=== PATIENT | female | born 1965 | race Caucasian/White ===

== ENCOUNTER → 2023-04-30 | Emergency (ER) | payer BC, OTHER ==
[~2023-04-30] MED LIST: AZITHROMYCIN 250 MG TAB ONE; CEFTRIAXONE 1000 MG/VIAL ONE; WATER FOR INJ,STERILE 10 ML ONE
--- OUTSIDE RECORDS SUMMARY | 2023-04-30 23:26 | XMS REPORT | Continuity of Care Document ---
Author Name Unknown Address [address] [facility] [address] [id number] [facility] Address [address] [id number] [address] [place] [address] Care Team Providers Care Newsroom Intern Name Role Phone SUNI BARTON Attending Clinician Unavailable Encounters Start Date/Time End Date/Time Encounter Type Admission Type Attending Clinicians Care Facility Care Department Encounter ID Source 2023-05-05 11:00:00 2023-05-05 11:00:00 Outpatient SUNI BARTON [id number] [place]
--- NOTE | 2023-05-01 00:56 | EDPHYS ---
Physician Documentation [facility] Name: Allison Raymundo Age: 57 yrs Sex: Female : 1965 Arrival Date: 04/30/2023 Time: 23:21 Bed 12 Private MD: ED Physician John Doshi HPI: 04/30 23:45 This 57 yrs old Female presents to ER via Unassigned with complaints of Sore Throat, kb Cough, Difficulty Swallowing. 23:45 Pt is a 57 year old female who presents for cough and sore throat that started this kb morning. Denies fever, chills, bodyaches. Historical: - Allergies: 23:45 Codeine; cm10 - Home Meds: 23:47 diltiazem HCl 120 mg Oral Tablet, Extended Release 24 hr every morning [Active]; cm10 atorvastatin 40 mg oral tablet every day at bedtime [Active]; montelukast 10 mg oral tablet [Active]; - PMHx: 23:45 Palpitations; Asthma; Hypertensive disorder; Hypercholesterolemia; cm10 - Immunization history:: Adult Immunizations up to date. - Social history:: Smoking status: Patient denies any tobacco usage or history of. ROS: 23:45 Constitutional: Negative for fever, chills, and weight loss, kb 23:45 ENT: Positive for sore throat, 23:45 Respiratory: Positive for cough, 23:45 All other systems are negative, Exam: 23:45 Constitutional: This is a well developed, well nourished patient who is awake, alert, kb and in no acute distress. Head/Face: Normocephalic, atraumatic. ENT: Moist Mucous membranes Cardiovascular: Regular rate Respiratory: Respirations even and unlabored. No increased work of breathing. Talking in full sentences Skin: Warm, dry with normal turgor. Normal color. MS/ Extremity: Pulses equal, no cyanosis. Neurovascular intact. Full, normal range of motion. Neuro: Awake and alert, GCS 15, oriented to person, place, time, and situation. Moves all extremities. Normal gait. 05/01 00:57 Musculoskeletal/extremity: DVT Exam: No signs of deep vein thrombosis. no pain, no taya swelling, no tenderness, negative Homans' sign noted on exam, no appreciated bluish discoloration, no erythema, no increased warmth, Vital Signs: 04/30 23:44 BP 114 / 64; Pulse 85; Resp 16; Temp 97.8(TE); Pulse Ox 94% on R/A; Weight 117.93 kg; cm10 Height 5 ft. 7 in. ; Pain /; 05/01 01:23 BP 123 / 71; Pulse 70; Resp 16; Pulse Ox 95% on R/A; jb4 04/30 23:44 Body Mass Index 40.72 (117.93 kg, 170.18 cm) cm10 04/30 23:44 Pain Scale: Adult cm10 MDM: 04/30 23:35 Patient medically screened. kb 23:46 Differential diagnosis: strep, flu, covid, pharyngitis, laryngitis. Data reviewed: kb vital signs, nurses notes. 05/01 00:55 Transition of care: After a detail discussion of the patient's case, care is kb transferred to John Doshi MD. 04/30 23:45 Order name: Strep; Complete Time: 01:12 kb 05/01 00:11 Order name: COVID-19/FLU A+B; Complete Time: 01:12 EDMS 05/01 00:54 Order name: Throat Culture EDMS Administered Medications: 01:18 Drug: AZITHromycin PO 500 mg PO once Route: PO; jb4 01:18 Drug: Rocephin (cefTRIAXone) IM 1 grams IM once Route: IM; Site: left gluteus; jb4 Disposition: 00:57 Co-signature as Attending Physician, John Doshi MD I agree with the assessment and [facility] plan of care. Disposition Summary: 05/01/23 00:56 Discharge Ordered Notes: Location: Home taya Condition: Stable taya Diagnosis - Acute pharyngitis, unspecified taya Followup: kb - With: Emergency Department - When: As needed - Reason: Worsening of condition Followup: kb - With: Private Physician - When: 2 - 3 days - Reason: Recheck today's complaints, Continuance of care, Re-evaluation by your physician Discharge Instructions: - Discharge Summary Sheet kb - Pharyngitis, [id number] kb - Sore Throat taya Forms: - Medication Reconciliation Form taya - Thank You Letter taya - Antibiotic Education taya - Prescription Opioid Use taya - Patient Portal Instructions taya - Leadership Thank You Letter [facility] Prescriptions: - Tessalon Perles 100 mg Oral capsule - take 2 capsule ORAL route every 8 hours As needed; 30 capsule; Refills: 0, taya Product Selection Permitted - Medrol (Kiet) 4 mg Oral Tablets, Dose Pack - take 1 tablet ORAL route as directed - follow package instructions; 1 packet; [facility] Refills: 0, Product Selection Permitted - Zithromax 500 mg Oral Tablet - take 1 tablet ORAL route once daily for 5 days; 5 tablet; Refills: 0, Product taya Selection Permitted Signatures: Dispatcher [employer] EDMarialuisa Mulligan FNP-C FNP-John Washburn MD MD cha Bryson, James, RN RN jb4 Leila Dash RN RN cm10 Corrections: (The following items were deleted from the chart) 00:04/30 23:46 Influenza Screen (A \T\ B)+BA.LAB.BRZ ordered. EDMS EDMS 05/01 00:11 04/30 23:46 SARS-COV-2 RT PCR+MOL.LAB.BRZ ordered. EDMS EDMS
--- NOTE | 2023-05-01 00:56 | ER ---
Nurse's Notes [facility] Name: Allison Raymundo Age: 57 yrs Sex: Female : 1965 Arrival Date: 04/30/2023 Time: 23:21 Bed 12 Private MD: Diagnosis: Acute pharyngitis, unspecified Presentation: 04/30 23:44 Chief complaint: Patient states: Cough and sore throat onset today. Pt denies any cm10 fevers. Coronavirus screen: Vaccine status: Patient reports receiving the 2nd dose of the covid vaccine. Client denies travel out of the [place] in the last 14 days. Ebola Screen: Patient denies travel to an Ebola-affected area in the 21 days before illness onset. No symptoms or risks identified at this time. Initial Sepsis Screen: Does the patient meet any 2 criteria? No. Patient's initial sepsis screen is negative. Does the patient have a suspected source of infection? No. Patient's initial sepsis screen is negative. Risk Assessment: Do you want to hurt yourself or someone else? Patient reports no desire to harm self or others. Onset of symptoms was April 30, 2023. 23:44 Method Of Arrival: Ambulatory cm10 23:44 Acuity: VIKAS 4 cm10 Triage Assessment: 23:46 General: Appears in no apparent distress. comfortable, Behavior is calm, cooperative. cm10 Pain: Complains of pain in Throat. EENT: Reports pain in Throat. Neuro: No deficits noted. [place] Agitation-Sedation Scale (RASS): 0 - Alert and Calm Level of Consciousness is awake, alert, obeys commands, Oriented to person, place, time, situation. Cardiovascular: No deficits noted. Patient's skin is warm and dry. Respiratory: No deficits noted. Airway is patent Respiratory effort is even, unlabored, Respiratory pattern is regular, symmetrical. GI: No deficits noted. No signs and/or symptoms were reported involving the gastrointestinal system. : No deficits noted. No signs and/or symptoms were reported regarding the genitourinary system. Derm: No deficits noted. No signs and/or symptoms reported regarding the dermatologic system. Skin is intact, Skin is pink, warm \T\ dry. Musculoskeletal: No deficits noted. Range of motion: intact in all extremities. Historical: - Allergies: 23:45 Codeine; cm10 - Home Meds: 23:47 diltiazem HCl 120 mg Oral Tablet, Extended Release 24 hr every morning [Active]; cm10 atorvastatin 40 mg oral tablet every day at bedtime [Active]; montelukast 10 mg oral tablet [Active]; - PMHx: 23:45 Palpitations; Asthma; Hypertensive disorder; Hypercholesterolemia; cm10 - Immunization history:: Adult Immunizations up to date. - Social history:: Smoking status: Patient denies any tobacco usage or history of. Screenin/08 01:34 [facility] ED Fall Risk Assessment (Adult) History of falling in the last 3 months, jb4 including since admission No falls in past 3 months (0 pts) Confusion or Disorientation No (0 pts) Score/Fall Risk Level 0 - 2 = Low Risk Oriented to surroundings, Maintained a safe environment. Abuse screen: Denies threats or abuse. Nutritional screening: No deficits noted. Tuberculosis screening: No symptoms or risk factors identified. Assessment: 01:22 Reassessment: Patient appears in no apparent distress at this time. Patient and/or jb4 family updated on plan of care and expected duration. Pain level reassessed. Patient is alert, oriented x 3, equal unlabored respirations, skin warm/dry/pink. D/c waiting shot time. Vital Signs: 04/30 23:44 BP 114 / 64; Pulse 85; Resp 16; Temp 97.8(TE); Pulse Ox 94% on R/A; Weight 117.93 kg; cm10 Height 5 ft. 7 in. ; Pain /10; 05/01 01:23 BP 123 / 71; Pulse 70; Resp 16; Pulse Ox 95% on R/A; jb4 04/30 23:44 Body Mass Index 40.72 (117.93 kg, 170.18 cm) cm10 04/30 23:44 Pain Scale: Adult cm10 ED Course: 04/30 23:32 Patient arrived in ED. gm2 23:35 Marialuisa Rodriguez FNP-C is PHCP. kb 23:35 John Doshi MD is Attending Physician. kb 23:45 Triage completed. cm10 23:46 Arm band placed on Patient placed in waiting room. cm10 23:52 Strep Sent. cm10 05/01 01:34 Patient has correct armband on for positive identification. Bed in low position. Call jb4 light in reach. Side rails up X 1. 01:34 No provider procedures requiring assistance completed. Patient did not have IV access jb4 during this emergency room visit. Administered Medications: 01:18 Drug: AZITHromycin PO 500 mg PO once Route: PO; jb4 01:18 Drug: Rocephin (cefTRIAXone) IM 1 grams IM once Route: IM; Site: left gluteus; jb4 Outcome: 00:56 Discharge ordered by . taya 01:34 Discharged to home ambulatory, jb4 01:34 Condition: stable 01:34 Discharge instructions given to patient, Instructed on discharge instructions, follow up and referral plans. medication usage, Demonstrated understanding of instructions, follow-up care, medications, Prescriptions given X 3, 01:36 Patient left the ED. jb4 Signatures: Marialuisa Rodriguez, MENSWEAR SALESPERSON-C MENSWEAR SALESPERSON-Ckb John Doshi MD MD cha Bryson, James, RN RN jb4 Leila Dash RN RN cm10 Alexandra Díaz 2 Corrections: (The following items were deleted from the chart) 00:11 04/30 23:52 SARS-COV-2 RT PCR+MOL.LAB.BRZ drawn and sent. cm10 EDMS 05/01 00:11 04/30 23:52 Influenza Screen (A \T\ B)+BA.LAB.BRZ drawn and sent. 10 EDMS
[2023-05-01 01:12] LABS: SARS-COV-2 RT PCR NEGATIVE (NEGATIVE)
[2023-05-01 03:52] VITALS: BP 123/71; TEMP 97.8; O2SAT 95
== END ==
LOC: ER 23:21
DX: J02.9 Acute pharyngitis, unspecified (principal); R05.9 Cough, unspecified; Z11.52 Encounter for screening for COVID-19; I10 Essential (primary) hypertension; Z88.5 Allergy status to narcotic agent
CPT/HCPCS: 87070; 87081; 0240U; 96372; 99284

== ENCOUNTER 2023-05-07 23:59 | Emergency (ER) | payer OTHER ==
--- OUTSIDE RECORDS SUMMARY | 2023-05-08 00:17 | XMS REPORT | Continuity of Care Document ---
Author Name Unknown Address [address] [facility] [address] [place] [address] [facility] thconnect Address [address] [address] [address] [place] [address] Care Team Providers Care Reject Opener And Filler Name Role Phone MEGA FERNANDEZ Primary Care Physician Unavailab LILIANA Delacruz Attending Clinician Unavailable LENI FLORES Attending Clinician Unavailable FEDE LAWS Attending Clinician Unavailable LAB47 Attending Clinician Unavailable SUNI BARTON Attending Clinician Unavailable RADHA JOY Attending Clinician UnavailRADHA Weber Attending Clinician UnavailUmm Mcnulty PTA Attending Clinician Unav Radha Kumar MD Attending Clinician [phone] Fede Laws MD Attending Clinician [phone] Nidia Weathers PT Attending Clinician UnavailMega Mustafa Attending Clinician [phone] Leni Flores MD Attending Clinician [phone] Liliana Morales MD Attending Clinician [phone] CLARISA RIVERO Attending Clinician Unavailable Clarisa Rivero MD Attending Clinician [phone] Doctor Unassigned, [place] Attending Clinician U Evelia Plaza PTA Attending Clinician Unavail able Crissy Nguyen PTA Attending Clinician Unavail able Maylin Navarro PT Attending Clinician Un available Dillon Garza MD Attending Clinician [phone]- [phone] MEGA FERNANDEZ Attending Clinician Unavailable FABIOLA PERKINS Attending Clinician Unavaila FABIOLA Quintanilla Attending Clinician Unavaila ble Lavon Vásquez DO Attending Clinician [phone] LAVON VÁSQUEZ Attending Clinician Unavailable LAVON VÁSQUEZ Attending Clinician Unavailable Orthopedic Surgery, Orthopedic Attending Clinici an Unavailable DENNIS QUINN Attending Clinician Unavailable Dennis Salgado Attending Clinician [phone] Leonard Edmonds MD Attending Clinician + [phone] Lab, Ang - Db Attending Clinician Unavailable LEONARD EDMONDS Attending Clinician Unavaila clarice NurseClifton Attending Clinician Unavailable Only, Adc Test Attending Clinician Unavailable Olaf Tolentino MD Attending Clinician [phone] BELINDA SCOTT Attending Clinician Unavailable ELY KUMAR Attending Clinician Unavail able ELY KUMAR Attending Clinician Unavail able ASIYA SANDOVAL Attending Clinician Unavaila ble ABU-SHARIFEH, TAREQ Attending Clinician Unavaila ble ABU-SHARIFEH, TAREQ Attending Clinician Unavaila ble LILIANA MORALES Admitting Clinician Unavailable DENNIS QUINN Admitting Clinician Unavailable ELIZABETH GOLDBERG Admitting Clinician Unavailable ABU-SHARIFEH, TAREQ Admitting Clinician Unavaila ble Payers Payer Name Policy Type Policy Number Effective Date Expirati on Date Source HIM BCBS BLUE ADVANTAGE O [id number] 2018 00:00:00 [employer] [facility] [employer] 5 O [employer] 94 ON 9 [id number] 2023 00:00:00 Problems Condition Name Condition Details Condition Category Status Onset Date Resolution Date Last Treatment Date Treating Clinician Comments Source Allergic conjunctiv itis of both eyes Allergic conjunctiv itis of both eyes Disease Active 08-08 00:00: 00 [facility] Rotator cuff disorder, left Rotator cuff disorder, left Disease Active 17 00:00: 00 [facility] Acute pain of left shoulder Acute pain of left shoulder Disease Active 2-20 00:00: 00 [facility] Acute pain of left shoulder Acute pain of left shoulder Disease Active 2-20 00:00: 00 [facility] Hospital discharge follow-up Hospital discharge follow-up Disease Active 1-10 00:00: 00 [facility] Mild persistent asthma without complicati on Mild persistent asthma without complicati on Disease Active 1-10 00:00: 00 [facility] Breast cancer screening by mammogram Breast cancer screening by mammogram Disease Active 1-10 00:00: 00 [facility] Post-menop ausal Post-menop ausal Disease Active 6-22 00:00: 00 [facility] Hot flashes Hot flashes Disease Active 6- 00:00: 00 [facility] Vertigo Vertigo Disease Active 2019-04 0-17 00:00: 00 [facility] PAF (paroxysma l atrial fibrillati on) (multi HCC) PAF (paroxysma l atrial fibrillati on) (multi HCC) Disease Active 2019-04 0-17 00:00: 00 Mary Seybold - Externa l Morbid obesity with body mass index of 40.0-49.9 Morbid obesity with body mass index of 40.0-49.9 Disease Active 9-24 00:00: 00 [facility] BERKLEY (obstructi ve sleep apnea) BERKLEY (obstructi ve sleep apnea) Disease Active 3-22 00:00: 00 Mary Seybold - Externa l Syncope Syncope Disease Active 3-14 00:00: 00 [facility] Nonobstruc tive atheroscle rosis of coronary artery Nonobstruc tive atheroscle rosis of coronary artery Disease Active 0 2-26 00:00: 00 [facility] Near syncope Near syncope Disease Active 0 2-13 00:00: 00 [facility] Pain of both shoulder joints Pain of both shoulder joints Disease Active 0 7-24 00:00: 00 [facility] Myofascial pain Myofascial pain Disease Active 7-24 00:00: 00 [facility] Chest pain Chest pain Disease Active 608 00:00: 00 [facility] Elevated troponin Elevated troponin Disease Active 6 00:00: 00 [facility] Elevated troponin Elevated troponin Disease Active 09-28 00:00: 00 [facility] Hypoxia Hypoxia Disease Active 05-03 00:00: 00 [facility] Arthritis, lumbar spine Arthritis, lumbar spine Disease Active 07-17 00:00: 00 [facility] HPFH (hereditar y persistenc e of hemoglobin ) HPFH (hereditar y persistenc e of hemoglobin ) Disease Active 09-09 00:00: 00 [facility] Anemia Anemia Disease Active 08-30 00:00: 00 [facility] Abnormal thyroid function test Abnormal thyroid function test Disease Active 08-30 00:00: 00 [facility] Vitamin D deficiency Vitamin D deficiency Disease Active 08-30 00:00: 00 [facility] Obesity (BMI 30-39.9) Obesity (BMI 30-39.9) Disease Active 07-02 00:00: 00 [facility] Allergic rhinitis, unspecifie d allergic rhinitis trigger, unspecifie d rhinitis seasonalit y Allergic rhinitis, unspecifie d allergic rhinitis trigger, unspecifie d rhinitis seasonalit y Disease Active 05-22 00:00: 00 [facility] Uncomplica kristie asthma, unspecifie d asthma severity Uncomplica kristie asthma, unspecifie d asthma severity Disease Active 05-22 00:00: 00 [facility] Restless legs syndrome (RLS) Restless legs syndrome (RLS) Disease Active 05-22 00:00: 00 [facility] Prediabete s Prediabete s Disease Active 05-22 00:00: 00 [facility] Uncomplica kristie asthma (HHS-HCC) Uncomplica kristie asthma (HHS-HCC) Disease Active 05-22 00:00: 00 [facility] Essential hypertensi on Essential hypertensi on Disease Active 05-19 00:00: 00 [facility] Dyslipidem ia Dyslipidem ia Disease Active 05-19 00:00: 00 [facility] Allergies, Adverse Reactions, Alerts Allergy Name Allergy Type Status Severity Reaction(s) Onset Date Inactive Date Treating Clinician Comments Source Codeine Propensi ty to adverse reaction s Active Hives 10-05 00:00: 00 [facility] CODEINE DRUG INGREDI Active Low Hives 10-05 00:00: 00 [facility] Codeine Propensi ty to adverse reaction s Active Shortness of Breath 10-05 00:00: 00 Mary gan Social History Social Habit Start Date Stop Date Quantity Comments Source Gender identity [facility] Sexual orientation K mike Hampton - External History of Social function 2023-05-05 00:00:00 2023-05-05 00:00:00 Mary Hampton - External Tobacco use and exposure 2023-05-05 00:00:00 2023-05-05 00:00:00 Smokeless tobacco non-user Mary Hampton - External Alcohol intake 2023-05-05 00:00:00 2023-05-05 00:00:00 Lifetime non-drinker (finding) Mary Hampton - External Exposure to SARS-CoV-2 (event) 2022-09-22 00:00:00 2022-10-02 23:25:00 Not sure [facility] Tobacco Comment 2022-01-25 00:00:00 2022-01-25 00:00:00 Approx. 3 pouches/day/ has not smoked in 21 years [facility] History SDOH Financial 2019-07-06 00:00:00 2019-07-06 00:00:00 5 [facility] History of tobacco use 2018-04-16 00:00:00 Chews Tobacco [facility] Sex Assigned At 1965 00:00:00 1965 00:00:00 Mary Dupont External Smoking Status Start Date Stop Date Source Never smoked tobacco Mary Hampton - External Ex-smoker 2022-01-25 00:00:00 2022-01-25 00:00:00 [facility] Medications Ordered Medication Name Filled Medication Name Start Date Stop Date Current Medication? Ordering Clinician Indication Dosage Frequency Signature (SIG) Comments Components Source Levalbutero malik HCl 0.63 MG/3ML inhalation Inhalant Solution 05-05 11:20: 38 05-05 00:00 :00 No .63mg Take 3 mL (0.63 mg total) by nebulizati on once. Mary gan Albuterol Sulfate (VENTOLIN HFA IN) 05-05 11:20: 38 05-05 00:00 :00 No 2{puff} Inhale 2 puffs into the lungs as needed. Mary gan Fluticasone -Salmeterol (Advair Diskus) 500-50 MCG/ACT inhalation AEROSOL POWDER, BREATH ACTIVATED 05-05 11:20: 38 05-05 00:00 :00 No 1{puff} Inhale 1 puff into the lungs 2 times daily. [facility] Atorvastati n Calcium 40 MG oral Tablet 05-05 11:17: 45 Yes [id number] 40mg Take 1 tablet (40 mg total) by mouth at bedtime. [facility] Diltiazem HCl CR 120 MG oral Capsule 24 Hour Sustained Release 05-05 11:17: 45 Yes [id number] 120mg Take 1 capsule (120 mg total) by mouth every morning. [facility] Montelukast (SINGULAIR) 10 MG oral Tablet tablet 05-05 11:17: 45 Yes [id number] 10mg Take 1 tablet (10 mg total) by mouth every evening. [facility] Multiple Vitamin (MULTIVITAM IN ADULT OR) 05-05 10:49: 01 Yes [id number] Take by mouth. [facility] Fluticasone -Salmeterol (Advair Diskus) 500-50 MCG/ACT inhalation AEROSOL POWDER, BREATH ACTIVATED 05-05 00:00: 00 Yes [id number] 1{puff} Inhale 1 puff into the lungs 2 times daily. [facility] Levalbutero malik HCl 0.63 MG/3ML inhalation Inhalant Solution 05-05 00:00: 00 Yes [id number] .63mg Take 3 mL (0.63 mg total) by nebulizati on once for 1 dose. [facility] Albuterol HFA (VENTOLIN HFA) 108 (90 Base) MCG/ACT IN AERS 05-05 00:00: 00 Yes [id number] 1{puff} Q4H Inhale 1-2 puffs into the lungs every 4 hours as needed for wheezing or shortness of breath. [facility] methylPREDN ISolone 4 MG oral Tablet Therapy Pack 05-01 00:00: 00 Yes [id number] 6{tbl} 6 tablets See Admin Instructio ns TAKE 6 TABLETS ON DAY 1 DIRECTED ON PACKAGE AND DECREASE BY 1 TAB EACH DAY FOR A TOTAL OF 6 DAYS. [facility] atorvastati n 40 mg tablet 2022-04 00:00: 00 Yes [id number] 40mg Take 1 tablet by mouth at bedtime. [facility] montelukast 10 mg tablet 2022-04 00:00: 00 Yes [id number] 10mg Take 1 tablet by mouth every evening. [facility] atorvastati n 40 mg tablet 2022-04 00:00: 00 Yes [id number] 40mg Take 1 tablet by mouth at bedtime. [facility] montelukast 10 mg tablet 2022-04 00:00: 00 Yes [id number] 10mg Take 1 tablet by mouth every evening. [facility] diltiazem XR 120 mg 24 hr capsule 2022-04 00:00: 00 Yes [id number] 120mg Take 1 capsule by mouth in the morning. [facility] atorvastati n 40 mg tablet 2022-04 00:00: 00 Yes [id number] 40mg Take 1 tablet by mouth at bedtime. [facility] montelukast 10 mg tablet 2022-04 00:00: 00 Yes [id number] 10mg Take 1 tablet by mouth every evening. [facility] atorvastati n 40 mg tablet 2022-04 00:00: 00 Yes [id number] 40mg Take 1 tablet by mouth at bedtime. [facility] montelukast 10 mg tablet 2022-04 00:00: 00 Yes [id number] 10mg Take 1 tablet by mouth every evening. [facility] atorvastati n 40 mg tablet 2022-04 00:00: 00 Yes [id number] 40mg Take 1 tablet by mouth at bedtime. [facility] montelukast 10 mg tablet 2022-04 00:00: 00 Yes [id number] 10mg Take 1 tablet by mouth every evening. [facility] diltiazem XR 120 mg 24 hr capsule 2022-04 00:00: 00 Yes [id number] 120mg Take 1 capsule by mouth in the morning. [facility] atorvastati n 40 mg tablet 2022-04 00:00: 00 Yes [id number] 40mg Take 1 tablet by mouth at bedtime. [facility] montelukast 10 mg tablet 2022-04 00:00: 00 Yes [id number] 10mg Take 1 tablet by mouth every evening. [facility] diltiazem XR 120 mg 24 hr capsule 2022-04 00:00: 00 Yes [id number] 120mg Take 1 capsule by mouth in the morning. [facility] atorvastati n 40 mg tablet 2022-04 00:00: 00 Yes [id number] 40mg Take 1 tablet by mouth at bedtime. [facility] montelukast 10 mg tablet 2022-04 00:00: 00 Yes [id number] 10mg Take 1 tablet by mouth every evening. [facility] diltiazem XR 120 mg 24 hr capsule 2022-04 00:00: 00 Yes [id number] 120mg Take 1 capsule by mouth in the morning. [facility] atorvastati n 40 mg tablet 2022-04 0 00:00: 00 Yes [id number] 40mg Take 1 tablet by mouth at bedtime. [facility] montelukast 10 mg tablet 2022-04 00:00: 00 Yes [id number] 10mg Take 1 tablet by mouth every evening. [facility] diltiazem XR 120 mg 24 hr capsule 2022-04 00:00: 00 Yes [id number] 120mg Take 1 capsule by mouth in the morning. [facility] atorvastati n 40 mg tablet 2022-04 00:00: 00 Yes [id number] 40mg Take 1 tablet by mouth at bedtime. [facility] montelukast 10 mg tablet 2022-04 00:00: 00 Yes [id number] 10mg Take 1 tablet by mouth every evening. [facility] diltiazem XR 120 mg 24 hr capsule 2022-04 00:00: 00 Yes [id number] 120mg Take 1 capsule by mouth in the morning. [facility] atorvastati n 40 mg tablet 2022-04 00:00: 00 Yes [id number] 40mg Take 1 tablet by mouth at bedtime. [facility] montelukast 10 mg tablet 2022-04 00:00: 00 Yes [id number] 10mg Take 1 tablet by mouth every evening. [facility] diltiazem XR 120 mg 24 hr capsule 2022-04 00:00: 00 Yes [id number] 120mg Take 1 capsule by mouth in the morning. [facility] atorvastati n 40 mg tablet 2022-04 00:00: 00 Yes [id number] 40mg Take 1 tablet by mouth at bedtime. [facility] montelukast 10 mg tablet 2022-04 00:00: 00 Yes [id number] 10mg Take 1 tablet by mouth every evening. [facility] diltiazem XR 120 mg 24 hr capsule 2022-04 00:00: 00 Yes [id number] 120mg Take 1 capsule by mouth in the morning. [facility] atorvastati n 40 mg tablet 2022-04 00:00: 00 Yes [id number] 40mg Take 1 tablet by mouth at bedtime. [facility] montelukast 10 mg tablet 2022-04 00:00: 00 Yes [id number] 10mg Take 1 tablet by mouth every evening. [facility] diltiazem XR 120 mg 24 hr capsule 2022-04 00:00: 00 Yes [id number] 120mg Take 1 capsule by mouth in the morning. [facility] atorvastati n 40 mg tablet 2022-04 00:00: 00 Yes [id number] 40mg Take 1 tablet by mouth at bedtime. [facility] montelukast 10 mg tablet 2022-04 00:00: 00 Yes [id number] 10mg Take 1 tablet by mouth every evening. [facility] diltiazem XR 120 mg 24 hr capsule 2022-04 00:00: 00 Yes [id number] 120mg Take 1 capsule by mouth in the morning. [facility] atorvastati n 40 mg tablet 2022-04 00:00: 00 Yes [id number] 40mg Take 1 tablet by mouth at bedtime. [facility] montelukast 10 mg tablet 2022-04 00:00: 00 Yes [id number] 10mg Take 1 tablet by mouth every evening. [facility] diltiazem XR 120 mg 24 hr capsule 2022-04 00:00: 00 Yes [id number] 120mg Take 1 capsule by mouth in the morning. [facility] atorvastati n 40 mg tablet 2022-04 00:00: 00 Yes [id number] 40mg Take 1 tablet by mouth at bedtime. [facility] montelukast 10 mg tablet 2022-04 00:00: 00 Yes [id number] 10mg Take 1 tablet by mouth every evening. [facility] diltiazem XR 120 mg 24 hr capsule 2022-04 00:00: 00 Yes [id number] 120mg Take 1 capsule by mouth in the morning. [facility] atorvastati n 40 mg tablet 2022-04 00:00: 00 Yes [id number] 40mg Take 1 tablet by mouth at bedtime. [facility] montelukast 10 mg tablet 2022-04 00:00: 00 Yes [id number] 10mg Take 1 tablet by mouth every evening. [facility] metoprolol tartrate 25 mg tablet 2022-04 10:18: 01-27 00:00 :00 No [facility] metoprolol tartrate 25 mg tablet 2022-04 10:18: 35 01-27 00:00 :00 No [facility] ATORVASTATI N 40 mg tablet 01-20 00:00: 00 Yes [id number] 40mg TAKE 1 TABLET BY MOUTH AT BEDTIME [facility] MONTELUKAST 10 mg tablet 01-20 00:00: 00 Yes [id number] 10mg TAKE ONE TABLET BY MOUTH EVERY EVENING [facility] ATORVASTATI N 40 mg tablet 01-20 00:00: 00 Yes [id number] 40mg TAKE 1 TABLET BY MOUTH AT BEDTIME [facility] MONTELUKAST 10 mg tablet 01-20 00:00: 00 Yes [id number] 10mg TAKE ONE TABLET BY MOUTH EVERY EVENING [facility] ATORVASTATI N 40 mg tablet 01-20 00:00: 00 Yes [id number] 40mg TAKE 1 TABLET BY MOUTH AT BEDTIME [facility] MONTELUKAST 10 mg tablet 01-20 00:00: 00 Yes [id number] 10mg TAKE ONE TABLET BY MOUTH EVERY EVENING [facility] ATORVASTATI N 40 mg tablet 01-20 00:00: 00 Yes [id number] 40mg TAKE 1 TABLET BY MOUTH AT BEDTIME [facility] MONTELUKAST 10 mg tablet 01-20 00:00: 00 Yes [id number] 10mg TAKE ONE TABLET BY MOUTH EVERY EVENING [facility] ATORVASTATI N 40 mg tablet 01-20 00:00: 00 02-17 00:00 :00 No [id number] 40mg TAKE 1 TABLET BY MOUTH AT BEDTIME [facility] MONTELUKAST 10 mg tablet 01-20 00:00: 00 02-17 00:00 :00 No [id number] 10mg TAKE ONE TABLET BY MOUTH EVERY EVENING [facility] ATORVASTATI N 40 mg tablet 01-20 00:00: 00 02-17 00:00 :00 No [id number] 40mg TAKE 1 TABLET BY MOUTH AT BEDTIME [facility] MONTELUKAST 10 mg tablet 01-20 00:00: 00 02-17 00:00 :00 No [id number] 10mg TAKE ONE TABLET BY MOUTH EVERY EVENING [facility] ATORVASTATI N 40 mg tablet 01-20 00:00: 00 02-17 00:00 :00 No [id number] 40mg TAKE 1 TABLET BY MOUTH AT BEDTIME [facility] MONTELUKAST 10 mg tablet 01-20 00:00: 00 02-17 00:00 :00 No [id number] 10mg TAKE ONE TABLET BY MOUTH EVERY EVENING [facility] ATORVASTATI N 40 mg tablet 01-20 00:00: 00 02-17 00:00 :00 No [id number] 40mg TAKE 1 TABLET BY MOUTH AT BEDTIME [facility] MONTELUKAST 10 mg tablet 01-20 00:00: 00 02-17 00:00 :00 No [id number] 10mg TAKE ONE TABLET BY MOUTH EVERY EVENING [facility] diclofenac 25 mg EC tablet 11-28 00:00: 00 Yes [id number] 25mg Take 1 tablet by mouth 2 (two) times daily as needed for Pain. TAKE ONE TABLET BY MOUTH TWICE A DAY WITH A MEAL NEEDED FOR PAIN Strength: 25 mg [facility] diclofenac 25 mg EC tablet 11-28 00:00: 00 Yes [id number] 25mg Take 1 tablet by mouth 2 (two) times daily as needed for Pain. TAKE ONE TABLET BY MOUTH TWICE A DAY WITH A MEAL NEEDED FOR PAIN Strength: 25 mg [facility] diclofenac 25 mg EC tablet 11-28 00:00: 00 Yes [id number] 25mg Take 1 tablet by mouth 2 (two) times daily as needed for Pain. TAKE ONE TABLET BY MOUTH TWICE A DAY WITH A MEAL NEEDED FOR PAIN Strength: 25 mg [facility] diclofenac 25 mg EC tablet 11-28 00:00: 00 Yes [id number] 25mg Take 1 tablet by mouth 2 (two) times daily as needed for Pain. TAKE ONE TABLET BY MOUTH TWICE A DAY WITH A MEAL NEEDED FOR PAIN Strength: 25 mg [facility] diclofenac 25 mg EC tablet 11-28 00:00: 00 Yes [id number] 25mg Take 1 tablet by mouth 2 (two) times daily as needed for Pain. TAKE ONE TABLET BY MOUTH TWICE A DAY WITH A MEAL NEEDED FOR PAIN Strength: 25 mg [facility] diclofenac 25 mg EC tablet 11-28 00:00: 00 Yes [id number] 25mg Take 1 tablet by mouth 2 (two) times daily as needed for Pain. TAKE ONE TABLET BY MOUTH TWICE A DAY WITH A MEAL NEEDED FOR PAIN Strength: 25 mg [facility] diclofenac 25 mg EC tablet 11-28 00:00: 00 Yes [id number] 25mg Take 1 tablet by mouth 2 (two) times daily as needed for Pain. TAKE ONE TABLET BY MOUTH TWICE A DAY WITH A MEAL NEEDED FOR PAIN Strength: 25 mg [facility] diclofenac 25 mg EC tablet 11-28 00:00: 00 Yes [id number] 25mg Take 1 tablet by mouth 2 (two) times daily as needed for Pain. TAKE ONE TABLET BY MOUTH TWICE A DAY WITH A MEAL NEEDED FOR PAIN Strength: 25 mg [facility] diclofenac 25 mg EC tablet 11-28 00:00: 00 Yes [id number] 25mg Take 1 tablet by mouth 2 (two) times daily as needed for Pain. TAKE ONE TABLET BY MOUTH TWICE A DAY WITH A MEAL NEEDED FOR PAIN Strength: 25 mg [facility] diclofenac 25 mg EC tablet 11-28 00:00: 00 Yes [id number] 25mg Take 1 tablet by mouth 2 (two) times daily as needed for Pain. TAKE ONE TABLET BY MOUTH TWICE A DAY WITH A MEAL NEEDED FOR PAIN Strength: 25 mg [facility] diclofenac 25 mg EC tablet 11-28 00:00: 00 Yes [id number] 25mg Take 1 tablet by mouth 2 (two) times daily as needed for Pain. TAKE ONE TABLET BY MOUTH TWICE A DAY WITH A MEAL NEEDED FOR PAIN Strength: 25 mg [facility] diclofenac 25 mg EC tablet 11-28 00:00: 00 Yes [id number] 25mg Take 1 tablet by mouth 2 (two) times daily as needed for Pain. TAKE ONE TABLET BY MOUTH TWICE A DAY WITH A MEAL NEEDED FOR PAIN Strength: 25 mg [facility] diclofenac 25 mg EC tablet 11-28 00:00: 00 Yes [id number] 25mg Take 1 tablet by mouth 2 (two) times daily as needed for Pain. TAKE ONE TABLET BY MOUTH TWICE A DAY WITH A MEAL NEEDED FOR PAIN Strength: 25 mg [facility] diclofenac 25 mg EC tablet 11-28 00:00: 00 Yes [id number] 25mg Take 1 tablet by mouth 2 (two) times daily as needed for Pain. TAKE ONE TABLET BY MOUTH TWICE A DAY WITH A MEAL NEEDED FOR PAIN Strength: 25 mg [facility] diclofenac 25 mg EC tablet 11-28 00:00: 00 Yes [id number] 25mg Take 1 tablet by mouth 2 (two) times daily as needed for Pain. TAKE ONE TABLET BY MOUTH TWICE A DAY WITH A MEAL NEEDED FOR PAIN Strength: 25 mg [facility] diclofenac 25 mg EC tablet 11-28 00:00: 00 Yes [id number] 25mg Take 1 tablet by mouth 2 (two) times daily as needed for Pain. TAKE ONE TABLET BY MOUTH TWICE A DAY WITH A MEAL NEEDED FOR PAIN Strength: 25 mg [facility] diclofenac 25 mg EC tablet 11-28 00:00: 00 Yes [id number] 25mg Take 1 tablet by mouth 2 (two) times daily as needed for Pain. TAKE ONE TABLET BY MOUTH TWICE A DAY WITH A MEAL NEEDED FOR PAIN Strength: 25 mg [facility] diclofenac 25 mg EC tablet 11-28 00:00: 00 Yes [id number] 25mg Take 1 tablet by mouth 2 (two) times daily as needed for Pain. TAKE ONE TABLET BY MOUTH TWICE A DAY WITH A MEAL NEEDED FOR PAIN Strength: 25 mg [facility] diclofenac 25 mg EC tablet 11-28 00:00: 00 Yes [id number] 25mg Take 1 tablet by mouth 2 (two) times daily as needed for Pain. TAKE ONE TABLET BY MOUTH TWICE A DAY WITH A MEAL NEEDED FOR PAIN Strength: 25 mg [facility] diclofenac 25 mg EC tablet 11-28 00:00: 00 Yes [id number] 25mg Take 1 tablet by mouth 2 (two) times daily as needed for Pain. TAKE ONE TABLET BY MOUTH TWICE A DAY WITH A MEAL NEEDED FOR PAIN Strength: 25 mg [facility] diclofenac 25 mg EC tablet 11-28 00:00: 00 Yes [id number] 25mg Take 1 tablet by mouth 2 (two) times daily as needed for Pain. TAKE ONE TABLET BY MOUTH TWICE A DAY WITH A MEAL NEEDED FOR PAIN Strength: 25 mg [facility] diclofenac 25 mg EC tablet 11-28 00:00: 00 Yes [id number] 25mg Take 1 tablet by mouth 2 (two) times daily as needed for Pain. TAKE ONE TABLET BY MOUTH TWICE A DAY WITH A MEAL NEEDED FOR PAIN Strength: 25 mg [facility] diclofenac 25 mg EC tablet 11-28 00:00: 00 Yes [id number] 25mg Take 1 tablet by mouth 2 (two) times daily as needed for Pain. TAKE ONE TABLET BY MOUTH TWICE A DAY WITH A MEAL NEEDED FOR PAIN Strength: 25 mg [facility] diclofenac 25 mg EC tablet 11-28 00:00: 00 Yes [id number] 25mg Take 1 tablet by mouth 2 (two) times daily as needed for Pain. TAKE ONE TABLET BY MOUTH TWICE A DAY WITH A MEAL NEEDED FOR PAIN Strength: 25 mg [facility] diclofenac 25 mg EC tablet 11-28 00:00: 00 Yes [id number] 25mg Take 1 tablet by mouth 2 (two) times daily as needed for Pain. TAKE ONE TABLET BY MOUTH TWICE A DAY WITH A MEAL NEEDED FOR PAIN Strength: 25 mg [facility] diclofenac 25 mg EC tablet 11-28 00:00: 00 Yes [id number] 25mg Take 1 tablet by mouth 2 (two) times daily as needed for Pain. TAKE ONE TABLET BY MOUTH TWICE A DAY WITH A MEAL NEEDED FOR PAIN Strength: 25 mg [facility] atorvastati n 40 mg tablet 10-25 00:00: 00 Yes [id number] 40mg Take 1 tablet by mouth at bedtime. [facility] montelukast 10 mg tablet 0 10-25 00:00: 00 Yes [id number] 10mg Take 1 tablet by mouth every evening. [facility] atorvastati n 40 mg tablet 10-25 00:00: 00 Yes [id number] 40mg Take 1 tablet by mouth at bedtime. [facility] montelukast 10 mg tablet 10-25 00:00: 00 Yes [id number] 10mg Take 1 tablet by mouth every evening. [facility] atorvastati n 40 mg tablet 0 10-25 00:00: 00 Yes [id number] 40mg Take 1 tablet by mouth at bedtime. [facility] montelukast 10 mg tablet 0 10-25 00:00: 00 Yes [id number] 10mg Take 1 tablet by mouth every evening. [facility] atorvastati n 40 mg tablet 0 10-25 00:00: 00 Yes [id number] 40mg Take 1 tablet by mouth at bedtime. [facility] montelukast 10 mg tablet 2022-0 10-25 00:00: 00 Yes [id number] 10mg Take 1 tablet by mouth every evening. [facility] atorvastati n 40 mg tablet 2022-0 10-25 00:00: 00 Yes [id number] 40mg Take 1 tablet by mouth at bedtime. [facility] montelukast 10 mg tablet 0 10-25 00:00: 00 Yes [id number] 10mg Take 1 tablet by mouth every evening. [facility] atorvastati n 40 mg tablet 2022-0 10-25 00:00: 00 Yes [id number] 40mg Take 1 tablet by mouth at bedtime. [facility] montelukast 10 mg tablet 2022-0 10-25 00:00: 00 Yes [id number] 10mg Take 1 tablet by mouth every evening. [facility] atorvastati n 40 mg tablet 2022-0 10-25 00:00: 00 Yes [id number] 40mg Take 1 tablet by mouth at bedtime. [facility] montelukast 10 mg tablet 2022-0 10-25 00:00: 00 Yes [id number] 10mg Take 1 tablet by mouth every evening. [facility] atorvastati n 40 mg tablet 0 10-25 00:00: 00 Yes [id number] 40mg Take 1 tablet by mouth at bedtime. [facility] montelukast 10 mg tablet 2022-0 10-25 00:00: 00 Yes [id number] 10mg Take 1 tablet by mouth every evening. [facility] atorvastati n 40 mg tablet 2022-0 10-25 00:00: 00 Yes [id number] 40mg Take 1 tablet by mouth at bedtime. [facility] montelukast 10 mg tablet 2022-0 - 00:00: 00 Yes [id number] 10mg Take 1 tablet by mouth every evening. [facility] atorvastati n 40 mg tablet 0 10-25 00:00: 00 Yes [id number] 40mg Take 1 tablet by mouth at bedtime. [facility] montelukast 10 mg tablet 0 10-25 00:00: 00 Yes [id number] 10mg Take 1 tablet by mouth every evening. [facility] atorvastati n 40 mg tablet 0 10-25 00:00: 00 01-20 00:00 :00 No [id number] 40mg Take 1 tablet by mouth at bedtime. [facility] montelukast 10 mg tablet 10-25 00:00: 00 01-20 00:00 :00 No [id number] 10mg Take 1 tablet by mouth every evening. [facility] atorvastati n 40 mg tablet 10-25 00:00: 00 01-20 00:00 :00 No [id number] 40mg Take 1 tablet by mouth at bedtime. [facility] montelukast 10 mg tablet 10-25 00:00: 00 01-20 00:00 :00 No [id number] 10mg Take 1 tablet by mouth every evening. [facility] atorvastati n 40 mg tablet 10-25 00:00: 00 01-20 00:00 :00 No [id number] 40mg Take 1 tablet by mouth at bedtime. [facility] montelukast 10 mg tablet 10-25 00:00: 00 01-20 00:00 :00 No [id number] 10mg Take 1 tablet by mouth every evening. [facility] methylPREDN ISolone acetate (DEPO-MEDRO L) injection 80 mg 10-03 17:45: 00 10-03 16:52 :00 No [id number] 80mg [facility] methylPREDN ISolone acetate (DEPO-MEDRO L) injection 80 mg 10-03 17:45: 00 10-03 16:52 :00 No [id number] 80mg 80 mg, Intramuscu lar, ONCE, 1 dose, On Mon10/03/22 at 1245, Routine [facility] methylPREDN ISolone acetate (DEPO-MEDRO L) injection 80 mg 10-03 17:45: 00 10-03 16:52 :00 No [id number] 80mg [facility] methylPREDN ISolone acetate (DEPO-MEDRO L) injection 80 mg 10-03 17:45: 00 10-03 16:52 :00 No [id number] 80mg 80 mg, Intramuscu lar, ONCE, 1 dose, On Mon10/03/22 at 1245, Routine [facility] methylPREDN ISolone acetate (DEPO-MEDRO L) injection 80 mg 10-03 17:45: 00 10-03 16:52 :00 No [id number] 80mg [facility] methylPREDN ISolone acetate (DEPO-MEDRO L) injection 80 mg 10-03 17:45: 00 10-03 16:52 :00 No [id number] 80mg 80 mg, Intramuscu lar, ONCE, 1 dose, On Mon10/03/22 at 1245, Routine [facility] methylPREDN ISolone acetate (DEPO-MEDRO L) injection 80 mg 10-03 17:45: 00 10-03 16:52 :00 No [id number] 80mg [facility] methylPREDN ISolone acetate (DEPO-MEDRO L) injection 80 mg 0 10-03 17:45: 00 10-03 16:52 :00 No [id number] 80mg 80 mg, Intramuscu lar, ONCE, 1 dose, On Mon10/03/22 at 1245, Routine [facility] DICLOFENAC 25 mg EC tablet 5-25 00:00: 00 Yes [id number] TAKE ONE TABLET BY MOUTH TWICE A DAY WITH A MEAL NEEDED FOR PAIN [facility] DICLOFENAC 25 mg EC tablet 2023-0 5-25 00:00: 00 Yes [id number] TAKE ONE TABLET BY MOUTH TWICE A DAY WITH A MEAL NEEDED FOR PAIN [facility] DICLOFENAC 25 mg EC tablet 2022-0 5-25 00:00: 00 Yes [id number] TAKE ONE TABLET BY MOUTH TWICE A DAY WITH A MEAL NEEDED FOR PAIN [facility] DICLOFENAC 25 mg EC tablet 3-0 5-25 00:00: 00 Yes [id number] TAKE ONE TABLET BY MOUTH TWICE A DAY WITH A MEAL NEEDED FOR PAIN [facility] DICLOFENAC 25 mg EC tablet 3-0 5-25 00:00: 00 Yes [id number] TAKE ONE TABLET BY MOUTH TWICE A DAY WITH A MEAL NEEDED FOR PAIN [facility] DICLOFENAC 25 mg EC tablet 3-0 5-25 00:00: 00 Yes [id number] TAKE ONE TABLET BY MOUTH TWICE A DAY WITH A MEAL NEEDED FOR PAIN [facility] DICLOFENAC 25 mg EC tablet 2022-0 5-25 00:00: 00 Yes [id number] TAKE ONE TABLET BY MOUTH TWICE A DAY WITH A MEAL NEEDED FOR PAIN [facility] DICLOFENAC 25 mg EC tablet 3-0 5-25 00:00: 00 Yes [id number] TAKE ONE TABLET BY MOUTH TWICE A DAY WITH A MEAL NEEDED FOR PAIN [facility] DICLOFENAC 25 mg EC tablet 3-0 5-25 00:00: 00 Yes [id number] TAKE ONE TABLET BY MOUTH TWICE A DAY WITH A MEAL NEEDED FOR PAIN [facility] DICLOFENAC 25 mg EC tablet 3-0 5-25 00:00: 00 Yes [id number] TAKE ONE TABLET BY MOUTH TWICE A DAY WITH A MEAL NEEDED FOR PAIN [facility] DICLOFENAC 25 mg EC tablet 3-0 5-25 00:00: 00 Yes [id number] TAKE ONE TABLET BY MOUTH TWICE A DAY WITH A MEAL NEEDED FOR PAIN [facility] DICLOFENAC 25 mg EC tablet 3-0 5-25 00:00: 00 Yes [id number] TAKE ONE TABLET BY MOUTH TWICE A DAY WITH A MEAL NEEDED FOR PAIN [facility] DICLOFENAC 25 mg EC tablet 3-0 5-25 00:00: 00 Yes [id number] TAKE ONE TABLET BY MOUTH TWICE A DAY WITH A MEAL NEEDED FOR PAIN [facility] DICLOFENAC 25 mg EC tablet 3-0 5-25 00:00: 00 Yes [id number] TAKE ONE TABLET BY MOUTH TWICE A DAY WITH A MEAL NEEDED FOR PAIN [facility] DICLOFENAC 25 mg EC tablet 3-0 5-25 00:00: 00 Yes [id number] TAKE ONE TABLET BY MOUTH TWICE A DAY WITH A [facility] 3-0 5-25 00:00: 00 Yes [id number] TAKE ONE TABLET BY MOUTH TWICE A DAY WITH A MEAL NEEDED [facility]IN [facility] EC tablet 3-0 5-25 00:00: 00 11-28 00:00 :00 No [id number] TAKE ONE TABLET BY MOUTH TWICE A DAY WITH A MEAL NEEDED FOR [facility]IN [facility] tablet 3-0 21 00:00: 00 Yes [id number] 25mg Take 1 tablet by mouth 2 (two) times daily with meals as needed for Pain. [facility] diclofenac 25 mg EC tablet 3-0 21 00:00: 00 Yes [id number] 25mg Take 1 tablet by mouth 2 (two) times daily with meals as needed [facility]. [facility] tablet 3-0 -21 00:00: 00 Yes [id number] 25mg Take 1 tablet by mouth 2 (two) times daily with meals as needed for Pain. [facility] diclofenac 25 mg EC tablet 3-0 -21 00:00: 00 Yes [id number] 25mg Take 1 tablet by mouth 2 (two) times daily with meals as needed for Pain. [facility] diclofenac 25 mg EC tablet 3-0 4-21 00:00: 00 Yes [id number] 25mg Take 1 tablet by mouth 2 (two) times daily with meals as needed for Pain. [facility] diclofenac 25 mg EC tablet 3-0 4-21 00:00: 00 Yes [id number] 25mg Take 1 tablet by mouth 2 (two) times daily with meals as needed for Pain. [facility] diclofenac 25 mg EC tablet 0 08-12 00:00: 00 Yes [id number] 25mg Take 1 tablet by mouth 2 (two) times daily with meals as needed for Pain. [facility] diclofenac 25 mg EC tablet 0 08-12 00:00: 00 Yes [id number] 25mg Take 1 tablet by mouth 2 (two) times daily with meals as needed for Pain. [facility] diclofenac 25 mg EC tablet 0 08-12 00:00: 00 09-15 00:00 :00 No [id number] 25mg Take 1 tablet by mouth 2 (two) times daily with meals as needed for Pain. [facility] meloxicam 15 mg TbDL 0 17 00:00: 00 Yes [id number] 15mg Take 15 mg by mouth as needed for Pain (scale 4-6) (daily PRN). [facility] Olopatadine 0.2 % ophthalmic drops 0 17 00:00: 00 Yes [id number] [id number] 1[drp] Place 1 Drop in each eye in the morning. [facility] meloxicam 15 mg TbDL 0 17 00:00: 00 Yes [id number] 15mg Take 15 mg by mouth as needed for Pain (scale 4-6) (daily PRN). [facility] Olopatadine 0.2 % ophthalmic drops 0 17 00:00: 00 Yes [id number] 9102 1[drp] Place 1 Drop in each eye in the morning. [facility] meloxicam 15 mg TbDL 2022-0 17 00:00: 00 Yes [id number] 15mg Take 15 mg by mouth as needed for Pain (scale 4-6) (daily PRN). [facility] Olopatadine 0.2 % ophthalmic drops 2022-0 17 00:00: 00 Yes [id number] 9102 1[drp] Place 1 Drop in each eye in the morning. [facility] meloxicam 15 mg TbDL 2022-0 17 00:00: 00 Yes [id number] 15mg Take 15 mg by mouth as needed for Pain (scale 4-6) (daily PRN). [facility] Olopatad[facility] 0.2 % ophthalmic drops 0 17 00:00: 00 Yes [id number] 9102 1[drp] Place 1 Drop in each eye in the morning. [facility] mel[facility] 15 mg TbDL 2022-0 17 00:00: 00 Yes [id number] 15mg Take 15 mg by mouth as needed for Pain (scale 4-6) (daily PRN). [facility] Olopatadine 0.2 % ophthalmic drops 2022-0 17 00:00: 00 Yes [id number] 9102 1[drp] Place 1 Drop in each eye in the morning. [facility] meloxicam 15 mg TbDL 2022-0 17 00:00: 00 Yes [id number] 15mg Take 15 mg by mouth as needed for Pain (scale 4-6) (daily PRN). [facility] Olopatadine 0.2 % ophthalmic drops 0 17 00:00: 00 Yes [id number] 9102 1[drp] Place 1 Drop in each eye in the morning. [facility] meloxicam 15 mg TbDL 2022-0 17 00:00: 00 Yes [id number] 15mg Take 15 mg by mouth as needed for Pain (scale 4-6) (daily PRN). [facility] Olopatad[facility] 0.2 % ophthalmic drops 2022-0 17 00:00: 00 Yes [id number] 9102 1[drp] Place 1 Drop in each eye in the morning. [facility] 15 mg TbDL 2022-0 17 00:00: 00 Yes [id number] 15mg Take 15 mg by mouth as needed for Pain (scale 4-6) (daily PRN). [facility] Olopatadine 0.2 % ophthalmic drops 2022-0 -17 00:00: 00 Yes [id number] 9102 1[drp] Place 1 Drop in each eye in the morning. [facility] mg TbDL 2022-0 17 00:00: 00 Yes [id number] 15mg Take 15 mg by mouth as needed for Pain (scale 4-6) (daily PRN). [facility] Olopatadine 0.2 % ophthalmic drops 0 17 00:00: 00 Yes [id number] 9102 1[drp] Place 1 Drop in each eye in the morning. [facility] mel[facility] 15 mg TbDL 2022-0 17 00:00: 00 Yes [id number] 15mg Take 15 mg by mouth as needed for Pain (scale 4-6) (daily PRN). [facility] Olopatadine 0.2 % ophthalmic drops 0 17 00:00: 00 Yes [id number] 9102 1[drp] Place 1 Drop in each eye in the morning. [facility] meloxicam 15 mg TbDL 2022-0 17 00:00: 00 Yes [id number] 15mg Take 15 mg by mouth as needed for Pain (scale 4-6) (daily PRN). [facility] Olopatadine 0.2 % ophthalmic drops 2022-0 17 00:00: 00 Yes [id number] 9102 1[drp] Place 1 Drop in each eye in the morning. [facility] meloxicam 15 mg TbDL 2022-0 17 00:00: 00 Yes [id number] 15mg Take 15 mg by mouth as needed for Pain (scale 4-6) (daily PRN). [facility] Olopatadine 0.2 % ophthalmic drops 2022-0 17 00:00: 00 Yes [id number] 9102 1[drp] Place 1 Drop in each eye in the morning. [facility] mel[facility] 15 mg TbDL 2022-0 17 00:00: 00 Yes [id number] 15mg Take 15 mg by mouth as needed for Pain (scale 4-6) (daily PRN). [facility] Olopatadine 0.2 % ophthalmic drops 2022-0 417 00:00: 00 Yes [id number] 9102 1[drp] Place 1 Drop in each eye in the morning. [facility] mel[facility] 15 mg TbDL 2022-0 17 00:00: 00 Yes [id number] 15mg Take 15 mg by mouth as needed for Pain (scale 4-6) (daily PRN). [facility] Olopatadine 0.2 % ophthalmic drops 2022-0 17 00:00: 00 Yes [id number] 9102 1[drp] Place 1 Drop in each eye in the morning. [facility] mel[facility] 15 mg TbDL 2022-0 17 00:00: 00 Yes [id number] 15mg Take 15 mg by mouth as needed for Pain (scale 4-6) (daily PRN). [facility] Olopatadine 0.2 % ophthalmic drops 2022-0 17 00:00: 00 Yes [id number] 9102 1[drp] Place 1 Drop in each eye in the morning. [facility] meloxicam 15 mg TbDL 2022-0 17 00:00: 00 Yes [id number] 15mg Take 15 mg by mouth as needed for Pain (scale 4-6) (daily PRN). [facility] Olopatadine 0.2 % ophthalmic drops 2022-0 17 00:00: 00 Yes [id number] 9102 1[drp] Place 1 Drop in each eye in the morning. [facility] mel[facility] 15 mg TbDL 2022-0 17 00:00: 00 Yes [id number] 15mg Take 15 mg by mouth as needed for Pain (scale 4-6) (daily PRN). [facility] Olopatadine 0.2 % ophthalmic drops 2022-0 17 00:00: 00 Yes [id number] 9102 1[drp] Place 1 Drop in each eye in the morning. [facility] 15 mg TbDL 3-0 -17 00:00: 00 Yes [id number] 15mg Take 15 mg by mouth as needed for Pain (scale 4-6) (daily PRN). [facility] Olopatadine 0.2 % ophthalmic drops 2022-0 4-17 00:00: 00 Yes [id number] 9102 1[drp] Place 1 Drop in each eye in the morning. [facility] mel[facility] 15 mg TbDL 2022-0 4-17 00:00: 00 Yes [id number] 15mg Take 15 mg by mouth as needed for Pain (scale 4-6) (daily PRN). [facility] Olopatadine 0.2 % ophthalmic drops 2022-0 4-17 00:00: 00 Yes [id number] 9102 1[drp] Place 1 Drop in each eye in the morning. [facility] 15 mg TbDL 2022-0 17 00:00: 00 Yes [id number] 15mg Take 15 mg by mouth as needed for Pain (scale 4-6) (daily PRN). [facility] Olopatadine 0.2 % ophthalmic drops 2022-0 17 00:00: 00 Yes [id number] 9102 1[drp] Place 1 Drop in each eye in the morning. [facility] meloxicam 15 mg TbDL 2022-0 17 00:00: 00 Yes [id number] 15mg Take 15 mg by mouth as needed for Pain (scale 4-6) (daily PRN). [facility] Olopatadine 0.2 % ophthalmic drops 2022-0 17 00:00: 00 Yes [id number] 9102 1[drp] Place 1 Drop in each eye in the morning. [facility] meloxicam 15 mg TbDL 3-0 4-17 00:00: 00 Yes [id number] 15mg Take 15 mg by mouth as needed for Pain (scale 4-6) (daily PRN). [facility] Olopatadine 0.2 % ophthalmic drops 2022-0 4-17 00:00: 00 Yes [id number] 9102 1[drp] Place 1 Drop in each eye in the morning. [facility] mel[facility]am 15 mg TbDL 3-0 4-17 00:00: 00 Yes [id number] 15mg Take 15 mg by mouth as needed for Pain (scale 4-6) (daily PRN). [facility] Olopatadine 0.2 % ophthalmic drops 2022-0 4-17 00:00: 00 Yes [id number] 9102 1[drp] Place 1 Drop in each eye in the morning. [facility] mel[facility]am 15 mg TbDL 2022-0 -17 00:00: 00 Yes [id number] 15mg Take 15 mg by mouth as needed for Pain (scale 4-6) (daily PRN). [facility] Olopatadine 0.2 % ophthalmic drops 2022-0 -17 00:00: 00 Yes [id number] 9102 1[drp] Place 1 Drop in each eye in the morning. [facility] meloxicam 15 mg TbDL 2022-0 17 00:00: 00 Yes [id number] 15mg Take 15 mg by mouth as needed for Pain (scale 4-6) (daily PRN). [facility] Olopatadine 0.2 % ophthalmic drops 2022-0 17 00:00: 00 Yes [id number] 9102 1[drp] Place 1 Drop in each eye in the morning. [facility] meloxicam 15 mg TbDL 3-0 17 00:00: 00 Yes [id number] 15mg Take 15 mg by mouth as needed for Pain (scale 4-6) (daily PRN). [facility] Olopatadine 0.2 % ophthalmic drops 2022-0 17 00:00: 00 Yes [id number] 9102 1[drp] Place 1 Drop in each eye in the morning. [facility] mel[facility] 15 mg TbDL 3-0 -17 00:00: 00 Yes [id number] 15mg Take 15 mg by mouth as needed for Pain (scale 4-6) (daily PRN). [facility] Olopatadine 0.2 % ophthalmic drops 2022-0 4-17 00:00: 00 Yes [id number] 9102 1[drp] Place 1 Drop in each eye in the morning. [facility] mel[facility]am 15 mg TbDL 3-0 4-17 00:00: 00 Yes [id number] 15mg Take 15 mg by mouth as needed for Pain (scale 4-6) (daily PRN). [facility] Olopatadine 0.2 % ophthalmic drops 2022-0 4-17 00:00: 00 Yes [id number] 9102 1[drp] Place 1 Drop in each eye in the morning. [facility] mel[facility]am 15 mg TbDL 2022-0 417 00:00: 00 Yes [id number] 15mg Take 15 mg by mouth as needed for Pain (scale 4-6) (daily PRN). [facility] Olopatadine 0.2 % ophthalmic drops 2022-0 417 00:00: 00 Yes [id number] 9102 1[drp] Place 1 Drop in each eye in the morning. [facility] meloxicam 15 mg TbDL 2022-0 17 00:00: 00 Yes [id number] 15mg Take 15 mg by mouth as needed for Pain (scale 4-6) (daily PRN). [facility] Olopatadine 0.2 % ophthalmic drops 2022-0 17 00:00: 00 Yes [id number] 9102 1[drp] Place 1 Drop in each eye in the morning. [facility] meloxicam 15 mg TbDL 2022-0 4-17 00:00: 00 Yes [id number] 15mg Take 15 mg by mouth as needed for Pain (scale 4-6) (daily PRN). [facility] Olopatadine 0.2 % ophthalmic drops 2022-0 4-17 00:00: 00 Yes [id number] 9102 1[drp] Place 1 Drop in each eye in the morning. [facility] meloxicam 15 mg TbDL 3-0 4-17 00:00: 00 Yes [id number] 15mg Take 15 mg by mouth as needed for Pain (scale 4-6) (daily PRN). [facility] Olopatadine 0.2 % ophthalmic drops 2022-0 417 00:00: 00 Yes [id number] 9102 1[drp] Place 1 Drop in each eye in the morning. [facility] mel[facility] 15 mg TbDL 2022-0 17 00:00: 00 Yes [id number] 15mg Take 15 mg by mouth as needed for Pain (scale 4-6) (daily PRN). [facility] Olopatadine 0.2 % ophthalmic drops 2022-0 17 00:00: 00 Yes [id number] 9102 1[drp] Place 1 Drop in each eye in the morning. [facility] meloxicam 15 mg TbDL 2022-0 17 00:00: 00 Yes [id number] 15mg Take 15 mg by mouth as needed for Pain (scale 4-6) (daily PRN). [facility] Olopatadine 0.2 % ophthalmic drops 2022-0 17 00:00: 00 Yes [id number] 9102 1[drp] Place 1 Drop in each eye in the morning. [facility] meloxicam 15 mg TbDL 2022-0 17 00:00: 00 Yes [id number] 15mg Take 15 mg by mouth as needed for Pain (scale 4-6) (daily PRN). [facility] Olopatadine 0.2 % ophthalmic drops 2022-0 17 00:00: 00 Yes [id number] 9102 1[drp] Place 1 Drop in each eye in the morning. [facility] meloxicam 15 mg TbDL 2022-0 17 00:00: 00 Yes [id number] 15mg Take 15 mg by mouth as needed for Pain (scale 4-6) (daily PRN). [facility] Olopatadine 0.2 % ophthalmic drops 2022-0 -17 00:00: 00 Yes [id number] 9102 1[drp] Place 1 Drop in each eye in the morning. [facility] Olopatadine 0.2 % ophthalmic drops 2022-0 17 00:00: 00 Yes [id number] 9102 1[drp] Place 1 Drop in each eye in the morning. [facility] Olopatadine 0.2 % ophthalmic drops 3-0 4-17 00:00: 00 Yes [id number] 9102 1[drp] Place 1 Drop in each eye in the morning. [facility] Olopatadine 0.2 % ophthalmic drops 3-0 4-17 00:00: 00 Yes [id number] 9102 1[drp] Place 1 Drop in each eye in the morning. [facility] Olopatadine 0.2 % ophthalmic drops 2022-0 4-17 00:00: 00 Yes [id number] 9102 1[drp] Place 1 Drop in each eye in the morning. [facility] Olopatadine 0.2 % ophthalmic drops 2022-0 4-17 00:00: 00 Yes [id number] 9102 1[drp] Place 1 Drop in each eye in the morning. [facility] Olopatadine 0.2 % ophthalmic drops 2022-0 4-17 00:00: 00 Yes [id number] 9102 1[drp] Place 1 Drop in each eye in the morning. [facility] [facility] Olopatadine 0.2 % ophthalmic drops 2022-0 4-17 00:00: 00 Yes [id number] 9102 1[drp] Place 1 Drop in each eye in the morning. [facility] Olopatadine 0.2 % ophthalmic drops 2022-0 4-17 00:00: 00 Yes [id number] 9102 1[drp] Place 1 Drop in each eye in the morning. [facility] Olopatadine 0.2 % ophthalmic drops 3-0 4-17 00:00: 00 Yes [id number] 9102 1[drp] Place 1 Drop in each eye in the morning. [facility] Olopatadine 0.2 % ophthalmic drops 3-0 4-17 00:00: 00 Yes [id number] 9102 1[drp] Place 1 Drop in each eye in the morning. [facility] Olopatadine 0.2 % ophthalmic drops 0 17 00:00: 00 Yes [id number] 9102 1[drp] Place 1 Drop in each eye in the morning. [facility] Olopatadine 0.2 % ophthalmic drops 0 17 00:00: 00 Yes [id number] 9102 1[drp] Place 1 Drop in each eye in the morning. [facility] Olopatadine 0.2 % ophthalmic drops 0 17 00:00: 00 Yes [id number] 9102 1[drp] Place 1 Drop in each eye in the morning. [facility] Olopatadine 0.2 % ophthalmic drops 17 00:00: 00 Yes [id number] 9102 1[drp] Place 1 Drop in each eye in the morning. [facility] Olopatadine 0.2 % ophthalmic drops 17 00:00: 00 Yes [id number] 9102 1[drp] Place 1 Drop in each eye in the morning. [facility] Olopatadine 0.2 % ophthalmic drops 0 17 00:00: 00 Yes [id number] 9102 1[drp] Place 1 Drop in each eye in the morning. [facility] Olopatadine 0.2 % ophthalmic drops 0 17 00:00: 00 Yes [id number] 9102 1[drp] Place 1 Drop in each eye in the morning. [facility] Olopatadine 0.2 % ophthalmic drops 0 17 00:00: 00 Yes [id number] 9102 1[drp] Place 1 Drop in each eye in the morning. [facility] Olopatadine 0.2 % ophthalmic drops 0 17 00:00: 00 Yes [id number] 9102 1[drp] Place 1 Drop in each eye in the morning. [facility] meloxicam 15 mg TbDL 0 17 00:00: 00 01-27 00:00 :00 No [id number] 15mg Take 15 mg by mouth as needed for Pain (scale 4-6) (daily PRN). [facility] meloxicam 15 mg TbDL 0 4-17 00:00: 00 01-27 00:00 :00 No [id number] 15mg Take 15 mg by mouth as needed for Pain (scale 4-6) (daily PRN). [facility] diltiazem XR 120 mg 24 hr capsule 0 4-07 00:00: 00 Yes [id number] 120mg Take 1 capsule by mouth in the morning. [facility] diltiazem XR 120 mg 24 hr capsule 2022-0 4- 00:00: 00 Yes [id number] 120mg Take 1 capsule by mouth in the morning. [facility] diltiazem XR 120 mg 24 hr capsule 2022-0 4- 00:00: 00 Yes [id number] 120mg Take 1 capsule by mouth in the morning. [facility] diltiazem XR 120 mg 24 hr capsule 2022-0 4- 00:00: 00 Yes [id number] 120mg Take 1 capsule by mouth in the morning. [facility] diltiazem XR 120 mg 24 hr capsule 2022-0 4- 00:00: 00 Yes [id number] 120mg Take 1 capsule by mouth in the morning. [facility] diltiazem XR 120 mg 24 hr capsule 2022-0 4- 00:00: 00 Yes [id number] 120mg Take 1 capsule by mouth in the morning. [facility] diltiazem XR 120 mg 24 hr capsule 3-0 4- 00:00: 00 Yes [id number] 120mg Take 1 capsule by mouth in the morning. [facility] diltiazem XR 120 mg 24 hr capsule 3-0 4- 00:00: 00 Yes [id number] 120mg Take 1 capsule by mouth in the morning. [facility] diltiazem XR 120 mg 24 hr capsule 3-0 4- 00:00: 00 Yes [id number] 120mg Take 1 capsule by mouth in the morning. [facility] diltiazem XR 120 mg 24 hr capsule 3-0 4-07 00:00: 00 Yes [id number] 120mg Take 1 capsule by mouth in the morning. [facility] d[facility] 120 mg 24 hr capsule 3-0 4-07 00:00: 00 Yes [id number] 120mg Take 1 capsule by mouth in the morning. [facility] d[facility]em [facility] 120 mg 24 hr capsule 3-0 4- 00:00: 00 Yes [id number] 120mg Take 1 capsule by mouth in the morning. [facility] diltiazem XR 120 mg 24 hr capsule 3-0 4- 00:00: 00 Yes [id number] 120mg Take 1 capsule by mouth in the morning. [facility] diltiazem XR 120 mg 24 hr capsule 3-0 4- 00:00: 00 Yes [id number] 120mg Take 1 capsule by mouth in the morning. [facility] diltiazem XR 120 mg 24 hr capsule 3-0 4-07 00:00: 00 Yes [id number] 120mg Take 1 capsule by mouth in the morning. [facility] diltiazem XR 120 mg 24 hr capsule 3-0 4- 00:00: 00 Yes [id number] 120mg Take 1 capsule by mouth in the morning. [facility] diltiazem XR 120 mg 24 hr capsule 3-0 4- 00:00: 00 Yes [id number] 120mg Take 1 capsule by mouth in the morning. [facility] diltiazem XR 120 mg 24 hr capsule 3-0 4- 00:00: 00 Yes [id number] 120mg Take 1 capsule by mouth in the morning. [facility] diltiazem XR 120 mg 24 hr capsule 3-0 4- 00:00: 00 Yes [id number] 120mg Take 1 capsule by mouth in the morning. [facility] diltiazem XR 120 mg 24 hr capsule 3-0 4- 00:00: 00 Yes [id number] 120mg Take 1 capsule by mouth in the morning. [facility] diltiazem XR 120 mg 24 hr capsule 3-0 4-07 00:00: 00 Yes [id number] 120mg Take 1 capsule by mouth in the morning. [facility] d[facility] 120 mg 24 hr capsule 3-0 4- 00:00: 00 Yes [id number] 120mg Take 1 capsule by mouth in the morning. [facility] diltiazem XR 120 mg 24 hr capsule 3-0 4- 00:00: 00 Yes [id number] 120mg Take 1 capsule by mouth in the morning. [facility] diltiazem XR 120 mg 24 hr capsule 3-0 4- 00:00: 00 Yes [id number] 120mg Take 1 capsule by mouth in the morning. [facility] diltiazem XR 120 mg 24 hr capsule 3-0 4- 00:00: 00 Yes [id number] 120mg Take 1 capsule by mouth in the morning. [facility] diltiazem XR 120 mg 24 hr capsule 3-0 4- 00:00: 00 Yes [id number] 120mg Take 1 capsule by mouth in the morning. [facility] diltiazem XR 120 mg 24 hr capsule 3-0 4- 00:00: 00 Yes [id number] 120mg Take 1 capsule by mouth in the morning. [facility] diltiazem XR 120 mg 24 hr capsule 3-0 4- 00:00: 00 Yes [id number] 120mg Take 1 capsule by mouth in the morning. [facility] diltiazem XR 120 mg 24 hr capsule 3-0 4- 00:00: 00 Yes [id number] 120mg Take 1 capsule by mouth in the morning. [facility] diltiazem XR 120 mg 24 hr capsule 3-0 4- 00:00: 00 Yes [id number] 120mg Take 1 capsule by mouth in the morning. [facility] diltiazem XR 120 mg 24 hr capsule 3-0 4- 00:00: 00 Yes [id number] 120mg Take 1 capsule by mouth in the morning. [facility] diltiazem XR 120 mg 24 hr capsule 3-0 4- 00:00: 00 Yes [id number] 120mg Take 1 capsule by mouth in the morning. [facility] dilt[facility]em XR 120 mg 24 hr capsule 3-0 4- 00:00: 00 Yes [id number] 120mg Take 1 capsule by mouth in the morning. [facility] diltiazem XR 120 mg 24 hr capsule 2023-0 4- 00:00: 00 Yes [id number] 120mg Take 1 capsule by mouth in the morning. [facility] diltiazem XR 120 mg 24 hr capsule 3-0 4- 00:00: 00 Yes [id number] 120mg Take 1 capsule by mouth in the morning. [facility] diltiazem XR 120 mg 24 hr capsule 3-0 4- 00:00: 00 Yes [id number] 120mg Take 1 capsule by mouth in the morning. [facility] diltiazem XR 120 mg 24 hr capsule 3-0 4- 00:00: 00 Yes [id number] 120mg Take 1 capsule by mouth in the morning. [facility] diltiazem XR 120 mg 24 hr capsule 3-0 4- 00:00: 00 Yes [id number] 120mg Take 1 capsule by mouth in the morning. [facility] diltiazem XR 120 mg 24 hr capsule 3-0 4 00:00: 00 Yes [id number] 120mg Take 1 capsule by mouth in the morning. [facility] diltiazem XR 120 mg 24 hr capsule 3-0 4- 00:00: 00 Yes [id number] 120mg Take 1 capsule by mouth in the morning. [facility] diltiazem XR 120 mg 24 hr capsule 3-0 4- 00:00: 00 Yes [id number] 120mg Take 1 capsule by mouth in the morning. [facility] diltiazem XR 120 mg 24 hr capsule 2023-0 4- 00:00: 00 Yes [id number] 120mg Take 1 capsule by mouth in the morning. [facility] diltiazem XR 120 mg 24 hr capsule 3-0 4-07 00:00: 00 Yes [id number] 120mg Take 1 capsule by mouth in the morning. [facility] diltiazem XR 120 mg 24 hr capsule 3-0 4-07 00:00: 00 Yes [id number] 120mg Take 1 capsule by mouth in the morning. [facility] diltiazem XR 120 mg 24 hr capsule 3-0 4- 00:00: 00 Yes [id number] 120mg Take 1 capsule by mouth in the morning. [facility] diltiazem XR 120 mg 24 hr capsule 2022-0 4- 00:00: 00 Yes [id number] 120mg Take 1 capsule by mouth in the morning. [facility] diltiazem XR 120 mg 24 hr capsule 2022-0 4- 00:00: 00 02-17 00:00 :00 No [id number] 120mg Take 1 capsule by mouth in the morning. [facility] diltiazem XR 120 mg 24 hr capsule 2022-0 4- 00:00: 00 02-17 00:00 :00 No [id number] 120mg Take 1 capsule by mouth in the morning. [facility] diltiazem XR 120 mg 24 hr capsule 2022-0 4 00:00: 00 02-17 00:00 :00 No [id number] 120mg Take 1 capsule by mouth in the morning. [facility] diltiazem XR 120 mg 24 hr capsule 2022-0 4- 00:00: 00 07-29 00:00 :00 No [id number] 120mg Take 1 capsule by mouth in the morning. [facility] diltiazem XR 120 mg 24 hr capsule 3-0 4-06 00:00: 00 07-29 00:00 :00 No [id number] 120mg Take 1 capsule by mouth in the morning. [facility] diltiazem XR 120 mg 24 hr capsule 3-0 4-06 00:00: 00 07-29 00:00 :00 No [id number] 120mg Take 1 capsule by mouth in the morning. [facility] mv-mn/iron/ folic acid/herb 190 (VITAMIN D3 COMPLETE ORAL) 2-20 15:45: 27 06-13 00:00 :00 No Take by mouth. [facility] mv-mn/iron/ folic acid/herb 190 (VITAMIN D3 COMPLETE ORAL) 2-20 15:45: 27 06-13 00:00 :00 No Take by mouth. [facility] mv-mn/iron/ folic acid/herb 190 (VITAMIN D3 COMPLETE ORAL) 220 15:45: 27 06-13 00:00 :00 No Take by mouth. [facility] mv-mn/iron/ folic acid/herb 190 (VITAMIN D3 COMPLETE ORAL) 06-13 15:45: 27 06-13 00:00 :00 No Take by mouth. [facility] cyclobenzap rine 5 mg tablet 06-13 00:00: 00 06-28 05:59 :00 No [id number] 5mg Take 1 tablet by mouth in the morning and 1 tablet at noon and 1 tablet in the evening. Do all this for 14 days. [facility] cyclobenzap rine 5 mg tablet 20 00:00: 00 06-28 05:59 :00 No [id number] 5mg Take 1 tablet by mouth in the morning and 1 tablet at noon and 1 tablet in the evening. Do all this for 14 days. [facility] cyclobenzap rine 5 mg tablet 0 220 00:00: 00 06-28 05:59 :00 No [id number] 5mg Take 1 tablet by mouth in the morning and 1 tablet at noon and 1 tablet in the evening. Do all this for 14 days. [facility] cyclobenzap rine 5 mg tablet 220 00:00: 00 06-28 05:59 :00 No [id number] 5mg Take 1 tablet by mouth in the morning and 1 tablet at noon and 1 tablet in the evening. Do all this for 14 days. [facility] cyclobenzap rine 5 mg tablet 2023-0 2-20 00:00: 00 06-28 05:59 :00 No [id number] 5mg Take 1 tablet by mouth in the morning and 1 tablet at noon and 1 tablet in the evening. Do all this for 14 days. [facility] cyclobenzap rine 5 mg tablet 3-0 2-20 00:00: 00 06-28 05:59 :00 No [id number] 5mg Take 1 tablet by mouth in the morning and 1 tablet at noon and 1 tablet in the evening. Do all this for 14 days. [facility] cyclobenzap rine 5 mg tablet 3-0 2-20 00:00: 00 06-28 05:59 :00 No [id number] 5mg Take 1 tablet by mouth in the morning and 1 tablet at noon and 1 tablet in the evening. Do all this for 14 days. [facility] cyclobenzap rine 5 mg tablet 2022-0 2-20 00:00: 00 06-28 05:59 :00 No [id number] 5mg Take 1 tablet by mouth in the morning and 1 tablet at noon and 1 tablet in the evening. Do all this for 14 days. [facility] cyclobenzap rine 5 mg tablet 3-0 2-20 00:00: 00 06-28 05:59 :00 No [id number] 5mg Take 1 tablet by mouth in the morning and 1 tablet at noon and 1 tablet in the evening. Do all this for 14 days. [facility] cyclobenzap rine 5 mg tablet 3-0 2-20 00:00: 00 06-28 05:59 :00 No [id number] 5mg Take 1 tablet by mouth in the morning and 1 tablet at noon and 1 tablet in the evening. Do all this for 14 days. [facility] cyclobenzap rine 5 mg tablet 3-0 2-20 00:00: 00 06-28 05:59 :00 No [id number] 5mg Take 1 tablet by mouth in the morning and 1 tablet at noon and 1 tablet in the evening. Do all this for 14 days. [facility] methylPREDN ISolone (MEDROL, AMADEO,) 4 mg tablets 2-20 00:00: 00 06-19 05:59 :00 No [id number] Take by mouth SEE-INSTRU CTIONS for 5 days. follow package directions [facility] methylPREDN ISolone (MEDROL, AMADEO,) 4 mg tablets 2-20 00:00: 00 06-19 05:59 :00 No [id number] Take by mouth SEE-INSTRU CTIONS for 5 days. follow package directions [facility] methylPREDN ISolone (MEDROL, AMADEO,) 4 mg tablets 2 00:00: 00 06-19 05:59 :00 No [id number] Take by mouth SEE-INSTRU CTIONS for 5 days. follow package directions [facility] methylPREDN ISolone (MEDROL, AMADEO,) 4 mg tablets 06-13 00:00: 00 06-19 05:59 :00 No [id number] Take by mouth SEE-INSTRU CTIONS for 5 days. follow package directions [facility] methylPREDN ISolone (MEDROL, AMADEO,) 4 mg tablets 2 00:00: 00 06-19 05:59 :00 No [id number] Take by mouth SEE-INSTRU CTIONS for 5 days. follow package directions [facility] methylPREDN ISolone (MEDROL, AMADEO,) 4 mg tablets 2-20 00:00: 00 06-19 05:59 :00 No [id number] Take by mouth SEE-INSTRU CTIONS for 5 days. follow package directions [facility] methylPREDN ISolone (MEDROL, AMADEO,) 4 mg tablets 2-20 00:00: 00 06-19 05:59 :00 No [id number] Take by mouth SEE-INSTRU CTIONS for 5 days. follow package directions [facility] albuterol (VENTOLIN HFA) 90 mcg/actuati on inhaler 1-10 00:00: 00 Yes [id number] 1{puff} Inhale 1 Puff every 4 (four) hours as needed for Wheezing or Shortness of Breath. [facility] levalbutero l 0.63 mg/3 mL nebulizer solution 05-03 00:00: 00 Yes [id number] .63mg Inhale 0.63 mg 3 (three) times daily as needed for Wheezing or Shortness of Breath. [facility] etodolac 200 mg capsule 05-03 00:00: 00 Yes [id number] 200mg Take 1 capsule by mouth in the morning. [facility] albuterol (VENTOLIN HFA) 90 mcg/actuati on inhaler 05-03 00:00: 00 Yes [id number] 1{puff} Inhale 1 Puff every 4 (four) hours as needed for Wheezing or Shortness of Breath. [facility] levalbutero l 0.63 mg/3 mL nebulizer solution 05-03 00:00: 00 Yes [id number] .63mg Inhale 0.63 mg 3 (three) times daily as needed for Wheezing or Shortness of Breath. [facility] etodolac 200 mg capsule 05-03 00:00: 00 Yes [id number] 200mg Take 1 capsule by mouth in the morning. [facility] albuterol (VENTOLIN HFA) 90 mcg/actuati on inhaler 05-03 00:00: 00 Yes [id number] 1{puff} Inhale 1 Puff every 4 (four) hours as needed for Wheezing or Shortness of Breath. [facility] levalbutero l 0.63 mg/3 mL nebulizer solution 05-03 00:00: 00 Yes [id number] .63mg Inhale 0.63 mg 3 (three) times daily as needed for Wheezing or Shortness of Breath. [facility] etodolac 200 mg capsule 05-03 00:00: 00 Yes [id number] 200mg Take 1 capsule by mouth in the morning. [facility] albuterol (VENTOLIN HFA) 90 mcg/actuati on inhaler 05-03 00:00: 00 Yes [id number] 1{puff} Inhale 1 Puff every 4 (four) hours as needed for Wheezing or Shortness of Breath. [facility] levalbutero l 0.63 mg/3 mL nebulizer solution 05-03 00:00: 00 Yes [id number] .63mg Inhale 0.63 mg 3 (three) times daily as needed for Wheezing or Shortness of Breath. [facility] etodolac 200 mg capsule 05-03 00:00: 00 Yes [id number] 200mg Take 1 capsule by mouth in the morning. [facility] albuterol (VENTOLIN HFA) 90 mcg/actuati on inhaler 05-03 00:00: 00 Yes [id number] 1{puff} Inhale 1 Puff every 4 (four) hours as needed for Wheezing or Shortness of Breath. [facility] levalbutero l 0.63 mg/3 mL nebulizer solution 05-03 00:00: 00 Yes [id number] .63mg Inhale 0.63 mg 3 (three) times daily as needed for Wheezing or Shortness of Breath. [facility] etodolac 200 mg capsule 05-03 00:00: 00 Yes [id number] 200mg Take 1 capsule by mouth in the morning. [facility] albuterol (VENTOLIN HFA) 90 mcg/actuati on inhaler 05-03 00:00: 00 Yes [id number] 1{puff} Inhale 1 Puff every 4 (four) hours as needed for Wheezing or Shortness of Breath. [facility] levalbutero l 0.63 mg/3 mL nebulizer solution 05-03 00:00: 00 Yes [id number] .63mg Inhale 0.63 mg 3 (three) times daily as needed for Wheezing or Shortness of Breath. [facility] etodolac 200 mg capsule 05-03 00:00: 00 Yes [id number] 200mg Take 1 capsule by mouth in the morning. [facility] albuterol (VENTOLIN HFA) 90 mcg/actuati on inhaler 05-03 00:00: 00 Yes [id number] 1{puff} Inhale 1 Puff every 4 (four) hours as needed for Wheezing or Shortness of Breath. [facility] levalbutero l 0.63 mg/3 mL nebulizer solution 05-03 00:00: 00 Yes [id number] .63mg Inhale 0.63 mg 3 (three) times daily as needed for Wheezing or Shortness of Breath. [facility] etodolac 200 mg capsule 05-03 00:00: 00 Yes [id number] 200mg Take 1 capsule by mouth in the morning. [facility] albuterol (VENTOLIN HFA) 90 mcg/actuati on inhaler 05-03 00:00: 00 Yes [id number] 1{puff} Inhale 1 Puff every 4 (four) hours as needed for Wheezing or Shortness of Breath. [facility] levalbutero l 0.63 mg/3 mL nebulizer solution 05-03 00:00: 00 Yes [id number] .63mg Inhale 0.63 mg 3 (three) times daily as needed for Wheezing or Shortness of Breath. [facility] etodolac 200 mg capsule 05-03 00:00: 00 Yes [id number] 200mg Take 1 capsule by mouth in the morning. [facility] albuterol (VENTOLIN HFA) 90 mcg/actuati on inhaler 05-03 00:00: 00 Yes [id number] 1{puff} Inhale 1 Puff every 4 (four) hours as needed for Wheezing or Shortness of Breath. [facility] levalbutero l 0.63 mg/3 mL nebulizer solution 05-03 00:00: 00 Yes [id number] .63mg Inhale 0.63 mg 3 (three) times daily as needed for Wheezing or Shortness of Breath. [facility] etodolac 200 mg capsule 05-03 00:00: 00 Yes [id number] 200mg Take 1 capsule by mouth in the morning. [facility] albuterol (VENTOLIN HFA) 90 mcg/actuati on inhaler 05-03 00:00: 00 Yes [id number] 1{puff} Inhale 1 Puff every 4 (four) hours as needed for Wheezing or Shortness of Breath. [facility] levalbutero l 0.63 mg/3 mL nebulizer solution 05-03 00:00: 00 Yes [id number] .63mg Inhale 0.63 mg 3 (three) times daily as needed for Wheezing or Shortness of Breath. [facility] etodolac 200 mg capsule 05-03 00:00: 00 Yes [id number] 200mg Take 1 capsule by mouth in the morning. [facility] albuterol (VENTOLIN HFA) 90 mcg/actuati on inhaler 05-03 00:00: 00 Yes [id number] 1{puff} Inhale 1 Puff every 4 (four) hours as needed for Wheezing or Shortness of Breath. [facility] levalbutero l 0.63 mg/3 mL nebulizer solution 05-03 00:00: 00 Yes [id number] .63mg Inhale 0.63 mg 3 (three) times daily as needed for Wheezing or Shortness of Breath. [facility] etodolac 200 mg capsule 05-03 00:00: 00 Yes [id number] 200mg Take 1 capsule by mouth in the morning. [facility] albuterol (VENTOLIN HFA) 90 mcg/actuati on inhaler 05-03 00:00: 00 Yes [id number] 1{puff} Inhale 1 Puff every 4 (four) hours as needed for Wheezing or Shortness of Breath. [facility] levalbutero l 0.63 mg/3 mL nebulizer solution 05-03 00:00: 00 Yes [id number] .63mg Inhale 0.63 mg 3 (three) times daily as needed for Wheezing or Shortness of Breath. [facility] etodolac 200 mg capsule 05-03 00:00: 00 Yes [id number] 200mg Take 1 capsule by mouth in the morning. [facility] albuterol (VENTOLIN HFA) 90 mcg/actuati on inhaler 05-03 00:00: 00 Yes [id number] 1{puff} Inhale 1 Puff every 4 (four) hours as needed for Wheezing or Shortness of Breath. [facility] levalbutero l 0.63 mg/3 mL nebulizer solution 05-03 00:00: 00 Yes [id number] .63mg Inhale 0.63 mg 3 (three) times daily as needed for Wheezing or Shortness of Breath. [facility] etodolac 200 mg capsule 05-03 00:00: 00 Yes [id number] 200mg Take 1 capsule by mouth in the morning. [facility] albuterol (VENTOLIN HFA) 90 mcg/actuati on inhaler 05-03 00:00: 00 Yes [id number] 1{puff} Inhale 1 Puff every 4 (four) hours as needed for Wheezing or Shortness of Breath. [facility] levalbutero l 0.63 mg/3 mL nebulizer solution 05-03 00:00: 00 Yes [id number] .63mg Inhale 0.63 mg 3 (three) times daily as needed for Wheezing or Shortness of Breath. [facility] etodolac 200 mg capsule 05-03 00:00: 00 Yes [id number] 200mg Take 1 capsule by mouth in the morning. [facility] albuterol (VENTOLIN HFA) 90 mcg/actuati on inhaler 05-03 00:00: 00 Yes [id number] 1{puff} Inhale 1 Puff every 4 (four) hours as needed for Wheezing or Shortness of Breath. [facility] levalbutero l 0.63 mg/3 mL nebulizer solution 05-03 00:00: 00 Yes [id number] .63mg Inhale 0.63 mg 3 (three) times daily as needed for Wheezing or Shortness of Breath. [facility] etodolac 200 mg capsule 05-03 00:00: 00 Yes [id number] 200mg Take 1 capsule by mouth in the morning. [facility] albuterol (VENTOLIN HFA) 90 mcg/actuati on inhaler 05-03 00:00: 00 Yes [id number] 1{puff} Inhale 1 Puff every 4 (four) hours as needed for Wheezing or Shortness of Breath. [facility] levalbutero l 0.63 mg/3 mL nebulizer solution 05-03 00:00: 00 Yes [id number] .63mg Inhale 0.63 mg 3 (three) times daily as needed for Wheezing or Shortness of Breath. [facility] etodolac 200 mg capsule 05-03 00:00: 00 Yes [id number] 200mg Take 1 capsule by mouth in the morning. [facility] albuterol (VENTOLIN HFA) 90 mcg/actuati on inhaler 05-03 00:00: 00 Yes [id number] 1{puff} Inhale 1 Puff every 4 (four) hours as needed for Wheezing or Shortness of Breath. [facility] levalbutero l 0.63 mg/3 mL nebulizer solution 05-03 00:00: 00 Yes [id number] .63mg Inhale 0.63 mg 3 (three) times daily as needed for Wheezing or Shortness of Breath. [facility] etodolac 200 mg capsule 05-03 00:00: 00 Yes [id number] 200mg Take 1 capsule by mouth in the morning. [facility] albuterol (VENTOLIN HFA) 90 mcg/actuati on inhaler 05-03 00:00: 00 Yes [id number] 1{puff} Inhale 1 Puff every 4 (four) hours as needed for Wheezing or Shortness of Breath. [facility] levalbutero l 0.63 mg/3 mL nebulizer solution 05-03 00:00: 00 Yes [id number] .63mg Inhale 0.63 mg 3 (three) times daily as needed for Wheezing or Shortness of Breath. [facility] etodolac 200 mg capsule 05-03 00:00: 00 Yes [id number] 200mg Take 1 capsule by mouth in the morning. [facility] albuterol (VENTOLIN HFA) 90 mcg/actuati on inhaler 05-03 00:00: 00 Yes [id number] 1{puff} Inhale 1 Puff every 4 (four) hours as needed for Wheezing or Shortness of Breath. [facility] levalbutero l 0.63 mg/3 mL nebulizer solution 05-03 00:00: 00 Yes [id number] .63mg Inhale 0.63 mg 3 (three) times daily as needed for Wheezing or Shortness of Breath. [facility] etodolac 200 mg capsule 05-03 00:00: 00 Yes [id number] 200mg Take 1 capsule by mouth in the morning. [facility] albuterol (VENTOLIN HFA) 90 mcg/actuati on inhaler 05-03 00:00: 00 Yes [id number] 1{puff} Inhale 1 Puff every 4 (four) hours as needed for Wheezing or Shortness of Breath. [facility] [facility] le[facility] 0.[facility]/3 mL nebulizer solution 05-03 00:00: 00 Yes [id number] .63mg Inhale 0.63 mg 3 (three) times daily as needed for Wheezing or Shortness of Breath. [facility] albuterol (VENTOLIN HFA) 90 mcg/actuati on inhaler 05-03 00:00: 00 Yes [id number] 1{puff} Inhale 1 Puff every 4 (four) hours as needed for Wheezing or Shortness of Breath. [facility] levalbutero l 0.63 mg/3 mL nebulizer solution 05-03 00:00: 00 Yes [id number] .63mg Inhale 0.63 mg 3 (three) times daily as needed for Wheezing or Shortness of Breath. [facility] albuterol (VENTOLIN HFA) 90 mcg/actuati on inhaler 05-03 00:00: 00 Yes [id number] 1{puff} Inhale 1 Puff every 4 (four) hours as needed for Wheezing or Shortness of Breath. [facility] levalbutero l 0.63 mg/3 mL nebulizer solution 05-03 00:00: 00 Yes [id number] .63mg Inhale 0.63 mg 3 (three) times daily as needed for Wheezing or Shortness of Breath. [facility] albuterol (VENTOLIN HFA) 90 mcg/actuati on inhaler 05-03 00:00: 00 Yes [id number] 1{puff} Inhale 1 Puff every 4 (four) hours as needed for Wheezing or Shortness of Breath. [facility] levalbutero l 0.63 mg/3 mL nebulizer solution 05-03 00:00: 00 Yes [id number] .63mg Inhale 0.63 mg 3 (three) times daily as needed for Wheezing or Shortness of Breath. [facility] albuterol (VENTOLIN HFA) 90 mcg/actuati on inhaler 05-03 00:00: 00 Yes [id number] 1{puff} Inhale 1 Puff every 4 (four) hours as needed for Wheezing or Shortness of Breath. [facility] levalbutero l 0.63 mg/3 mL nebulizer solution 05-03 00:00: 00 Yes [id number] .63mg Inhale 0.63 mg 3 (three) times daily as needed for Wheezing or Shortness of Breath. [facility] albuterol (VENTOLIN HFA) 90 mcg/actuati on inhaler 05-03 00:00: 00 Yes [id number] 1{puff} Inhale 1 Puff every 4 (four) hours as needed for Wheezing or Shortness of Breath. [facility] levalbutero l 0.63 mg/3 mL nebulizer solution 05-03 00:00: 00 Yes [id number] .63mg Inhale 0.63 mg 3 (three) times daily as needed for Wheezing or Shortness of Breath. [facility] albuterol (VENTOLIN HFA) 90 mcg/actuati on inhaler 05-03 00:00: 00 Yes [id number] 1{puff} Inhale 1 Puff every 4 (four) hours as needed for Wheezing or Shortness of Breath. [facility] levalbutero l 0.63 mg/3 mL nebulizer solution 05-03 00:00: 00 Yes [id number] .63mg Inhale 0.63 mg 3 (three) times daily as needed for Wheezing or Shortness of Breath. [facility] albuterol (VENTOLIN HFA) 90 mcg/actuati on inhaler 05-03 00:00: 00 Yes [id number] 1{puff} Inhale 1 Puff every 4 (four) hours as needed for Wheezing or Shortness of Breath. [facility] levalbutero l 0.63 mg/3 mL nebulizer solution 05-03 00:00: 00 Yes [id number] .63mg Inhale 0.63 mg 3 (three) times daily as needed for Wheezing or Shortness of Breath. [facility] albuterol (VENTOLIN HFA) 90 mcg/actuati on inhaler 05-03 00:00: 00 Yes [id number] 1{puff} Inhale 1 Puff every 4 (four) hours as needed for Wheezing or Shortness of Breath. [facility] levalbutero l 0.63 mg/3 mL nebulizer solution 05-03 00:00: 00 Yes [id number] .63mg Inhale 0.63 mg 3 (three) times daily as needed for Wheezing or Shortness of Breath. [facility] albuterol (VENTOLIN HFA) 90 mcg/actuati on inhaler 05-03 00:00: 00 Yes [id number] 1{puff} Inhale 1 Puff every 4 (four) hours as needed for Wheezing or Shortness of Breath. [facility] levalbutero l 0.63 mg/3 mL nebulizer solution 05-03 00:00: 00 Yes [id number] .63mg Inhale 0.63 mg 3 (three) times daily as needed for Wheezing or Shortness of Breath. [facility] albuterol (VENTOLIN HFA) 90 mcg/actuati on inhaler 05-03 00:00: 00 Yes [id number] 1{puff} Inhale 1 Puff every 4 (four) hours as needed for Wheezing or Shortness of Breath. [facility] levalbutero l 0.63 mg/3 mL nebulizer solution 05-03 00:00: 00 Yes [id number] .63mg Inhale 0.63 mg 3 (three) times daily as needed for Wheezing or Shortness of Breath. [facility] albuterol (VENTOLIN HFA) 90 mcg/actuati on inhaler 05-03 00:00: 00 Yes [id number] 1{puff} Inhale 1 Puff every 4 (four) hours as needed for Wheezing or Shortness of Breath. [facility] levalbutero l 0.63 mg/3 mL nebulizer solution 05-03 00:00: 00 Yes [id number] .63mg Inhale 0.63 mg 3 (three) times daily as needed for Wheezing or Shortness of Breath. [facility] albuterol (VENTOLIN HFA) 90 mcg/actuati on inhaler 05-03 00:00: 00 Yes [id number] 1{puff} Inhale 1 Puff every 4 (four) hours as needed for Wheezing or Shortness of Breath. [facility] levalbutero l 0.63 mg/3 mL nebulizer solution 05-03 00:00: 00 Yes [id number] .63mg Inhale 0.63 mg 3 (three) times daily as needed for Wheezing or Shortness of Breath. [facility] albuterol (VENTOLIN HFA) 90 mcg/actuati on inhaler 05-03 00:00: 00 Yes [id number] 1{puff} Inhale 1 Puff every 4 (four) hours as needed for Wheezing or Shortness of Breath. [facility] levalbutero l 0.63 mg/3 mL nebulizer solution 05-03 00:00: 00 Yes [id number] .63mg Inhale 0.63 mg 3 (three) times daily as needed for Wheezing or Shortness of Breath. [facility] albuterol (VENTOLIN HFA) 90 mcg/actuati on inhaler 05-03 00:00: 00 Yes [id number] 1{puff} Inhale 1 Puff every 4 (four) hours as needed for Wheezing or Shortness of Breath. [facility] levalbutero l 0.63 mg/3 mL nebulizer solution 05-03 00:00: 00 Yes [id number] .63mg Inhale 0.63 mg 3 (three) times daily as needed for Wheezing or Shortness of Breath. [facility] albuterol (VENTOLIN HFA) 90 mcg/actuati on inhaler 05-03 00:00: 00 Yes [id number] 1{puff} Inhale 1 Puff every 4 (four) hours as needed for Wheezing or Shortness of Breath. [facility] levalbutero l 0.63 mg/3 mL nebulizer solution 05-03 00:00: 00 Yes [id number] .63mg Inhale 0.63 mg 3 (three) times daily as needed for Wheezing or Shortness of Breath. [facility] albuterol (VENTOLIN HFA) 90 mcg/actuati on inhaler 05-03 00:00: 00 Yes [id number] 1{puff} Inhale 1 Puff every 4 (four) hours as needed for Wheezing or Shortness of Breath. [facility] levalbutero l 0.63 mg/3 mL nebulizer solution 05-03 00:00: 00 Yes [id number] .63mg Inhale 0.63 mg 3 (three) times daily as needed for Wheezing or Shortness of Breath. [facility] albuterol (VENTOLIN HFA) 90 mcg/actuati on inhaler 05-03 00:00: 00 Yes [id number] 1{puff} Inhale 1 Puff every 4 (four) hours as needed for Wheezing or Shortness of Breath. [facility] levalbutero l 0.63 mg/3 mL nebulizer solution 05-03 00:00: 00 Yes [id number] .63mg Inhale 0.63 mg 3 (three) times daily as needed for Wheezing or Shortness of Breath. [facility] albuterol (VENTOLIN HFA) 90 mcg/actuati on inhaler 05-03 00:00: 00 Yes [id number] 1{puff} Inhale 1 Puff every 4 (four) hours as needed for Wheezing or Shortness of Breath. [facility] levalbutero l 0.63 mg/3 mL nebulizer solution 05-03 00:00: 00 Yes [id number] .63mg Inhale 0.63 mg 3 (three) times daily as needed for Wheezing or Shortness of Breath. [facility] albuterol (VENTOLIN HFA) 90 mcg/actuati on inhaler 05-03 00:00: 00 Yes [id number] 1{puff} Inhale 1 Puff every 4 (four) hours as needed for Wheezing or Shortness of Breath. [facility] levalbutero l 0.63 mg/3 mL nebulizer solution 05-03 00:00: 00 Yes [id number] .63mg Inhale 0.63 mg 3 (three) times daily as needed for Wheezing or Shortness of Breath. [facility] albuterol (VENTOLIN HFA) 90 mcg/actuati on inhaler 05-03 00:00: 00 Yes [id number] 1{puff} Inhale 1 Puff every 4 (four) hours as needed for Wheezing or Shortness of Breath. [facility] levalbutero l 0.63 mg/3 mL nebulizer solution 05-03 00:00: 00 Yes [id number] .63mg Inhale 0.63 mg 3 (three) times daily as needed for Wheezing or Shortness of Breath. [facility] albuterol (VENTOLIN HFA) 90 mcg/actuati on inhaler 05-03 00:00: 00 Yes [id number] 1{puff} Inhale 1 Puff every 4 (four) hours as needed for Wheezing or Shortness of Breath. [facility] levalbutero l 0.63 mg/3 mL nebulizer solution 05-03 00:00: 00 Yes [id number] .63mg Inhale 0.63 mg 3 (three) times daily as needed for Wheezing or Shortness of Breath. [facility] albuterol (VENTOLIN HFA) 90 mcg/actuati on inhaler 05-03 00:00: 00 Yes [id number] 1{puff} Inhale 1 Puff every 4 (four) hours as needed for Wheezing or Shortness of Breath. [facility] levalbutero l 0.63 mg/3 mL nebulizer solution 05-03 00:00: 00 Yes [id number] .63mg Inhale 0.63 mg 3 (three) times daily as needed for Wheezing or Shortness of Breath. [facility] albuterol (VENTOLIN HFA) 90 mcg/actuati on inhaler 05-03 00:00: 00 Yes [id number] 1{puff} Inhale 1 Puff every 4 (four) hours as needed for Wheezing or Shortness of Breath. [facility] levalbutero l 0.63 mg/3 mL nebulizer solution 05-03 00:00: 00 Yes [id number] .63mg Inhale 0.63 mg 3 (three) times daily as needed for Wheezing or Shortness of Breath. [facility] albuterol (VENTOLIN HFA) 90 mcg/actuati on inhaler 05-03 00:00: 00 Yes [id number] 1{puff} Inhale 1 Puff every 4 (four) hours as needed for Wheezing or Shortness of Breath. [facility] levalbutero l 0.63 mg/3 mL nebulizer solution 05-03 00:00: 00 Yes [id number] .63mg Inhale 0.63 mg 3 (three) times daily as needed for Wheezing or Shortness of Breath. [facility]er[facility] (VENTOLIN HFA) 90 mcg/actuati on inhaler 05-03 00:00: 00 Yes [id number] 1{puff} Inhale 1 Puff every 4 (four) hours as needed for Wheezing or Shortness of Breath. [facility] levalbutero l 0.63 mg/3 mL nebulizer solution 05-03 00:00: 00 Yes [id number] .63mg Inhale 0.63 mg 3 (three) times daily as needed for Wheezing or Shortness of Breath. [facility] al[facility]erol (VENTOLIN HFA) 90 mcg/actuati on inhaler 05-03 00:00: 00 Yes [id number] 1{puff} Inhale 1 Puff every 4 (four) hours as needed for Wheezing or Shortness of Breath. [facility] levalbutero l 0.63 mg/3 mL nebulizer solution 05-03 00:00: 00 Yes [id number] .63mg Inhale 0.63 mg 3 (three) times daily as needed for Wheezing or Shortness of Breath. [facility] albuterol (VENTOLIN HFA) 90 mcg/actuati on inhaler 05-03 00:00: 00 Yes [id number] 1{puff} Inhale 1 Puff every 4 (four) hours as needed for Wheezing or Shortness of Breath. [facility] levalbutero l 0.63 mg/3 mL nebulizer solution 05-03 00:00: 00 Yes [id number] .63mg Inhale 0.63 mg 3 (three) times daily as needed for Wheezing or Shortness of Breath. [facility] al[facility]erol (VENTOLIN HFA) 90 mcg/actuati on inhaler 05-03 00:00: 00 Yes [id number] 1{puff} Inhale 1 Puff every 4 (four) hours as needed for Wheezing or Shortness of Breath. [facility] leval[facility] l 0.63 mg/3 mL nebulizer solution 05-03 00:00: 00 Yes [id number] .63mg Inhale 0.63 mg 3 (three) times daily as needed for Wheezing or Shortness of Breath. [facility] albuterol (VENTOLIN HFA) 90 mcg/actuati on inhaler 05-03 00:00: 00 Yes [id number] 1{puff} Inhale 1 Puff every 4 (four) hours as needed for Wheezing or Shortness of Breath. [facility] levalbutero l 0.63 mg/3 mL nebulizer solution 05-03 00:00: 00 Yes [id number] .63mg Inhale 0.63 mg 3 (three) times daily as needed for Wheezing or Shortness of Breath. [facility] albuterol (VENTOLIN HFA) 90 mcg/actuati on inhaler 05-03 00:00: 00 Yes [id number] 1{puff} Inhale 1 Puff every 4 (four) hours as needed for Wheezing or Shortness of Breath. [facility] levalbutero l 0.63 mg/3 mL nebulizer solution 05-03 00:00: 00 Yes [id number] .63mg Inhale 0.63 mg 3 (three) times daily as needed for Wheezing or Shortness of Breath. [facility] albuterol (VENTOLIN HFA) 90 mcg/actuati on inhaler 05-03 00:00: 00 Yes [id number] 1{puff} Inhale 1 Puff every 4 (four) hours as needed for Wheezing or Shortness of Breath. [facility] levalbutero l 0.63 mg/3 mL nebulizer solution 05-03 00:00: 00 Yes [id number] .63mg Inhale 0.63 mg 3 (three) times daily as needed for Wheezing or Shortness of Breath. [facility] albuterol (VENTOLIN HFA) 90 mcg/actuati on inhaler 05-03 00:00: 00 Yes [id number] 1{puff} Inhale 1 Puff every 4 (four) hours as needed for Wheezing or Shortness of Breath. [facility] levalbutero l 0.63 mg/3 mL nebulizer solution 05-03 00:00: 00 Yes [id number] .63mg Inhale 0.63 mg 3 (three) times daily as needed for Wheezing or Shortness of Breath. [facility] albuterol (VENTOLIN HFA) 90 mcg/actuati on inhaler 05-03 00:00: 00 Yes [id number] 1{puff} Inhale 1 Puff every 4 (four) hours as needed for Wheezing or Shortness of Breath. [facility] levalbutero l 0.63 mg/3 mL nebulizer solution 05-03 00:00: 00 Yes [id number] .63mg Inhale 0.63 mg 3 (three) times daily as needed for Wheezing or Shortness of Breath. [facility] albuterol (VENTOLIN HFA) 90 mcg/actuati on inhaler 05-03 00:00: 00 Yes [id number] 1{puff} Inhale 1 Puff every 4 (four) hours as needed for Wheezing or Shortness of Breath. [facility] levalbutero l 0.63 mg/3 mL nebulizer solution 05-03 00:00: 00 Yes [id number] .63mg Inhale 0.63 mg 3 (three) times daily as needed for Wheezing or Shortness of Breath. [facility] albuterol (VENTOLIN HFA) 90 mcg/actuati on inhaler 05-03 00:00: 00 Yes [id number] 1{puff} Inhale 1 Puff every 4 (four) hours as needed for Wheezing or Shortness of Breath. [facility] levalbutero l 0.63 mg/3 mL nebulizer solution 05-03 00:00: 00 Yes [id number] .63mg Inhale 0.63 mg 3 (three) times daily as needed for Wheezing or Shortness of Breath. [facility] albuterol (VENTOLIN HFA) 90 mcg/actuati on inhaler 05-03 00:00: 00 Yes [id number] 1{puff} Inhale 1 Puff every 4 (four) hours as needed for Wheezing or Shortness of Breath. [facility] levalbutero l 0.63 mg/3 mL nebulizer solution 05-03 00:00: 00 Yes [id number] .63mg Inhale 0.63 mg 3 (three) times daily as needed for Wheezing or Shortness of Breath. [facility] albuterol (VENTOLIN HFA) 90 mcg/actuati on inhaler 05-03 00:00: 00 Yes [id number] 1{puff} Inhale 1 Puff every 4 (four) hours as needed for Wheezing or Shortness of Breath. [facility] levalbutero l 0.63 mg/3 mL nebulizer solution 05-03 00:00: 00 Yes [id number] .63mg Inhale 0.63 mg 3 (three) times daily as needed for Wheezing or Shortness of Breath. [facility] albuterol (VENTOLIN HFA) 90 mcg/actuati on inhaler 05-03 00:00: 00 Yes [id number] 1{puff} Inhale 1 Puff every 4 (four) hours as needed for Wheezing or Shortness of Breath. [facility] levalbutero l 0.63 mg/3 mL nebulizer solution 05-03 00:00: 00 Yes [id number] .63mg Inhale 0.63 mg 3 (three) times daily as needed for Wheezing or Shortness of Breath. [facility] albuterol (VENTOLIN HFA) 90 mcg/actuati on inhaler 05-03 00:00: 00 Yes [id number] 1{puff} Inhale 1 Puff every 4 (four) hours as needed for Wheezing or Shortness of Breath. [facility] levalbutero l 0.63 mg/3 mL nebulizer solution 05-03 00:00: 00 Yes [id number] .63mg Inhale 0.63 mg 3 (three) times daily as needed for Wheezing or Shortness of Breath. [facility] albuterol (VENTOLIN HFA) 90 mcg/actuati on inhaler 05-03 00:00: 00 Yes [id number] 1{puff} Inhale 1 Puff every 4 (four) hours as needed for Wheezing or Shortness of Breath. [facility] levalbutero l 0.63 mg/3 mL nebulizer solution 05-03 00:00: 00 Yes [id number] .63mg Inhale 0.63 mg 3 (three) times daily as needed for Wheezing or Shortness of Breath. [facility] albuterol (VENTOLIN HFA) 90 mcg/actuati on inhaler 05-03 00:00: 00 Yes [id number] 1{puff} Inhale 1 Puff every 4 (four) hours as needed for Wheezing or Shortness of Breath. [facility] levalbutero l 0.63 mg/3 mL nebulizer solution 05-03 00:00: 00 Yes [id number] .63mg Inhale 0.63 mg 3 (three) times daily as needed for Wheezing or Shortness of Breath. [facility] albuterol (VENTOLIN HFA) 90 mcg/actuati on inhaler 05-03 00:00: 00 Yes [id number] 1{puff} Inhale 1 Puff every 4 (four) hours as needed for Wheezing or Shortness of Breath. [facility] levalbutero l 0.63 mg/3 mL nebulizer solution 05-03 00:00: 00 Yes [id number] .63mg Inhale 0.63 mg 3 (three) times daily as needed for Wheezing or Shortness of Breath. [facility] albuterol (VENTOLIN HFA) 90 mcg/actuati on inhaler 05-03 00:00: 00 Yes [id number] 1{puff} Inhale 1 Puff every 4 (four) hours as needed for Wheezing or Shortness of Breath. [facility] levalbutero l 0.63 mg/3 mL nebulizer solution 05-03 00:00: 00 Yes [id number] .63mg Inhale 0.63 mg 3 (three) times daily as needed for Wheezing or Shortness of Breath. [facility] albuterol (VENTOLIN HFA) 90 mcg/actuati on inhaler 05-03 00:00: 00 Yes [id number] 1{puff} Inhale 1 Puff every 4 (four) hours as needed for Wheezing or Shortness of Breath. [facility] levalbutero l 0.63 mg/3 mL nebulizer solution 05-03 00:00: 00 Yes [id number] .63mg Inhale 0.63 mg 3 (three) times daily as needed for Wheezing or Shortness of Breath. [facility] albuterol (VENTOLIN HFA) 90 mcg/actuati on inhaler 05-03 00:00: 00 Yes [id number] 1{puff} Inhale 1 Puff every 4 (four) hours as needed for Wheezing or Shortness of Breath. [facility] levalbutero l 0.63 mg/3 mL nebulizer solution 05-03 00:00: 00 Yes [id number] .63mg Inhale 0.63 mg 3 (three) times daily as needed for Wheezing or Shortness of Breath. [facility] albuterol (VENTOLIN HFA) 90 mcg/actuati on inhaler 05-03 00:00: 00 Yes [id number] 1{puff} Inhale 1 Puff every 4 (four) hours as needed for Wheezing or Shortness of Breath. [facility] levalbutero l 0.63 mg/3 mL nebulizer solution 05-03 00:00: 00 Yes [id number] .63mg Inhale 0.63 mg 3 (three) times daily as needed for Wheezing or Shortness of Breath. [facility] albuterol (VENTOLIN HFA) 90 mcg/actuati on inhaler 05-03 00:00: 00 Yes [id number] 1{puff} Inhale 1 Puff every 4 (four) hours as needed for Wheezing or Shortness of Breath. [facility] levalbutero l 0.63 mg/3 mL nebulizer solution 05-03 00:00: 00 Yes [id number] .63mg Inhale 0.63 mg 3 (three) times daily as needed for Wheezing or Shortness of Breath. [facility]erol (VENTOLIN HFA) 90 mcg/actuati on inhaler 05-03 00:00: 00 Yes [id number] 1{puff} Inhale 1 Puff every 4 (four) hours as needed for Wheezing or Shortness of Breath. [facility] levalbutero l 0.63 mg/3 mL nebulizer solution 05-03 00:00: 00 Yes [id number] .63mg Inhale 0.63 mg 3 (three) times daily as needed for Wheezing or Shortness of Breath. [facility] albuterol (VENTOLIN HFA) 90 mcg/actuati on inhaler 05-03 00:00: 00 Yes [id number] 1{puff} Inhale 1 Puff every 4 (four) hours as needed for Wheezing or Shortness of Breath. [facility] levalbutero l 0.63 mg/3 mL nebulizer solution 05-03 00:00: 00 Yes [id number] .63mg Inhale 0.63 mg 3 (three) times daily as needed for Wheezing or Shortness of Breath. [facility] albuterol (VENTOLIN HFA) 90 mcg/actuati on inhaler 05-03 00:00: 00 Yes [id number] 1{puff} Inhale 1 Puff every 4 (four) hours as needed for Wheezing or Shortness of Breath. [facility] levalbutero l 0.63 mg/3 mL nebulizer solution 05-03 00:00: 00 Yes [id number] .63mg Inhale 0.63 mg 3 (three) times daily as needed for Wheezing or Shortness of Breath. [facility] albuterol (VENTOLIN HFA) 90 mcg/actuati on inhaler 05-03 00:00: 00 Yes [id number] 1{puff} Inhale 1 Puff every 4 (four) hours as needed for Wheezing or Shortness of Breath. [facility] levalbutero l 0.63 mg/3 mL nebulizer solution 05-03 00:00: 00 Yes [id number] .63mg Inhale 0.63 mg 3 (three) times daily as needed for Wheezing or Shortness of Breath. [facility] albuterol (VENTOLIN HFA) 90 mcg/actuati on inhaler 05-03 00:00: 00 Yes [id number] 1{puff} Inhale 1 Puff every 4 (four) hours as needed for Wheezing or Shortness of Breath. [facility] levalbutero l 0.63 mg/3 mL nebulizer solution 05-03 00:00: 00 Yes [id number] .63mg Inhale 0.63 mg 3 (three) times daily as needed for Wheezing or Shortness of Breath. [facility] albuterol (VENTOLIN HFA) 90 mcg/actuati on inhaler 05-03 00:00: 00 Yes [id number] 1{puff} Inhale 1 Puff every 4 (four) hours as needed for Wheezing or Shortness of Breath. [facility] levalbutero l 0.63 mg/3 mL nebulizer solution 05-03 00:00: 00 Yes [id number] .63mg Inhale 0.63 mg 3 (three) times daily as needed for Wheezing or Shortness of Breath. [facility] albuterol (VENTOLIN HFA) 90 mcg/actuati on inhaler 05-03 00:00: 00 Yes [id number] 1{puff} Inhale 1 Puff every 4 (four) hours as needed for Wheezing or Shortness of Breath. [facility] levalbutero l 0.63 mg/3 mL nebulizer solution 05-03 00:00: 00 Yes [id number] .63mg Inhale 0.63 mg 3 (three) times daily as needed for Wheezing or Shortness of Breath. [facility] albuterol (VENTOLIN HFA) 90 mcg/actuati on inhaler 05-03 00:00: 00 Yes [id number] 1{puff} Inhale 1 Puff every 4 (four) hours as needed for Wheezing or Shortness of Breath. [facility] levalbutero l 0.63 mg/3 mL nebulizer solution 05-03 00:00: 00 Yes [id number] .63mg Inhale 0.63 mg 3 (three) times daily as needed for Wheezing or Shortness of Breath. [facility] albuterol (VENTOLIN HFA) 90 mcg/actuati on inhaler 05-03 00:00: 00 Yes [id number] 1{puff} Inhale 1 Puff every 4 (four) hours as needed for Wheezing or Shortness of Breath. [facility] levalbutero l 0.63 mg/3 mL nebulizer solution 05-03 00:00: 00 Yes [id number] .63mg Inhale 0.63 mg 3 (three) times daily as needed for Wheezing or Shortness of Breath. [facility] fluticasone propion-patrick meteroL (ADVAIR DISKUS) 250-50 mcg/dose inhalation disk 05-03 00:00: 00 Yes [id number] 1{puff} Inhale 1 Puff every 12 (twelve) hours. [facility] albuterol (VENTOLIN HFA) 90 mcg/actuati on inhaler 05-03 00:00: 00 Yes [id number] 1{puff} Inhale 1 Puff every 4 (four) hours as needed for Wheezing or Shortness of Breath. [facility] levalbutero l 0.63 mg/3 mL nebulizer solution 05-03 00:00: 00 Yes [id number] .63mg Inhale 0.63 mg 3 (three) times daily as needed for Wheezing or Shortness of Breath. [facility] etodolac 200 mg capsule 05-03 00:00: 00 Yes [id number] 200mg Take 1 capsule by mouth in the morning. [facility] fluticasone propion-patrick meteroL (ADVAIR DISKUS) 250-50 mcg/dose inhalation disk 05-03 00:00: 00 Yes [id number] 1{puff} Inhale 1 Puff every 12 (twelve) hours. [facility] albuterol (VENTOLIN HFA) 90 mcg/actuati on inhaler 05-03 00:00: 00 Yes [id number] 1{puff} Inhale 1 Puff every 4 (four) hours as needed for Wheezing or Shortness of Breath. [facility] levalbutero l 0.63 mg/3 mL nebulizer solution 05-03 00:00: 00 Yes [id number] .63mg Inhale 0.63 mg 3 (three) times daily as needed for Wheezing or Shortness of Breath. [facility] etodolac 200 mg capsule 05-03 00:00: 00 Yes [id number] 200mg Take 1 capsule by mouth in the morning. [facility] fluticasone propion-patrick meteroL (ADVAIR DISKUS) 250-50 mcg/dose inhalation disk 05-03 00:00: 00 Yes [id number] 1{puff} Inhale 1 Puff every 12 (twelve) hours. [facility] albuterol (VENTOLIN HFA) 90 mcg/actuati on inhaler 05-03 00:00: 00 Yes [id number] 1{puff} Inhale 1 Puff every 4 (four) hours as needed for Wheezing or Shortness of Breath. [facility] levalbutero l 0.63 mg/3 mL nebulizer solution 05-03 00:00: 00 Yes [id number] .63mg Inhale 0.63 mg 3 (three) times daily as needed for Wheezing or Shortness of Breath. [facility] etodolac 200 mg capsule 05-03 00:00: 00 Yes [id number] 200mg Take 1 capsule by mouth in the morning. [facility] fluticasone propion-patrick meteroL (ADVAIR DISKUS) 250-50 mcg/dose inhalation disk 05-03 00:00: 00 Yes [id number] 1{puff} Inhale 1 Puff every 12 (twelve) hours. [facility] albuterol (VENTOLIN HFA) 90 mcg/actuati on inhaler 05-03 00:00: 00 Yes [id number] 1{puff} Inhale 1 Puff every 4 (four) hours as needed for Wheezing or Shortness of Breath. [facility] levalbutero l 0.63 mg/3 mL nebulizer solution 05-03 00:00: 00 Yes [id number] .63mg Inhale 0.63 mg 3 (three) times daily as needed for Wheezing or Shortness of Breath. [facility] etodolac 200 mg capsule 05-03 00:00: 00 Yes [id number] 200mg Take 1 capsule by mouth in the morning. [facility] etodolac 200 mg capsule 05-03 00:00: 00 08-08 00:00 :00 No [id number] 200mg Take 1 capsule by mouth in the morning. [facility] etodolac 200 mg capsule 05-03 00:00: 00 08-08 00:00 :00 No [id number] 200mg Take 1 capsule by mouth in the morning. [facility] etodolac 200 mg capsule 05-03 00:00: 00 08-08 00:00 :00 No [id number] 200mg Take 1 capsule by mouth in the morning. [facility] fluticasone propion-patrick meteroL (ADVAIR DISKUS) 250-50 mcg/dose inhalation disk 05-03 00:00: 00 06-13 00:00 :00 No [id number] 1{puff} Inhale 1 Puff every 12 (twelve) hours. [facility] fluticasone propion-patrick meteroL (ADVAIR DISKUS) 250-50 mcg/dose inhalation disk 05-03 00:00: 00 06-13 00:00 :00 No [id number] 1{puff} Inhale 1 Puff every 12 (twelve) hours. [facility] fluticasone propion-patrick meteroL (ADVAIR DISKUS) 250-50 mcg/dose inhalation disk 2023-0 1-10 00:00: 00 06-13 00:00 :00 No [id number] 1{puff} Inhale 1 Puff every 12 (twelve) hours. [facility] fluticasone propion-patrick meteroL (ADVAIR DISKUS) 250-50 mcg/dose inhalation disk 1-10 00:00: 00 06-13 00:00 :00 No [id number] 1{puff} Inhale 1 Puff every 12 (twelve) hours. [facility] ipratropium -albuteroL (DUONEB) 0.5 mg-3 mg(2.5 mg base)/3 mL nebulizer solution 3 mL 04-24 00:00: 00 04-23 22:53 :00 No 3mL 3 mL, Inhalation , ONCE, 1 dose, On 04/23/22 at 1800, Routine [facility] predniSONE (DELTASONE) tablet 40 mg 04-24 00:00: 00 04-23 23:05 :00 No 40mg 40 mg, Oral, ONCE, 1 dose, On 04/23/22 at 1800, AMY [facility] ipratropium -albuteroL (DUONEB) 0.5 mg-3 mg(2.5 mg base)/3 mL nebulizer solution 3 mL 2021-04 23:30: 00 04-23 22:43 :00 No 3mL 3 mL, Inhalation , ONCE, 1 dose, On 04/23/22 at 1730, Routine [facility] predniSONE 20 mg tablet 2021-04 00:00: 00 04-28 05:59 :00 No [id number] 40mg Take 2 tablets by mouth every morning for 4 days. [facility] mv-mn/iron/ folic acid/herb 190 (VITAMIN D3 COMPLETE ORAL) 2021-04 0- 13:43: 48 Yes Take by mouth. [facility] mv-mn/iron/ folic acid/herb 190 (VITAMIN D3 COMPLETE ORAL) 2021-04 0- 13:43: 48 Yes Take by mouth. [facility] mv-mn/iron/ folic acid/herb 190 (VITAMIN D3 COMPLETE ORAL) 2021-04 0-04 13:43: 48 Yes Take by mouth. [facility] mv-mn/iron/ folic acid/herb 190 (VITAMIN D3 COMPLETE ORAL) 2021-04 0-04 13:43: 48 Yes Take by mouth. [facility] mv-mn/iron/ folic acid/herb 190 (VITAMIN D3 COMPLETE ORAL) 2021-04 0- 13:43: 48 Yes Take by mouth. [facility] mv-mn/iron/ folic acid/herb 190 (VITAMIN D3 COMPLETE ORAL) 2021-04 0- 13:43: 48 Yes Take by mouth. [facility] mv-mn/iron/ folic acid/herb 190 (VITAMIN D3 COMPLETE ORAL) 2021-04 0- 13:43: 48 Yes Take by mouth. [facility] diltiazem XR 120 mg 24 hr capsule 20210 12-24 00:00: 00 Yes [id number] 120mg Take 1 capsule by mouth in the morning. [facility] diltiazem XR 120 mg 24 hr capsule 2021-0 12-24 00:00: 00 Yes [id number] 120mg Take 1 capsule by mouth in the morning. [facility] diltiazem XR 120 mg 24 hr capsule 20210 12-24 00:00: 00 Yes [id number] 120mg Take 1 capsule by mouth in the morning. [facility] diltiazem XR 120 mg 24 hr capsule 20210 12-24 00:00: 00 Yes [id number] 120mg Take 1 capsule by mouth in the morning. [facility] diltiazem XR 120 mg 24 hr capsule 2021-0 12-24 00:00: 00 Yes [id number] 120mg Take 1 capsule by mouth in the morning. [facility] diltiazem XR 120 mg 24 hr capsule 2021-0 12-24 00:00: 00 Yes [id number] 120mg Take 1 capsule by mouth in the morning. [facility] diltiazem XR 120 mg 24 hr capsule 2021-0 12-24 00:00: 00 Yes [id number] 120mg Take 1 capsule by mouth in the morning. [facility] diltiazem XR 120 mg 24 hr capsule 2-0 - 00:00: 00 Yes [id number] 120mg Take 1 capsule by mouth in the morning. [facility] diltiazem XR 120 mg 24 hr capsule 2-0 - 00:00: 00 Yes [id number] 120mg Take 1 capsule by mouth in the morning. [facility] diltiazem XR 120 mg 24 hr capsule 2-0 - 00:00: 00 Yes [id number] 120mg Take 1 capsule by mouth in the morning. [facility] diltiazem XR 120 mg 24 hr capsule 2-0 12-24 00:00: 00 Yes [id number] 120mg Take 1 capsule by mouth in the morning. [facility] diltiazem XR 120 mg 24 hr capsule 2-0 - 00:00: 00 Yes [id number] 120mg Take 1 capsule by mouth in the morning. [facility] diltiazem XR 120 mg 24 hr capsule 2-0 - 00:00: 00 Yes [id number] 120mg Take 1 capsule by mouth in the morning. [facility] diltiazem XR 120 mg 24 hr capsule 2-0 - 00:00: 00 Yes [id number] 120mg Take 1 capsule by mouth in the morning. [facility] diltiazem XR 120 mg 24 hr capsule 2-0 - 00:00: 00 Yes [id number] 120mg Take 1 capsule by mouth in the morning. [facility] diltiazem XR 120 mg 24 hr capsule 2-0 - 00:00: 00 Yes [id number] 120mg Take 1 capsule by mouth in the morning. [facility] diltiazem XR 120 mg 24 hr capsule 2-0 - 00:00: 00 Yes [id number] 120mg Take 1 capsule by mouth in the morning. [facility] diltiazem XR 120 mg 24 hr capsule 2-0 - 00:00: 00 Yes [id number] 120mg Take 1 capsule by mouth in the morning. [facility] diltiazem XR 120 mg 24 hr capsule 2-0 9- 00:00: 00 Yes [id number] 120mg Take 1 capsule by mouth in the morning. [facility] diltiazem XR 120 mg 24 hr capsule 2-0 - 00:00: 00 Yes [id number] 120mg Take 1 capsule by mouth in the morning. [facility] diltiazem XR 120 mg 24 hr capsule 2-0 - 00:00: 00 Yes [id number] 120mg Take 1 capsule by mouth in the morning. [facility] diltiazem XR 120 mg 24 hr capsule 2-0 - 00:00: 00 Yes [id number] 120mg Take 1 capsule by mouth in the morning. [facility] diltiazem XR 120 mg 24 hr capsule 2-0 - 00:00: 00 Yes [id number] 120mg Take 1 capsule by mouth in the morning. [facility] diltiazem XR 120 mg 24 hr capsule 2-0 - 00:00: 00 20207-28 00:00 :00 No [id number] 120mg Take 1 capsule by mouth in the morning. [facility] etodolac 500 mg tablet 2021-0 10-26 00:00: 00 Yes [id number] TAKE ONE TABLET BY MOUTH EVERY 12 HOURS WITH MEALS NEEDED FOR PAIN OR INFLAMMATI ON [facility] etodolac 500 mg tablet 2021-0 10-26 00:00: 00 Yes [id number] 105 TAKE ONE TABLET BY MOUTH EVERY 12 HOURS WITH MEALS NEEDED FOR PAIN OR INFLAMMATI ON [facility] etodolac 500 mg tablet 2-0 -05 00:00: 00 Yes [id number] 105 TAKE ONE TABLET BY MOUTH EVERY 12 HOURS WITH MEALS NEEDED FOR PAIN OR INFLAMMATI ON [facility] etodolac 500 mg tablet 2-0 - 00:00: 00 Yes [id number] 105 TAKE ONE TABLET BY MOUTH EVERY 12 HOURS WITH MEALS NEEDED FOR PAIN OR INFLAMMATI ON [facility] etodolac 500 mg tablet 10-26 00:00: 00 Yes [id number] 105 TAKE ONE TABLET BY MOUTH EVERY 12 HOURS WITH MEALS NEEDED FOR PAIN OR INFLAMMATI ON [facility] etodolac 500 mg tablet 10-26 00:00: 00 05-03 00:00 :00 No [id number] 105 TAKE ONE TABLET BY MOUTH EVERY 12 HOURS WITH MEALS NEEDED FOR PAIN OR INFLAMMATI ON [facility] etodolac 500 mg tablet 10-26 00:00: 00 05-03 00:00 :00 No [id number] 105 TAKE ONE TABLET BY MOUTH EVERY 12 HOURS WITH MEALS NEEDED FOR PAIN OR INFLAMMATI ON [facility] aspirin 81 mg chewable tablet 10-13 12:16: 10-13 00:00 :00 No 81mg Take 81 mg by mouth daily. [facility] aspirin 81 mg chewable tablet 10-13 12:16: 10-13 00:00 :00 No 81mg Take 81 mg by mouth daily. [facility] aspirin 81 mg chewable tablet 10-13 12:16: 10-13 00:00 :00 No 81mg Take 81 mg by mouth daily. [facility] aspirin 81 mg chewable tablet 10-13 12:16: 10-13 00:00 :00 No 81mg Take 81 mg by mouth daily. [facility] aspirin 81 mg chewable tablet 10-13 12:16: 10-13 00:00 :00 No 81mg Take 81 mg by mouth daily. [facility] aspirin 81 mg chewable tablet 10-13 12:16: 10-13 00:00 :00 No 81mg Take 81 mg by mouth daily. [facility] fluticasone propion-patrick meteroL (ADVAIR DISKUS) 250-50 mcg/dose inhalation disk 10-13 12:16: 10-13 00:00 :00 No 1{puff} Inhale 1 Puff every 12 (twelve) hours. [facility] atorvastati n 40 mg tablet 0 10-13 00:00: 00 Yes [id number] 40mg Take 1 tablet by mouth at bedtime. [facility] montelukast 10 mg tablet 0 10-13 00:00: 00 Yes [id number] 10mg Take 1 tablet by mouth every evening. [facility] atorvastati n 40 mg tablet 0 10-13 00:00: 00 Yes [id number] 40mg Take 1 tablet by mouth at bedtime. [facility] montelukast 10 mg tablet 0 10-13 00:00: 00 Yes [id number] 10mg Take 1 tablet by mouth every evening. [facility] atorvastati n 40 mg tablet 0 10-13 00:00: 00 Yes [id number] 40mg Take 1 tablet by mouth at bedtime. [facility] montelukast 10 mg tablet 0 10-13 00:00: 00 Yes [id number] 10mg Take 1 tablet by mouth every evening. [facility] atorvastati n 40 mg tablet 10-13 00:00: 00 Yes [id number] 40mg Take 1 tablet by mouth at bedtime. [facility] montelukast 10 mg tablet 10-13 00:00: 00 Yes [id number] 10mg Take 1 tablet by mouth every evening. [facility] atorvastati n 40 mg tablet 0 10-13 00:00: 00 Yes [id number] 40mg Take 1 tablet by mouth at bedtime. [facility] montelukast 10 mg tablet 0 10-13 00:00: 00 Yes [id number] 10mg Take 1 tablet by mouth every evening. [facility] atorvastati n 40 mg tablet 0 10-13 00:00: 00 Yes [id number] 40mg Take 1 tablet by mouth at bedtime. [facility] montelukast 10 mg tablet 10-13 00:00: 00 Yes [id number] 10mg Take 1 tablet by mouth every evening. [facility] atorvastati n 40 mg tablet 0 10-13 00:00: 00 Yes [id number] 40mg Take 1 tablet by mouth at bedtime. [facility] montelukast 10 mg tablet 0 10-13 00:00: 00 Yes [id number] 10mg Take 1 tablet by mouth every evening. [facility] atorvastati n 40 mg tablet 0 10-13 00:00: 00 Yes [id number] 40mg Take 1 tablet by mouth at bedtime. [facility] montelukast 10 mg tablet 10-13 00:00: 00 Yes [id number] 10mg Take 1 tablet by mouth every evening. [facility] atorvastati n 40 mg tablet 10-13 00:00: 00 Yes [id number] 40mg Take 1 tablet by mouth at bedtime. [facility] montelukast 10 mg tablet 10-13 00:00: 00 Yes [id number] 10mg Take 1 tablet by mouth every evening. [facility] atorvastati n 40 mg tablet 10-13 00:00: 00 Yes [id number] 40mg Take 1 tablet by mouth at bedtime. [facility] montelukast 10 mg tablet 0 10-13 00:00: 00 Yes [id number] 10mg Take 1 tablet by mouth every evening. [facility] atorvastati n 40 mg tablet 0 10-13 00:00: 00 Yes [id number] 40mg Take 1 tablet by mouth at bedtime. [facility] montelukast 10 mg tablet 0 10-13 00:00: 00 Yes [id number] 10mg Take 1 tablet by mouth every evening. [facility] atorvastati n 40 mg tablet 0 10-13 00:00: 00 Yes [id number] 40mg Take 1 tablet by mouth at bedtime. [facility] montelukast 10 mg tablet 0 10-13 00:00: 00 Yes [id number] 10mg Take 1 tablet by mouth every evening. [facility] atorvastati n 40 mg tablet 0 10-13 00:00: 00 Yes [id number] 40mg Take 1 tablet by mouth at bedtime. [facility] montelukast 10 mg tablet 0 10-13 00:00: 00 Yes [id number] 10mg Take 1 tablet by mouth every evening. [facility] atorvastati n 40 mg tablet 0 10-13 00:00: 00 Yes [id number] 40mg Take 1 tablet by mouth at bedtime. [facility] montelukast 10 mg tablet 0 10-13 00:00: 00 Yes [id number] 10mg Take 1 tablet by mouth every evening. [facility] atorvastati n 40 mg tablet 0 10-13 00:00: 00 Yes [id number] 40mg Take 1 tablet by mouth at bedtime. [facility] montelukast 10 mg tablet 0 10-13 00:00: 00 Yes [id number] 10mg Take 1 tablet by mouth every evening. [facility] atorvastati n 40 mg tablet 0 10-13 00:00: 00 Yes [id number] 40mg Take 1 tablet by mouth at bedtime. [facility] montelukast 10 mg tablet 0 10-13 00:00: 00 Yes [id number] 10mg Take 1 tablet by mouth every evening. [facility] atorvastati n 40 mg tablet 0 10-13 00:00: 00 Yes [id number] 40mg Take 1 tablet by mouth at bedtime. [facility] montelukast 10 mg tablet 0 10-13 00:00: 00 Yes [id number] 10mg Take 1 tablet by mouth every evening. [facility] atorvastati n 40 mg tablet 0 10-13 00:00: 00 Yes [id number] 40mg Take 1 tablet by mouth at bedtime. [facility] montelukast 10 mg tablet 0 10-13 00:00: 00 Yes [id number] 10mg Take 1 tablet by mouth every evening. [facility] atorvastati n 40 mg tablet 0 10-13 00:00: 00 Yes [id number] 40mg Take 1 tablet by mouth at bedtime. [facility] montelukast 10 mg tablet 0 10-13 00:00: 00 Yes [id number] 10mg Take 1 tablet by mouth every evening. [facility] atorvastati n 40 mg tablet 0 10-13 00:00: 00 Yes [id number] 40mg Take 1 tablet by mouth at bedtime. [facility] montelukast 10 mg tablet 0 10-13 00:00: 00 Yes [id number] 10mg Take 1 tablet by mouth every evening. [facility] atorvastati n 40 mg tablet 0 10-13 00:00: 00 Yes [id number] 40mg Take 1 tablet by mouth at bedtime. [facility] montelukast 10 mg tablet 0 10-13 00:00: 00 Yes [id number] 10mg Take 1 tablet by mouth every evening. [facility] atorvastati n 40 mg tablet 0 10-13 00:00: 00 Yes [id number] 40mg Take 1 tablet by mouth at bedtime. [facility] montelukast 10 mg tablet 0 10-13 00:00: 00 Yes [id number] 10mg Take 1 tablet by mouth every evening. [facility] atorvastati n 40 mg tablet 0 10-13 00:00: 00 Yes [id number] 40mg Take 1 tablet by mouth at bedtime. [facility] montelukast 10 mg tablet 2021-0 10-13 00:00: 00 Yes [id number] 10mg Take 1 tablet by mouth every evening. [facility] atorvastati n 40 mg tablet 10-13 00:00: 00 Yes [id number] 40mg Take 1 tablet by mouth at bedtime. [facility] montelukast 10 mg tablet 10-13 00:00: 00 Yes [id number] 10mg Take 1 tablet by mouth every evening. [facility] atorvastati n 40 mg tablet 10-13 00:00: 00 Yes [id number] 40mg Take 1 tablet by mouth at bedtime. [facility] montelukast 10 mg tablet 10-13 00:00: 00 Yes [id number] 10mg Take 1 tablet by mouth every evening. [facility] atorvastati n 40 mg tablet 10-13 00:00: 00 Yes [id number] 40mg Take 1 tablet by mouth at bedtime. [facility] montelukast 10 mg tablet 10-13 00:00: 00 Yes [id number] 10mg Take 1 tablet by mouth every evening. [facility] atorvastati n 40 mg tablet 10-13 00:00: 00 Yes [id number] 40mg Take 1 tablet by mouth at bedtime. [facility] montelukast 10 mg tablet 10-13 00:00: 00 Yes [id number] 10mg Take 1 tablet by mouth every evening. [facility] atorvastati n 40 mg tablet 10-13 00:00: 00 Yes [id number] 40mg Take 1 tablet by mouth at bedtime. [facility] montelukast 10 mg tablet 10-13 00:00: 00 Yes [id number] 10mg Take 1 tablet by mouth every evening. [facility] atorvastati n 40 mg tablet 10-13 00:00: 00 Yes [id number] 40mg Take 1 tablet by mouth at bedtime. [facility] montelukast 10 mg tablet 0 10-13 00:00: 00 Yes [id number] 10mg Take 1 tablet by mouth every evening. [facility] atorvastati n 40 mg tablet 0 10-13 00:00: 00 Yes [id number] 40mg Take 1 tablet by mouth at bedtime. [facility] montelukast 10 mg tablet 0 10-13 00:00: 00 Yes [id number] 10mg Take 1 tablet by mouth every evening. [facility] atorvastati n 40 mg tablet 0 10-13 00:00: 00 Yes [id number] 40mg Take 1 tablet by mouth at bedtime. [facility] montelukast 10 mg tablet 0 10-13 00:00: 00 Yes [id number] 10mg Take 1 tablet by mouth every evening. [facility] atorvastati n 40 mg tablet 10-13 00:00: 00 Yes [id number] 40mg Take 1 tablet by mouth at bedtime. [facility] montelukast 10 mg tablet 0 10-13 00:00: 00 Yes [id number] 10mg Take 1 tablet by mouth every evening. [facility] atorvastati n 40 mg tablet 0 10-13 00:00: 00 Yes [id number] 40mg Take 1 tablet by mouth at bedtime. [facility] montelukast 10 mg tablet 0 10-13 00:00: 00 Yes [id number] 10mg Take 1 tablet by mouth every evening. [facility] atorvastati n 40 mg tablet 0 10-13 00:00: 00 Yes [id number] 40mg Take 1 tablet by mouth at bedtime. [facility] montelukast 10 mg tablet 0 10-13 00:00: 00 Yes [id number] 10mg Take 1 tablet by mouth every evening. [facility] atorvastati n 40 mg tablet 0 10-13 00:00: 00 Yes [id number] 40mg Take 1 tablet by mouth at bedtime. [facility] montelukast 10 mg tablet 0 10-13 00:00: 00 Yes [id number] 10mg Take 1 tablet by mouth every evening. [facility] atorvastati n 40 mg tablet 2021-0 10-13 00:00: 00 Yes [id number] 40mg Take 1 tablet by mouth at bedtime. [facility] montelukast 10 mg tablet 2021-0 10-13 00:00: 00 Yes [id number] 10mg Take 1 tablet by mouth every evening. [facility] atorvastati n 40 mg tablet 0 10-13 00:00: 00 Yes [id number] 40mg Take 1 tablet by mouth at bedtime. [facility] montelukast 10 mg tablet 2021-0 10-13 00:00: 00 Yes [id number] 10mg Take 1 tablet by mouth every evening. [facility] atorvastati n 40 mg tablet 2021-0 10-13 00:00: 00 Yes [id number] 40mg Take 1 tablet by mouth at bedtime. [facility] montelukast 10 mg tablet 2021-0 10-13 00:00: 00 Yes [id number] 10mg Take 1 tablet by mouth every evening. [facility] atorvastati n 40 mg tablet 2021-0 10-13 00:00: 00 Yes [id number] 40mg Take 1 tablet by mouth at bedtime. [facility] montelukast 10 mg tablet 2021-0 10-13 00:00: 00 Yes [id number] 10mg Take 1 tablet by mouth every evening. [facility] atorvastati n 40 mg tablet 2021-0 10-13 00:00: 00 Yes [id number] 40mg Take 1 tablet by mouth at bedtime. [facility] montelukast 10 mg tablet 2021-0 10-13 00:00: 00 Yes [id number] 10mg Take 1 tablet by mouth every evening. [facility] atorvastati n 40 mg tablet 2021-0 10-13 00:00: 00 Yes [id number] 40mg Take 1 tablet by mouth at bedtime. [facility] montelukast 10 mg tablet 10-13 00:00: 00 Yes [id number] 10mg Take 1 tablet by mouth every evening. [facility] atorvastati n 40 mg tablet 10-13 00:00: 00 Yes [id number] 40mg Take 1 tablet by mouth at bedtime. [facility] montelukast 10 mg tablet 10-13 00:00: 00 Yes [id number] 10mg Take 1 tablet by mouth every evening. [facility] atorvastati n 40 mg tablet 10-13 00:00: 00 Yes [id number] 40mg Take 1 tablet by mouth at bedtime. [facility] montelukast 10 mg tablet 10-13 00:00: 00 Yes [id number] 10mg Take 1 tablet by mouth every evening. [facility] atorvastati n 40 mg tablet 10-13 00:00: 00 Yes [id number] 40mg Take 1 tablet by mouth at bedtime. [facility] montelukast 10 mg tablet 10-13 00:00: 00 Yes [id number] 10mg Take 1 tablet by mouth every evening. [facility] atorvastati n 40 mg tablet 10-13 00:00: 00 Yes [id number] 40mg Take 1 tablet by mouth at bedtime. [facility] diltiazem XR 120 mg 24 hr capsule 10-13 00:00: 00 Yes [id number] 120mg Take 1 capsule by mouth daily. [facility] montelukast 10 mg tablet 10-13 00:00: 00 Yes [id number] 10mg Take 1 tablet by mouth every evening. [facility] atorvastati n 40 mg tablet 10-13 00:00: 00 Yes [id number] 40mg Take 1 tablet by mouth at bedtime. [facility] diltiazem XR 120 mg 24 hr capsule 10-13 00:00: 00 Yes [id number] 120mg Take 1 capsule by mouth daily. [facility] montelukast 10 mg tablet 10-13 00:00: 00 Yes [id number] 10mg Take 1 tablet by mouth every evening. [facility] atorvastati n 40 mg tablet 10-13 00:00: 00 Yes [id number] 40mg Take 1 tablet by mouth at bedtime. [facility] montelukast 10 mg tablet 10-13 00:00: 00 Yes [id number] 10mg Take 1 tablet by mouth every evening. [facility] atorvastati n 40 mg tablet 10-13 00:00: 00 Yes [id number] 40mg Take 1 tablet by mouth at bedtime. [facility] montelukast 10 mg tablet 10-13 00:00: 00 Yes [id number] 10mg Take 1 tablet by mouth every evening. [facility] atorvastati n 40 mg tablet 10-13 00:00: 00 Yes [id number] 40mg Take 1 tablet by mouth at bedtime. [facility] montelukast 10 mg tablet 10-13 00:00: 00 Yes [id number] 10mg Take 1 tablet by mouth every evening. [facility] atorvastati n 40 mg tablet 10-13 00:00: 00 Yes [id number] 40mg Take 1 tablet by mouth at bedtime. [facility] montelukast 10 mg tablet 10-13 00:00: 00 Yes [id number] 10mg Take 1 tablet by mouth every evening. [facility] atorvastati n 40 mg tablet 0 10-13 00:00: 00 Yes [id number] 40mg Take 1 tablet by mouth at bedtime. [facility] montelukast 10 mg tablet 10-13 00:00: 00 Yes [id number] 10mg Take 1 tablet by mouth every evening. [facility] atorvastati n 40 mg tablet 10-13 00:00: 00 Yes [id number] 40mg Take 1 tablet by mouth at bedtime. [facility] montelukast 10 mg tablet 10-13 00:00: 00 Yes [id number] 10mg Take 1 tablet by mouth every evening. [facility] atorvastati n 40 mg tablet 10-13 00:00: 00 Yes [id number] 40mg Take 1 tablet by mouth at bedtime. [facility] montelukast 10 mg tablet 10-13 00:00: 00 Yes [id number] 10mg Take 1 tablet by mouth every evening. [facility] atorvastati n 40 mg tablet 10-13 00:00: 00 Yes [id number] 40mg Take 1 tablet by mouth at bedtime. [facility] montelukast 10 mg tablet 10-13 00:00: 00 Yes [id number] 10mg Take 1 tablet by mouth every evening. [facility] atorvastati n 40 mg tablet 10-13 00:00: 00 10-25 00:00 :00 No [id number] 40mg Take 1 tablet by mouth at bedtime. [facility] montelukast 10 mg tablet 10-13 00:00: 00 10-25 00:00 :00 No [id number] 10mg Take 1 tablet by mouth every evening. [facility] aspirin 81 mg chewable tablet 10-13 00:00: 00 01-12 04:59 :00 No [id number] 81mg Take 1 tablet by mouth daily for 90 days. [facility] [facility] fluticasone propion-patrick meteroL (ADVAIR DISKUS) 250-50 mcg/dose inhalation disk 10-13 00:00: 00 01-12 04:59 :00 No [id number] 1{puff} Inhale 1 Puff every 12 (twelve) hours for 90 days. [facility] aspirin 81 mg chewable tablet 10-13 00:00: 00 01-12 04:59 :00 No [id number] 81mg Take 1 tablet by mouth daily for 90 days. [facility] fluticasone propion-patrick meteroL (ADVAIR DISKUS) 250-50 mcg/dose inhalation disk 10-13 00:00: 00 01-12 04:59 :00 No [id number] 1{puff} Inhale 1 Puff every 12 (twelve) hours for 90 days. [facility] aspirin 81 mg chewable tablet 10-13 00:00: 00 01-12 04:59 :00 No [id number] 81mg Take 1 tablet by mouth daily for 90 days. [facility] fluticasone propion-patrick meteroL (ADVAIR DISKUS) 250-50 mcg/dose inhalation disk 10-13 00:00: 00 01-12 04:59 :00 No [id number] 1{puff} Inhale 1 Puff every 12 (twelve) hours for 90 days. [facility] diltiazem XR 120 mg 24 hr capsule 10-13 00:00: 00 12-24 00:00 :00 No [id number] 120mg Take 1 capsule by mouth daily. [facility] montelukast 10 mg tablet 06-30 00:00: 00 10-13 00:00 :00 No [id number] 10mg Take 1 tablet by mouth every evening. [facility] atorvastati n 40 mg tablet 06-30 00:00: 00 10-13 00:00 :00 No [id number] 40mg Take 1 tablet by mouth at bedtime. [facility] diltiazem XR 120 mg 24 hr capsule 2020-04- 00:00: 00 10-13 00:00 :00 No [id number] 120mg Take 1 capsule by mouth daily. [facility] MULTIVITAMI N ORAL 9-24 16:08: 24 Yes Take by mouth. [facility] POTASSIUM-9 9 ORAL 2021-0 9-24 16:08: 24 Yes Take by mouth. [facility] MULTIVITAMI N ORAL 2021-0 9-24 16:08: 24 Yes Take by mouth. [facility] POTASSIUM-9 9 ORAL 2021-0 9-24 16:08: 24 Yes Take by mouth. [facility] MULTIVITAMI N ORAL 2021-0 9-24 16:08: 24 Yes Take by mouth. [facility] POTASSIUM-9 9 ORAL 2021-0 9-24 16:08: 24 Yes Take by mouth. [facility] MULTIVITAMI N ORAL 2021-0 924 16:08: 24 Yes Take by mouth. [facility] POTASSIUM-9 9 ORAL 2021-0 9-24 16:08: 24 Yes Take by mouth. [facility] MULTIVITAMI N ORAL 2021-0 924 16:08: 24 Yes Take by mouth. [facility] POTASSIUM-9 9 ORAL 2021-0 924 16:08: 24 Yes Take by mouth. [facility] MULTIVITAMI N ORAL 2021-0 924 16:08: 24 Yes Take by mouth. [facility] POTASSIUM-9 9 ORAL 1-0 924 16:08: 24 Yes Take by mouth. [facility] MULTIVITAMI N ORAL 2021-0 924 16:08: 24 Yes Take by mouth. [facility] POTASSIUM-9 9 ORAL 2021-0 9-24 16:08: 24 Yes Take by mouth. [facility] MULTIVITAMI N ORAL 2021-0 9-24 16:08: 24 Yes Take by mouth. [facility] POTASSIUM-9 9 ORAL 2021-0 9-24 16:08: 24 Yes Take by mouth. [facility] MULTIVITAMI N ORAL 2021-0 9-24 16:08: 24 Yes Take by mouth. [facility] POTASSIUM-9 9 ORAL 2021-0 9-24 16:08: 24 Yes Take by mouth. [facility] MULTIVITAMI N ORAL 2021-0 9-24 16:08: 24 Yes Take by mouth. [facility] POTASSIUM-9 9 ORAL 2021-0 9-24 16:08: 24 Yes Take by mouth. [facility] MULTIVITAMI N ORAL 2021-0 9-24 16:08: 24 Yes Take by mouth. [facility] POTASSIUM-9 9 ORAL 2021-0 9-24 16:08: 24 Yes Take by mouth. [facility] MULTIVITAMI N ORAL 2021-0 9-24 16:08: 24 Yes Take by mouth. [facility] POTASSIUM-9 9 ORAL 2021-0 9-24 16:08: 24 Yes Take by mouth. [facility] MULTIVITAMI N ORAL 2021-0 9-24 16:08: 24 Yes Take by mouth. [facility] POTASSIUM-9 9 ORAL 2021-0 9-24 16:08: 24 Yes Take by mouth. [facility] MULTIVITAMI N ORAL 2021-0 9-24 16:08: 24 Yes Take by mouth. [facility] POTASSIUM-9 9 ORAL 2021-0 9-24 16:08: 24 Yes Take by mouth. [facility] MULTIVITAMI N ORAL 2021-0 9-24 16:08: 24 Yes Take by mouth. [facility] POTASSIUM-9 9 ORAL 2021-0 9-24 16:08: 24 Yes Take by mouth. [facility] MULTIVITAMI N ORAL 2021-0 9-24 16:08: 24 Yes Take by mouth. [facility] POTASSIUM-9 9 ORAL 2021-0 9-24 16:08: 24 Yes Take by mouth. [facility] MULTIVITAMI N ORAL 2021-0 9-24 16:08: 24 Yes Take by mouth. [facility] POTASSIUM-9 9 ORAL 2021-0 9-24 16:08: 24 Yes Take by mouth. [facility] MULTIVITAMI N ORAL 2021-0 9-24 16:08: 24 Yes Take by mouth. [facility] POTASSIUM-9 9 ORAL 2021-0 9-24 16:08: 24 Yes Take by mouth. [facility] MULTIVITAMI N ORAL 2021-0 9-24 16:08: 24 Yes Take by mouth. [facility] POTASSIUM-9 9 ORAL 2021-0 9-24 16:08: 24 Yes Take by mouth. [facility] MULTIVITAMI N ORAL 2021-0 9-24 16:08: 24 Yes Take by mouth. [facility] POTASSIUM-9 9 ORAL 2021-0 9-24 16:08: 24 Yes Take by mouth. [facility] MULTIVITAMI N ORAL 2021-0 9-24 16:08: 24 Yes Take by mouth. [facility] POTASSIUM-9 9 ORAL 2021-0 9-24 16:08: 24 Yes Take by mouth. [facility] MULTIVITAMI N ORAL 2021-0 9-24 16:08: 24 Yes Take by mouth. [facility] POTASSIUM-9 9 ORAL 2021-0 9-24 16:08: 24 Yes Take by mouth. [facility] MULTIVITAMI N ORAL 2021-0 9-24 16:08: 24 Yes Take by mouth. [facility] POTASSIUM-9 9 ORAL 2021-0 9-24 16:08: 24 Yes Take by mouth. [facility] MULTIVITAMI N ORAL 2021-0 9-24 16:08: 24 Yes Take by mouth. [facility] POTASSIUM-9 9 ORAL 2021-0 9-24 16:08: 24 Yes Take by mouth. [facility] MULTIVITAMI N ORAL 2021-0 9-24 16:08: 24 Yes Take by mouth. [facility] POTASSIUM-9 9 ORAL 2021-0 9-24 16:08: 24 Yes Take by mouth. [facility] MULTIVITAMI N ORAL 2021-0 9-24 16:08: 24 Yes Take by mouth. [facility] POTASSIUM-9 9 ORAL 2021-0 9-24 16:08: 24 Yes Take by mouth. [facility] MULTIVITAMI N ORAL 2021-0 9-24 16:08: 24 Yes Take by mouth. [facility] POTASSIUM-9 9 ORAL 2021-0 9-24 16:08: 24 Yes Take by mouth. [facility] MULTIVITAMI N ORAL 2021-0 9-24 16:08: 24 Yes Take by mouth. [facility] POTASSIUM-9 9 ORAL 2021-0 9-24 16:08: 24 Yes Take by mouth. [facility] MULTIVITAMI N ORAL 2021-0 9-24 16:08: 24 Yes Take by mouth. [facility] POTASSIUM-9 9 ORAL 2021-0 9-24 16:08: 24 Yes Take by mouth. [facility] MULTIVITAMI N ORAL 2021-0 9-24 16:08: 24 Yes Take by mouth. [facility] POTASSIUM-9 9 ORAL 2021-0 9-24 16:08: 24 Yes Take by mouth. [facility] MULTIVITAMI N ORAL 2021-0 9-24 16:08: 24 Yes Take by mouth. [facility] POTASSIUM-9 9 ORAL 2021-0 9-24 16:08: 24 Yes Take by mouth. [facility] MULTIVITAMI N ORAL 2021-0 9-24 16:08: 24 Yes Take by mouth. [facility] POTASSIUM-9 9 ORAL 2021-0 9-24 16:08: 24 Yes Take by mouth. [facility] MULTIVITAMI N ORAL 2021-0 9-24 16:08: 24 Yes Take by mouth. [facility] POTASSIUM-9 9 ORAL 2021-0 9-24 16:08: 24 Yes Take by mouth. [facility] MULTIVITAMI N ORAL 2021-0 9-24 16:08: 24 Yes Take by mouth. [facility] POTASSIUM-9 9 ORAL 2021-0 9-24 16:08: 24 Yes Take by mouth. [facility] MULTIVITAMI N ORAL 2021-0 9-24 16:08: 24 Yes Take by mouth. [facility] POTASSIUM-9 9 ORAL 2021-0 9-24 16:08: 24 Yes Take by mouth. [facility] MULTIVITAMI N ORAL 2021-0 9-24 16:08: 24 Yes Take by mouth. [facility] POTASSIUM-9 9 ORAL 2021-0 9-24 16:08: 24 Yes Take by mouth. [facility] MULTIVITAMI N ORAL 2021-0 9-24 16:08: 24 Yes Take by mouth. [facility] POTASSIUM-9 9 ORAL 2021-0 9-24 16:08: 24 Yes Take by mouth. [facility] MULTIVITAMI N ORAL 2021-0 9-24 16:08: 24 Yes Take by mouth. [facility] POTASSIUM-9 9 ORAL 2021-0 9-24 16:08: 24 Yes Take by mouth. [facility] MULTIVITAMI N ORAL 2021-0 9-24 16:08: 24 Yes Take by mouth. [facility] POTASSIUM-9 9 ORAL 2021-0 9-24 16:08: 24 Yes Take by mouth. [facility] MULTIVITAMI N ORAL 2021-0 9-24 16:08: 24 Yes Take by mouth. [facility] POTASSIUM-9 9 ORAL 2021-0 9-24 16:08: 24 Yes Take by mouth. [facility] MULTIVITAMI N ORAL 2021-0 9-24 16:08: 24 Yes Take by mouth. [facility] POTASSIUM-9 9 ORAL 2021-0 9-24 16:08: 24 Yes Take by mouth. [facility] MULTIVITAMI N ORAL 2021-0 9-24 16:08: 24 Yes Take by mouth. [facility] POTASSIUM-9 9 ORAL 2021-0 9-24 16:08: 24 Yes Take by mouth. [facility] MULTIVITAMI N ORAL 2021-0 9-24 16:08: 24 Yes Take by mouth. [facility] POTASSIUM-9 9 ORAL 2021-0 9-24 16:08: 24 Yes Take by mouth. [facility] MULTIVITAMI N ORAL 2021-0 9-24 16:08: 24 Yes Take by mouth. [facility] POTASSIUM-9 9 ORAL 2021-0 9-24 16:08: 24 Yes Take by mouth. [facility] MULTIVITAMI N ORAL 2021-0 9-24 16:08: 24 Yes Take by mouth. [facility] POTASSIUM-9 9 ORAL 2021-0 9-24 16:08: 24 Yes Take by mouth. [facility] MULTIVITAMI N ORAL 2021-0 9-24 16:08: 24 Yes Take by mouth. [facility] POTASSIUM-9 9 ORAL 2021-0 9-24 16:08: 24 Yes Take by mouth. [facility] MULTIVITAMI N ORAL 2021-0 9-24 16:08: 24 Yes Take by mouth. [facility] POTASSIUM-9 9 ORAL 2021-0 9-24 16:08: 24 Yes Take by mouth. [facility] MULTIVITAMI N ORAL 2021-0 9-24 16:08: 24 Yes Take by mouth. [facility] POTASSIUM-9 9 ORAL 2021-0 9-24 16:08: 24 Yes Take by mouth. [facility] MULTIVITAMI N ORAL 2021-0 9-24 16:08: 24 Yes Take by mouth. [facility] POTASSIUM-9 9 ORAL 2021-0 9-24 16:08: 24 Yes Take by mouth. [facility] MULTIVITAMI N ORAL 2021-0 9-24 16:08: 24 Yes Take by mouth. [facility] POTASSIUM-9 9 ORAL 2021-0 9-24 16:08: 24 Yes Take by mouth. [facility] MULTIVITAMI N ORAL 2021-0 9-24 16:08: 24 Yes Take by mouth. [facility] POTASSIUM-9 9 ORAL 2021-0 9-24 16:08: 24 Yes Take by mouth. [facility] MULTIVITAMI N ORAL 2021-0 9-24 16:08: 24 Yes Take by mouth. [facility] POTASSIUM-9 9 ORAL 2021-0 9-24 16:08: 24 Yes Take by mouth. [facility] MULTIVITAMI N ORAL 2021-0 9-24 16:08: 24 Yes Take by mouth. [facility] POTASSIUM-9 9 ORAL 2021-0 9-24 16:08: 24 Yes Take by mouth. [facility] MULTIVITAMI N ORAL 2021-0 9-24 16:08: 24 Yes Take by mouth. [facility] POTASSIUM-9 9 ORAL 2021-0 9-24 16:08: 24 Yes Take by mouth. [facility] MULTIVITAMI N ORAL 2021-0 9-24 16:08: 24 Yes Take by mouth. [facility] POTASSIUM-9 9 ORAL 2021-0 9-24 16:08: 24 Yes Take by mouth. [facility] MULTIVITAMI N ORAL 2021-0 9-24 16:08: 24 Yes Take by mouth. [facility] POTASSIUM-9 9 ORAL 2021-0 9-24 16:08: 24 Yes Take by mouth. [facility] MULTIVITAMI N ORAL 2021-0 9-24 16:08: 24 Yes Take by mouth. [facility] POTASSIUM-9 9 ORAL 2021-0 9-24 16:08: 24 Yes Take by mouth. [facility] MULTIVITAMI N ORAL 2021-0 9-24 16:08: 24 Yes Take by mouth. [facility] POTASSIUM-9 9 ORAL 2021-0 9-24 16:08: 24 Yes Take by mouth. [facility] MULTIVITAMI N ORAL 2021-0 9-24 16:08: 24 Yes Take by mouth. [facility] POTASSIUM-9 9 ORAL 2021-0 9-24 16:08: 24 Yes Take by mouth. [facility] MULTIVITAMI N ORAL 2021-0 9-24 16:08: 24 Yes Take by mouth. [facility] POTASSIUM-9 9 ORAL 2021-0 9-24 16:08: 24 Yes Take by mouth. [facility] MULTIVITAMI N ORAL 2021-0 9-24 16:08: 24 Yes Take by mouth. [facility] POTASSIUM-9 9 ORAL 2021-0 9-24 16:08: 24 Yes Take by mouth. [facility] MULTIVITAMI N ORAL 2021-0 9-24 16:08: 24 Yes Take by mouth. [facility] POTASSIUM-9 9 ORAL 2021-0 9-24 16:08: 24 Yes Take by mouth. [facility] MULTIVITAMI N ORAL 2021-0 9-24 16:08: 24 Yes Take by mouth. [facility] POTASSIUM-9 9 ORAL 2021-0 9-24 16:08: 24 Yes Take by mouth. [facility] MULTIVITAMI N ORAL 2021-0 9-24 16:08: 24 Yes Take by mouth. [facility] 2021-0 9-24 16:08: 24 Yes Take by mouth. [facility] MULTIVITAMI N ORAL 2021-0 9-24 16:08: 24 Yes Take by mouth. [facility] POTASSIUM-9 9 ORAL 2021-0 9-24 16:08: 24 Yes Take by mouth. [facility] MULTIVITAMI N ORAL 2021-0 9-24 16:08: 24 Yes Take by mouth. [facility] POTASSIUM-9 9 ORAL 2021-0 9-24 16:08: 24 Yes Take by mouth. [facility] MULTIVITAMI N ORAL 2021-0 9-24 16:08: 24 Yes Take by mouth. [facility] POTASSIUM-9 9 ORAL 2021-0 9-24 16:08: 24 Yes Take by mouth. [facility] MULTIVITAMI N ORAL 2021-0 9-24 16:08: 24 Yes Take by mouth. [facility] POTASSIUM-9 9 ORAL 2021-0 9-24 16:08: 24 Yes Take by mouth. [facility] MULTIVITAMI N ORAL 2021-0 9-24 16:08: 24 Yes Take by mouth. [facility] POTASSIUM-9 9 ORAL 2021-0 9-24 16:08: 24 Yes Take by mouth. [facility] MULTIVITAMI N ORAL 2021-0 9-24 16:08: 24 Yes Take by mouth. [facility] POTASSIUM-9 9 ORAL 2021-0 9-24 16:08: 24 Yes Take by mouth. [facility] MULTIVITAMI N ORAL 2021-0 -24 16:08: 24 Yes Take by mouth. [facility] POTASSIUM-9 9 ORAL 2021-0 9-24 16:08: 24 Yes Take by mouth. [facility] MULTIVITAMI N ORAL 2020-0 24 16:08: 24 Yes Take by mouth. [facility] POTASSIUM-9 9 ORAL 2021-0 9-24 16:08: 24 Yes Take by mouth. [facility] MULTIVITAMI N ORAL 1-0 24 16:08: 24 Yes Take by mouth. [facility] POTASSIUM-9 9 ORAL 2020-0 24 16:08: 24 Yes Take by mouth. [facility]-0 24 16:08: 24 Yes Take by mouth. [facility] POTASSIUM-9 9 ORAL 2020-0 24 16:08: 24 Yes Take by mouth. [facility] MULTIVITAMI N ORAL 2020-0 24 16:08: 24 Yes Take by mouth. [facility] POTASSIUM-9 9 ORAL 2020-0 24 16:08: 24 Yes Take by mouth. [facility] MULTIVITAMI N ORAL 2020-0 24 16:08: 24 Yes Take by mouth. [facility] POTASSIUM-9 9 ORAL 2020-0 924 16:08: 24 Yes Take by mouth. [facility] MULTIVITAMI N ORAL 2021-0 9-24 16:08: 24 Yes Take by mouth. [facility] mv-mn/iron/ folic acid/herb 190 (VITAMIN D3 COMPLETE ORAL) 2020-0 9-24 16:08: 24 Yes Take by mouth. [facility] POTASSIUM-9 9 ORAL 2021-0 9-24 16:08: 24 Yes Take by mouth. [facility] MULTIVITAMI N ORAL 2021-0 9-24 16:08: 24 Yes Take by mouth. [facility] mv-mn/iron/ folic acid/herb 190 (VITAMIN D3 COMPLETE ORAL) 0 9-24 16:08: 24 Yes Take by mouth. [facility] POTASSIUM-9 9 ORAL 202-0 9-24 16:08: 24 Yes Take by mouth. [facility] MULTIVITAMI N ORAL 2020-0 9-24 16:08: 24 Yes Take by mouth. [facility] mv-mn/iron/ folic acid/herb 190 (VITAMIN D3 COMPLETE ORAL) 2020-0 9-24 16:08: 24 Yes Take by mouth. [facility] POTASSIUM-9 9 ORAL 2020-0 9-24 16:08: 24 Yes Take by mouth. [facility] MULTIVITAMI N ORAL 2020-0 -24 16:08: 24 Yes Take by mouth. [facility] POTASSIUM-9 9 ORAL 2020-0 24 16:08: 24 Yes Take by mouth. [facility] [facility] MULTIVITAMI N ORAL 2020-0 -24 16:08: 24 Yes Take by mouth. [facility] POTASSIUM-9 9 ORAL 2020-0 924 16:08: 24 Yes Take by mouth. [facility] MULTIVITAMI N ORAL 2020-0 24 16:08: 24 Yes Take by mouth. [facility] POTASSIUM-9 9 ORAL 2020-0 924 16:08: 24 Yes Take by mouth. [facility] MULTIVITAMI N ORAL 2020-0 -24 16:08: 24 Yes Take by mouth. [facility] POTASSIUM-9 9 ORAL 2021-0 9-24 16:08: 24 Yes Take by mouth. [facility] MULTIVITAMI N ORAL 2020-0 9-24 16:08: 24 Yes Take by mouth. [facility] POTASSIUM-9 9 ORAL 2021-0 9-24 16:08: 24 Yes Take by mouth. [facility] MULTIVITAMI N ORAL 2020-0 9-24 16:08: 24 Yes Take by mouth. [facility] POTASSIUM-9 9 ORAL 01-15 16:08: 24 Yes Take by mouth. [facility] MULTIVITAMI N ORAL 01-15 16:08: 24 Yes Take by mouth. [facility] POTASSIUM-9 9 ORAL 0 01-15 16:08: 24 Yes Take by mouth. [facility] etodolac 500 mg tablet 11-16 00:00: 00 Yes [id number] TAKE 1 TABLET BY MOUTH EVERY 12 HOURS WITH MEALS NEEDED FOR PAIN OR INFLAMMATI ON [facility] rOPINIRole 1 mg tablet 0 11-16 00:00: 00 Yes [id number] 1mg Take 1 tablet by mouth at bedtime. [facility] rOPINIRole 1 mg tablet 2020-0 11-16 00:00: 00 Yes [id number] 1mg Take 1 tablet by mouth at bedtime. [facility] rOPINIRole 1 mg tablet 0 11-16 00:00: 00 Yes [id number] 1mg Take 1 tablet by mouth at bedtime. [facility] rOPINIRole 1 mg tablet 0 11-16 00:00: 00 Yes [id number] 1mg Take 1 tablet by mouth at bedtime. [facility] rOPINIRole 1 mg tablet 0 11-16 00:00: 00 Yes [id number] 1mg Take 1 tablet by mouth at bedtime. [facility] rOPINIRole 1 mg tablet 2020-0 11-16 00:00: 00 Yes [id number] 1mg Take 1 tablet by mouth at bedtime. [facility] rOPINIRole 1 mg tablet 2020-0 11-16 00:00: 00 Yes [id number] 1mg Take 1 tablet by mouth at bedtime. [facility] rOPINIRole 1 mg tablet 2020-0 11-16 00:00: 00 Yes [id number] 1mg Take 1 tablet by mouth at bedtime. [facility] rOPINIRole 1 mg tablet 2020-0 11-16 00:00: 00 Yes [id number] 1mg Take 1 tablet by mouth at bedtime. [facility] rOPINIRole 1 mg tablet 11-16 00:00: 00 Yes [id number] 1mg Take 1 tablet by mouth at bedtime. [facility] rOPINIRole 1 mg tablet 11-16 00:00: 00 06-13 00:00 :00 No [id number] 1mg Take 1 tablet by mouth at bedtime. [facility] rOPINIRole 1 mg tablet 11-16 00:00: 00 06-13 00:00 :00 No [id number] 1mg Take 1 tablet by mouth at bedtime. [facility] rOPINIRole 1 mg tablet 11-16 00:00: 00 06-13 00:00 :00 No [id number] 1mg Take 1 tablet by mouth at bedtime. [facility] rOPINIRole 1 mg tablet 11-16 00:00: 00 06-13 00:00 :00 No [id number] 1mg Take 1 tablet by mouth at bedtime. [facility] rOPINIRole 1 mg tablet 11-16 00:00: 00 06-13 00:00 :00 No [id number] 1mg Take 1 tablet by mouth at bedtime. [facility] rOPINIRole 1 mg tablet 11-16 00:00: 00 06-13 00:00 :00 No [id number] 1mg Take 1 tablet by mouth at bedtime. [facility] etodolac 500 mg tablet 11-16 00:00: 00 10-26 00:00 :00 No [id number] 105 TAKE 1 TABLET BY MOUTH EVERY 12 HOURS WITH MEALS NEEDED FOR PAIN OR INFLAMMATI ON [facility] etodolac 500 mg tablet 11-16 00:00: 00 10-26 00:00 :00 No [id number] 105 TAKE 1 TABLET BY MOUTH EVERY 12 HOURS WITH MEALS NEEDED FOR PAIN OR INFLAMMATI ON [facility] etodolac 500 mg tablet 11-16 00:00: 00 10-26 00:00 :00 No [id number] 105 TAKE 1 TABLET BY MOUTH EVERY 12 HOURS WITH MEALS NEEDED FOR PAIN OR INFLAMMATI ON [facility] montelukast 10 mg tablet - 00:00: 00 05-25 00:00 :00 No [id number] TAKE 1 TABLET BY MOUTH ONCE DAILY IN THE EVENING [facility] montelukast 10 mg tablet - 00:00: 00 05-25 00:00 :00 No [id number] TAKE 1 TABLET BY MOUTH ONCE DAILY IN THE EVENING [facility] diltiazem XR 120 mg 24 hr capsule 2019-04 00:00: 00 12-02 00:00 :00 No 120mg Take 1 capsule by mouth daily. [facility] diltiazem XR 120 mg 24 hr capsule 2019-04 00:00: 00 12-02 00:00 :00 No 120mg Take 1 capsule by mouth daily. [facility] diltiazem XR 120 mg 24 hr capsule 2019-04 00:00: 00 12-02 00:00 :00 No 120mg Take 1 capsule by mouth daily. [facility] diltiazem XR 120 mg 24 hr capsule 2019-04 00:00: 00 12-02 00:00 :00 No 120mg Take 1 capsule by mouth daily. [facility] atorvastati n 40 mg tablet 2019-04 00:00: 03-23 00:00 :00 No [id number] 40mg Take 1 tablet by mouth at bedtime. [facility] atorvastati n 40 mg tablet 2019-04 00:00: 00 03-23 00:00 :00 No [id number] 40mg Take 1 tablet by mouth at bedtime. [facility] atorvastati n 40 mg tablet 2019-04 00:00: 00 03-23 00:00 :00 No [id number] 40mg Take 1 tablet by mouth at bedtime. [facility] atorvastati n 40 mg tablet 2019-04 00:00: 00 03-23 00:00 :00 No [id number] 40mg Take 1 tablet by mouth at bedtime. [facility] etodolac 500 mg tablet 2019-1 0-20 00:00: 00 11-16 00:00 :00 No TAKE 1 TABLET BY MOUTH EVERY 12 HOURS WITH MEALS [facility] etodolac 500 mg tablet 2019-1 0-20 00:00: 11-16 00:00 :00 No TAKE 1 TABLET BY MOUTH EVERY 12 HOURS WITH MEALS [facility] levocetiriz ine 5 mg tablet 2019-0 7-16 00:00: 00 01-15 00:00 :00 No [id number] 5mg Take 1 tablet by mouth every evening. [facility] levocetiriz ine 5 mg tablet 2019-0 7-16 00:00: 00 01-15 00:00 :00 No [id number] 5mg Take 1 tablet by mouth every evening. [facility] levocetiriz ine 5 mg tablet 2019-0 7-16 00:00: 00 01-15 00:00 :00 No [id number] 5mg Take 1 tablet by mouth every evening. [facility] levocetiriz ine 5 mg tablet 2019-0 7-16 00:00: 00 01-15 00:00 :00 No [id number] 5mg Take 1 tablet by mouth every evening. [facility] levocetiriz ine 5 mg tablet 2019-0 7-16 00:00: 00 01-15 00:00 :00 No [id number] 5mg Take 1 tablet by mouth every evening. [facility] amLODIPine 5 mg tablet 2019-0 4-10 00:00: 00 02-02 00:00 :00 No [id number] 5mg Take 1 tablet by mouth daily. [facility] montelukast 10 mg tablet 2019-0 1-16 00:00: 00 05-20 00:00 :00 No [id number] TAKE ONE TABLET BY MOUTH IN THE EVENING [facility] montelukast 10 mg tablet 2019-0 1-16 00:00: 00 05-20 00:00 :00 No [id number] TAKE ONE TABLET BY MOUTH IN THE EVENING [facility] montelukast 10 mg tablet 05-09 00:00: 00 05-20 00:00 :00 No [id number] TAKE ONE TABLET BY MOUTH IN THE EVENING [facility] cyclobenzap rine 10 mg tablet 10-22 00:00: 00 02-24 00:00 :00 No [id number] 10mg Take 1 tablet by mouth 3 (three) times daily as needed for Muscle Spasms. DON'T TAKE WITH TRAMADOL. [facility] albuterol (VENTOLIN HFA) 90 mcg/actuati on inhaler 05-04 00:00: 00 Yes [id number] 1{puff} Inhale 1 Puff every 4 (four) hours as needed for Wheezing or Shortness of Breath. [facility] albuterol (VENTOLIN HFA) 90 mcg/actuati on inhaler 05-04 00:00: 00 Yes [id number] 1{puff} Inhale 1 Puff every 4 (four) hours as needed for Wheezing or Shortness of Breath. [facility] albuterol (VENTOLIN HFA) 90 mcg/actuati on inhaler 05-04 00:00: 00 Yes [id number] 1{puff} Inhale 1 Puff every 4 (four) hours as needed for Wheezing or Shortness of Breath. [facility] albuterol (VENTOLIN HFA) 90 mcg/actuati on inhaler 05-04 00:00: 00 Yes [id number] 1{puff} Inhale 1 Puff every 4 (four) hours as needed for Wheezing or Shortness of Breath. [facility] albuterol (VENTOLIN HFA) 90 mcg/actuati on inhaler 05-04 00:00: 00 Yes [id number] 1{puff} Inhale 1 Puff every 4 (four) hours as needed for Wheezing or Shortness of Breath. [facility] albuterol (VENTOLIN HFA) 90 mcg/actuati on inhaler 05-04 00:00: 00 Yes [id number] 1{puff} Inhale 1 Puff every 4 (four) hours as needed for Wheezing or Shortness of Breath. [facility] albuterol (VENTOLIN HFA) 90 mcg/actuati on inhaler 05-04 00:00: 00 05-03 00:00 :00 No [id number] 1{puff} Inhale 1 Puff every 4 (four) hours as needed for Wheezing or Shortness of Breath. [facility] albuterol (VENTOLIN HFA) 90 mcg/actuati on inhaler 05-04 00:00: 00 05-03 00:00 :00 No [id number] 1{puff} Inhale 1 Puff every 4 (four) hours as needed for Wheezing or Shortness of Breath. [facility] albuterol (VENTOLIN HFA) 90 mcg/actuati on inhaler 05-04 00:00: 00 05-03 00:00 :00 No [id number] 1{puff} Inhale 1 Puff every 4 (four) hours as needed for Wheezing or Shortness of Breath. [facility] albuterol (VENTOLIN HFA) 90 mcg/actuati on inhaler 05-04 00:00: 00 05-03 00:00 :00 No [id number] 1{puff} Inhale 1 Puff every 4 (four) hours as needed for Wheezing or Shortness of Breath. [facility] albuterol (VENTOLIN HFA) 90 mcg/actuati on inhaler 05-04 00:00: 00 05-03 00:00 :00 No [id number] 1{puff} Inhale 1 Puff every 4 (four) hours as needed for Wheezing or Shortness of Breath. [facility] albuterol (VENTOLIN HFA) 90 mcg/actuati on inhaler 05-04 00:00: 00 05-03 00:00 :00 No [id number] 1{puff} Inhale 1 Puff every 4 (four) hours as needed for Wheezing or Shortness of Breath. [facility] albuterol (VENTOLIN HFA) 90 mcg/actuati on inhaler 05-04 00:00: 00 05-03 00:00 :00 No [id number] 1{puff} Inhale 1 Puff every 4 (four) hours as needed for Wheezing or Shortness of Breath. [facility] fluticasone -salmeterol (ADVAIR DISKUS) 250-50 mcg/dose inhalation disk 05-04 00:00: 00 02-24 00:00 :00 No [id number] 1{puff} Inhale 1 Puff daily. [facility] Immunizations Ordered Immunization Name Filled Immunization Name Date Status Comments Source Influenza Virus Vaccine Quad IM, Preserv and ABX Free 6 MO-64 YRS 2022-01-25 00:00:00 Completed [facility] Influenza Virus Vaccine Quad IM, Preserv and ABX Free 6 MO-64 YRS 2022-01-25 00:00:00 Completed [facility] Influenza Virus Vaccine Quad IM, Preserv and ABX Free 6 MO-64 YRS 2022-01-25 00:00:00 Completed [facility] Influenza Virus Vaccine Quad IM, Preserv and ABX Free 6 MO-64 YRS 2022-01-25 00:00:00 Completed [facility] Influenza Virus Vaccine Quad IM, Preserv and ABX Free 6 MO-64 YRS 2022-01-25 00:00:00 Completed [facility] Influenza Virus Vaccine Quad IM, Preserv and ABX Free 6 MO-64 YRS 2022-01-25 00:00:00 Completed [facility] Influenza Virus Vaccine Quad IM, Preserv and ABX Free 6 MO-64 YRS 2022-01-25 00:00:00 Completed [facility] Influenza Virus Vaccine Quad IM, Preserv and ABX Free 6 MO-64 YRS 2022-01-25 00:00:00 Completed [facility] Influenza Virus Vaccine Quad IM, Preserv and ABX Free 6 MO-64 YRS 2022-01-25 00:00:00 Completed [facility] Influenza Virus Vaccine Quad IM, Preserv and ABX Free 6 MO-64 2022-01-25 00:00:00 Completed [facility] Influenza Virus Vaccine Quad IM, Preserv and ABX Free 6 MO-64 YRS 2022-01-25 00:00:00 Completed [facility] Influenza Virus Vaccine Quad IM, Preserv and ABX Free 6 MO-64 YRS 2022-01-25 00:00:00 Completed [facility] Influenza Virus Vaccine Quad IM, Preserv and ABX Free 6 MO-64 YRS 2022-01-25 00:00:00 Completed [facility] Influenza Virus Vaccine Quad IM, Preserv and ABX Free 6 MO-64 YRS 2022-01-25 00:00:00 Completed [facility] Influenza Virus Vaccine Quad IM, Preserv and ABX Free 6 MO-64 YRS 2022-01-25 00:00:00 Completed [facility] Influenza Virus Vaccine Quad IM, Preserv and ABX Free 6 MO-64 YRS 2022-01-25 00:00:00 Completed [facility] Influenza Virus Vaccine Quad IM, Preserv and ABX Free 6 MO-64 YRS 2022-01-25 00:00:00 Completed [facility] Influenza Virus Vaccine Quad IM, Preserv and ABX Free 6 MO-64 YRS 2022-01-25 00:00:00 Completed [facility] Influenza Virus Vaccine Quad IM, Preserv and ABX Free 6 MO-64 YRS 2022-01-25 00:00:00 Completed [facility] Influenza Virus Vaccine Quad IM, Preserv and ABX Free 6 MO-64 YRS 2022-01-25 00:00:00 Completed [facility] Influenza Virus Vaccine Quad IM, Preserv and ABX Free 6 MO-64 YRS 2022-01-25 00:00:00 Completed [facility] Influenza Virus Vaccine Quad IM, Preserv and ABX Free 6 MO-64 YRS 2022-01-25 00:00:00 Completed [facility] Influenza Virus Vaccine Quad IM, Preserv and ABX Free 6 MO-64 2022-01-25 00:00:00 Completed [facility] Influenza Virus Vaccine Quad IM, Preserv and ABX Free 6 MO-64 YRS 2022-01-25 00:00:00 Completed [facility] Influenza Virus Vaccine Quad IM, Preserv and ABX Free 6 MO-64 2022-01-25 00:00:00 Completed [facility] Influenza Virus Vaccine Quad IM, Preserv and ABX Free 6 MO-64 YRS 2022-01-25 00:00:00 Completed [facility] Influenza Virus Vaccine Quad IM, Preserv and ABX Free 6 MO-64 YRS 2022-01-25 00:00:00 Completed [facility] Influenza Virus Vaccine Quad IM, Preserv and ABX Free 6 MO-64 YRS 2022-01-25 00:00:00 Completed [facility] Influenza Virus Vaccine Quad IM, Preserv and ABX Free 6 MO-64 YRS 2022-01-25 00:00:00 Completed [facility] Influenza Virus Vaccine Quad IM, Preserv and ABX Free 6 MO-64 YRS 2022-01-25 00:00:00 Completed [facility] Influenza Virus Vaccine Quad IM, Preserv and ABX Free 6 MO-64 YRS 2022-01-25 00:00:00 Completed [facility] Influenza Virus Vaccine Quad IM, Preserv and ABX Free 6 MO-64 YRS 2022-01-25 00:00:00 Completed [facility] Influenza Virus Vaccine Quad IM, Preserv and ABX Free 6 MO-64 YRS 2022-01-25 00:00:00 Completed [facility] Influenza Virus Vaccine Quad IM, Preserv and ABX Free 6 MO-64 YRS 2022-01-25 00:00:00 Completed [facility] Influenza Virus Vaccine Quad IM, Preserv and ABX Free 6 MO-64 YRS 2022-01-25 00:00:00 Completed [facility] Influenza Virus Vaccine Quad IM, Preserv and ABX Free 6 MO-64 YRS 2022-01-25 00:00:00 Completed [facility] Influenza Virus Vaccine Quad IM, Preserv and ABX Free 6 MO-64 YRS 2022-01-25 00:00:00 Completed [facility] Influenza Virus Vaccine Quad IM, Preserv and ABX Free 6 MO-64 YRS 2022-01-25 00:00:00 Completed [facility] Influenza Virus Vaccine Quad IM, Preserv and ABX Free 6 MO-64 YRS 2022-01-25 00:00:00 Completed [facility] Influenza Virus Vaccine Quad IM, Preserv and ABX Free 6 MO-64 YRS 2022-01-25 00:00:00 Completed [facility] Influenza Virus Vaccine Quad IM, Preserv and ABX Free 6 MO-64 YRS 2022-01-25 00:00:00 Completed [facility] Influenza Virus Vaccine Quad IM, Preserv and ABX Free 6 MO-64 YRS 2022-01-25 00:00:00 Completed [facility] Influenza Virus Vaccine Quad IM, Preserv and ABX Free 6 MO-64 YRS 2022-01-25 00:00:00 Completed [facility] Influenza Virus Vaccine Quad IM, Preserv and ABX Free 6 MO-64 YRS 2022-01-25 00:00:00 Completed [facility] Influenza Virus Vaccine Quad IM, Preserv and ABX Free 6 MO-64 YRS 2022-01-25 00:00:00 Completed [facility] Influenza Virus Vaccine Quad IM, Preserv and ABX Free 6 MO-64 YRS 2022-01-25 00:00:00 Completed [facility] Influenza Virus Vaccine Quad IM, Preserv and ABX Free 6 MO-64 YRS 2022-01-25 00:00:00 Completed [facility] Influenza Virus Vaccine Quad IM, Preserv and ABX Free 6 MO-64 YRS 2022-01-25 00:00:00 Completed [facility] Influenza Virus Vaccine Quad IM, Preserv and ABX Free 6 MO-64 YRS 2022-01-25 00:00:00 Completed [facility] Influenza Virus Vaccine Quad IM, Preserv and ABX Free 6 MO-64 YRS (FLUCELVAX) 2022-01-25 00:00:00 Completed [facility] Influenza Virus Vaccine Quad IM, Preserv and ABX Free 6 MO-64 YRS (FLUCELVAX) 2022-01-25 00:00:00 Completed [facility] Influenza Virus Vaccine Quad IM, Preserv and ABX Free 6 MO-64 YRS (FLUCELVAX) 2022-01-25 00:00:00 Completed [facility] Influenza Virus Vaccine Quad IM, Preserv and ABX Free 6 MO-64 YRS (FLUCELVAX) 2022-01-25 00:00:00 Completed [facility] Influenza Virus Vaccine Quad IM, Preserv and ABX Free 6 MO-64 YRS (FLUCELVAX) 2022-01-25 00:00:00 Completed [facility] Influenza Virus Vaccine Quad IM, Preserv and ABX Free 6 MO-64 YRS 2022-01-25 00:00:00 Completed [facility] Influenza Virus Vaccine Quad IM, Preserv and ABX Free 6 MO-64 YRS 2022-01-25 00:00:00 Completed [facility] Influenza Virus Vaccine Quad IM, Preserv and ABX Free 6 MO-64 YRS 2022-01-25 00:00:00 Completed [facility] Influenza Virus Vaccine Quad IM, Preserv and ABX Free 6 MO-64 YRS 2022-01-25 00:00:00 Completed [facility] Influenza Virus Vaccine Quad IM, Preserv and ABX Free 6 MO-64 YRS 2022-01-25 00:00:00 Completed [facility] Influenza Virus Vaccine Quad IM, Preserv and ABX Free 6 MO-64 YRS 2022-01-25 00:00:00 Completed [facility] Influenza Virus Vaccine Quad IM, Preserv and ABX Free 6 MO-64 YRS 2022-01-25 00:00:00 Completed [facility] SARS-COV-2 COVID-19 PFIZER VACCINE 2021-04-27 00:00:00 Completed [facility] SARS-COV-2 COVID-19 PFIZER VACCINE 2021-04-27 00:00:00 Completed [facility] SARS-COV-2 COVID-19 PFIZER VACCINE 2021-04-27 00:00:00 Completed [facility] SARS-COV-2 COVID-19 PFIZER VACCINE 2021-04-27 00:00:00 Completed [facility] SARS-COV-2 COVID-19 PFIZER VACCINE 2021-04-27 00:00:00 Completed [facility] SARS-COV-2 COVID-19 PFIZER VACCINE 2021-04-27 00:00:00 Completed [facility] SARS-COV-2 COVID-19 PFIZER VACCINE 2021-04-27 00:00:00 Completed [facility] SARS-COV-2 COVID-19 PFIZER VACCINE 2021-04-27 00:00:00 Completed [facility] SARS-COV-2 COVID-19 PFIZER VACCINE 2021-04-27 00:00:00 Completed [facility] SARS-COV-2 COVID-19 PFIZER VACCINE 2021-04-27 00:00:00 Completed [facility] SARS-COV-2 COVID-19 PFIZER VACCINE 2021-04-27 00:00:00 Completed [facility] SARS-COV-2 COVID-19 PFIZER VACCINE 2021-04-27 00:00:00 Completed [facility] SARS-COV-2 COVID-19 PFIZER VACCINE 2021-04-27 00:00:00 Completed [facility] SARS-COV-2 COVID-19 PFIZER VACCINE 2021-04-27 00:00:00 Completed [facility] SARS-COV-2 COVID-19 PFIZER VACCINE 2021-04-27 00:00:00 Completed [facility] SARS-COV-2 COVID-19 PFIZER VACCINE 2021-04-27 00:00:00 Completed [facility] SARS-COV-2 COVID-19 PFIZER VACCINE 2021-04-27 00:00:00 Completed [facility] SARS-COV-2 COVID-19 PFIZER VACCINE 2021-04-27 00:00:00 Completed [facility] SARS-COV-2 COVID-19 PFIZER VACCINE 2021-04-27 00:00:00 Completed [facility] SARS-COV-2 COVID-19 PFIZER VACCINE 2021-04-27 00:00:00 Completed [facility] SARS-COV-2 COVID-19 PFIZER VACCINE 2021-04-27 00:00:00 Completed [facility] SARS-COV-2 COVID-19 PFIZER VACCINE 2021-04-27 00:00:00 Completed [facility] SARS-COV-2 COVID-19 PFIZER VACCINE 2021-04-27 00:00:00 Completed [facility] SARS-COV-2 COVID-19 PFIZER VACCINE 2021-04-27 00:00:00 Completed [facility] SARS-COV-2 COVID-19 PFIZER VACCINE 2021-04-27 00:00:00 Completed [facility] SARS-COV-2 COVID-19 PFIZER VACCINE 2021-04-27 00:00:00 Completed [facility] SARS-COV-2 COVID-19 PFIZER VACCINE 2021-04-27 00:00:00 Completed [facility] SARS-COV-2 COVID-19 PFIZER VACCINE 2021-04-27 00:00:00 Completed [facility] SARS-COV-2 COVID-19 PFIZER VACCINE 2021-04-27 00:00:00 Completed [facility] SARS-COV-2 COVID-19 PFIZER VACCINE 2021-04-27 00:00:00 Completed [facility] SARS-COV-2 COVID-19 PFIZER VACCINE 2021-04-27 00:00:00 Completed [facility] SARS-COV-2 COVID-19 PFIZER VACCINE 2021-04-27 00:00:00 Completed [facility] SARS-COV-2 COVID-19 PFIZER VACCINE 2021-04-27 00:00:00 Completed [facility] SARS-COV-2 COVID-19 PFIZER VACCINE 2021-04-27 00:00:00 Completed [facility] SARS-COV-2 COVID-19 PFIZER VACCINE 2021-04-27 00:00:00 Completed [facility] SARS-COV-2 COVID-19 PFIZER VACCINE 2021-04-27 00:00:00 Completed [facility] SARS-COV-2 COVID-19 PFIZER VACCINE 2021-04-27 00:00:00 Completed [facility] SARS-COV-2 COVID-19 PFIZER VACCINE 2021-04-27 00:00:00 Completed [facility] SARS-COV-2 COVID-19 PFIZER VACCINE 2021-04-27 00:00:00 Completed [facility] SARS-COV-2 COVID-19 PFIZER VACCINE 2021-04-27 00:00:00 Completed [facility] SARS-COV-2 COVID-19 PFIZER VACCINE 2021-04-27 00:00:00 Completed [facility] SARS-COV-2 COVID-19 PFIZER VACCINE 2021-04-27 00:00:00 Completed [facility] SARS-COV-2 COVID-19 PFIZER VACCINE 2021-04-27 00:00:00 Completed [facility] SARS-COV-2 COVID-19 PFIZER VACCINE 2021-04-27 00:00:00 Completed [facility] SARS-COV-2 COVID-19 PFIZER VACCINE 2021-04-27 00:00:00 Completed [facility] SARS-COV-2 COVID-19 PFIZER VACCINE 2021-04-27 00:00:00 Completed [facility] SARS-COV-2 COVID-19 PFIZER VACCINE 2021-04-27 00:00:00 Completed [facility] SARS-COV-2 COVID-19 PFIZER VACCINE 2021-04-27 00:00:00 Completed [facility] SARS-COV-2 COVID-19 PFIZER VACCINE 2021-04-27 00:00:00 Completed [facility] SARS-COV-2 COVID-19 PFIZER VACCINE 2021-04-27 00:00:00 Completed [facility] SARS-COV-2 COVID-19 PFIZER VACCINE 2021-04-27 00:00:00 Completed [facility] SARS-COV-2 COVID-19 PFIZER VACCINE 2021-04-27 00:00:00 Completed [facility] SARS-COV-2 COVID-19 PFIZER VACCINE 2021-04-27 00:00:00 Completed [facility] SARS-COV-2 COVID-19 PFIZER VACCINE 2021-04-27 00:00:00 Completed [facility] SARS-COV-2 COVID-19 PFIZER VACCINE 2021-04-27 00:00:00 Completed [facility] SARS-COV-2 COVID-19 PFIZER VACCINE 2021-04-27 00:00:00 Completed [facility] SARS-COV-2 COVID-19 PFIZER VACCINE 2021-04-27 00:00:00 Completed [facility] SARS-COV-2 COVID-19 PFIZER VACCINE 2021-04-27 00:00:00 Completed [facility] SARS-COV-2 COVID-19 PFIZER VACCINE 2021-04-27 00:00:00 Completed [facility] SARS-COV-2 COVID-19 PFIZER VACCINE 2021-04-27 00:00:00 Completed [facility] SARS-COV-2 COVID-19 PFIZER VACCINE 2021-04-27 00:00:00 Completed [facility] SARS-COV-2 COVID-19 PFIZER VACCINE 2021-04-27 00:00:00 Completed [facility] SARS-COV-2 COVID-19 PFIZER VACCINE 2021-04-27 00:00:00 Completed [facility] SARS-COV-2 COVID-19 PFIZER VACCINE 2021-04-27 00:00:00 Completed [facility] Influenza Virus Vaccine Quad IM, Preserv and ABX Free 6 MO-64 YRS 2021-02-17 00:00:00 Completed [facility] Influenza Virus Vaccine Quad IM, Preserv and ABX Free 6 MO-64 YRS 2021-02-17 00:00:00 Completed [facility] Influenza Virus Vaccine Quad IM, Preserv and ABX Free 6 MO-64 YRS 2021-02-17 00:00:00 Completed [facility] Influenza Virus Vaccine Quad IM, Preserv and ABX Free 6 MO-64 YRS 2021-02-17 00:00:00 Completed [facility] Influenza Virus Vaccine Quad IM, Preserv and ABX Free 6 MO-64 YRS 2021-02-17 00:00:00 Completed [facility] Influenza Virus Vaccine Quad IM, Preserv and ABX Free 6 MO-64 YRS 2021-02-17 00:00:00 Completed [facility] Influenza Virus Vaccine Quad IM, Preserv and ABX Free 6 MO-64 YRS 2021-02-17 00:00:00 Completed [facility] Influenza Virus Vaccine Quad IM, Preserv and ABX Free 6 MO-64 YRS 2021-02-17 00:00:00 Completed [facility] Influenza Virus Vaccine Quad IM, Preserv and ABX Free 6 MO-64 YRS 2021-02-17 00:00:00 Completed [facility] Influenza Virus Vaccine Quad IM, Preserv and ABX Free 6 MO-64 YRS 2021-02-17 00:00:00 Completed [facility] Influenza Virus Vaccine Quad IM, Preserv and ABX Free 6 MO-64 YRS 2021-02-17 00:00:00 Completed [facility] Influenza Virus Vaccine Quad IM, Preserv and ABX Free 6 MO-64 YRS 2021-02-17 00:00:00 Completed [facility] Influenza Virus Vaccine Quad IM, Preserv and ABX Free 6 MO-64 YRS 2021-02-17 00:00:00 Completed [facility] Influenza Virus Vaccine Quad IM, Preserv and ABX Free 6 MO-64 YRS 2021-02-17 00:00:00 Completed [facility] Influenza Virus Vaccine Quad IM, Preserv and ABX Free 6 MO-64 YRS 2021-02-17 00:00:00 Completed [facility] Influenza Virus Vaccine Quad IM, Preserv and ABX Free 6 MO-64 YRS 2021-02-17 00:00:00 Completed [facility] Influenza Virus Vaccine Quad IM, Preserv and ABX Free 6 MO-64 YRS 2021-02-17 00:00:00 Completed [facility] Influenza Virus Vaccine Quad IM, Preserv and ABX Free 6 MO-64 YRS 2021-02-17 00:00:00 Completed [facility] Influenza Virus Vaccine Quad IM, Preserv and ABX Free 6 MO-64 YRS 2021-02-17 00:00:00 Completed [facility] Influenza Virus Vaccine Quad IM, Preserv and ABX Free 6 MO-64 YRS 2021-02-17 00:00:00 Completed [facility] Influenza Virus Vaccine Quad IM, Preserv and ABX Free 6 MO-64 YRS 2021-02-17 00:00:00 Completed [facility] Influenza Virus Vaccine Quad IM, Preserv and ABX Free 6 MO-64 YRS 2021-02-17 00:00:00 Completed [facility] Influenza Virus Vaccine Quad IM, Preserv and ABX Free 6 MO-64 YRS 2021-02-17 00:00:00 Completed [facility] Influenza Virus Vaccine Quad IM, Preserv and ABX Free 6 MO-64 YRS 2021-02-17 00:00:00 Completed [facility] Influenza Virus Vaccine Quad IM, Preserv and ABX Free 6 MO-64 YRS 2021-02-17 00:00:00 Completed [facility] Influenza Virus Vaccine Quad IM, Preserv and ABX Free 6 MO-64 YRS 2021-02-17 00:00:00 Completed [facility] Influenza Virus Vaccine Quad IM, Preserv and ABX Free 6 MO-64 YRS 2021-02-17 00:00:00 Completed [facility] Influenza Virus Vaccine Quad IM, Preserv and ABX Free 6 MO-64 YRS 2021-02-17 00:00:00 Completed [facility] Influenza Virus Vaccine Quad IM, Preserv and ABX Free 6 MO-64 YRS 2021-02-17 00:00:00 Completed [facility] Influenza Virus Vaccine Quad IM, Preserv and ABX Free 6 MO-64 YRS 2021-02-17 00:00:00 Completed [facility] Influenza Virus Vaccine Quad IM, Preserv and ABX Free 6 MO-64 YRS 2021-02-17 00:00:00 Completed [facility] Influenza Virus Vaccine Quad IM, Preserv and ABX Free 6 MO-64 YRS 2021-02-17 00:00:00 Completed [facility] Influenza Virus Vaccine Quad IM, Preserv and ABX Free 6 MO-64 YRS 2021-02-17 00:00:00 Completed [facility] Influenza Virus Vaccine Quad IM, Preserv and ABX Free 6 MO-64 YRS 2021-02-17 00:00:00 Completed [facility] Influenza Virus Vaccine Quad IM, Preserv and ABX Free 6 MO-64 YRS 2021-02-17 00:00:00 Completed [facility] Influenza Virus Vaccine Quad IM, Preserv and ABX Free 6 MO-64 YRS 2021-02-17 00:00:00 Completed [facility] Influenza Virus Vaccine Quad IM, Preserv and ABX Free 6 MO-64 YRS 2021-02-17 00:00:00 Completed [facility] Influenza Virus Vaccine Quad IM, Preserv and ABX Free 6 MO-64 YRS 2021-02-17 00:00:00 Completed [facility] Influenza Virus Vaccine Quad IM, Preserv and ABX Free 6 MO-64 YRS 2021-02-17 00:00:00 Completed [facility] Influenza Virus Vaccine Quad IM, Preserv and ABX Free 6 MO-64 YRS 2021-02-17 00:00:00 Completed [facility] Influenza Virus Vaccine Quad IM, Preserv and ABX Free 6 MO-64 YRS 2021-02-17 00:00:00 Completed [facility] Influenza Virus Vaccine Quad IM, Preserv and ABX Free 6 MO-64 YRS 2021-02-17 00:00:00 Completed [facility] Influenza Virus Vaccine Quad IM, Preserv and ABX Free 6 MO-64 YRS 2021-02-17 00:00:00 Completed [facility] Influenza Virus Vaccine Quad IM, Preserv and ABX Free 6 MO-64 YRS 2021-02-17 00:00:00 Completed [facility] Influenza Virus Vaccine Quad IM, Preserv and ABX Free 6 MO-64 YRS 2021-02-17 00:00:00 Completed [facility] Influenza Virus Vaccine Quad IM, Preserv and ABX Free 6 MO-64 YRS 2021-02-17 00:00:00 Completed [facility] Influenza Virus Vaccine Quad IM, Preserv and ABX Free 6 MO-64 YRS 2021-02-17 00:00:00 Completed [facility] Influenza Virus Vaccine Quad IM, Preserv and ABX Free 6 MO-64 YRS 2021-02-17 00:00:00 Completed [facility] Influenza Virus Vaccine Quad IM, Preserv and ABX Free 6 MO-64 YRS 2021-02-17 00:00:00 Completed [facility] Influenza Virus Vaccine Quad IM, Preserv and ABX Free 6 MO-64 YRS (FLUCELVAX) 2021-02-17 00:00:00 Completed [facility] Influenza Virus Vaccine Quad IM, Preserv and ABX Free 6 MO-64 YRS (FLUCELVAX) 2021-02-17 00:00:00 Completed [facility] Influenza Virus Vaccine Quad IM, Preserv and ABX Free 6 MO-64 YRS (FLUCELVAX) 2021-02-17 00:00:00 Completed [facility] Influenza Virus Vaccine Quad IM, Preserv and ABX Free 6 MO-64 YRS (FLUCELVAX) 2021-02-17 00:00:00 Completed [facility] Influenza Virus Vaccine Quad IM, Preserv and ABX Free 6 MO-64 YRS (FLUCELVAX) 2021-02-17 00:00:00 Completed [facility] Influenza Virus Vaccine Quad IM, Preserv and ABX Free 6 MO-64 YRS 2021-02-17 00:00:00 Completed [facility] Influenza Virus Vaccine Quad IM, Preserv and ABX Free 6 MO-64 YRS 2021-02-17 00:00:00 Completed [facility] Influenza Virus Vaccine Quad IM, Preserv and ABX Free 6 MO-64 YRS 2021-02-17 00:00:00 Completed [facility] Influenza Virus Vaccine Quad IM, Preserv and ABX Free 6 MO-64 YRS 2021-02-17 00:00:00 Completed [facility] Influenza Virus Vaccine Quad IM, Preserv and ABX Free 6 MO-64 YRS 2021-02-17 00:00:00 Completed [facility] Influenza Virus Vaccine Quad IM, Preserv and ABX Free 6 MO-64 YRS 2021-02-17 00:00:00 Completed [facility] Influenza Virus Vaccine Quad IM, Preserv and ABX Free 6 MO-64 YRS 2021-02-17 00:00:00 Completed [facility] Influenza Virus Vaccine Quad IM, Preserv and ABX Free 6 MO-64 YRS 2021-02-17 00:00:00 Completed [facility] Influenza Virus Vaccine Quad IM, Preserv and ABX Free 6 MO-64 YRS 2021-02-17 00:00:00 Completed [facility] Influenza Virus Vaccine Quad IM, Preserv and ABX Free 6 MO-64 YRS 2021-02-17 00:00:00 Completed [facility] TDAP 2020-11-16 00:00:00 Completed [facility] TDAP 2020-11-16 00:00:00 Completed [facility] TDAP 2020-11-16 00:00:00 Completed [facility] TDAP 2020-11-16 00:00:00 Completed [facility] TDAP 2020-11-16 00:00:00 Completed [facility] TDAP 2020-11-16 00:00:00 Completed [facility] TDAP 2020-11-16 00:00:00 Completed [facility] TDAP 2020-11-16 00:00:00 Completed [facility] TDAP 2020-11-16 00:00:00 Completed [facility] TDAP 2020-11-16 00:00:00 Completed [facility] TDAP 2020-11-16 00:00:00 Completed [facility] TDAP 2020-11-16 00:00:00 Completed [facility] TDAP 2020-11-16 00:00:00 Completed [facility] TDAP 2020-11-16 00:00:00 Completed [facility] TDAP 2020-11-16 00:00:00 Completed [facility] TDAP 2020-11-16 00:00:00 Completed [facility] TDAP 2020-11-16 00:00:00 Completed [facility] TDAP 2020-11-16 00:00:00 Completed [facility] TDAP 2020-11-16 00:00:00 Completed [facility] TDAP 2020-11-16 00:00:00 Completed [facility] TDAP 2020-11-16 00:00:00 Completed [facility] TDAP 2020-11-16 00:00:00 Completed [facility] TDAP 2020-11-16 00:00:00 Completed [facility] TDAP 2020-11-16 00:00:00 Completed [facility] TDAP 2020-11-16 00:00:00 Completed [facility] TDAP 2020-11-16 00:00:00 Completed [facility] TDAP 2020-11-16 00:00:00 Completed [facility] TDAP 2020-11-16 00:00:00 Completed [facility] TDAP 2020-11-16 00:00:00 Completed [facility] TDAP 2020-11-16 00:00:00 Completed [facility] TDAP 2020-11-16 00:00:00 Completed [facility] TDAP 2020-11-16 00:00:00 Completed [facility] TDAP 2020-11-16 00:00:00 Completed [facility] TDAP 2020-11-16 00:00:00 Completed [facility] TDAP 2020-11-16 00:00:00 Completed [facility] TDAP 2020-11-16 00:00:00 Completed [facility] TDAP 2020-11-16 00:00:00 Completed [facility] TDAP 2020-11-16 00:00:00 Completed [facility] TDAP 2020-11-16 00:00:00 Completed [facility] TDAP 2020-11-16 00:00:00 Completed [facility] TDAP 2020-11-16 00:00:00 Completed [facility] TDAP 2020-11-16 00:00:00 Completed [facility] TDAP 2020-11-16 00:00:00 Completed [facility] TDAP 2020-11-16 00:00:00 Completed [facility] TDAP 2020-11-16 00:00:00 Completed [facility] TDAP 2020-11-16 00:00:00 Completed [facility] TDAP 2020-11-16 00:00:00 Completed [facility] TDAP 2020-11-16 00:00:00 Completed [facility] TDAP 2020-11-16 00:00:00 Completed [facility] TDAP 2020-11-16 00:00:00 Completed [facility] TDAP 2020-11-16 00:00:00 Completed [facility] TDAP 2020-11-16 00:00:00 Completed [facility] TDAP 2020-11-16 00:00:00 Completed [facility] TDAP 2020-11-16 00:00:00 Completed [facility] TDAP 2020-11-16 00:00:00 Completed [facility] TDAP 2020-11-16 00:00:00 Completed [facility] TDAP 2020-11-16 00:00:00 Completed [facility] TDAP 2020-11-16 00:00:00 Completed [facility] TDAP 2020-11-16 00:00:00 Completed [facility] TDAP 2020-11-16 00:00:00 Completed [facility] TDAP 2020-11-16 00:00:00 Completed [facility] TDAP 2020-11-16 00:00:00 Completed [facility] TDAP 2020-11-16 00:00:00 Completed [facility] TDAP 2020-11-16 00:00:00 Completed [facility] SARS-COV-2 COVID-19 PFIZER VACCINE 2020-07-15 00:00:00 Completed [facility] SARS-COV-2 COVID-19 PFIZER VACCINE 2020-07-15 00:00:00 Completed [facility] SARS-COV-2 COVID-19 PFIZER VACCINE 2020-07-15 00:00:00 Completed [facility] SARS-COV-2 COVID-19 PFIZER VACCINE 2020-07-15 00:00:00 Completed [facility] SARS-COV-2 COVID-19 PFIZER VACCINE 2020-07-15 00:00:00 Completed [facility] SARS-COV-2 COVID-19 PFIZER VACCINE 2020-07-15 00:00:00 Completed [facility] SARS-COV-2 COVID-19 PFIZER VACCINE 2020-07-15 00:00:00 Completed [facility] SARS-COV-2 COVID-19 PFIZER VACCINE 2020-07-15 00:00:00 Completed [facility] SARS-COV-2 COVID-19 PFIZER VACCINE 2020-07-15 00:00:00 Completed [facility] SARS-COV-2 COVID-19 PFIZER VACCINE 2020-07-15 00:00:00 Completed [facility] SARS-COV-2 COVID-19 PFIZER VACCINE 2020-07-15 00:00:00 Completed [facility] SARS-COV-2 COVID-19 PFIZER VACCINE 2020-07-15 00:00:00 Completed [facility] SARS-COV-2 COVID-19 PFIZER VACCINE 2020-07-15 00:00:00 Completed [facility] SARS-COV-2 COVID-19 PFIZER VACCINE 2020-07-15 00:00:00 Completed [facility] SARS-COV-2 COVID-19 PFIZER VACCINE 2020-07-15 00:00:00 Completed [facility] SARS-COV-2 COVID-19 PFIZER VACCINE 2020-07-15 00:00:00 Completed [facility] SARS-COV-2 COVID-19 PFIZER VACCINE 2020-07-15 00:00:00 Completed [facility] SARS-COV-2 COVID-19 PFIZER VACCINE 2020-07-15 00:00:00 Completed [facility] SARS-COV-2 COVID-19 PFIZER VACCINE 2020-07-15 00:00:00 Completed [facility] SARS-COV-2 COVID-19 PFIZER VACCINE 2020-07-15 00:00:00 Completed [facility] SARS-COV-2 COVID-19 PFIZER VACCINE 2020-07-15 00:00:00 Completed [facility] SARS-COV-2 COVID-19 PFIZER VACCINE 2020-07-15 00:00:00 Completed [facility] SARS-COV-2 COVID-19 PFIZER VACCINE 2020-07-15 00:00:00 Completed [facility] SARS-COV-2 COVID-19 PFIZER VACCINE 2020-07-15 00:00:00 Completed [facility] SARS-COV-2 COVID-19 PFIZER VACCINE 2020-07-15 00:00:00 Completed [facility] SARS-COV-2 COVID-19 PFIZER VACCINE 2020-07-15 00:00:00 Completed [facility] SARS-COV-2 COVID-19 PFIZER VACCINE 2020-07-15 00:00:00 Completed [facility] SARS-COV-2 COVID-19 PFIZER VACCINE 2020-07-15 00:00:00 Completed [facility] SARS-COV-2 COVID-19 PFIZER VACCINE 2020-07-15 00:00:00 Completed [facility] SARS-COV-2 COVID-19 PFIZER VACCINE 2020-07-15 00:00:00 Completed [facility] SARS-COV-2 COVID-19 PFIZER VACCINE 2020-07-15 00:00:00 Completed [facility] SARS-COV-2 COVID-19 PFIZER VACCINE 2020-07-15 00:00:00 Completed [facility] SARS-COV-2 COVID-19 PFIZER VACCINE 2020-07-15 00:00:00 Completed [facility] SARS-COV-2 COVID-19 PFIZER VACCINE 2020-07-15 00:00:00 Completed [facility] SARS-COV-2 COVID-19 PFIZER VACCINE 2020-07-15 00:00:00 Completed [facility] SARS-COV-2 COVID-19 PFIZER VACCINE 2020-07-15 00:00:00 Completed [facility] SARS-COV-2 COVID-19 PFIZER VACCINE 2020-07-15 00:00:00 Completed [facility] SARS-COV-2 COVID-19 PFIZER VACCINE 2020-07-15 00:00:00 Completed [facility] SARS-COV-2 COVID-19 PFIZER VACCINE 2020-07-15 00:00:00 Completed [facility] SARS-COV-2 COVID-19 PFIZER VACCINE 2020-07-15 00:00:00 Completed [facility] SARS-COV-2 COVID-19 PFIZER VACCINE 2020-07-15 00:00:00 Completed [facility] SARS-COV-2 COVID-19 PFIZER VACCINE 2020-07-15 00:00:00 Completed [facility] SARS-COV-2 COVID-19 PFIZER VACCINE 2020-07-15 00:00:00 Completed [facility] SARS-COV-2 COVID-19 PFIZER VACCINE 2020-07-15 00:00:00 Completed [facility] SARS-COV-2 COVID-19 PFIZER VACCINE 2020-07-15 00:00:00 Completed [facility] SARS-COV-2 COVID-19 PFIZER VACCINE 2020-07-15 00:00:00 Completed [facility] SARS-COV-2 COVID-19 PFIZER VACCINE 2020-07-15 00:00:00 Completed [facility] SARS-COV-2 COVID-19 PFIZER VACCINE 2020-07-15 00:00:00 Completed [facility] SARS-COV-2 COVID-19 PFIZER VACCINE 2020-07-15 00:00:00 Completed [facility] SARS-COV-2 COVID-19 PFIZER VACCINE 2020-07-15 00:00:00 Completed [facility] SARS-COV-2 COVID-19 PFIZER VACCINE 2020-07-15 00:00:00 Completed [facility] SARS-COV-2 COVID-19 PFIZER VACCINE 2020-07-15 00:00:00 Completed [facility] SARS-COV-2 COVID-19 PFIZER VACCINE 2020-07-15 00:00:00 Completed [facility] SARS-COV-2 COVID-19 PFIZER VACCINE 2020-07-15 00:00:00 Completed [facility] SARS-COV-2 COVID-19 PFIZER VACCINE 2020-07-15 00:00:00 Completed [facility] SARS-COV-2 COVID-19 PFIZER VACCINE 2020-07-15 00:00:00 Completed [facility] SARS-COV-2 COVID-19 PFIZER VACCINE 2020-07-15 00:00:00 Completed [facility] SARS-COV-2 COVID-19 PFIZER VACCINE 2020-07-15 00:00:00 Completed [facility] SARS-COV-2 COVID-19 PFIZER VACCINE 2020-07-15 00:00:00 Completed [facility] SARS-COV-2 COVID-19 PFIZER VACCINE 2020-07-15 00:00:00 Completed [facility] SARS-COV-2 COVID-19 PFIZER VACCINE 2020-07-15 00:00:00 Completed [facility] SARS-COV-2 COVID-19 PFIZER VACCINE 2020-07-15 00:00:00 Completed [facility] SARS-COV-2 COVID-19 PFIZER VACCINE 2020-07-15 00:00:00 Completed [facility] SARS-COV-2 COVID-19 PFIZER VACCINE 2020-07-15 00:00:00 Completed [facility] SARS-COV-2 COVID-19 PFIZER VACCINE 2020-06-24 00:00:00 Completed [facility] SARS-COV-2 COVID-19 PFIZER VACCINE 2020-06-24 00:00:00 Completed [facility] SARS-COV-2 COVID-19 PFIZER VACCINE 2020-06-24 00:00:00 Completed [facility] SARS-COV-2 COVID-19 PFIZER VACCINE 2020-06-24 00:00:00 Completed [facility] SARS-COV-2 COVID-19 PFIZER VACCINE 2020-06-24 00:00:00 Completed [facility] SARS-COV-2 COVID-19 PFIZER VACCINE 2020-06-24 00:00:00 Completed [facility] SARS-COV-2 COVID-19 PFIZER VACCINE 2020-06-24 00:00:00 Completed [facility] SARS-COV-2 COVID-19 PFIZER VACCINE 2020-06-24 00:00:00 Completed [facility] SARS-COV-2 COVID-19 PFIZER VACCINE 2020-06-24 00:00:00 Completed [facility] SARS-COV-2 COVID-19 PFIZER VACCINE 2020-06-24 00:00:00 Completed [facility] SARS-COV-2 COVID-19 PFIZER VACCINE 2020-06-24 00:00:00 Completed [facility] SARS-COV-2 COVID-19 PFIZER VACCINE 2020-06-24 00:00:00 Completed [facility] SARS-COV-2 COVID-19 PFIZER VACCINE 2020-06-24 00:00:00 Completed [facility] SARS-COV-2 COVID-19 PFIZER VACCINE 2020-06-24 00:00:00 Completed [facility] SARS-COV-2 COVID-19 PFIZER VACCINE 2020-06-24 00:00:00 Completed [facility] SARS-COV-2 COVID-19 PFIZER VACCINE 2020-06-24 00:00:00 Completed [facility] SARS-COV-2 COVID-19 PFIZER VACCINE 2020-06-24 00:00:00 Completed [facility] SARS-COV-2 COVID-19 PFIZER VACCINE 2020-06-24 00:00:00 Completed [facility] SARS-COV-2 COVID-19 PFIZER VACCINE 2020-06-24 00:00:00 Completed [facility] SARS-COV-2 COVID-19 PFIZER VACCINE 2020-06-24 00:00:00 Completed [facility] SARS-COV-2 COVID-19 PFIZER VACCINE 2020-06-24 00:00:00 Completed [facility] SARS-COV-2 COVID-19 PFIZER VACCINE 2020-06-24 00:00:00 Completed [facility] SARS-COV-2 COVID-19 PFIZER VACCINE 2020-06-24 00:00:00 Completed [facility] SARS-COV-2 COVID-19 PFIZER VACCINE 2020-06-24 00:00:00 Completed [facility] SARS-COV-2 COVID-19 PFIZER VACCINE 2020-06-24 00:00:00 Completed [facility] SARS-COV-2 COVID-19 PFIZER VACCINE 2020-06-24 00:00:00 Completed [facility] SARS-COV-2 COVID-19 PFIZER VACCINE 2020-06-24 00:00:00 Completed [facility] SARS-COV-2 COVID-19 PFIZER VACCINE 2020-06-24 00:00:00 Completed [facility] SARS-COV-2 COVID-19 PFIZER VACCINE 2020-06-24 00:00:00 Completed [facility] SARS-COV-2 COVID-19 PFIZER VACCINE 2020-06-24 00:00:00 Completed [facility] SARS-COV-2 COVID-19 PFIZER VACCINE 2020-06-24 00:00:00 Completed [facility] SARS-COV-2 COVID-19 PFIZER VACCINE 2020-06-24 00:00:00 Completed [facility] SARS-COV-2 COVID-19 PFIZER VACCINE 2020-06-24 00:00:00 Completed [facility] SARS-COV-2 COVID-19 PFIZER VACCINE 2020-06-24 00:00:00 Completed [facility] SARS-COV-2 COVID-19 PFIZER VACCINE 2020-06-24 00:00:00 Completed [facility] SARS-COV-2 COVID-19 PFIZER VACCINE 2020-06-24 00:00:00 Completed [facility] SARS-COV-2 COVID-19 PFIZER VACCINE 2020-06-24 00:00:00 Completed [facility] SARS-COV-2 COVID-19 PFIZER VACCINE 2020-06-24 00:00:00 Completed [facility] SARS-COV-2 COVID-19 PFIZER VACCINE 2020-06-24 00:00:00 Completed [facility] SARS-COV-2 COVID-19 PFIZER VACCINE 2020-06-24 00:00:00 Completed [facility] SARS-COV-2 COVID-19 PFIZER VACCINE 2020-06-24 00:00:00 Completed [facility] SARS-COV-2 COVID-19 PFIZER VACCINE 2020-06-24 00:00:00 Completed [facility] SARS-COV-2 COVID-19 PFIZER VACCINE 2020-06-24 00:00:00 Completed [facility] SARS-COV-2 COVID-19 PFIZER VACCINE 2020-06-24 00:00:00 Completed [facility] SARS-COV-2 COVID-19 PFIZER VACCINE 2020-06-24 00:00:00 Completed [facility] SARS-COV-2 COVID-19 PFIZER VACCINE 2020-06-24 00:00:00 Completed [facility] SARS-COV-2 COVID-19 PFIZER VACCINE 2020-06-24 00:00:00 Completed [facility] SARS-COV-2 COVID-19 PFIZER VACCINE 2020-06-24 00:00:00 Completed [facility] SARS-COV-2 COVID-19 PFIZER VACCINE 2020-06-24 00:00:00 Completed [facility] SARS-COV-2 COVID-19 PFIZER VACCINE 2020-06-24 00:00:00 Completed [facility] SARS-COV-2 COVID-19 PFIZER VACCINE 2020-06-24 00:00:00 Completed [facility] SARS-COV-2 COVID-19 PFIZER VACCINE 2020-06-24 00:00:00 Completed [facility] SARS-COV-2 COVID-19 PFIZER VACCINE 2020-06-24 00:00:00 Completed [facility] SARS-COV-2 COVID-19 PFIZER VACCINE 2020-06-24 00:00:00 Completed [facility] SARS-COV-2 COVID-19 PFIZER VACCINE 2020-06-24 00:00:00 Completed [facility] SARS-COV-2 COVID-19 PFIZER VACCINE 2020-06-24 00:00:00 Completed [facility] SARS-COV-2 COVID-19 PFIZER VACCINE 2020-06-24 00:00:00 Completed [facility] SARS-COV-2 COVID-19 PFIZER VACCINE 2020-06-24 00:00:00 Completed [facility] SARS-COV-2 COVID-19 PFIZER VACCINE 2020-06-24 00:00:00 Completed [facility] SARS-COV-2 COVID-19 PFIZER VACCINE 2020-06-24 00:00:00 Completed [facility] SARS-COV-2 COVID-19 PFIZER VACCINE 2020-06-24 00:00:00 Completed [facility] SARS-COV-2 COVID-19 PFIZER VACCINE 2020-06-24 00:00:00 Completed [facility] SARS-COV-2 COVID-19 PFIZER VACCINE 2020-06-24 00:00:00 Completed [facility] SARS-COV-2 COVID-19 PFIZER VACCINE 2020-06-24 00:00:00 Completed [facility] Influenza Virus Vaccine Quad .5 mL IM 6+ MO 2020-01-16 00:00:00 Completed [facility] Influenza Virus Vaccine Quad .5 mL IM 6+ MO 2020-01-16 00:00:00 Completed [facility] Influenza Virus Vaccine Quad .5 mL IM 6+ MO 2020-01-16 00:00:00 Completed [facility] Influenza Virus Vaccine Quad .5 mL IM 6+ MO 2020-01-16 00:00:00 Completed [facility] Influenza Virus Vaccine Quad .5 mL IM 6+ MO 2020-01-16 00:00:00 Completed [facility] Influenza Virus Vaccine Quad .5 mL IM 6+ MO 2020-01-16 00:00:00 Completed [facility] Influenza Virus Vaccine Quad .5 mL IM 6+ MO 2020-01-16 00:00:00 [facility] [facility] Vaccine Quad .5 mL IM 6+ MO 2020-01-16 00:00:00 Completed [facility] Influenza Virus Vaccine Quad .5 mL IM 6+ MO 2020-01-16 00:00:00 Completed [facility] Influenza Virus Vaccine Quad .5 mL IM 6+ MO 2020-01-16 00:00:00 Completed [facility] Influenza Virus Vaccine Quad .5 mL IM 6+ MO 2020-01-16 00:00:00 Completed [facility] Influenza Virus Vaccine Quad .5 mL IM 6+ MO 2020-01-16 00:00:00 Completed [facility] Influenza Virus Vaccine Quad .5 mL IM 6+ MO 2020-01-16 00:00:00 Completed [facility] Influenza Virus Vaccine Quad .5 mL IM 6+ MO 2020-01-16 00:00:00 Completed [facility] Influenza Virus Vaccine Quad .5 mL IM 6+ MO 2020-01-16 00:00:00 Completed [facility] Influenza Virus Vaccine Quad .5 mL IM 6+ MO 2020-01-16 00:00:00 Completed [facility] Influenza Virus Vaccine Quad .5 mL IM 6+ MO 2020-01-16 00:00:00 Completed [facility] Influenza Virus Vaccine Quad .5 mL IM 6+ MO 2020-01-16 00:00:00 Completed [facility] Influenza Virus Vaccine Quad .5 mL IM 6+ MO 2020-01-16 00:00:00 Completed [facility] Influenza Virus Vaccine Quad .5 mL IM 6+ MO 2020-01-16 00:00:00 Completed [facility] Influenza Virus Vaccine Quad .5 mL IM 6+ MO 2020-01-16 00:00:00 Completed [facility] Influenza Virus Vaccine Quad .5 mL IM 6+ MO 2020-01-16 00:00:00 Completed [facility] Influenza Virus Vaccine Quad .5 mL IM 6+ MO 2020-01-16 00:00:00 Completed [facility] Influenza Virus Vaccine Quad .5 mL IM 6+ MO 2020-01-16 00:00:00 Completed [facility] Influenza Virus Vaccine Quad .5 mL IM 6+ MO 2020-01-16 00:00:00 Completed [facility] Influenza Virus Vaccine Quad .5 mL IM 6+ MO 2020-01-16 00:00:00 Completed [facility] Influenza Virus Vaccine Quad .5 mL IM 6+ MO 2020-01-16 00:00:00 Completed [facility] Influenza Virus Vaccine Quad .5 mL IM 6+ MO 2020-01-16 00:00:00 Completed [facility] Influenza Virus Vaccine Quad .5 mL IM 6+ MO 2020-01-16 00:00:00 Completed [facility] Influenza Virus Vaccine Quad .5 mL IM 6+ MO 2020-01-16 00:00:00 Completed [facility] Influenza Virus Vaccine Quad .5 mL IM 6+ MO 2020-01-16 00:00:00 Completed [facility] Influenza Virus Vaccine Quad .5 mL IM 6+ MO 2020-01-16 00:00:00 Completed [facility] Influenza Virus Vaccine Quad .5 mL IM 6+ MO 2020-01-16 00:00:00 Completed [facility] Influenza Virus Vaccine Quad .5 mL IM 6+ MO 2020-01-16 00:00:00 Completed [facility] Influenza Virus Vaccine Quad .5 mL IM 6+ MO 2020-01-16 00:00:00 Completed [facility] Influenza Virus Vaccine Quad .5 mL IM 6+ MO 2020-01-16 00:00:00 Completed [facility] Influenza Virus Vaccine Quad .5 mL IM 6+ MO 2020-01-16 00:00:00 Completed [facility] Influenza Virus Vaccine Quad .5 mL IM 6+ MO 2020-01-16 00:00:00 Completed [facility] Influenza Virus Vaccine Quad .5 mL IM 6+ MO 2020-01-16 00:00:00 Completed [facility] Influenza Virus Vaccine Quad .5 mL IM 6+ MO 2020-01-16 00:00:00 Completed [facility] Influenza Virus Vaccine Quad .5 mL IM 6+ MO 2020-01-16 00:00:00 Completed [facility] Influenza Virus Vaccine Quad .5 mL IM 6+ MO 2020-01-16 00:00:00 Completed [facility] Influenza Virus Vaccine Quad .5 mL IM 6+ MO 2020-01-16 00:00:00 Completed [facility] Influenza Virus Vaccine Quad .5 mL IM 6+ MO 2020-01-16 00:00:00 Completed [facility] Influenza Virus Vaccine Quad .5 mL IM 6+ MO 2020-01-16 00:00:00 Completed [facility] Influenza Virus Vaccine Quad .5 mL IM 6+ MO 2020-01-16 00:00:00 Completed [facility] Influenza Virus Vaccine Quad .5 mL IM 6+ MO 2020-01-16 00:00:00 Completed [facility] Influenza Virus Vaccine Quad .5 mL IM 6+ MO 2020-01-16 00:00:00 Completed [facility] Influenza Virus Vaccine Quad .5 mL IM 6+ MO 2020-01-16 00:00:00 Completed [facility] Influenza Virus Vaccine Quad .5 mL IM 6+ MO (FLUZONE/FLULAVAL/F LUARIX) 2020-01-16 00:00:00 Completed [facility] Influenza Virus Vaccine Quad .5 mL IM 6+ MO (FLUZONE/FLULAVAL/F LUARIX) 2020-01-16 00:00:00 Completed [facility] Influenza Virus Vaccine Quad .5 mL IM 6+ MO (FLUZONE/FLULAVAL/F LUARIX) 2020-01-16 00:00:00 Completed [facility] Influenza Virus Vaccine Quad .5 mL IM 6+ MO (FLUZONE/FLULAVAL/F LUARIX) 2020-01-16 00:00:00 Completed [facility] Influenza Virus Vaccine Quad .5 mL IM 6+ MO (FLUZONE/FLULAVAL/F LUARIX) 2020-01-16 00:00:00 Completed [facility] Influenza Virus Vaccine Quad .5 mL IM 6+ MO 2020-01-16 00:00:00 Completed [facility] Influenza Virus Vaccine Quad .5 mL IM 6+ MO 2020-01-16 00:00:00 Completed [facility] Influenza Virus Vaccine Quad .5 mL IM 6+ MO 2020-01-16 00:00:00 Completed [facility] Influenza Virus Vaccine Quad .5 mL IM 6+ MO 2020-01-16 00:00:00 Completed [facility] Influenza Virus Vaccine Quad .5 mL IM 6+ MO 2020-01-16 00:00:00 Completed [facility] Influenza Virus Vaccine Quad .5 mL IM 6+ MO 2020-01-16 00:00:00 Completed [facility] Influenza Virus Vaccine Quad .5 mL IM 6+ MO 2020-01-16 00:00:00 Completed [facility] Influenza Virus Vaccine Quad .5 mL IM 6+ MO 2020-01-16 00:00:00 Completed [facility] Influenza Virus Vaccine Quad .5 mL IM 6+ MO 2020-01-16 00:00:00 Completed [facility] Influenza Virus Vaccine Quad .5 mL IM 6+ MO 2020-01-16 00:00:00 Completed [facility] Pneumococcal Polysaccharide, PPSV23 (PNEUMOVAX) 2013-04-24 00:00:00 Completed [facility] Pneumococcal Polysaccharide, PPSV23 (PNEUMOVAX) 2013-04-24 00:00:00 Completed [facility] Pneumococcal Polysaccharide, PPSV23 (PNEUMOVAX) 2013-04-24 00:00:00 Completed [facility] Pneumococcal Polysaccharide, PPSV23 (PNEUMOVAX) 2013-04-24 00:00:00 Completed [facility] Pneumococcal Polysaccharide, PPSV23 (PNEUMOVAX) 2013-04-24 00:00:00 Completed [facility] Pneumococcal Polysaccharide, PPSV23 (PNEUMOVAX) 2013-04-24 00:00:00 Completed [facility] Pneumococcal Polysaccharide, PPSV23 (PNEUMOVAX) 2013-04-24 00:00:00 Completed [facility] Pneumococcal Polysaccharide, PPSV23 (PNEUMOVAX) 2013-04-24 00:00:00 Completed [facility] Pneumococcal Polysaccharide, PPSV23 (PNEUMOVAX) 2013-04-24 00:00:00 Completed [facility] Pneumococcal Polysaccharide, PPSV23 (PNEUMOVAX) 2013-04-24 00:00:00 Completed [facility] Pneumococcal Polysaccharide, PPSV23 (PNEUMOVAX) 2013-04-24 00:00:00 Completed [facility] Pneumococcal Polysaccharide, PPSV23 (PNEUMOVAX) 2013-04-24 00:00:00 Completed [facility] Pneumococcal Polysaccharide, PPSV23 (PNEUMOVAX) 2013-04-24 00:00:00 Completed [facility] Pneumococcal Polysaccharide, PPSV23 (PNEUMOVAX) 2013-04-24 00:00:00 Completed [facility] Pneumococcal Polysaccharide, PPSV23 (PNEUMOVAX) 2013-04-24 00:00:00 Completed [facility] Pneumococcal Polysaccharide, PPSV23 (PNEUMOVAX) 2013-04-24 00:00:00 Completed [facility] Pneumococcal Polysaccharide, PPSV23 (PNEUMOVAX) 2013-04-24 00:00:00 Completed [facility] Pneumococcal Polysaccharide, PPSV23 (PNEUMOVAX) 2013-04-24 00:00:00 Completed [facility] Pneumococcal Polysaccharide, PPSV23 (PNEUMOVAX) 2013-04-24 00:00:00 Completed [facility] Pneumococcal Polysaccharide, PPSV23 (PNEUMOVAX) 2013-04-24 00:00:00 Completed [facility] Pneumococcal Polysaccharide, PPSV23 (PNEUMOVAX) 2013-04-24 00:00:00 Completed [facility] Pneumococcal Polysaccharide, PPSV23 (PNEUMOVAX) 2013-04-24 00:00:00 Completed [facility] Pneumococcal Polysaccharide, PPSV23 (PNEUMOVAX) 2013-04-24 00:00:00 Completed [facility] Pneumococcal Polysaccharide, PPSV23 (PNEUMOVAX) 2013-04-24 00:00:00 Completed [facility] Pneumococcal Polysaccharide, PPSV23 (PNEUMOVAX) 2013-04-24 00:00:00 Completed [facility] Pneumococcal Polysaccharide, PPSV23 (PNEUMOVAX) 2013-04-24 00:00:00 Completed [facility] Pneumococcal Polysaccharide, PPSV23 (PNEUMOVAX) 2013-04-24 00:00:00 Completed [facility] Pneumococcal Polysaccharide, PPSV23 (PNEUMOVAX) 2013-04-24 00:00:00 Completed [facility] Pneumococcal Polysaccharide, PPSV23 (PNEUMOVAX) 2013-04-24 00:00:00 Completed [facility] Pneumococcal Polysaccharide, PPSV23 (PNEUMOVAX) 2013-04-24 00:00:00 Completed [facility] Pneumococcal Polysaccharide, PPSV23 (PNEUMOVAX) 2013-04-24 00:00:00 Completed [facility] Pneumococcal Polysaccharide, PPSV23 (PNEUMOVAX) 2013-04-24 00:00:00 Completed [facility] Pneumococcal Polysaccharide, PPSV23 (PNEUMOVAX) 2013-04-24 00:00:00 Completed [facility] Pneumococcal Polysaccharide, PPSV23 (PNEUMOVAX) 2013-04-24 00:00:00 Completed [facility] Pneumococcal Polysaccharide, PPSV23 (PNEUMOVAX) 2013-04-24 00:00:00 Completed [facility] Pneumococcal Polysaccharide, PPSV23 (PNEUMOVAX) 2013-04-24 00:00:00 Completed [facility] Pneumococcal Polysaccharide, PPSV23 (PNEUMOVAX) 2013-04-24 00:00:00 Completed [facility] Pneumococcal Polysaccharide, PPSV23 (PNEUMOVAX) 2013-04-24 00:00:00 Completed [facility] Pneumococcal Polysaccharide, PPSV23 (PNEUMOVAX) 2013-04-24 00:00:00 Completed [facility] Pneumococcal Polysaccharide, PPSV23 (PNEUMOVAX) 2013-04-24 00:00:00 Completed [facility] Pneumococcal Polysaccharide, PPSV23 (PNEUMOVAX) 2013-04-24 00:00:00 Completed [facility] Pneumococcal Polysaccharide, PPSV23 (PNEUMOVAX) 2013-04-24 00:00:00 Completed [facility] Pneumococcal Polysaccharide, PPSV23 (PNEUMOVAX) 2013-04-24 00:00:00 Completed [facility] Pneumococcal Polysaccharide, PPSV23 (PNEUMOVAX) 2013-04-24 00:00:00 Completed [facility] Pneumococcal Polysaccharide, PPSV23 (PNEUMOVAX) 2013-04-24 00:00:00 Completed [facility] Pneumococcal Polysaccharide, PPSV23 (PNEUMOVAX) 2013-04-24 00:00:00 Completed [facility] Pneumococcal Polysaccharide, PPSV23 (PNEUMOVAX) 2013-04-24 00:00:00 Completed [facility] Pneumococcal Polysaccharide, PPSV23 (PNEUMOVAX) 2013-04-24 00:00:00 Completed [facility] Pneumococcal Polysaccharide, PPSV23 (PNEUMOVAX) 2013-04-24 00:00:00 Completed [facility] Pneumococcal Polysaccharide, PPSV23 (PNEUMOVAX) 2013-04-24 00:00:00 Completed [facility] Pneumococcal Polysaccharide, PPSV23 (PNEUMOVAX) 2013-04-24 00:00:00 Completed [facility] Pneumococcal Polysaccharide, PPSV23 (PNEUMOVAX) 2013-04-24 00:00:00 Completed [facility] Pneumococcal Polysaccharide, PPSV23 (PNEUMOVAX) 2013-04-24 00:00:00 Completed [facility] Pneumococcal Polysaccharide, PPSV23 (PNEUMOVAX) 2013-04-24 00:00:00 Completed [facility] Pneumococcal Polysaccharide, PPSV23 (PNEUMOVAX) 2013-04-24 00:00:00 Completed [facility] Pneumococcal Polysaccharide, PPSV23 (PNEUMOVAX) 2013-04-24 00:00:00 Completed [facility] Pneumococcal Polysaccharide, PPSV23 (PNEUMOVAX) 2013-04-24 00:00:00 Completed [facility] Pneumococcal Polysaccharide, PPSV23 (PNEUMOVAX) 2013-04-24 00:00:00 Completed [facility] Pneumococcal Polysaccharide, PPSV23 (PNEUMOVAX) 2013-04-24 00:00:00 Completed [facility] Pneumococcal Polysaccharide, PPSV23 (PNEUMOVAX) 2013-04-24 00:00:00 Completed [facility] Pneumococcal Polysaccharide, PPSV23 (PNEUMOVAX) 2013-04-24 00:00:00 Completed [facility] Pneumococcal Polysaccharide, PPSV23 (PNEUMOVAX) 2013-04-24 00:00:00 Completed [facility] Pneumococcal Polysaccharide, PPSV23 (PNEUMOVAX) 2013-04-24 00:00:00 Completed [facility] Pneumococcal Polysaccharide, PPSV23 (PNEUMOVAX) 2013-04-24 00:00:00 Completed [facility] Pneumococcal Polysaccharide, PPSV23 (PNEUMOVAX) Unknown Completed [facility] Influenza Virus Vaccine Quad .5 mL IM 6+ MO (FLUZONE/FLULAVAL/F LUARIX) Unknown Completed [facility] TDAP Unknown Completed [facility] SARS-COV-2 COVID-19 PFIZER VACCINE Unknown Completed [facility] SARS-COV-2 COVID-19 PFIZER VACCINE Unknown Completed [facility] Influenza Virus Vaccine Quad IM, Preserv and ABX Free 6 MO-64 YRS (FLUCELVAX) Unknown Completed [facility] SARS-COV-2 COVID-19 PFIZER VACCINE Unknown Completed [facility] Influenza Virus Vaccine Quad IM, Preserv and ABX Free 6 MO-64 YRS (FLUCELVAX) Unknown Completed [facility] Pneumococcal Polysaccharide, PPSV23 (PNEUMOVAX) Unknown Completed [facility] Influenza Virus Vaccine Quad .5 mL IM 6+ MO (FLUZONE/FLULAVAL/F LUARIX) Unknown Completed [facility] TDAP Unknown Completed [facility] SARS-COV-2 COVID-19 PFIZER VACCINE Unknown Completed [facility] SARS-COV-2 COVID-19 PFIZER VACCINE Unknown Completed [facility] Influenza Virus Vaccine Quad IM, Preserv and ABX Free 6 MO-64 YRS (FLUCELVAX) Unknown Completed [facility] SARS-COV-2 COVID-19 PFIZER VACCINE Unknown Completed [facility] Influenza Virus Vaccine Quad IM, Preserv and ABX Free 6 MO-64 YRS (FLUCELVAX) Unknown Completed [facility] Pneumococcal Polysaccharide, PPSV23 (PNEUMOVAX) Unknown Completed [facility] Influenza Virus Vaccine Quad .5 mL IM 6+ MO (FLUZONE/FLULAVAL/F LUARIX) Unknown Completed [facility] TDAP Unknown Completed [facility] SARS-COV-2 COVID-19 PFIZER VACCINE Unknown Completed [facility] SARS-COV-2 COVID-19 PFIZER VACCINE Unknown Completed [facility] Influenza Virus Vaccine Quad IM, Preserv and ABX Free 6 MO-64 YRS (FLUCELVAX) Unknown Completed [facility] SARS-COV-2 COVID-19 PFIZER VACCINE Unknown Completed [facility] Influenza Virus Vaccine Quad IM, Preserv and ABX Free 6 MO-64 YRS (FLUCELVAX) Unknown Completed [facility] Pneumococcal Polysaccharide, PPSV23 (PNEUMOVAX) Unknown Completed [facility] Influenza Virus Vaccine Quad .5 mL IM 6+ MO (FLUZONE/FLULAVAL/F LUARIX) Unknown Completed [facility] TDAP Unknown Completed [facility] SARS-COV-2 COVID-19 PFIZER VACCINE Unknown Completed [facility] SARS-COV-2 COVID-19 PFIZER VACCINE Unknown Completed [facility] Pneumococcal Polysaccharide, PPSV23 (PNEUMOVAX) Unknown Completed [facility] Influenza Virus Vaccine Quad .5 mL IM 6+ MO (FLUZONE/FLULAVAL/F LUARIX) Unknown Completed [facility] TDAP Unknown Completed [facility] SARS-COV-2 COVID-19 PFIZER VACCINE Unknown Completed [facility] SARS-COV-2 COVID-19 PFIZER VACCINE Unknown Completed [facility] Pneumococcal Polysaccharide, PPSV23 (PNEUMOVAX) Unknown Completed [facility] Influenza Virus Vaccine Quad .5 mL IM 6+ MO (FLUZONE/FLULAVAL/F LUARIX) Unknown Completed [facility] Pneumococcal Polysaccharide, PPSV23 (PNEUMOVAX) Unknown Completed [facility] Influenza Virus Vaccine Quad .5 mL IM 6+ MO (FLUZONE/FLULAVAL/F LUARIX) Unknown Completed [facility] Pneumococcal Polysaccharide, PPSV23 (PNEUMOVAX) Unknown Completed [facility] Pneumococcal Polysaccharide, PPSV23 (PNEUMOVAX) Unknown Completed [facility] Influenza Virus Vaccine Quad .5 mL IM 6+ MO (FLUZONE/FLULAVAL/F LUARIX) Unknown Completed [facility] TDAP Unknown Completed [facility] SARS-COV-2 COVID-19 PFIZER VACCINE Unknown Completed [facility] SARS-COV-2 COVID-19 PFIZER VACCINE Unknown Completed [facility] Influenza Virus Vaccine Quad IM, Preserv and ABX Free 6 MO-64 YRS (FLUCELVAX) Unknown Completed [facility] SARS-COV-2 COVID-19 PFIZER VACCINE Unknown Completed [facility] Influenza Virus Vaccine Quad IM, Preserv and ABX Free 6 MO-64 YRS (FLUCELVAX) Unknown Completed [facility] Influenza Virus Vaccine Quad IM, Preserv and ABX Free 6 MO-64 YRS (FLUCELVAX) Unknown Completed [facility] Pneumococcal Polysaccharide, PPSV23 (PNEUMOVAX) Unknown Completed [facility] Influenza Virus Vaccine Quad .5 mL IM 6+ MO (FLUZONE/FLULAVAL/F LUARIX) Unknown Completed [facility] TDAP Unknown Completed [facility] SARS-COV-2 COVID-19 PFIZER VACCINE Unknown Completed [facility] SARS-COV-2 COVID-19 PFIZER VACCINE Unknown Completed [facility] Influenza Virus Vaccine Quad IM, Preserv and ABX Free 6 MO-64 YRS (FLUCELVAX) Unknown Completed [facility] SARS-COV-2 COVID-19 PFIZER VACCINE Unknown Completed [facility] Influenza Virus Vaccine Quad IM, Preserv and ABX Free 6 MO-64 YRS (FLUCELVAX) Unknown Completed [facility] Influenza Virus Vaccine Quad IM, Preserv and ABX Free 6 MO-64 YRS (FLUCELVAX) Unknown Completed [facility] Pneumococcal Polysaccharide, PPSV23 (PNEUMOVAX) Unknown Completed [facility] Influenza Virus Vaccine Quad .5 mL IM 6+ MO (FLUZONE/FLULAVAL/F LUARIX) Unknown Completed [facility] TDAP Unknown Completed [facility] SARS-COV-2 COVID-19 PFIZER VACCINE Unknown Completed [facility] SARS-COV-2 COVID-19 PFIZER VACCINE Unknown Completed [facility] Influenza Virus Vaccine Quad IM, Preserv and ABX Free 6 MO-64 YRS (FLUCELVAX) Unknown Completed [facility] SARS-COV-2 COVID-19 PFIZER VACCINE Unknown Completed [facility] Influenza Virus Vaccine Quad IM, Preserv and ABX Free 6 MO-64 YRS (FLUCELVAX) Unknown Completed [facility] Influenza Virus Vaccine Quad IM, Preserv and ABX Free 6 MO-64 YRS (FLUCELVAX) Unknown Completed [facility] Pneumococcal Polysaccharide, PPSV23 (PNEUMOVAX) Unknown Completed [facility] Influenza Virus Vaccine Quad .5 mL IM 6+ MO (FLUZONE/FLULAVAL/F LUARIX) Unknown Completed [facility] TDAP Unknown Completed [facility] SARS-COV-2 COVID-19 PFIZER VACCINE Unknown Completed [facility] SARS-COV-2 COVID-19 PFIZER VACCINE Unknown Completed [facility] Influenza Virus Vaccine Quad IM, Preserv and ABX Free 6 MO-64 YRS (FLUCELVAX) Unknown Completed [facility] SARS-COV-2 COVID-19 PFIZER VACCINE Unknown Completed [facility] Influenza Virus Vaccine Quad IM, Preserv and ABX Free 6 MO-64 YRS (FLUCELVAX) Unknown Completed [facility] Influenza Virus Vaccine Quad IM, Preserv and ABX Free 6 MO-64 YRS (FLUCELVAX) Unknown Completed [facility] Pneumococcal Polysaccharide, PPSV23 (PNEUMOVAX) Unknown Completed [facility] Influenza Virus Vaccine Quad .5 mL IM 6+ MO (FLUZONE/FLULAVAL/F LUARIX) Unknown Completed [facility] TDAP Unknown Completed [facility] SARS-COV-2 COVID-19 PFIZER VACCINE Unknown Completed [facility] SARS-COV-2 COVID-19 PFIZER VACCINE Unknown Completed [facility] Influenza Virus Vaccine Quad IM, Preserv and ABX Free 6 MO-64 YRS (FLUCELVAX) Unknown Completed [facility] SARS-COV-2 COVID-19 PFIZER VACCINE Unknown Completed [facility] Influenza Virus Vaccine Quad IM, Preserv and ABX Free 6 MO-64 YRS (FLUCELVAX) Unknown Completed [facility] Influenza Virus Vaccine Quad IM, Preserv and ABX Free 6 MO-64 YRS (FLUCELVAX) Unknown Completed [facility] Pneumococcal Polysaccharide, PPSV23 (PNEUMOVAX) Unknown Completed [facility] Influenza Virus Vaccine Quad .5 mL IM 6+ MO (FLUZONE/FLULAVAL/F LUARIX) Unknown Completed [facility] TDAP Unknown Completed [facility] SARS-COV-2 COVID-19 PFIZER VACCINE Unknown Completed [facility] SARS-COV-2 COVID-19 PFIZER VACCINE Unknown Completed [facility] Influenza Virus Vaccine Quad IM, Preserv and ABX Free 6 MO-64 YRS (FLUCELVAX) Unknown Completed [facility] SARS-COV-2 COVID-19 PFIZER VACCINE Unknown Completed [facility] Influenza Virus Vaccine Quad IM, Preserv and ABX Free 6 MO-64 YRS (FLUCELVAX) Unknown Completed [facility] Influenza Virus Vaccine Quad IM, Preserv and ABX Free 6 MO-64 YRS (FLUCELVAX) Unknown Completed [facility] Pneumococcal Polysaccharide, PPSV23 (PNEUMOVAX) Unknown Completed [facility] Influenza Virus Vaccine Quad .5 mL IM 6+ MO (FLUZONE/FLULAVAL/F LUARIX) Unknown Completed [facility] TDAP Unknown Completed [facility] SARS-COV-2 COVID-19 PFIZER VACCINE Unknown Completed [facility] SARS-COV-2 COVID-19 PFIZER VACCINE Unknown Completed [facility] Influenza Virus Vaccine Quad IM, Preserv and ABX Free 6 MO-64 YRS (FLUCELVAX) Unknown Completed [facility] SARS-COV-2 COVID-19 PFIZER VACCINE Unknown Completed [facility] Influenza Virus Vaccine Quad IM, Preserv and ABX Free 6 MO-64 YRS (FLUCELVAX) Unknown Completed [facility] Influenza Virus Vaccine Quad IM, Preserv and ABX Free 6 MO-64 YRS (FLUCELVAX) Unknown Completed [facility] Pneumococcal Polysaccharide, PPSV23 (PNEUMOVAX) Unknown Completed [facility] Influenza Virus Vaccine Quad .5 mL IM 6+ MO (FLUZONE/FLULAVAL/F LUARIX) Unknown Completed [facility] TDAP Unknown Completed [facility] SARS-COV-2 COVID-19 PFIZER VACCINE Unknown Completed [facility] SARS-COV-2 COVID-19 PFIZER VACCINE Unknown Completed [facility] Influenza Virus Vaccine Quad IM, Preserv and ABX Free 6 MO-64 YRS (FLUCELVAX) Unknown Completed [facility] SARS-COV-2 COVID-19 PFIZER VACCINE Unknown Completed [facility] Influenza Virus Vaccine Quad IM, Preserv and ABX Free 6 MO-64 YRS (FLUCELVAX) Unknown Completed [facility] Influenza Virus Vaccine Quad IM, Preserv and ABX Free 6 MO-64 YRS (FLUCELVAX) Unknown Completed [facility] Pneumococcal Polysaccharide, PPSV23 (PNEUMOVAX) Unknown Completed [facility] Influenza Virus Vaccine Quad .5 mL IM 6+ MO (FLUZONE/FLULAVAL/F LUARIX) Unknown Completed [facility] TDAP Unknown Completed [facility] SARS-COV-2 COVID-19 PFIZER VACCINE Unknown Completed [facility] SARS-COV-2 COVID-19 PFIZER VACCINE Unknown Completed [facility] Influenza Virus Vaccine Quad IM, Preserv and ABX Free 6 MO-64 YRS (FLUCELVAX) Unknown Completed [facility] SARS-COV-2 COVID-19 PFIZER VACCINE Unknown Completed [facility] Influenza Virus Vaccine Quad IM, Preserv and ABX Free 6 MO-64 YRS (FLUCELVAX) Unknown Completed [facility] Influenza Virus Vaccine Quad IM, Preserv and ABX Free 6 MO-64 YRS (FLUCELVAX) Unknown Completed [facility] Pneumococcal Polysaccharide, PPSV23 (PNEUMOVAX) Unknown Completed [facility] Influenza Virus Vaccine Quad .5 mL IM 6+ MO (FLUZONE/FLULAVAL/F LUARIX) Unknown Completed [facility] TDAP Unknown Completed [facility] SARS-COV-2 COVID-19 PFIZER VACCINE Unknown Completed [facility] SARS-COV-2 COVID-19 PFIZER VACCINE Unknown Completed [facility] Influenza Virus Vaccine Quad IM, Preserv and ABX Free 6 MO-64 YRS (FLUCELVAX) Unknown Completed [facility] SARS-COV-2 COVID-19 PFIZER VACCINE Unknown Completed [facility] Influenza Virus Vaccine Quad IM, Preserv and ABX Free 6 MO-64 YRS (FLUCELVAX) Unknown Completed [facility] Influenza Virus Vaccine Quad IM, Preserv and ABX Free 6 MO-64 YRS (FLUCELVAX) Unknown Completed [facility] Pneumococcal Polysaccharide, PPSV23 (PNEUMOVAX) Unknown Completed [facility] Influenza Virus Vaccine Quad .5 mL IM 6+ MO (FLUZONE/FLULAVAL/F LUARIX) Unknown Completed [facility] TDAP Unknown Completed [facility] SARS-COV-2 COVID-19 PFIZER VACCINE Unknown Completed [facility] SARS-COV-2 COVID-19 PFIZER VACCINE Unknown Completed [facility] Influenza Virus Vaccine Quad IM, Preserv and ABX Free 6 MO-64 YRS (FLUCELVAX) Unknown Completed [facility] SARS-COV-2 COVID-19 PFIZER VACCINE Unknown Completed [facility] Influenza Virus Vaccine Quad IM, Preserv and ABX Free 6 MO-64 YRS (FLUCELVAX) Unknown Completed [facility] Influenza Virus Vaccine Quad IM, Preserv and ABX Free 6 MO-64 YRS (FLUCELVAX) Unknown Completed [facility] Pneumococcal Polysaccharide, PPSV23 (PNEUMOVAX) Unknown Completed [facility] Influenza Virus Vaccine Quad .5 mL IM 6+ MO (FLUZONE/FLULAVAL/F LUARIX) Unknown Completed [facility] TDAP Unknown Completed [facility] SARS-COV-2 COVID-19 PFIZER VACCINE Unknown Completed [facility] SARS-COV-2 COVID-19 PFIZER VACCINE Unknown Completed [facility] Influenza Virus Vaccine Quad IM, Preserv and ABX Free 6 MO-64 YRS (FLUCELVAX) Unknown Completed [facility] SARS-COV-2 COVID-19 PFIZER VACCINE Unknown Completed [facility] Influenza Virus Vaccine Quad IM, Preserv and ABX Free 6 MO-64 YRS (FLUCELVAX) Unknown Completed [facility] Influenza Virus Vaccine Quad IM, Preserv and ABX Free 6 MO-64 YRS (FLUCELVAX) Unknown Completed [facility] Pneumococcal Polysaccharide, PPSV23 (PNEUMOVAX) Unknown Completed [facility] Influenza Virus Vaccine Quad .5 mL IM 6+ MO (FLUZONE/FLULAVAL/F LUARIX) Unknown Completed [facility] TDAP Unknown Completed [facility] SARS-COV-2 COVID-19 PFIZER VACCINE Unknown Completed [facility] SARS-COV-2 COVID-19 PFIZER VACCINE Unknown Completed [facility] Influenza Virus Vaccine Quad IM, Preserv and ABX Free 6 MO-64 YRS (FLUCELVAX) Unknown Completed [facility] SARS-COV-2 COVID-19 PFIZER VACCINE Unknown Completed [facility] Influenza Virus Vaccine Quad IM, Preserv and ABX Free 6 MO-64 YRS (FLUCELVAX) Unknown Completed [facility] Influenza Virus Vaccine Quad IM, Preserv and ABX Free 6 MO-64 YRS (FLUCELVAX) Unknown Completed [facility] Pneumococcal Polysaccharide, PPSV23 (PNEUMOVAX) Unknown Completed [facility] Influenza Virus Vaccine Quad .5 mL IM 6+ MO (FLUZONE/FLULAVAL/F LUARIX) Unknown Completed [facility] TDAP Unknown Completed [facility] SARS-COV-2 COVID-19 PFIZER VACCINE Unknown Completed [facility] SARS-COV-2 COVID-19 PFIZER VACCINE Unknown Completed [facility] Influenza Virus Vaccine Quad IM, Preserv and ABX Free 6 MO-64 YRS (FLUCELVAX) Unknown Completed [facility] SARS-COV-2 COVID-19 PFIZER VACCINE Unknown Completed [facility] Influenza Virus Vaccine Quad IM, Preserv and ABX Free 6 MO-64 YRS (FLUCELVAX) Unknown Completed [facility] Influenza Virus Vaccine Quad IM, Preserv and ABX Free 6 MO-64 YRS (FLUCELVAX) Unknown Completed [facility] Pneumococcal Polysaccharide, PPSV23 (PNEUMOVAX) Unknown Completed [facility] Influenza Virus Vaccine Quad .5 mL IM 6+ MO (FLUZONE/FLULAVAL/F LUARIX) Unknown Completed [facility] TDAP Unknown Completed [facility] SARS-COV-2 COVID-19 PFIZER VACCINE Unknown Completed [facility] SARS-COV-2 COVID-19 PFIZER VACCINE Unknown Completed [facility] Influenza Virus Vaccine Quad IM, Preserv and ABX Free 6 MO-64 YRS (FLUCELVAX) Unknown Completed [facility] SARS-COV-2 COVID-19 PFIZER VACCINE Unknown Completed [facility] Influenza Virus Vaccine Quad IM, Preserv and ABX Free 6 MO-64 YRS (FLUCELVAX) Unknown Completed [facility] Influenza Virus Vaccine Quad IM, Preserv and ABX Free 6 MO-64 YRS (FLUCELVAX) Unknown Completed [facility] Pneumococcal Polysaccharide, PPSV23 (PNEUMOVAX) Unknown Completed [facility] Influenza Virus Vaccine Quad .5 mL IM 6+ MO (FLUZONE/FLULAVAL/F LUARIX) Unknown Completed [facility] TDAP Unknown Completed [facility] SARS-COV-2 COVID-19 PFIZER VACCINE Unknown Completed [facility] SARS-COV-2 COVID-19 PFIZER VACCINE Unknown Completed [facility] Influenza Virus Vaccine Quad IM, Preserv and ABX Free 6 MO-64 YRS (FLUCELVAX) Unknown Completed [facility] SARS-COV-2 COVID-19 PFIZER VACCINE Unknown Completed [facility] Influenza Virus Vaccine Quad IM, Preserv and ABX Free 6 MO-64 YRS (FLUCELVAX) Unknown Completed [facility] Influenza Virus Vaccine Quad IM, Preserv and ABX Free 6 MO-64 YRS (FLUCELVAX) Unknown Completed [facility] Pneumococcal Polysaccharide, PPSV23 (PNEUMOVAX) Unknown Completed [facility] Influenza Virus Vaccine Quad .5 mL IM 6+ MO (FLUZONE/FLULAVAL/F LUARIX) Unknown Completed [facility] TDAP Unknown Completed [facility] SARS-COV-2 COVID-19 PFIZER VACCINE Unknown Completed [facility] SARS-COV-2 COVID-19 PFIZER VACCINE Unknown Completed [facility] Influenza Virus Vaccine Quad IM, Preserv and ABX Free 6 MO-64 YRS (FLUCELVAX) Unknown Completed [facility] SARS-COV-2 COVID-19 PFIZER VACCINE Unknown Completed [facility] Influenza Virus Vaccine Quad IM, Preserv and ABX Free 6 MO-64 YRS (FLUCELVAX) Unknown Completed [facility] Influenza Virus Vaccine Quad IM, Preserv and ABX Free 6 MO-64 YRS (FLUCELVAX) Unknown Completed [facility] Pneumococcal Polysaccharide, PPSV23 (PNEUMOVAX) Unknown Completed [facility] Influenza Virus Vaccine Quad .5 mL IM 6+ MO (FLUZONE/FLULAVAL/F LUARIX) Unknown Completed [facility] TDAP Unknown Completed [facility] SARS-COV-2 COVID-19 PFIZER VACCINE Unknown Completed [facility] SARS-COV-2 COVID-19 PFIZER VACCINE Unknown Completed [facility] Influenza Virus Vaccine Quad IM, Preserv and ABX Free 6 MO-64 YRS (FLUCELVAX) Unknown Completed [facility] SARS-COV-2 COVID-19 PFIZER VACCINE Unknown Completed [facility] Influenza Virus Vaccine Quad IM, Preserv and ABX Free 6 MO-64 YRS (FLUCELVAX) Unknown Completed [facility] Influenza Virus Vaccine Quad IM, Preserv and ABX Free 6 MO-64 YRS (FLUCELVAX) Unknown Completed [facility] Pneumococcal Polysaccharide, PPSV23 (PNEUMOVAX) Unknown Completed [facility] Influenza Virus Vaccine Quad .5 mL IM 6+ MO (FLUZONE/FLULAVAL/F LUARIX) Unknown Completed [facility] TDAP Unknown Completed [facility] SARS-COV-2 COVID-19 PFIZER VACCINE Unknown Completed [facility] SARS-COV-2 COVID-19 PFIZER VACCINE Unknown Completed [facility] Influenza Virus Vaccine Quad IM, Preserv and ABX Free 6 MO-64 YRS (FLUCELVAX) Unknown Completed [facility] SARS-COV-2 COVID-19 PFIZER VACCINE Unknown Completed [facility] Influenza Virus Vaccine Quad IM, Preserv and ABX Free 6 MO-64 YRS (FLUCELVAX) Unknown Completed [facility] Influenza Virus Vaccine Quad IM, Preserv and ABX Free 6 MO-64 YRS (FLUCELVAX) Unknown Completed [facility] Vital Signs Vital Name Observation Time Observation Value Comments S ource Systolic blood pressure 2023-05-05 16:57:00 133 mm[Hg] [facility] - External Diastolic blood pressure 2023-05-05 16:57:00 69 mm[Hg] [facility] - External Heart rate 2023-05-05 16:51:00 86 /min [facility] - External Body temperature 2023-05-05 16:51:00 36.56 Willa [facility] - External Respiratory rate 2023-05-05 16:51:00 16 /min Mary [facility]otn - External Body height 2023-05-05 16:51:00 170.2 cm [facility] - External Body weight 2023-05-05 16:51:00 114.76 kg [facility] - External BMI 2023-05-05 16:51:00 39.63 kg/m2 [facility] - External Systolic blood pressure 2023-01-27 14:45:00 129 mm[Hg] [facility] Diastolic blood pressure 2023-01-27 14:45:00 67 mm[Hg] [facility] Heart rate 2023-01-27 14:45:00 68 /min [facility] Body temperature 2023-01-27 14:45:00 36.33 Willa [facility] Respiratory rate 2023-01-27 14:45:00 20 /min [facility] Body height 2023-01-27 14:45:00 170.2 cm [facility] Body weight 2023-01-27 14:45:00 117.119 kg [facility] BMI 2023-01-27 14:45:00 40.44 kg/m2 [facility] Oxygen saturation in Arterial blood by Pulse oximetry 2023-01-27 14:45:00 95 /min [facility] Systolic blood pressure 2023-01-01 05:05:00 135 mm[Hg] [facility] Diastolic blood pressure 2023-01-01 05:05:00 65 mm[Hg] [facility] Heart rate 2023-01-01 05:05:00 72 /min [facility] Body temperature 2023-01-01 05:05:00 37.06 Willa [facility] Respiratory rate 2023-01-01 05:05:00 16 /min [facility] Oxygen saturation in Arterial blood by Pulse oximetry 2023-01-01 05:05:00 97 /min [facility] Body height 2023-01-01 03:33:00 170.2 cm [facility] Body weight 2023-01-01 03:33:00 73.619 kg [facility] BMI 2023-01-01 03:33:00 25.42 kg/m2 [facility] Body height 2022-12-30 21:57:00 167.6 cm [facility] Body weight 2022-12-30 21:57:00 120.203 kg [facility] BMI 2022-12-30 21:57:00 42.77 kg/m2 [facility] Systolic blood pressure 2022-10-03 16:12:00 107 mm[Hg] [facility] Diastolic blood pressure 2022-10-03 16:12:00 68 mm[Hg] [facility] Heart rate 2022-10-03 16:12:00 66 /min [facility] Body temperature 2022-10-03 16:12:00 35.89 Willa [facility] Body height 2022-10-03 16:12:00 167.6 cm [facility] Body weight 2022-10-03 16:12:00 120.611 kg [facility] BMI 2022-10-03 16:12:00 42.92 kg/m2 [facility] Systolic blood pressure 2022-08-08 15:44:00 116 mm[Hg] [facility] Diastolic blood pressure 2022-08-08 15:44:00 75 mm[Hg] [facility] Heart rate 2022-08-08 15:44:00 71 /min [facility] Body temperature 2022-08-08 15:44:00 36.61 Willa [facility] Body height 2022-08-08 15:44:00 170.2 cm [facility] Body weight 2022-08-08 15:44:00 120.203 kg [facility] BMI 2022-08-08 15:44:00 41.50 kg/m2 [facility] Oxygen saturation in Arterial blood by Pulse oximetry 2022-08-08 15:44:00 96 /min [facility] Systolic blood pressure 2022-07-29 16:23:00 132 mm[Hg] [facility] Diastolic blood pressure 2022-07-29 16:23:00 82 mm[Hg] [facility] Heart rate 2022-07-29 16:23:00 78 /min [facility] Respiratory rate 2022-07-29 16:23:00 19 /min [facility] Body height 2022-07-29 16:23:00 170.2 cm [facility] Body weight 2022-07-29 16:23:00 118.706 kg [facility] BMI 2022-07-29 16:23:00 40.99 kg/m2 [facility] Oxygen saturation in Arterial blood by Pulse oximetry 2022-07-29 16:23:00 94 /min [facility] Systolic blood pressure 2022-07-04 15:55:00 107 mm[Hg] [facility] Diastolic blood pressure 2022-07-04 15:55:00 74 mm[Hg] [facility] Heart rate 2022-07-04 15:55:00 78 /min [facility] Respiratory rate 2022-07-04 15:55:00 18 /min [facility] Body height 2022-07-04 15:55:00 170.2 cm [facility] Body weight 2022-07-04 15:55:00 120.566 kg [facility] BMI 2022-07-04 15:55:00 41.63 kg/m2 [facility] Oxygen saturation in Arterial blood by Pulse oximetry 2022-07-04 15:55:00 95 /min [facility] Systolic blood pressure 2022-06-20 20:14:00 110 mm[Hg] [facility] Diastolic blood pressure 2022-06-20 20:14:00 68 mm[Hg] [facility] Heart rate 2022-06-20 20:14:00 80 /min [facility] Body temperature 2022-06-20 20:14:00 35.61 Willa [facility] Body height 2022-06-20 20:14:00 170.2 cm [facility] Body weight 2022-06-20 20:14:00 120.611 kg [facility] BMI 2022-06-20 20:14:00 41.65 kg/m2 [facility] Systolic blood pressure 2022-06-13 21:17:00 125 mm[Hg] [facility] Diastolic blood pressure 2022-06-13 21:17:00 78 mm[Hg] [facility] Heart rate 2022-06-13 21:17:00 72 /min [facility] Body temperature 2022-06-13 21:17:00 36.78 Willa [facility] Body height 2022-06-13 21:17:00 170.2 cm [facility] Body weight 2022-06-13 21:17:00 120.203 kg [facility] BMI 2022-06-13 21:17:00 41.50 kg/m2 [facility] Oxygen saturation in Arterial blood by Pulse oximetry 2022-06-13 21:17:00 96 /min [facility] Systolic blood pressure 2022-05-15 01:30:00 127 mm[Hg] [facility] Diastolic blood pressure 2022-05-15 01:30:00 72 mm[Hg] [facility] Heart rate 2022-05-15 01:26:00 79 /min [facility] Body temperature 2022-05-15 01:26:00 36.89 Willa [facility] Respiratory rate 2022-05-15 01:26:00 16 /min [facility] Body height 2022-05-15 01:26:00 170.2 cm [facility] Body weight 2022-05-15 01:26:00 113.399 kg [facility] BMI 2022-05-15 01:26:00 39.16 kg/m2 [facility] Oxygen saturation in Arterial blood by Pulse oximetry 2022-05-15 01:26:00 98 /min [facility] Systolic blood pressure 2022-05-03 16:32:00 107 mm[Hg] [facility] Diastolic blood pressure 2022-05-03 16:32:00 67 mm[Hg] [facility] Heart rate 2022-05-03 16:32:00 82 /min [facility] Body temperature 2022-05-03 16:32:00 37 Willa [facility] Body height 2022-05-03 16:32:00 170.2 cm [facility] Body weight 2022-05-03 16:32:00 121.11 kg [facility] BMI 2022-05-03 16:32:00 41.82 kg/m2 [facility] Oxygen saturation in Arterial blood by Pulse oximetry 2022-05-03 16:32:00 96 /min [facility] Systolic blood pressure 2022-04-24 00:57:00 149 mm[Hg] [facility] Diastolic blood pressure 2022-04-24 00:57:00 71 mm[Hg] [facility] Heart rate 2022-04-24 00:57:00 87 /min [facility] Respiratory rate 2022-04-24 00:57:00 23 /min [facility] Oxygen saturation in Arterial blood by Pulse oximetry 2022-04-24 00:57:00 89 /min pt states this is baseline, erp aware, 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 [facility] Body temperature 2022-04-23 22:30:42 37.89 Willa [facility] Body weight 2022-04-23 22:30:42 113.399 kg [facility] BMI 2022-04-23 22:30:42 39.16 kg/m2 [facility] Body height 2022-04-23 22:25:00 170.2 cm [facility] Systolic blood pressure 2022-01-25 18:40:00 120 mm[Hg] [facility] Diastolic blood pressure 2022-01-25 18:40:00 71 mm[Hg] [facility] Heart rate 2022-01-25 18:40:00 71 /min [facility] Body temperature 2022-01-25 18:40:00 36.83 Willa [facility] Respiratory rate 2022-01-25 18:40:00 18 /min [facility] Body height 2022-01-25 18:40:00 170.2 cm [facility] Body weight 2022-01-25 18:40:00 126.281 kg [facility] BMI 2022-01-25 18:40:00 43.60 kg/m2 [facility] Systolic blood pressure 2021-10-13 16:24:00 116 mm[Hg] [facility] Diastolic blood pressure 2021-10-13 16:24:00 73 mm[Hg] [facility] Heart rate 2021-10-13 16:14:00 79 /min [facility] Body height 2021-10-13 16:14:00 170.2 cm [facility] Body weight 2021-10-13 16:14:00 124.739 kg [facility] BMI 2021-10-13 16:14:00 43.07 kg/m2 [facility] Oxygen saturation in Arterial blood by Pulse oximetry 2021-10-13 16:14:00 96 /min [facility] Procedures Procedure Date / Time Performed Performing Clinicia n Source FLU VACC ([id number]), 6 MO-64 YRS, .5ML, IM, QUAD (FLUCELVAX) 2023-01-27 15:16:32 AdLiliana hemphill [facility] LIPASE 2023-01-01 04:21:00 Clarisa Rivero [facility] TROPONIN I 2023-01-01 04:21:00 Clarisa Rivero [facility] COMP. METABOLIC PANEL ([id number]) 2023-01-01 04:21:00 Clarisa Rivero [facility] CBC WITH DIFF 2023-01-01 04:21:00 Clarisa Rivero [facility] URINALYSIS 2023-01-01 04:21:00 Clarisa Rivero [facility] NOTICE OF PRIVACY PRACTICES 2023-01-01 03:26:59 Doctor Unassigned, [place] [facility] CONSENT/REFUSAL FOR DIAGNOSIS AND TREATMENT 2023-01-01 03:26:32 Doctor Unassigned, [place] [facility] ASSIGNMENT OF BENEFITS 2022-08-11 07:07:11 Docto r Unassigned, [place] [facility] CONSENT/REFUSAL FOR DIAGNOSIS AND TREATMENT 2022-08-11 06:58:13 Doctor Unassigned, [place] [facility] EXTERNAL PROVIDER RECORDS 2022-07-07 05:01:00 Doctor Unassigned, [place] [facility] PATIENT FINANCIAL POLICY 2022-06-20 19:59:35 Doctor Unassigned, [place] [facility] EXTERNAL FIT DNA 2022-06-01 05:28:00 Doctor Unas signed, [place] [facility] XR HUMERUS 2 VW LEFT 2022-05-15 02:29:00 Dennis Quinn [facility] CONSENT/REFUSAL FOR DIAGNOSIS AND TREATMENT 2022-05-15 01:23:43 Doctor Unassigned, [place] [facility] RAPID INFLUENZA A/B 2022-04-23 23:05:00 Imer Gooden [facility] COVID-19 (ID NOW RAPID TESTING) 2022-04-23 23:05:00 Imer Gooden [facility] CONSENT/REFUSAL FOR DIAGNOSIS AND TREATMENT 2022-04-23 22:22:50 Doctor Unassigned, [place] [facility] FLU VACC (), 6 MO-64 YRS, .5ML, IM, QUAD (FLUCELVAX) 2022-01-25 18:47:14 Liliana Morales [facility] Encounters Start Date/Time End Date/Time Encounter Type Admission Type Attending Clinicians Care Facility Care Department Encounter ID Source 2021-02-19 23:31:25 Emergency [facility] [id number] [facility] 2023-07-31 11:00:00 2023-07-31 11:00:00 Outpatient LENI ASENCIO [facility] [id number] [facility] 2023-05-05 11:45:00 2023-05-05 11:45:00 Outpatient LAB47 MARY NIELSON [id number] [facility] 2023-05-05 11:00:00 2023-05-05 11:00:00 Outpatient SUNI BARTON [id number] [facility] 2023-04-13 14:30:00 2023-04-13 15:10:50 Outpatient R RADHA JOY CRAIG [facility] [id number] [facility] 2023-04-13 14:30:00 2023-04-13 15:10:50 Ancillary Visit Umm [place] Craig L [facility] [id number] 350.1.13.10 4.2.7.2.686 [id number] [facility] 2023-04-11 14:30:00 2023-04-11 15:15:00 Ancillary Visit Umm [place] Craig L [facility] [id number] 350.1.13.10 4.2.7.2.686 [id number] [facility] 2023-04-06 10:15:00 2023-04-06 11:00:00 Ancillary Visit Umm [place] Craig L [facility] [id number] 350.1.13.10 4.2.7.2.686 [id number] [facility] 2023-04-04 15:15:00 2023-04-04 16:00:00 Ancillary Visit Umm [place] Radha Gan [facility] [id number] 350.1.13.10 4.2.7.2.686 [id number] [facility] 2023-03-30 11:00:00 2023-03-30 11:45:00 Ancillary Visit Umm [place] William M [facility] 1.2.840.114 350.1.13.10 4.2.7.2.686 [id number] [facility] 2023-03-28 11:00:00 2023-03-28 11:45:00 Ancillary Visit Umm [place] William M [facility] 1.2.840.114 350.1.13.10 4.2.7.2.686 [id number] [facility] 2023-03-21 10:15:00 2023-03-21 11:19:09 Ancillary Visit Nidia Weathers William M [facility] 1.2.840.114 350.1.13.10 4.2.7.2.686 [id number] [facility] 2023-03-09 11:00:00 2023-03-09 11:37:39 Ancillary Visit Umm [place] Craig L [facility] 1.2.840.114 350.1.13.10 4.2.7.2.686 [id number] [facility] 2023-03-07 15:15:00 2023-03-07 16:03:27 Ancillary Visit Nidia Weathers Craig L [facility] 1.2.840.114 350.1.13.10 4.2.7.2.686 [id number] [facility] 2023-03-02 09:30:00 2023-03-02 10:18:06 Ancillary Visit Nidia Weathers William M [facility] 1.2.840.114 350.1.13.10 4.2.7.2.686 [id number] [facility] 2023-02-17 00:00:00 2023-02-17 00:00:00 [facility] 1.2.840.114 350.1.13.10 4.2.7.2.686 [id number] [facility] 2023-02-17 00:00:00 2023-02-17 00:00:00 Refill Leni Flores [facility] 1.2.840.114 350.1.13.10 4.2.7.2.686 [id number] [facility] 2023-02-09 09:02:07 2023-02-09 23:59:00 Outpatient R LILIANA MORALES [facility] [id number] [facility] 2023-02-09 09:02:07 2023-02-09 23:59:00 Hospital Encounter Liliana Morales [facility] 1.2.840.114 350.1.13.10 4.2.7.2.686 [id number] [facility] 2023-01-31 10:15:00 2023-01-31 10:15:00 Outpatient R VETOFEDE [facility] [id number] [facility] 2023-01-27 09:30:00 2023-01-27 10:19:33 Outpatient R SHRUTHILILIANA HEMPHILL [facility] [id number] [facility] 2023-01-27 09:30:00 2023-01-27 10:19:33 Office Visit Liliana Morales [facility] 1.2840.114 350.1.13.10 4.2.7.2.686 [id number] [facility] 2023-01-20 00:00:00 2023-01-20 00:00:00 Mega Shaw [facility] 1.2840.114 350.1.13.10 4.2.7.2.686 [id number] [facility] 2022-12-31 22:33:00 2023-01-01 00:34:00 Emergency X TERRY MARSHAMES[facility] E[facility] [id number] [facility] 2022-12-31 22:33:00 2023-01-01 00:34:00 Emergency Clarisa Rivero Aguilar [facility] [id number] 350.1.13.10 4.2.7.2.686 [id number] 084 [id number] [facility] 2022-12-31 00:00:00 2022-12-31 00:00:00 Orders Only Doctor Unassigned, [place] [facility] 1.2.840.114 350.1.13.10 4.2.7.2.686 [id number] [facility] 2022-12-30 16:10:00 2022-12-30 17:18:37 Outpatient R FEDE LAWS [facility] [id number] [facility] 2022-12-30 16:10:00 2022-12-30 17:18:37 Office Visit Fede Laws [facility] MED[facility] OFFICE BUILDING 1.2.840.114 350.1.13.10 4.2.7.2.686 [id number] [facility] 2022-11-28 00:00:00 2022-11-28 00:00:00 Refill Jim [facility] MED[facility] OFF[facility] BUILD[facility] 1.284.114 350.1.13.10 4.2.7.2.686 [id number] [id number] [facility] 2022-11-14 00:00:00 2022-11-14 00:00:00 Telephone BusterMega em [facility] 1.2.840.114 350.1.13.10 4.2.7.2.686 [id number] 044 [id number] [facility] 2022-11-03 13:00:00 2022-11-03 13:45:00 Ancillary Visit Umm [place] William M [facility] BUILDING 1.2.840.114 350.1.13.10 4.2.7.2.686 [id number] [facility] 2022-11-03 13:00:00 2022-11-03 13:00:00 Outpatient R FEDE LAWS [facility] [id number] [facility] 2022-10-27 14:30:00 2022-10-27 15:15:00 Ancillary Visit Umm [place] William [facility] BUILDING 1.2.840.114 350.1.13.10 4.2.7.2.686 [id number] [facility] 2022-10-24 00:00:00 2022-10-24 00:00:00 Telephone Jim Mega [facility] MED[facility] OFF[facility] BUILDING 1.2.840.114 350.1.13.10 4.2.7.2.686 [id number] 044 [id number] [facility] 2022-10-18 11:00:00 2022-10-18 11:45:00 Ancillary Visit Umm [place] William M [facility] BUILDING 1.2.840.114 350.1.13.10 4.2.7.2.686 [id number] [facility] 2022-10-11 10:15:00 2022-10-11 11:00:00 Ancillary Visit Evelia Desai William M [facility] BUILDING 1.2.840.114 350.1.13.10 4.2.7.2.686 [id number] 179 [id number] [facility] 2022-10-07 09:30:00 2022-10-07 10:15:00 Ancillary Visit Crissy Nguyen William M [facility] BUILDING 1.2.840.114 350.1.13.10 4.2.7.2.686 [id number] [facility] 2022-10-03 11:30:00 2022-10-03 11:53:34 Outpatient R FEDE LAWS [facility] [id number] [facility] 2022-10-03 11:30:00 2022-10-03 11:53:34 Office Visit Fede Laws [facility] 1.2.840.114 350.1.13.10 4.2.7.2.686 [id number] [facility] 2022-09-30 09:30:00 2022-09-30 10:15:00 Ancillary Visit Crissy Nguyen William M [facility] BUILD[facility] 1.2.840.114 350.1.13.10 4.2.7.2.686 [id number] [facility] 2022-09-26 15:15:00 2022-09-26 16:12:47 Outpatient R FEDE ALWS [facility] [id number] [facility] 2022-09-26 15:15:00 2022-09-26 16:00:00 Ancillary Visit Crissy Nguyen William Gene [facility] BUILDING 1.2.840.114 350.1.13.10 4.2.7.2.686 [id number] [facility] 2022-09-16 10:15:00 2022-09-16 10:47:47 Ancillary Visit Crissy Nguyen Craig L [facility] BUILDING 1.2.840.114 350.1.13.10 4.2.7.2.686 [id number] [facility] 2022-09-15 00:00:00 2022-09-15 00:00:00 Mega Shaw [facility] MEDICAL OFF[facility] BUILDING 1.2.840.114 350.1.13.10 4.2.7.2.686 [id number] [id number] [facility] 2022-09-12 10:15:00 2022-09-12 11:00:00 Ancillary Visit Crissy Nguyen Craig L [facility] BUILDING 1.2.840.114 350.1.13.10 4.2.7.2.686 [id number] [facility] 2022-09-09 10:15:00 2022-09-09 11:00:00 Ancillary Visit Crissy Nguyen Craig L [facility] NAL BUILDING 1.2840.114 350.1.13.10 4.2.7.2.686 [id number] [facility] 2022-09-05 10:15:00 2022-09-05 11:00:00 Ancillary Visit Crissy Nguyen Craig L [facility] NAL BUILD[facility] 1.20.114 350.1.13.10 4.2.7.2.686 [id number] [facility] 2022-09-05 00:00:00 2022-09-05 00:00:00 Telephone Mega Fernandez [facility] BUILDING 1.2.114 350.1.13.10 4.2.7.2.686 [id number] 044 [id number] [facility] 2022-09-01 09:30:00 2022-09-01 11:30:31 Outpatient R RADHA JOY [facility] [id number] [facility] 2022-09-01 09:30:00 2022-09-01 11:30:31 Ancillary Visit Maylin Navarro Craig L [facility] BUILDING 1.2.114 350.1.13.10 4.2.7.2.686 [id number] [facility] 2022-08-31 00:00:00 2022-08-31 00:00:00 Patient Secure Msg Doctor Unassigned, [place] [facility] 1.2.114 350.1.13.10 4.2.7.2.686 [id number] [id number] [facility] 2022-08-24 00:00:00 2022-08-24 00:00:00 Dillon Narvaez [facility] BUILDING 1.20.114 350.1.13.10 4.2.7.2.686 [id number] [facility] 2022-08-11 02:10:00 2022-08-11 02:11:00 Emergency X [facility] ERT [id number] [facility] 2022-08-11 02:10:00 2022-08-11 02:11:[address] [facility] 1.840.114 350.1.13.10 4.2.7.2.686 [id number] [facility] 2022-08-11 00:00:00 2022-08-11 00:00:00 Telephone Jim [facility] RENA?[facility] MEDICAL OFF[facility] BUILDING 1..114 350.1.13.10 4.2.7.2.686 [id number] [id number] [facility] 2022-08-08 11:00:00 2022-08-08 11:05:19 Outpatient R MEGA FERNANDEZ [facility] [id number] [facility] 2022-08-08 11:00:00 2022-08-08 11:05:19 [facility] BUILD[facility] 1..114 350.1.13.10 4.2.7.2.686 [id number] 044 [id number] [facility] 2022-08-08 00:00:00 2022-08-08 00:00:00 Telephone Jim Mega [facility] 1..114 350.1.13.10 4.2.7.2.686 [id number] [facility] 2022-08-04 00:00:00 2022-08-04 00:00:00 Patient Secure Msg Doctor Unassigned, [place] [facility] 1..114 350.1.13.10 4.2.7.2.686 [id number] [facility] 2022-08-01 14:00:00 2022-08-01 14:00:00 Outpatient R MEGA FERNANDEZ [facility] [id number] [facility] 2022-08-01 12:00:00 2022-08-01 12:00:00 Outpatient R MADDIEFABIOLA FABIOLA PERKINS [facility] [id number] [facility] 2022-07-29 11:20:00 2022-07-29 11:40:13 Outpatient R JOSELUDMILAFORMERLY [facility] [id number] [facility] 2022-07-29 11:20:00 2022-07-29 11:40:13 Office Visit Jose [facility] BUILDING 1..840.114 350.1.13.10 4.2.7.2.686 [id number] 059 [id number] [facility] 2022-07-29 00:00:00 2022-07-29 00:00:00 Telephone Mega Fernandez [facility] MED[facility] BUILDING 1.2.840.114 350.1.13.10 4.2.7.2.686 [id number] [id number] [facility] 2022-07-29 00:00:00 2022-07-29 00:00:00 Telephone Mega Fernandez [facility] RENA?[facility] MED[facility] OFF[facility] BUILDING 1.2.840.114 350.1.13.10 4.2.7.2.686 [id number] 044 [id number] [facility] 2022-07-22 00:00:00 2022-07-22 00:00:00 [facility] 1..840.114 350.1.13.10 4.2.7.2.686 [id number] 059 [id number] [facility] 2022-07-14 13:00:00 2022-07-14 13:00:00 Outpatient R RUFINO RADHA [facility] [id number] [facility] 2022-07-07 00:00:00 2022-07-07 00:00:00 Orders Only Doctor Unassigned, [place] [facility] 1.2.114 350.1.13.10 4.2.7.2.686 [id number] [facility] 2022-07-04 11:00:00 2022-07-04 11:24:49 Office [facility] 1.84.114 350.1.13.10 4.2.7.2.686 [id number] [facility] 2022-07-04 11:00:00 2022-07-04 11:24:49 Outpatient R [facility] [id number] [facility] 2022-07-01 00:00:00 2022-07-01 00:00:00 Abstract Kaylen Fernandezie [facility] 1.84.114 350.1.13.10 4.2.7.2.686 [id number] [id number] [facility] 2022-06-20 14:40:00 2022-06-20 14:40:00 Office Visit Fede Laws [facility] 1.84.114 350.1.13.10 4.2.7.2.686 [id number] [facility] 2022-06-20 14:40:00 2022-06-20 14:36:37 Outpatient R FEDE LAWS [facility] [id number] [facility] 2022-06-20 00:00:00 2022-06-20 00:00:00 Orders Only Doctor Unassigned, [place] [facility] 1.2114 350.1.13.10 4.2.7.2.686 [id number] [facility] 2022-06-15 00:00:00 2022-06-15 00:00:00 Letter (Out) Orthopedic Surgery [facility] 1..114 350.1.13.10 4.2.7.2.686 [id number] [facility] 2022-06-14 00:00:00 2022-06-14 00:00:00 Telephone Jim Mega [facility] 1..114 350.1.13.10 4.2.7.2.686 [id number] 044 [id number] [facility] 2022-06-13 15:30:00 2022-06-13 15:41:46 [facility] BUILD[facility] 1..114 350.1.13.10 4.2.7.2.686 [id number] [id number] [facility] 2022-06-13 10:20:00 2022-06-13 10:20:00 Outpatient R MEGA FERNANDEZ [facility] RAD [id number] [facility] 2022-05-16 00:00:00 2022-05-16 00:00:00 Telephone Jim [facility] MEDICAL OFF[facility] BUILDING 1..114 350.1.13.10 4.2.7.2.686 [id number] 044 [id number] [facility] 2022-05-14 19:32:00 2022-05-14 22:01:00 Emergency X DENNIS QUINN [facility] ERT [id number] [facility] 2022-05-14 19:32:00 2022-05-14 22:01:00 Emergency Dennis Quinn [facility] 1..114 350.1.13.10 4.2.7.2.686 [id number] [id number] [facility] 2022-05-03 10:30:00 2022-05-03 11:07:29 Outpatient Michael BUSTERMEGA Em [facility] [id number] [facility] 2022-05-03 10:30:00 2022-05-03 11:07:29 Office Visit Mega Fernandez [facility] 1.2.840.114 350.1.13.10 4.2.7.2.686 [id number] [facility] 2022-04-23 16:27:00 2022-04-23 19:19:00 Emergency X DENNIS QUINN [facility] ERT [id number] [facility] 2022-04-23 16:27:00 2022-04-23 19:19:00 Emergency Dennis Quinn [facility] 1.2.840.114 350.1.13.10 4.2.7.2.686 [id number] [facility] 2022-03-25 00:00:00 2022-03-25 00:00:00 Outpatient R LILIANA MORALES [facility] [id number] [facility] 2022-02-28 16:30:00 2022-02-28 16:30:00 Outpatient MEGA BELLE [facility] [id number] [facility] 2022-01-25 13:30:00 2022-01-25 14:18:50 Office Visit Liliana Morales [facility]ESS[facility] NAL BUILDING 1.2.840.114 350.1.13.10 4.2.7.2.686 [id number] [facility] 2022-01-25 13:30:00 2022-01-25 13:30:00 Outpatient R LILIANA MORALES [facility] [id number] [facility] 2021-12-24 00:00:00 2021-12-24 00:00:00 Refill [facility] 1..840.114 350.1.13.10 4.2.7.2.686 [id number] [facility] 2021-10-23 00:00:00 2021-10-23 00:00:00 Refill Leonard Edmonds [facility] MEDICAL OFFICE BUILDING 1..840.114 350.1.13.10 4.2.7.2.686 [id number] [id number] [facility] 2021-10-13 12:00:00 2021-10-13 12:02:26 [place] Mica Visit Lab, [place]if[place] Fernandez Mega [facility] MEDICAL OFF[facility] BUILDING 1..840.114 350.1.13.10 4.2.7.2.686 [id number] [facility] 2021-10-13 11:30:00 2021-10-13 12:00:44 Outpatient R MEGA FERNANDEZ [facility] [id number] [facility] 2021-10-13 11:30:00 2021-10-13 12:00:44 Office Visit Jim Mega [facility] RENA?MADI [facility] OFFICE BUILDING 1..840.114 350.1.13.10 4.2.7.2.686 [id number] 044 [id number] [facility] 2021-10-13 11:30:00 2021-10-13 12:00:44 Outpatient R MEGA FERNANDEZ [facility] [id number] [facility] 2021-08-31 10:30:00 2021-08-31 10:30:00 Outpatient R MEGA FERNANDEZ [facility] [id number] [facility] 2021-06-30 10:30:00 2021-06-30 11:01:46 Outpatient R LEONARD EDMONDS [facility] [id number] [facility] 2021-06-23 15:00:00 2021-06-23 15:00:00 Outpatient R RADHA JOY [facility] [id number] [facility] 2021-06-23 15:00:00 2021-06-23 15:00:00 Office Visit Radha Joy Malik [facility] RENA?[facility] 1..840.114 350.1.13.10 4.2.7.2.686 [id number] [facility] 2021-06-23 15:00:00 2021-06-23 14:58:53 Outpatient R RADHA JOY [facility] [id number] [facility] 2021-06-18 00:00:00 2021-06-18 00:00:00 Leonard Monge [facility] OFFICE BUILDING ONE 1.840.114 350.1.13.10 4.2.7.2.686 [id number] [facility] 2021-05-24 00:00:00 2021-05-24 00:00:00 Leonard Monge [facility] OFFICE BUILDING ONE 1..840.114 350.1.13.10 4.2.7.2.686 [id number] [facility] 2021-05-20 13:00:00 2021-05-20 13:00:00 Outpatient R LEONARD EDMONDS [facility] [id number] [facility] 2021-03-20 00:00:00 2021-03-20 00:00:00 Leonard Monge [facility] OFFICE BUILDING ONE 1..840.114 350.1.13.10 4.2.7.2.686 [id number] [facility] 2021-03-12 09:00:00 2021-03-12 09:00:00 Outpatient R RADHA JOY [facility] [id number] [facility] 2021-02-23 10:45:00 2021-02-23 10:45:00 Outpatient LEONARD GEE [facility] [id number] [facility] 2021-02-23 00:00:00 2021-02-23 00:00:00 Refill Leni Flores [facility] PROFESSIO NAL BUILDING 1.2.840.114 350.1.13.10 4.2.7.2.686 [id number] [facility] 2021-02-17 10:00:00 2021-02-17 10:00:00 Outpatient R [facility] [id number] [facility] 2021-02-17 09:34:47 2021-02-17 09:59:24 Imm/Inj Visit Nurse, Leonard Knox [facility] Building 1.2.840.114 350.1.13.10 4.2.7.2.686 [id number] [facility] 2021-01-19 09:00:00 2021-01-19 09:00:00 Outpatient FABIOLA GONZALEZ STRAHIL [facility] [id number] [facility] 2021-01-15 10:40:00 2021-01-15 23:59:00 Hospital Encounter Liliana Morales [facility] 1.2.840.114 350.1.13.10 4.2.7.2.686 [id number] [facility] 2021-01-15 16:30:00 2021-01-15 16:30:00 Outpatient R LILIANA MORALES [facility] [id number] [facility] 2021-01-15 15:16:05 2021-01-15 16:27:59 Office Visit Liliana Morales [facility] 1.840.114 350.1.13.10 4.2.7.2.686 [id number] [facility] 2021-01-15 15:30:00 2021-01-15 15:30:00 Outpatient R SHRUTHILILIANA HEMPHILL [facility] [id number] [facility] 2020-12-17 10:00:00 2020-12-17 10:00:00 Outpatient R FABIOLA PERKINS STRATNMalik [facility] [id number] [facility] 2020-12-15 09:22:09 2020-12-15 09:37:09 Laboratory Only Only, Adc Olaf Bishop [facility] 1.840.114 350.1.13.10 4.2.7.2.686 [id number] [facility] 2020-12-15 09:00:00 2020-12-15 09:00:00 Outpatient R [facility] [id number] [facility] 2020-12-15 00:00:00 2020-12-15 00:00:00 Orders Only Doctor Unassigned, [place] [facility] 1.840.114 350.1.13.10 4.2.7.2.686 [id number] [facility] 2020-12-03 10:00:00 2020-12-03 10:00:00 Outpatient R FABIOLA PERKINS STRATNMalik [facility] [id number] [facility] 2020-12-02 14:00:00 2020-12-02 14:00:00 Outpatient R LENI FLORES [facility] [id number] [facility] 2020-11-30 00:00:00 2020-11-30 00:00:00 Orders Only Doctor Unassigned, [place] [facility] 1..114 350.1.13.10 4.2.7.2.686 [id number] [facility] 2020-11-19 00:00:00 2020-11-19 00:00:00 Patient Secure Msg Doctor Unassigned, [place] [facility] 1.284.114 350.1.13.10 4.2.7.2.686 [id number] [facility] 2020-11-18 00:00:00 2020-11-18 00:00:00 Patient Secure Msg Doctor Unassigned, [place] [facility] 1.284.114 350.1.13.10 4.2.7.2.686 [id number] [facility] 2020-11-17 09:00:00 2020-11-17 09:00:00 [facility] [id number] [facility] 2020-11-16 15:15:00 2020-11-16 15:15:00 [facility] [id number] [facility] 2020-10-14 15:20:00 2020-10-14 15:20:00 Outpatient R LUDMILA FLORESFORMERLY [facility] [id number] [facility] 2020-09-14 11:20:00 2020-09-14 11:20:00 Outpatient R LUDMILA FLORESFORMERLY [facility] [id number] [facility] 2020-04-26 00:00:00 2020-04-26 00:00:00 Patient Secure Msg Jose, [facility] BUILDING 1..840.114 350.1.13.10 4.2.7.2.686 [id number] [facility] 2020-03-27 00:00:00 2020-03-27 00:00:00 Patient Secure Msg Jose, [facility] BUILDING 1.840.114 350.1.13.10 4.2.7.2.686 [id number] [facility] 2020-03-26 14:00:00 2020-03-26 14:00:00 Outpatient R [facility] [id number] [facility] 2020-03-17 15:40:00 2020-03-17 15:40:00 Outpatient R LENI FLORES [facility] [id number] [facility] 2020-02-25 14:00:00 2020-02-25 14:00:00 Outpatient R LEONARD EDMONDS [facility] [id number] [facility] 2020-01-16 13:00:00 2020-01-16 13:00:00 Outpatient R LILIANA MORALES [facility] [id number] [facility] 2019-12-26 14:45:00 2019-12-26 14:45:00 Outpatient R BELINDA SCOTT [facility] [id number] [facility] 2019-12-12 08:15:00 2019-12-12 08:15:00 Outpatient R [facility] [id number] [facility] 2019-12-06 00:00:00 2019-12-06 00:00:00 Patient Secure Msg Doctor Unassigned, [place] [facility] 1.2.840.114 350.1.13.10 4.2.7.2.686 [id number] [facility] 2019-11-12 09:00:00 2019-11-12 09:00:00 Outpatient R [facility] [id number] [facility] 2019-11-08 09:30:00 2019-11-08 09:30:00 Outpatient R LEONARD EDMONDS [facility] [id number] [facility] 2019-11-07 11:15:00 2019-11-07 11:15:00 Outpatient R LEONARD EDMONDS [facility] [id number] [facility] 2019-09-11 11:00:00 2019-09-11 11:00:00 Outpatient R FABIOLA PERKINS STRAHIL [facility] [id number] [facility] 2019-08-27 14:30:00 2019-08-27 14:30:00 Outpatient R LEONARD EDMONDS [facility] [id number] [facility] 2019-07-19 13:40:00 2019-07-19 13:40:00 Outpatient R JOSÉ ELY ELY KUMAR [facility] [id number] [facility] 2019-07-12 14:00:00 2019-07-12 14:00:00 Outpatient R LEONARD EDMONDS [facility] [id number] [facility] 2019-07-06 09:30:24 2019-07-07 17:30:00 Outpatient X ASIYA SANDOVAL [facility] [id number] [facility] 2019-06-13 11:30:00 2019-06-13 11:47:28 [facility] [id number] [facility] 2019-06-06 01:58:01 2019-06-07 18:25:00 Outpatient X ABU-SHARIFE H, TAREQ ABU-SHARIFE H, TAREQ [facility] [id number] [facility] 2018-11-14 00:00:00 2018-11-14 00:00:00 Orders Only Doctor Unassigned, [place] [facility] [id number] [facility] Results Test Description Test Time Test Comments Results Result [facility] ([id number][facility]2023-[facility]-01 04:49:36* Test Item Value Reference Range Interpretation Comme nts NA (test code = 1744416931) 140 mmol/L 135-145 K (test code = 3234531989) 3.5 mmol/L 3.5-5.0 CL (test code = 5943582463) 104 mmol/L 98-108 CO2 TOTAL (test code = 9659546548) 29 mmol/L 23-31 AGAP (test code = 8331983055) 7 2-16 BUN (test code = 1682857532) 18 mg/dL 7-23 GLUCOSE (test code = 3217602943) 104 mg/dL 70-110 CREATININE (test code = 1689861787) 0.86 mg/dL 0.50-1.04 TOTAL BILI (test code = 0441214083) 0.5 mg/dL 0.1-1.1 CALCIUM (test code = 1514765234) 9.3 mg/dL 8.6-10.6 T PROTEIN (test code = 1664219305) 8.0 g/dL 6.3-8.2 ALBUMIN (test code = 6770598892) 4.3 g/dL 3.5-5.0 ALK PHOS (test code = 0710216041) 105 U/L 34-122 ALTv (test code = 1742-6) 20 U/L 5-35 AST(SGOT) (test code = 3053455324) 21 U/L 13-40 eGFR (test code = 7349649624) 68.5 mL/min/1.73m2 DAVIDA (test code = DAVIDA) Association of Glomerular Filtration Rate (GFR) and Staging of Kidney Disease* + + +- +| GFR (mL/min/1.73 m2) ?| With Kidney Damage ?| ?Without Kidney Damage+ ------+ ----+ ------+| ?>90 ?| ?Stage one ?| ? Normal ?+ -+ + -+| ?60-89 ?| ?Stage two ?| ? Decreased GFR ? + + +- +| ?30-59 ?| ?Stage three ?| ? Stage three ? + + +- +| ?15-29 ?| ?Stage four ? | ? Stage four ?+ -+ + -+| ?<15 (or dialysis) ? ?| ?Stage five ? | ? Stage five ?+ -+ + -+ *Each stage assumes the associated GFR level has been in effect for at least three months. ?Stages 1 to 5, with or without kidney disease, indicate chronic kidney disease. Notes: Determination of stages one and two (with eGFR >59mL/min/1.73 m2) requires estimation of kidney damage for at least three months as defined by structural or functional abnormalities of the kidney, manifested by either:Pathological abnormalities or Markers of kidney damage (including abnormalities in the composition of the blood or urine or abnormalities in imaging tests). [facility], [id number] 04:48:56* Test Item Value Reference Range Interpretation Comme nts LIPASE (test code = 0644238681) 183 U/L 0-220 Lab Interpretation (test cod e = 99536-8) Normal [facility] [id number] 04:39:15* Test Item Value Reference Range Interpretation Comme nts WBC (test code = 6690-2) 7.91 See_Comment [Automated messa ge] The system which generated this result transmitted reference range: 4.30 - 11.10 10*3/?L. The reference range was not used to interpret this result as normal/abnormal. RBC (test code = 789-8) 3.91 See_Comment L [Automated messa ge] The system which generated this result transmitted reference range: 3.93 - 5.25 10*6/?L. The reference range was not used to interpret this result as normal/abnormal. HGB (test code = 718-7) 12.2 g/dL 11.6-15.0 HCT (test code = 4544-3) 36.6 % 35.7-45.2 MCV (test code = 787-2) 93.6 fL 80.6-95.5 MCH (test code = 785-6) 31.2 pg 25.9-32.8 MCHC (test code = 786-4) 33.3 g/dL 31.6-35.1 RDW-SD (test code = 72880-0) 48.2 fL 39.0-49.9 RDW-CV (test code = 788-0) 14.0 % 12.0-15.5 PLT (test code = 777-3) 291 See_Comment [Automated messa ge] The system which generated this result transmitted reference range: 166 - 358 10*3/?L. The reference range was not used to interpret this result as normal/abnormal. MPV (test code = 68120-6) 10.1 fL 9.5-12.9 NRBC/100 WBC (test code = 3959678249) 0.0 See_Comment [Automated me ssage] The system which generated this result transmitted reference range: 0.0 - 10.0 /100 WBCs. The reference range was not used to interpret this result as normal/abnormal. NRBC x10^3 (test code = 3290513824) See_Comment [Automated messa ge] The system which generated this result transmitted reference range: 10*3/?L. The reference range was not used to interpret this result as normal/abnormal. GRAN MAT (NEUT) % (test code = 770-8) 48.4 % IMM GRAN % (test code = 2820837132) 0.30 % LYMPH % (test code = 736-9) 36.7 % MONO % (test code = 5905-5) 8.1 % EOS % (test code = 713-8) 5.9 % BASO % (test code = 706-2) 0.6 % GRAN MAT x10^3(ANC) (test code = 7646534046) 3.83 10*3/uL 1.88-7.09 IMM GRAN x10^3 (test code = 2597718860) 0.00-0.06 LYMPH x10^3 (test code = 731-0) 2.90 10*3/uL 1.32-3.29 MONO x10^3 (test code = 742-7) 0.64 10*3/uL 0.33-0.92 EOS x10^3 (test code = 711-2) 0.47 10*3/uL 0.03-0.39 H BASO x10^3 (test code = 704-7) 0.05 10*3/uL 0.01-0.07 Lab Interpretation (test code = 66365-4) [facility]:57:00* Test Item Value Reference Range Interpretation Comme nts DAVIDA (test code = DAVIDA) [facility] LaboratoriesOutside Information?CologuardSpec imen: ?Stool - Rectum structure (body structure)Component Ref Range & Units 1 mo ago CommentsTest Result Negative Negative NEGATIVE TEST RESULT. A negative Cologuard result indicates a low likelihood that a colorectal cancer (CRC) or advanced adenoma (adenomatous polyps with more advanced pre-malignant features) ?is present. The chance that a person with a negative Cologuard test has a colorectal cancer is less than 1 in 1500 (negative predictive value >99.9%) or has an ?advanced adenoma is less than ?5.3% (negative predictive value 94.7%). These data are based on a prospective cross-sectional study of 10,000 individuals at average risk for colorectal cancer who were screened with both Cologuard and colonoscopy. (Rodney Alvarez al, N Engl J Med 2014;370(14):4760-6271) The normal value (reference range) for this assay is negative. COLOGUARD RE-SCREENING RECOMMENDATION: Periodic colorectal cancer screening is an important part of preventive healthcare for asymptomatic individuals at average risk for colorectal cancer. ?Following a negative Cologuard result, the [place] [employer] and U.S. Multi-Society Task Force?screening guidelines recommend a Cologuard re-screening interval of 3 years. References: [place] [employer] Guideline for Colorectal Cancer Screening: https://www.cancer.org/ca ncer/ngftv-plbngr-zmspoh/ taxclcbqs-hqlwkltkg-ycuab ng/acs-recommendations.ht ml.; Nelson DK, Nadya CR, Ankur ZhaoK, Colorectal Cancer Screening: Recommendations for Physicians and Patients from the U.S. Multi-Society Task Force on Colorectal Cancer Screening , Am J Gastroenterology 2017; 112:5206-4968. TEST DESCRIPTION: Composite algorithmic analysis of stool DNA-biomarkers with hemoglobin immunoassay. ? Quantitative values of individual biomarkers are not reportable and are not associated with individual biomarker result reference ranges. Cologuard is intended for colorectal cancer screening of adults of either sex, 45 years or older, who are at average-risk for colorectal cancer (CRC). Cologuard has been approved for use by the U.S. FDA. The performance of Cologuard was established in a cross sectional study of average-risk adults aged 50-84. Cologuard performance in patients ages 45 to 49 years was estimated by sub-group analysis of near-age groups. Colonoscopies performed for a positive result may find as the most clinically significant lesion: colorectal cancer [4.0%], advanced adenoma (including sessile serrated polyps greater than or equal to 1cm diameter) [20%] or non- advanced adenoma [31%]; or no colorectal neoplasia [45%]. These estimates are derived from a prospective cross-sectional screening study of 10,000 individuals at average risk for colorectal cancer who were screened with both Cologuard and colonoscopy. (Rodney Alvarez al, N Engl J Med 2014;370(14):5873-2223.) Cologuard may produce a false negative or false positive result (no colorectal cancer or?precancerous polyp present at colonoscopy follow up). A negative Cologuard test result does not guarantee the absence of CRC or advanced adenoma (pre-cancer). The current Cologuard screening interval is every 3 years. ([place] [employer] and U.S. Multi-Society Task Force). Cologuard performance data in a 10,000 patient pivotal study using colonoscopy as the reference method can be accessed at the following location: www.[employer]/results . Additional description of the Cologuard test process, warnings and precautions can be found at www.[employer].com.Resulti ng Agency [place] (CLIA #:[id number]) Specimen Collected: 05/31/22 23:28 Last Resulted: 06/08/22 12:57Received From: [employer] Result Received: 06/13/22 15:07 Lab Interpretation (test code = 97020-3) Normal [facility] Notes Date/Time Note Provider Source 2023-05-05 10:51:15 vdr32yqGrTt3/1CItHfFUaJNjDeEd+qlKDs /DZNtsSkERZ+iVD4VmIAnbvzM9IRe2866-9 05-05T10:51:15 Chief ComplaintPatient presents withPhysicalFastingNo other voiced concerns 24404-2Gwxay GassDX1990-91-06L40:59:24Nurse NoteTXT1.2.840.661007.1.13.131.2.7. 2.110189|[id number] for patient zydi87548-4Tgxtu NoteLNNARRATIVEFormatted C-CDA narrative textLEEParkview Health[facility].PZSPAUGILVQPKXGOIY1729749461JC LS8805-55-17O23:59:241.2.840.010991 .1.72.3.15|1.2.840.720929.1.13.131. 2.7.2.727879_[id number] [facility] 2023-01-01 00:34:09 7O98YyucunZYkvCe+F0sx9DCccY8AK44+M3 eQtARzxaVEvg95/jN8uBYdwFlLzt+10T00:34:09 Patient discharged home with written and verbal instructions. Patient was educated on follow up appointment. Patient verbalized understanding. Patient is alert and oriented to name, time, place, and situation. GCS 15. Respiratory rate even and unlabored, skin warm and dry. Vital sings rechecked and documented. Patient denies pain at the moment. Questions about discharge instructions encouraged. Patient has a steady gait out of the ER.[place] [address]-2Nfnhkwlck department FnjtLP9061-88-89O71:34:19[facility] department NoteTXT1.2.840.225884.1.13.104.2.7. 2.334693|[id number] for patient keqc57226-6CvcbGHHECJIBSB[address] Stre[id number] 2ROSCBKGESZUBDNKJCSBUZQ6754-89-53S7 0:34:191.2.840.680361.1.72.3.15|1.2 .840.151109.1.13.104.2.7.2.727879_1 [id number] [facility] 2022-12-31 22:31:33 VJzq3YkGXVA76KtC5g1hLXpbtt94VFKA1cD yqLTP5oVTXQRVh7UCjjiCLRkVJ/aD0546-6 2:31:33 Palpitations "for a while" but worsened today. +Dizziness. Reports she was taking deep breaths and it improved her symptoms but they "keep coming back". Denies chest pain, shortness of breath, fever, chills, nausea, vomiting, diarrhea. [facility] -Has not had cycle since 2001Hx - HTN 81971-9Iflgkowcw department Triage cartXQ5584-26-86X00:32:59[facility] Triage noteTXT1.2.840.572404.1.13.104.2.7. 2.617387|[id number] for patient oenw49354-6Xxaaiyrjl department [id number] [place] RNUT[address] Tq[id number] 0ELXRRZYQZMPGAJNFFHRXKW1078-29-38N9 2:32:591.2.840.036202.1.72.3.15|1.2 .840.142963.1.13.104.2.7.2.727879_1 [id number] Melony Clark RN [facility] 2022-11-28 09:37:33 kRDavid/IfmCw3YoB7Nvt8AhSu+OwGDqV9VByj 9AlgwULlNNYMKTGNUIYKMm5LwTb0l2094-9 09:37:33 Images from the original note were not included.Requested Renewals diclofenac 25 mg EC tablet Sig: N/A Disp: 60 tablet Refills: 0 Start: 11/28/2022 Class: eRX Non-formulary For: Rotator cuff disorder, left Last ordered: 2 months ago (09/15/2022) by Dillon Garza MD Patient comment: Still having pain in my arm Analgesics: NSAIDS Failed 11/28/2022 09:17 AM Protocol Details Cr in normal range and within 360 days Valid encounter within last 12 months To be filled at: [facility] [id number] - [place], [place] - [address] [facility] [address] Recent VisitsDate Type Provider Dept 08/08/22 Office Visit Mega Fernandez, LEAD MECHANIC [facility] 06/13/22 Office Visit Mega Fernandez LEAD MECHANIC [facility] 05/03/22 Office Visit Mega Fernandez LEAD MECHANIC [facility] 10/13/21 Office Visit Mega Fernandez LEAD MECHANIC [facility] Showing recent visits within past 540 days with a meds authorizing provider and meeting all other requirementsFuture AppointmentsNo visits were found meeting these conditions.Showing future appointments within next 150 days with a meds authorizing provider and meeting all other requirements 59614-8Modobzhcd encounter KjwtYG8699-78-16A83:37:42Telephone encounter NoteTXT1.2.840.720182.1.13.104.2.7. 2.622706|[id number] for patient [id number] M Fisher [address] Aw[id number] 9YPXFVZJGFFPKUCWRJXKILR8113-01-19X2 9:37:421.2.840.016070.1.72.3.15|1.2 .840.883053.1.13.104.2.7.2.727879_1 [id number] Deanne Winters LVN [facility] 2022-11-14 15:58:09 RG7vfnn/AvmnbBmy0ByiRnMZ/y1gkoZeS+r w3Uq57BVm/R238Afew0GgDS0D/htX0739-4 5:58:09 Patient requesting refill on etodolac 500 mg take 1 tablet by mouth every 12 hrs with a meal for pain as needed for pain. Danuta Echeverria review and sign if appropriate. Last Refilled: 05/03/22Recent VisitsDate Type Provider Dept 08/08/22 Office Visit Mega Fernandez FNP [facility] 06/13/22 Office Visit Mega Fernandez LEAD MECHANIC [facility] 05/03/22 Office Visit Mega Fernandez FNP [facility] 10/13/21 Office Visit Mega Fernandez LEAD MECHANIC [facility] Showing recent visits within past 540 days with a meds authorizing provider and meeting all other requirementsFuture AppointmentsNo visits were found meeting these conditions.Showing future appointments within next 150 days with a meds authorizing provider and meeting all other requirements 12857-5Pumsyeugf encounter NhecIS9074-84-05A72:02:43Telephone encounter NoteTXT1.2.840.194660.1.13.104.2.7. 2.044133|[id number] for patient care[address] Jc[id number] 3VFDUCDBVXWDLEYTVZHQMST0531-63-66Y6 6:02:431.2.840.918283.1.72.3.15|1.2 .840.168148.1.13.104.2.7.2.727879_1 [id number] [facility]
[2023-05-08] MEDS ORDERED: PROMETHAZINE 25 MG TABLET ONE (00:23)
[2023-05-08] MEDS ORDERED: ALBUTEROL 2.5 MG/3 ML NEB SOL ONE ×2 (00:23→02:10)
[2023-05-08] MEDS ORDERED: NA CHLORIDE 0.9% 500 ML ONE (00:24)
[2023-05-08] MEDS ORDERED: GUAIFENESIN/DM 5 ML UCUP ONE (00:24)
[2023-05-08] MEDS ORDERED: KETOROLAC 30 MG/ML INJ ONE (00:24)
[2023-05-08 01:01] LABS: Hematocrit 34.2 % (36.0-45.0); MCV 90.3 fL (80-100); MPV 8.4 fL (7.6-11.3); Platelets 289 thou/uL (152-406); RBC Red Blood Cell Count 3.79 M/uL (3.86-4.86)
[2023-05-08 01:07] LABS: Protime INR 1.11
[2023-05-08 01:21] LABS: Albumin 2.8 g/dL (3.4-5.0); Bilirubin Direct 0.2 mg/dL (0-0.2); Bilirubin Indirect, Calculated 0.3 mg/dL (0.2-0.8); Bilirubin Total 0.5 mg/dL (0.2-1.0); Magnesium 2.1 mg/dL (1.6-2.4); Potassium 3.5 mEq/L (3.5-5.1); Protein, Total 7.9 g/dL (6.4-8.2)
[2023-05-08 01:40] LABS: SARS-CoV-2 Antigen Rapid Res Positive (Negative)
--- NOTE | 2023-05-08 02:01 | ER ---
Nurse's Notes [facility] Name: Allison Raymundo Age: 57 yrs Sex: Female : 1965 Arrival Date: 05/07/2023 Time: 23:59 Bed 18 Private MD: Diagnosis: Other specified viral diseases;Acute COVID-19, systemic viral illness Presentation: 05/08 00:16 Chief complaint: Patient states: cough, congestion, shortness of breath, chills that as6 started Monday. Coronavirus screen: At this time, the client does not indicate any symptoms associated with coronavirus-19. Ebola Screen: No symptoms or risks identified at this time. Initial Sepsis Screen: Does the patient meet any 2 criteria? No. Patient's initial sepsis screen is negative. Does the patient have a suspected source of infection? No. Patient's initial sepsis screen is negative. Risk Assessment: Do you want to hurt yourself or someone else? Patient reports no desire to harm self or others. Onset of symptoms was May 06, 2023. 00:16 Method Of Arrival: Ambulatory as6 00:16 Acuity: VIKAS 3 as6 Historical: - Allergies: 00:18 Codeine; as6 - PMHx: 00:18 Asthma; Hypercholesterolemia; Hypertensive disorder; palpitations; as6 - PSHx: 00:18 section; Cholecystectomy; Ligation of fallopian tube; knee; foot; as6 - Immunization history:: Adult Immunizations up to date. - Social history:: Smoking status: Patient denies any tobacco usage or history of. - Family history:: not pertinent. Screenin:30 [facility] ED Fall Risk Assessment (Adult) History of falling in the last 3 months, jw7 including since admission No falls in past 3 months (0 pts) Score/Fall Risk Level 0 - 2 = Low Risk Oriented to surroundings, Maintained a safe environment, Educated pt \T\ family on fall prevention, incl call for assistance when getting out of bed. Abuse screen: Denies threats or abuse. Denies injuries from another. Nutritional screening: No deficits noted. Tuberculosis screening: No symptoms or risk factors identified. Assessment: 00:30 General: Appears in no apparent distress. uncomfortable, Behavior is calm, cooperative. jw7 Pain: Complains of pain in chest Pain does not radiate. Pain currently is 6 out of 10 on a pain scale. Quality of pain is described as pressure, Pain began suddenly, Is continuous. Neuro: Level of Consciousness is awake, alert, obeys commands, Oriented to person, place, time, situation. Cardiovascular: Heart tones S1 S2 present Capillary refill < 3 seconds Clubbing of nail beds is absent JVD is absent Patient's skin is warm and dry. Respiratory: Airway is patent Trachea midline Respiratory effort is even, unlabored, Respiratory pattern is regular, symmetrical, Breath sounds with wheezes bilaterally. GI: No deficits noted. No signs and/or symptoms were reported involving the gastrointestinal system. : No deficits noted. No signs and/or symptoms were reported regarding the genitourinary system. EENT: No deficits noted. No signs and/or symptoms were reported regarding the EENT system. Derm: Skin is intact, is healthy with good turgor, Skin is dry, Skin is normal, Skin temperature is hot. Musculoskeletal: Circulation, motion, and sensation intact. Range of motion: intact in all extremities. 01:30 Reassessment: Patient appears in no apparent distress at this time. No changes from jw7 previously documented assessment. Patient and/or family updated on plan of care and expected duration. Pain level reassessed. Patient is alert, oriented x 3, equal unlabored respirations, skin warm/dry/pink. 02:16 Reassessment: Patient appears in no apparent distress at this time. Patient and/or jw7 family updated on plan of care and expected duration. Pain level reassessed. Patient is alert, oriented x 3, equal unlabored respirations, skin warm/dry/pink. Patient states feeling better. Patient states symptoms have improved. 02:18 General: Discharge pending completion of Albuterol, Nebulizer Treatment. jw7 Vital Signs: 00:16 BP 114 / 60; Pulse 106; Resp 20 S; Temp 100.2(O); Pulse Ox 92% on R/A; Weight 114.31 kg as6 (R); Height 5 ft. 7 in. (R); Pain 9/10; 01:15 BP 102 / 58; Pulse 86; Resp 22 S; Pulse Ox 94% on 7 lpm Nebulizer Mask; jw7 02:18 BP 98 / 75; Pulse 90; Resp 20 S; Pulse Ox 96% on 6 lpm Nebulizer Mask; jw7 00:16 Body Mass Index 39.47 (114.31 kg, 170.18 cm) as6 00:16 Pain Scale: Adult as6 ED Course: 00:03 Patient arrived in ED. jj6 00:09 Dwight Quan MD is Attending Physician. sp4 00:18 Triage completed. as6 00:19 Sophy Lugo RN is Primary Nurse. jw7 00:19 Arm band placed on. as6 00:30 Patient has correct armband on for positive identification. Bed in low position. Call jw7 light in reach. Side rails up X 1. 00:36 Inserted saline lock: 20 gauge in left antecubital area, using aseptic technique. Blood rv1 collected. 00:37 CRP Sent. rv1 00:37 [place] Screen Profile Sent. rv1 00:37 BMP Sent. rv1 00:37 CBC with Diff Sent. rv1 00:37 CPK Sent. rv1 00:37 Hepatic Function Sent. rv1 00:37 Magnesium Sent. rv1 00:37 NT PRO-BNP Sent. rv1 00:37 PT-INR Sent. rv1 00:37 Influenza Screen (a \T\ B) Sent. rv1 00:37 SARS RAPID Sent. rv1 00:47 Chest Pa And Lat (2 Views) XRAY In Process Unspecified. EDMS 01:00 No provider procedures requiring assistance completed. jw7 02:18 Provided Education on: discharge instructions and medication usage. jw7 02:28 IV discontinued, intact, bleeding controlled, No redness/swelling at site. Pressure jw7 dressing applied. Administered Medications: 00:40 Drug: Dextromethorphan-Guaifenesin PO Liquid 10 mg-100 mg/5 mL 10 ml PO once Route: PO; jw7 02:15 Follow up: Response: No adverse reaction; Marked relief of symptoms jw7 00:40 Drug: Ketorolac IVP 30 mg IVP once Route: IVP; Site: left antecubital; jw7 02:15 Follow up: Response: No adverse reaction; Marked relief of symptoms jw7 00:40 Drug: Promethazine PO 25 mg PO once Route: PO; jw7 02:15 Follow up: Response: No adverse reaction jw7 00:57 Drug: Albuterol Inhalation 2.5 mg Inhalation every 20 minutes x3 Route: Inhalation; jw7 00:57 Drug: NS 0.9% IV 500 ml IV at bolus once Route: IV; Rate: bolus; Site: left antecubital;jw7 02:15 Follow up: Response: No adverse reaction; IV Status: Completed infusion; IV Intake: jw7 500ml 01:33 Drug: Albuterol Inhalation 2.5 mg Inhalation every 20 minutes x3 Route: Inhalation; jw7 02:15 Drug: Albuterol Inhalation 2.5 mg Inhalation every 20 minutes x3 Route: Inhalation; jw7 02:15 Follow up: Response: No adverse reaction; Marked relief of symptoms jw7 Medication: 01:00 VIS not applicable for this client. jw7 Intake: 02:15 IV: 500ml; Total: 500ml. jw7 Outcome: 02:00 Discharge ordered by . spKatherine 02:28 Discharged to home ambulatory, jw7 02:28 Condition: stable 02:28 Discharge instructions given to patient, Instructed on discharge instructions, follow up and referral plans. medication usage, Demonstrated understanding of instructions, follow-up care, medications, Prescriptions given X 5 02:29 Patient left the ED. jw7 Signatures: Dispatcher [employer] EDMS Nikia LowejAbhay Rolle, RN RN as6 Sophy Lugo RN RN jw7 Kiara Garland rv1 Dwight Quan MD MD sp4
--- NOTE | 2023-05-08 02:01 | EDPHYS ---
Physician Documentation [facility] Name: Allison Raymundo Age: 57 yrs Sex: Female : 1965 Arrival Date: 05/07/2023 Time: 23:59 Bed 18 Private MD: ED Physician Dwight Quan HPI: 05/08 00:09 This 57 yrs old Female presents to ER via Unassigned with complaints of sp4 Cough, Congestion, Shortness Of Breath. 00:16 57-year-old female presents with worsening fever, cough, congestion, generalized sp4 weakness, wheezing, and some headaches starting 1 week ago on 05/01/2023. Patient was here Monday and tested negative for influenza and COVID. 00:17 Patient states she is allergic to codeine. Patient has completed 6 days of p.o. sp4 prednisone and a Z-Kiet since the onset of symptoms without significant improvement. She reports her cough is worsening . Historical: - Allergies: 00:18 Codeine; as6 - PMHx: 00:18 Asthma; Hypercholesterolemia; Hypertensive disorder; palpitations; as6 - PSHx: 00:18 section; Cholecystectomy; Ligation of fallopian tube; knee; foot; as6 - Immunization history:: Adult Immunizations up to date. - Social history:: Smoking status: Patient denies any tobacco usage or history of. - Family history:: not pertinent. ROS: 00:17 Constitutional: Positive fever, positive fatigue, positive congestion, positive sp4 dyspnea, positive cough, positive headache. Positive wheezing 00:17 All other systems are negative, Exam: 00:17 Constitutional: This is a well developed, well nourished patient who is awake, alert, sp4 and in no acute distress. Positive persistent cough and nasal congestion Head/Face: Normocephalic, atraumatic. Eyes: Pupils equal round and reactive to light, extra-ocular motions intact. Lids and lashes normal. Conjunctiva and sclera are not injected. Cornea within normal limits. Periorbital areas with no swelling, redness, or edema. ENT: Positive nasal congestion and nasal mucosal swelling. Tympanic membranes are normal and external auditory canals are clear. Oropharynx with no redness, swelling, or masses, exudates, or evidence of obstruction, uvula midline. Mucous membranes moist. Neck: Trachea midline, no thyromegaly or masses palpated, and no cervical lymphadenopathy. Supple, full range of motion without nuchal rigidity, or vertebral point tenderness. Chest/axilla: Normal chest wall appearance and motion. Nontender with no deformity. No lesions are appreciated. Cardiovascular: Regular rate and rhythm with a normal S1 and S2. No gallops, murmurs, or rubs. Normal PMI, no JVD. No pulse deficits. Respiratory: Lungs have equal breath sounds bilaterally, clear to auscultation and percussion. No rales, rhonchi or wheezes noted. No increased work of breathing, no retractions or nasal flaring. Abdomen/GI: Soft, non-tender, with normal bowel sounds. No distension or tympany. No guarding or rebound. No evidence of tenderness throughout. Back: No spinal tenderness. No costovertebral tenderness. There is sacral decubitus ulcer that is covered by the wound VAC. Skin: Warm, dry with normal turgor. Normal color with no rashes, no lesions, and no evidence of cellulitis. MS/ Extremity: Pulses equal, no cyanosis. Neurovascular intact. Full, normal range of motion. Neuro: Awake and alert, GCS 15, oriented to person, place, time, and situation. Cranial nerves II-XII grossly intact. Motor strength 5/5 in all extremities. Sensory grossly intact. Psych: Awake, alert, with orientation to person, place and time. Behavior, mood, and affect are within normal limits Vital Signs: 00:16 BP 114 / 60; Pulse 106; Resp 20 S; Temp 100.2(O); Pulse Ox 92% on R/A; Weight 114.31 kg as6 (R); Height 5 ft. 7 in. (R); Pain 9/10; 01:15 BP 102 / 58; Pulse 86; Resp 22 S; Pulse Ox 94% on 7 lpm Nebulizer Mask; jw7 02:18 BP 98 / 75; Pulse 90; Resp 20 S; Pulse Ox 96% on 6 lpm Nebulizer Mask; jw7 00:16 Body Mass Index 39.47 (114.31 kg, 170.18 cm) as6 00:16 Pain Scale: Adult as6 MDM: 00:09 Patient medically screened. sp4 01:59 Differential Diagnosis: Bronchitis Influenza Upper Respiratory Infection Sinusitis sp4 Pharyngitis Allergic Rhinitis Asthma Exacerbation. Data reviewed: vital signs, nurses notes, lab test result(s), radiologic studies, plain films. Consideration of Admission/Observation Escalation of care including admission/observation considered. ED course: Patient is positive for coronavirus, negative for influenza. . 05/08 00:14 Order name: SARS RAPID; Complete Time: :4 05/08 00:14 Order name: Influenza Screen (a \T\ B); Complete Time: 05/08 00:15 Order name: BMP; Complete Time: 05/08 00:15 Order name: Blood Culture Adult (2) 05/08 00:15 Order name: CBC with Diff; Complete Time: 05/08 00:15 Order name: CPK; Complete Time: 05/08 00:15 Order name: Hepatic Function; Complete Time: 05/08 00:15 Order name: Magnesium; Complete Time: 05/08 00:15 Order name: NT PRO-BNP; Complete Time: 05/08 00:15 Order name: PT-INR; Complete Time: 05/08 00:15 Order name: Placer Screen Profile; Complete Time: 05/08 00:15 Order name: CRP; Complete Time: 05/08 00:19 Order name: Chest Pa And Lat (2 Views) XRAY 05/08 00:15 Order name: IV Saline Lock; Complete Time: 00:05/08 00:15 Order name: Labs collected and sent; Complete Time: 00:05/08 00:15 Order name: O2 Per Protocol; Complete Time: 00:40 05/08 00:15 Order name: O2 Sat Monitoring; Complete Time: 00:40 4 Administered Medications: 00:40 Drug: Dextromethorphan-Guaifenesin PO Liquid 10 mg-100 mg/5 mL 10 ml PO once Route: PO; jw7 02:15 Follow up: Response: No adverse reaction; Marked relief of symptoms jw7 00:40 Drug: Ketorolac IVP 30 mg IVP once Route: IVP; Site: left antecubital; jw7 02:15 Follow up: Response: No adverse reaction; Marked relief of symptoms jw7 00:40 Drug: Promethazine PO 25 mg PO once Route: PO; jw7 02:15 Follow up: Response: No adverse reaction jw7 00:57 Drug: Albuterol Inhalation 2.5 mg Inhalation every 20 minutes x3 Route: Inhalation; jw7 00:57 Drug: NS 0.9% IV 500 ml IV at bolus once Route: IV; Rate: bolus; Site: left antecubital;jw7 02:15 Follow up: Response: No adverse reaction; IV Status: Completed infusion; IV Intake: jw7 500ml 01:33 Drug: Albuterol Inhalation 2.5 mg Inhalation every 20 minutes x3 Route: Inhalation; jw7 02:15 Drug: Albuterol Inhalation 2.5 mg Inhalation every 20 minutes x3 Route: Inhalation; jw7 02:15 Follow up: Response: No adverse reaction; Marked relief of symptoms jw7 Disposition Summary: 05/08/23 02:00 Discharge Ordered Problem: new sp4 Symptoms: have improved sp4 Condition: Stable sp4 Diagnosis - Other specified viral diseases sp4 - Acute COVID-19, systemic viral illness sp4 Followup: sp4 - With: Private Physician - When: 7 - 10 days - Reason: Recheck today's complaints Discharge Instructions: - Discharge Summary Sheet sp4 - COVID-19 sp4 Forms: - Work release form as6 Prescriptions: - Paxlovid 300 mg (150 mg x 2)-100 mg Oral Tablet, Dose Pack - take 1 dose pack ORAL route as directed on dose pack take TWO 150 mg tablets of sp4 nirmatrelvir with ONE 100 mg tablet of ritonavir twice daily for 5 days; 1 packet; Refills: 0, Product Selection Permitted - dextromethorphan-guaifenesin 20-400 mg Oral tablet - take 1 tablet ORAL route every 4 hours as needed for cough; 60 tablet; Refills: sp4 0, Product Selection Permitted - Ibuprofen 600 mg Oral Tablet - take 1 tablet ORAL route every 6 hours As needed take with food; 30 tablet; sp4 Refills: 0, Product Selection Permitted - Albuterol Sulfate 2.5 mg /3 mL (0.083 %) Inhalation Solution for Nebulization - inhale 1 unit NEBULIZATION route every 4 hours As needed Dispense with sp4 Nebulizer and Adult Mask, Dispense 50 vials or Two boxes, Use every 4 hours PRN wheezing; 50 unit; Refills: 0, Product Selection Permitted - promethazine 25 mg Oral tablet - take 1 tablet ORAL route every 6 hours As needed; 30 tablet; Refills: 0, sp4 Product Selection Permitted Signatures: Dispatcher [employer] Abhay Alexander RN RN as6 Sophy Lugo RN RN jw7 Dwight Quan MD MD sp4
[2023-05-08 06:03] VITALS: BP 98/75; TEMP 100.2; O2SAT 96
--- NOTE | 2023-05-10 10:28 | RAD REPORT ---
EXAM DESCRIPTION: RAD - Chest Pa And Lat (2 Views) - 05/08/2023 12:45 am CLINICAL HISTORY: The patient is 57 years old and is Female; CHEST PAIN TECHNIQUE: Frontal and lateral views of the chest. COMPARISON: No relevant prior studies available. FINDINGS: LUNGS: Unremarkable. No consolidation. PLEURAL SPACE: Unremarkable. No pneumothorax. HEART: Unremarkable. No cardiomegaly. MEDIASTINUM: Unremarkable. Normal mediastinal contour. BONES/JOINTS: Unremarkable. No acute fracture. UPPER ABDOMEN: Unremarkable as visualized. IMPRESSION: No acute cardiopulmonary process. Electronically signed by: Kirsten Max MD 05/08/2023 12:55 AM COMPOSITE MECHANIC Due to temporary technical issues with the PACS/Fluency reporting system, reports are being signed by the in house radiologists without review as a courtesy to insure prompt reporting. The interpreting radiologist is fully responsible for the content of the report.
== END 2023-05-08 02:29 | disposition home or self-care (01) ==
LOC: ER 23:59
DX: U07.1 COVID-19 (principal); B33.8 Other specified viral diseases; I10 Essential (primary) hypertension; J45.909 Unspecified asthma, uncomplicated; E78.00 Pure hypercholesterolemia, unspecified; Z88.5 Allergy status to narcotic agent
CPT/HCPCS: 71046; 96361; 96374; 99285

== ENCOUNTER 2024-09-14 09:15 | Emergency (ER) | payer OTHER ==
--- OUTSIDE RECORDS SUMMARY | 2024-09-14 09:25 | XMS REPORT | Continuity of Care Document ---
Author Name Unknown Address [address] [facility] [address] [place] [address] [facility] [place] Address [address] [facility] [address] [place] [address] Care Team Providers Care Law Instructor Name Role Phone MEGA FERNANDEZ Primary Care Physician Unavailab JEFFREY Bates Attending Clinician Unavailable JEFFREY CROFT Attending Clinician Unavailable MICHAEL PARKER Attending Clinician Unav NEL Anderson Attending Clinician Unavailable LIOR LOVE Attending Clinician Unavailable RUBY GALARZA Attending Clinician UnavailADELAIDE Pickens Attending Clinician Unavailable MD VELVET Attending Clinician Unavailab SUNI Ruffin Attending Clinician Unavailable LAB47 Attending Clinician Unavailable TRED47 Attending Clinician Unavailable PL, TECH 1 Attending Clinician Unavailable JUAN JOSE GARCIA Attending Clinician Unavailable LILIANA MORALES Attending Clinician Unavailable LILIANA MORALES Attending Clinician Unavailable MARIO VERDUGO Attending Clinician UnaMega Gonzalez Attending Clinician [phone] TRED76 Attending Clinician Unavailable NATHANIEL CAPUTO Attending Clinician Unavailab LENI Juárez Attending Clinician Unavailable CARTER GAYTAN Attending Clinician UnavailLeni Ga MD Attending Clinician FEDE LAWS Attending Clinician Unavailable RADHA JOY Attending Clinician UnavailRADHA Weber Attending Clinician UnavailUmm Mcnulty PTA Attending Clinician Unav Sylvia Kumar MDig L Attending Clinician [phone] Fede Laws MD Attending Clinician [phone] Jasiel HENRY, Nidia Attending Clinician Unavailabl CLARISA Verdugo Attending Clinician Unavailable Clarisa Rivero MD Attending Clinician [phone] Doctor Unassigned, Hugo Attending Clinician U Evelia Plaza PTA Attending Clinician Unavail able Crissy Nguyen PTA Attending Clinician Unavail able Landen Saucedo PT, Maylin Attending Clinician Un available Dillon Garza MD Attending Clinician + [phone] MEGA FERNANDEZ Attending Clinician Unavailable FABIOLA PERKINS Attending Clinician Unavaila FABIOLA Quintanilla Attending Clinician Unavaila Lavon Gagnon DO Attending Clinician [phone] LAVON VÁSQUEZ Attending Clinician Unavailable LAVON VÁSQUEZ Attending Clinician Unavailable Orthopedic Surgery, Orthopedic Attending Clinici an Unavailable DENNIS GREY Attending Clinician Unavailable Grey PACDennis S Attending Clinician [phone] Leonard Edmonds MD Attending Clinician [phone] Lab, Ang - Agustin Attending Clinician Unavailable LEONARD EDMONDS Attending Clinician Unavaila juanis NurseClifton Attending Clinician Unavailable Only, Adc Test Attending Clinician Unavailable Olaf Tolentino MD Attending Clinician [phone] BELINDA SCOTT Attending Clinician Unavailable ELY KUMAR Attending Clinician Unavail able ELY KUMAR Attending Clinician Unavail able ASIYA SANDOVAL Attending Clinician Unavaila ble ABU-SHARIFEH, TAREQ Attending Clinician Unavaila ble ABU-SHARIFEH, TAREQ Attending Clinician Unavaila ble LILIANA MORALES Admitting Clinician Unavailable GREY, DENNIS S Admitting Clinician Unavailable ELIZABETH GOLDBERG Admitting Clinician Unavailable ABU-SHARIFEH, TAREQ Admitting Clinician Unavaila ble Payers Payer Name Policy Type Policy Number Effective Date Expirati on Date Source HIM [facility] [id number] 2018 00:00:00 SILVER 5 [facility] NURSE 94 9 [id number] 2024 00:00:00 Problems Condition Name Condition Details Condition Category Status Onset Date Resolution Date Last Treatment Date Treating Clinician Comments Source Bilateral carotid artery disease Bilateral carotid artery disease Disease Active 08-21 00:00: 00 [facility] - Externa malik Hypertensi on Hypertensi on Disease Active 08-21 00:00: 00 [facility] - Externa malik Allergic conjunctiv itis of both eyes Allergic conjunctiv itis of both eyes Disease Active 08-08 00:00: [address] [facility] Rotator cuff disorder, left Rotator cuff disorder, left Disease Active 17 00:00: 00 [facility] Acute pain of left shoulder Acute pain of left shoulder Disease Active 2-20 00:00: 00 [facility] Acute pain of left shoulder Acute pain of left shoulder Disease Active 2-20 00:00: 00 [facility] Hospital discharge follow-up Hospital discharge follow-up Disease Active 1- 00:00: 00 [facility] Mild persistent asthma without complicati on Mild persistent asthma without complicati on Disease Active 1-10 00:00: 00 [facility] Breast cancer screening by mammogram Breast cancer screening by mammogram Disease Active 1-10 00:00: 00 [facility] Post-menop ausal Post-menop ausal Disease Active 10-13 00:00: 00 [facility] Hot flashes Hot flashes Disease Active 10-13 00:00: 00 [facility] Vertigo Vertigo Disease Active 2019-0417 00:00: 00 [facility] PAF (paroxysma l atrial fibrillati on) (multi HCC) PAF (paroxysma l atrial fibrillati on) (multi HCC) Disease Active 2019-04 017 00:00: 00 [facility] - Externa malik Morbid obesity with body mass index of 40.0-49.9 Morbid obesity with body mass index of 40.0-49.9 Disease Active 9-24 00:00: 00 [facility] BERKLEY (obstructi ve sleep apnea) BERKLEY (obstructi ve sleep apnea) Disease Active 0 3-22 00:00: 00 [facility] Syncope Syncope Disease Active 0 3-14 00:00: 00 [facility] Nonobstruc tive atheroscle rosis of coronary artery Nonobstruc tive atheroscle rosis of coronary artery Disease Active 0 2-26 00:00: 00 [facility] Near syncope Near syncope Disease Active 2-13 00:00: 00 [facility] Pain of both shoulder joints Pain of both shoulder joints Disease Active 0 7-24 00:00: 00 [facility] Myofascial pain Myofascial pain Disease Active 0 24 00:00: 00 [facility] Chest pain Chest pain Disease Active 0 608 00:00: 00 [facility] Elevated troponin Elevated troponin Disease Active 0 6 00:00: 00 [facility] Elevated troponin Elevated troponin Disease Active 607 00:00: 00 [facility] Hypoxia Hypoxia Disease Active 0 1-10 00:00: 00 [facility] Arthritis, lumbar spine Arthritis, lumbar spine Disease Active 07-17 00:00: 00 [facility] HPFH (hereditar y persistenc e of hemoglobin ) HPFH (hereditar y persistenc e of hemoglobin ) Disease Active 09-09 00:00: 00 [facility] Anemia Anemia Disease Active 08-30 00:00: 00 [facility] Abnormal thyroid function test Abnormal thyroid function test Disease Active - 00:00: 00 [facility] Vitamin D deficiency Vitamin D deficiency Disease Active 08-30 00:00: 00 [facility] Obesity (BMI 30-39.9) Obesity (BMI 30-39.9) Disease Active 3-11 00:00: 00 [facility] Allergic rhinitis, unspecifie d allergic rhinitis trigger, unspecifie d rhinitis seasonalit y Allergic rhinitis, unspecifie d allergic rhinitis trigger, unspecifie d rhinitis seasonalit y Disease Active 05-22 00:00: 00 [facility] Uncomplica kristie asthma, unspecifie d asthma severity Uncomplica kristie asthma, unspecifie d asthma severity Disease Active 05-22 00:00: 00 [facility] Restless legs syndrome (RLS) Restless legs syndrome (RLS) Disease Active 05-22 00:00: 00 [facility] Prediabete s Prediabete s Disease Active 05-22 00:00: 00 [facility] Uncomplica kristie asthma (HHS-HCC) Uncomplica kristie asthma (HHS-HCC) Disease Active 05-22 00:00: 00 [facility] Essential hypertensi on Essential hypertensi on Disease Active 05-19 00:00: 00 [facility] Dyslipidem ia Dyslipidem ia Disease Active 05-19 00:00: 00 [facility] Chronic right shoulder pain Chronic right shoulder pain Disease Resolve d 05-22 00:00: 00 2019-06-13 00:00:00 2019-06-13 11:33:50 [facility] Acute bronchitis Acute bronchitis Disease Resolve d 05-03 00:00: 00 2018-05-23 00:00:00 2018-05-23 14:24:59 [facility] Allergies, Adverse Reactions, Alerts Allergy Name Allergy Type Status Severity Reaction(s) Onset Date Inactive Date Treating Clinician Comments Source Codeine Propensi ty to adverse reaction s Active 07-26 00:00: 00 Other Reaction( s): Not available [facility] Codeine Propensi ty to adverse reaction s Active Shortness of Breath 10-05 00:00: 00 [facility] Codeine Propensi ty to adverse reaction s Active Hives 10-05 00:00: 00 [facility] CODEINE DRUG INGREDI Active Low Hives 10-05 00:00: 00 [facility] Social History Social Habit Start Date Stop Date Quantity Comments Source Gender identity [facility] Sexual orientation Chirag mckeon Memo - External ASSERTION Not [facility] - External Alcoholic beverage intake 2024-09-03 00:00:00 2024-09-03 00:00:00 Lifetime non-drinker (finding) [facility] - External Alcohol intake 2023-07-27 00:00:00 2023-07-27 00:00:00 Lifetime non-drinker (finding) [facility] - External Tobacco use and exposure 2023-05-05 00:00:00 2023-05-05 00:00:00 Smokeless tobacco non-user [facility] - External History of Social function 2023-05-05 00:00:00 2023-05-05 00:00:00 [facility] - External Sex 2023-04-26 15:10:08 2023-04-26 15:10:08 Female (finding) [facility] - External Exposure to SARS-CoV-2 (event) 2022-09-22 00:00:00 2022-10-02 23:25:00 Not sure [facility] Tobacco Comment 2022-01-25 00:00:00 2022-01-25 00:00:00 Approx. 3 pouches/day/ has not smoked in 21 years [facility] History SDOH Financial 2019-07-06 00:00:00 2019-07-06 00:00:00 5 [facility] History of tobacco use 2018-04-16 00:00:00 Chews Tobacco [facility] Sex assigned at 1965 00:00:00 1965 00:00:00 F [facility] - External Smoking Status Start Date Stop Date Source Never smoked tobacco [facility] - External Ex-smoker 2022-01-25 00:00:00 2022-01-25 00:00:00 [facility] Medications Ordered Medication Name Filled Medication Name Start Date Stop Date Current Medication? Ordering Clinician Indication Dosage Frequency Signature (SIG) Comments Components Source Meloxicam 15 MG oral Tablet 09-03 14:08: 22 Yes 15mg QD Take 1 tablet (15 mg total) by mouth daily. [facility] Ipratropium (ATROVENT) 0.02 % inhalation Solution 09-03 14:07: 33 Yes [facility] Multiple Vitamin (MULTIVITAM IN ADULT OR) 09-03 14:07: 18 09-03 00:00 :00 No [id number] Take by mouth. [facility] Levalbutero l HCl 0.63 MG/3ML inhalation Inhalant Solution 09-03 14:06: 59 No [id number] .63mg Take 3 mL (0.63 mg total) by nebulizati on once for 1 dose. [facility] Diltiazem HCl CR 120 MG oral Capsule 24 Hour Sustained Release 09-03 00:00: 00 Yes [id number] 120mg TAKE 1 CAPSULE (120 MG TOTAL) BY MOUTH EVERY MORNING [facility] Tramadol HCl (ULTRAM) 50 MG oral Tablet 09-03 00:00: 00 Yes [id number] 50mg Q.25D Take 1 tablet (50 mg total) by mouth every 6 hours as needed for pain. [facility] Cyclobenzap rine HCl 5 MG oral Tablet 09-03 00:00: 00 Yes [id number] 5mg Q.03001207 [id number] 3D Take 1 tablet (5 mg total) by mouth 3 times daily as needed for muscle spasms. [facility] Celecoxib 200 MG oral Capsule 08-12 00:00: 00 09-03 00:00 :00 No [id number] 200mg Q.5D TAKE 1 CAPSULE (200 MG TOTAL) BY MOUTH 2 TIMES DAILY TAKE WITH MEALS, STOP IF UPSET STOMACH. [facility] Atorvastati n Calcium 40 MG oral Tablet 08-01 00:00: 00 Yes [id number] 40mg TAKE 1 TABLET BY MOUTH EVERYDAY AT BEDTIME [facility] Montelukast (SINGULAIR) 10 MG oral Tablet tablet 08-01 00:00: 00 Yes [id number] 10mg TAKE 1 TABLET BY MOUTH EVERY DAY IN THE EVENING [facility] Methylpredn isolone Acetate (Depo-Medro l) 40 mg/ml - Physician Administere d (J1030) 07-16 11:35: 28 No [id number] 40mg 40 mg, Physician Administer ed, ONCE, 1 dose, On Mon07/16/24 at 1045 [facility] Methylpredn isolone Acetate (Depo-Medro l) 40 mg/ml - Physician Administere d ([id number]) 07-16 11:34: 27 No [id number] 40mg 40 mg, Physician Administer ed, ONCE, 1 dose, On Mon07/16/24 at 1045 [facility] Multiple Vitamin (MULTIVITAM IN ADULT OR) 07-16 10:01: 52 Yes [id number] Take by mouth. [facility] Ipratropium (ATROVENT) 0.02 % inhalation Solution 07-16 10:01: 52 Yes [facility] Celecoxib (CeleBREX) 200 MG oral Capsule 07-16 00:00: 00 Yes [id number] 200mg Q.5D Take 1 capsule (200 mg total) by mouth 2 times daily Take with Meals, STOP IF UPSET STOMACH. [facility] Multiple Vitamin (MULTIVITAM IN ADULT OR) 07-09 10:22: 21 Yes [id number] Take by mouth. [facility] Ipratropium (ATROVENT) 0.02 % inhalation Solution 07-09 10:22: 21 Yes [facility] Cyclobenzap rine HCl 5 MG oral Tablet 07-09 00:00: 00 09-03 00:00 :00 No [id number] 5mg Q.[id number] 3D Take 1 tablet (5 mg total) by mouth 3 times daily as needed for muscle spasms. [facility] Meloxicam 15 MG oral Tablet 07-09 00:00: 00 07-16 00:00 :00 No [id number] 15mg QD Take 1 tablet (15 mg total) by mouth daily. [facility] Ibuprofen (MOTRIN) 600 MG oral Tablet 2-13 00:00: 00 Yes [id number] 600mg Q.33018313 [id number] 3D TAKE 1 TABLET BY MOUTH EVERY 8 HOURS NEEDED FOR PAIN [facility] ALBUTEROL HFA 108 (90 Base) MCG/ACT IN AERS 2-11 00:00: 00 Yes [id number] 1{puff} Q4H INHALE 1-2 PUFFS INTO THE LUNGS EVERY 4 HOURS NEEDED FOR WHEEZING OR SHORTNESS OF BREATH. [facility] Atorvastati n Calcium 40 MG oral Tablet - 00:00: 00 Yes [id number] 40mg TAKE 1 TABLET BY MOUTH EVERYDAY AT BEDTIME [facility] Montelukast (SINGULAIR) 10 MG oral Tablet tablet 05-03 00:00: 00 Yes [id number] 10mg TAKE 1 TABLET BY MOUTH EVERY DAY IN THE EVENING [facility] Multiple Vitamin (MULTIVITAM IN ADULT OR) 01-18 11:38: 22 Yes [id number] Take by mouth. [facility] Ipratropium (ATROVENT) 0.02 % inhalation Solution 01-18 11:38: 22 Yes [facility] Ibuprofen (MOTRIN) 600 MG oral Tablet 8-14 00:00: 00 Yes [id number] 600mg Q.[id number] 3D TAKE 1 TABLET BY MOUTH EVERY 8 HOURS NEEDED FOR PAIN. [facility] Multiple Vitamin (MULTIVITAM IN ADULT OR) 11-13 10:34: 48 Yes [id number] Take by mouth. Mary Dupont Externlilian gan Ipratropium (ATROVENT) 0.02 % inhalation Solution 11-13 10:34: 48 Yes [facility] Atorvastati n Calcium 40 MG oral Tablet 2024-0 7-18 10:47: 32 11-08 00:00 :00 No [id number] 40mg Take 1 tablet (40 mg total) by mouth at bedtime. [facility] Montelukast (SINGULAIR) 10 MG oral Tablet tablet 11-08 10:47: 32 11-08 00:00 :00 No [id number] 10mg Take 1 tablet (10 mg total) by mouth every evening. [facility] Multiple Vitamin (MULTIVITAM IN ADULT OR) 11-08 10:34: 57 Yes [id number] Take by mouth. [facility] Ipratropium (ATROVENT) 0.02 % inhalation Solution 11-08 10:34: 57 Yes [facility] Ibuprofen (MOTRIN) 600 MG oral Tablet 11-08 00:00: 00 Yes [id number] 600mg Q.10095881 [id number] 3D Take 1 tablet (600 mg total) by mouth every 8 hours as needed for pain. [facility] Montelukast (SINGULAIR) 10 MG oral Tablet tablet 11-08 00:00: 00 Yes [id number] 10mg Take 1 tablet (10 mg total) by mouth every evening. [facility] Atorvastati n Calcium 40 MG oral Tablet 11-08 00:00: 00 Yes [id number] 40mg Take 1 tablet (40 mg total) by mouth at bedtime. [facility] ATORVASTATI N 40 mg tablet 09-20 00:00: 00 Yes [id number] 40mg TAKE 1 TABLET BY MOUTH EVERYDAY AT BEDTIME [facility] MONTELUKAST 10 mg tablet 09-20 00:00: 00 Yes [id number] 10mg TAKE 1 TABLET BY MOUTH EVERY DAY IN THE EVENING [facility] Diltiazem HCl CR 120 MG oral Capsule 24 Hour Sustained Release 08-21 00:00: 00 Yes 120mg Take 1 capsule (120 mg total) by mouth every morning. [facility] ATORVASTATI N 40 mg tablet 08-20 00:00: 00 09-20 00:00 :00 No [id number] 40mg TAKE 1 TABLET BY MOUTH EVERYDAY AT BEDTIME [facility] MONTELUKAST 10 mg tablet 08-20 00:00: 00 09-20 00:00 :00 No [id number] 10mg TAKE 1 TABLET BY MOUTH EVERY DAY IN THE EVENING [facility] Atorvastati n Calcium 40 MG oral Tablet 07-26 14:53: 32 Yes [id number] 40mg Take 1 tablet (40 mg total) by mouth at bedtime. [facility] Diltiazem HCl CR 120 MG oral Capsule 24 Hour Sustained Release 07-26 14:53: 32 Yes [id number] 120mg Take 1 capsule (120 mg total) by mouth every morning. [facility] Montelukast (SINGULAIR) 10 MG oral Tablet tablet 07-26 14:53: 32 Yes [id number] 10mg Take 1 tablet (10 mg total) by mouth every evening. [facility] Multiple Vitamin (MULTIVITAM IN ADULT OR) 07-26 14:53: 32 Yes [id number] Take by mouth. [facility] Ipratropium (ATROVENT) 0.02 % inhalation Solution 07-26 14:53: 32 Yes [facility] diltiazem XR 120 mg 24 hr capsule 07-23 00:00: 00 Yes [id number] 120mg Take 1 capsule by mouth in the morning. Please schedule an appointmen t for refills. [facility] Albuterol HFA 108 (90 Base) MCG/ACT IN AERS 07-20 00:00: 00 Yes [id number] 1{puff} Q4H Inhale 1-2 puffs into the lungs every 4 hours as needed for wheezing or shortness of breath. [facility] montelukast 10 mg tablet 07-20 00:00: 00 08-20 00:00 :00 No [id number] 10mg TAKE 1 TABLET BY MOUTH EVERY DAY IN THE EVENING [facility] atorvastati n 40 mg tablet 07-20 00:00: 00 08-20 00:00 :00 No [id number] 40mg TAKE 1 TABLET BY MOUTH EVERYDAY AT BEDTIME [facility] Albuterol (PROVENTIL) (2.5 MG/3ML) 0.083% inhalation Inhalant Solution 05-08 00:00: 00 Yes [facility] Ibuprofen (MOTRIN) 600 MG oral Tablet 05-08 00:00: 00 Yes TAKE 1 TABLET BY MOUTH EVERY 6 HOURS NEEDED FOR PAIN WITH FOOD [facility] Levalbutero l HCl 0.63 MG/3ML inhalation Inhalant Solution 05-05 11:20: 45 Yes [id number] .63mg Take 3 mL (0.63 mg total) by nebulizati on once for 1 dose. [facility] Levalbutero l HCl 0.63 MG/3ML inhalation Inhalant Solution 05-05 [...] MG oral Tablet 05-05 11:17: 45 Yes [id number] 40mg Take 1 tablet (40 mg total) by mouth at bedtime. [facility] Diltiazem HCl CR 120 MG oral Capsule 24 Hour Sustained Release 05-05 11:17: 45 Yes [id number] 120mg Take 1 capsule (120 mg total) by mouth every morning. [facility] Montelukast (SINGULAIR) 10 MG oral Tablet tablet 05-05 11:17: 45 Yes [id number] 10mg Take 1 tablet (10 mg total) by mouth every evening. [facility] Multiple Vitamin (MULTIVITAM IN ADULT OR) 05-05 10:49: 01 Yes [id number] Take by mouth. [facility] Fluticasone -Salmeterol (Advair Diskus) 500-50 MCG/ACT inhalation AEROSOL POWDER, BREATH ACTIVATED 05-05 00:00: 00 Yes [id number] 1{puff} Q.5D Inhale 1 puff into the lungs 2 times daily. [facility] Levalbutero malik HCl 0.63 MG/3ML inhalation Inhalant Solution 05-05 00:00: 00 Yes [id number] .63mg Take 3 mL (0.63 mg total) by nebulizati on once for 1 dose. [facility] Albuterol HFA (VENTOLIN HFA) 108 (90 Base) MCG/ACT IN AERS 05-05 00:00: 00 Yes [id number] 1{puff} Q4H Inhale 1-2 puffs into the lungs every 4 hours as needed for wheezing or shortness of breath. [facility] methylPREDN ISolone 4 MG oral Tablet Therapy Pack 05-01 00:00: 00 Yes [id number] 6{tbl} 6 tablets See Admin Instructio ns TAKE 6 TABLETS ON DAY 1 DIRECTED ON PACKAGE AND DECREASE BY 1 TAB EACH DAY FOR A TOTAL OF 6 DAYS. [facility] diltiazem XR 120 mg 24 hr capsule 2022-04 0 00:00: 00 07-23 00:00 :00 No [id number] 120mg Take 1 capsule by mouth in the morning. [facility] atorvastati n 40 mg tablet 2022-04 0 00:00: 00 07-20 00:00 :00 No [id number] 40mg Take 1 tablet by mouth at bedtime. [facility] montelukast 10 mg tablet 2022-04 0 00:00: 00 07-20 00:00 :00 No [id number] 10mg Take 1 tablet by mouth every evening. [facility] metoprolol tartrate 25 mg tablet 2022-04 0 10:18: 35 01-27 00:00 :00 No [facility] ATORVASTATI N 40 mg tablet 01-20 00:00: 00 02-17 00:00 :00 No [id number] 40mg TAKE 1 TABLET BY MOUTH AT BEDTIME [facility] MONTELUKAST 10 mg tablet 01-20 00:00: 00 02-17 00:00 :00 No [id number] 10mg TAKE ONE TABLET BY MOUTH EVERY EVENING [facility] diclofenac 25 mg EC tablet 807 00:00: 00 Yes [id number] 25mg Take 1 tablet by mouth 2 (two) times daily as needed for Pain. TAKE ONE TABLET BY MOUTH TWICE A DAY WITH A MEAL NEEDED FOR PAIN Strength: 25 mg [facility] montelukast 10 mg tablet 7 00:00: 00 01-20 00:00 :00 No [id number] 10mg Take 1 tablet by mouth every evening. [facility] atorvastati n 40 mg tablet 7 00:00: 00 01-20 00:00 :00 No [id number] 40mg Take 1 tablet by mouth at bedtime. [facility] methylPREDN ISolone acetate (DEPO-MEDRO L) injection 80 mg 6-12 17:45: 00 10-03 16:52 :00 No [id number] 80mg [facility] DICLOFENAC 25 mg EC tablet 5-25 00:00: 11-28 00:00 :00 No [id number] TAKE ONE TABLET BY MOUTH TWICE A DAY WITH A MEAL NEEDED FOR PAIN [facility] diclofenac 25 mg EC tablet 08-12 00:00: 00 09-15 00:00 :00 No [id number] 25mg Take 1 tablet by mouth 2 (two) times daily with meals as needed for Pain. [facility] Olopatadine 0.2 % ophthalmic drops 08-08 00:00: 00 Yes [id number] 1[drp] Place 1 Drop in each eye in the morning. [facility] meloxicam 15 mg TbDL 08-08 00:00: 00 01-27 00:00 :00 No [id number] 15mg Take 15 mg by mouth as needed for Pain (scale 4-6) (daily PRN). [facility] diltiazem XR 120 mg 24 hr capsule 07-29 00:00: 00 02-17 00:00 :00 No [id number] 120mg Take 1 capsule by mouth in the morning. [facility] diltiazem XR 120 mg 24 hr capsule 07-28 00:00: 00 07-29 00:00 :00 No [id number] 120mg Take 1 capsule by mouth in the morning. [facility] mv-mn/iron/ folic acid/herb 190 (VITAMIN D3 COMPLETE ORAL) 06-13 15:45: 27 06-13 00:00 :00 No Take by mouth. [facility] cyclobenzap rine 5 mg tablet 2-20 00:00: 00 06-28 05:59 :00 No [id number] 5mg Take 1 tablet by mouth in the morning and 1 tablet at noon and 1 tablet in the evening. Do all this for 14 days. [facility] methylPREDN ISolone (MEDROL, AMADEO,) 4 mg tablets 2-20 00:00: 00 06-19 05:59 :00 No [id number] Take by mouth SEE-INSTRU CTIONS for 5 days. follow package directions [facility] albuterol (VENTOLIN HFA) 90 mcg/actuati on inhaler 05-03 00:00: 00 Yes [id number] 1{puff} Inhale 1 Puff every 4 (four) hours as needed for Wheezing or Shortness of Breath. [facility] levalbutero l 0.63 mg/3 mL nebulizer solution 05-03 00:00: 00 Yes [id number] .63mg Inhale 0.63 mg 3 (three) times daily as needed for Wheezing or Shortness of Breath. [facility] etodolac 200 mg capsule 05-03 00:00: 00 08-08 00:00 :00 No [id number] 200mg Take 1 capsule by mouth in the morning. [facility] fluticasone propion-patrick meteroL (ADVAIR DISKUS) 250-50 mcg/dose inhalation disk 05-03 00:00: 00 06-13 00:00 :00 No [id number] 1{puff} Inhale 1 Puff every 12 (twelve) hours. [facility] ipratropium -albuteroL (DUONEB) 0.5 mg-3 mg(2.5 mg base)/3 mL nebulizer solution 3 mL 04-24 00:00: 00 04-23 22:53 :00 No 3mL 3 mL, Inhalation , ONCE, 1 dose, On 04/23/22 at 1800, Routine [facility] predniSONE (DELTASONE) tablet 40 mg 04-24 00:00: 00 04-23 23:05 :00 No 40mg 40 mg, Oral, ONCE, 1 dose, On 04/23/22 at 1800, AMY [facility] ipratropium -albuteroL (DUONEB) 0.5 mg-3 mg(2.5 mg base)/3 mL nebulizer solution 3 mL 2021-04- 23:30: 00 04-23 22:43 :00 No 3mL 3 mL, Inhalation , ONCE, 1 dose, On 04/23/22 at 1730, Routine [facility] predniSONE 20 mg tablet 2021-04 2- 00:00: 00 04-28 05:59 :00 No [id number] 40mg Take 2 tablets by mouth every morning for 4 days. [facility] mv-mn/iron/ folic acid/herb 190 (VITAMIN D3 COMPLETE ORAL) 2021-04 0 13:43: 48 Yes Take by mouth. [facility] diltiazem XR 120 mg 24 hr capsule 12-24 00:00: 00 07-28 00:00 :00 No [id number] 120mg Take 1 capsule by mouth in the morning. [facility] etodolac 500 mg tablet 10-26 00:00: 00 05-03 00:00 :00 No [id number] 105 TAKE ONE TABLET BY MOUTH EVERY 12 HOURS WITH MEALS NEEDED FOR PAIN OR INFLAMMATI ON [facility] aspirin 81 mg chewable tablet 10-13 12:16: 11 10-13 00:00 :00 No 81mg Take 81 mg by mouth daily. [facility] fluticasone propion-patrick meteroL (ADVAIR DISKUS) 250-50 mcg/dose inhalation disk 10-13 12:16: 11 10-13 00:00 :00 No 1{puff} Inhale 1 Puff every 12 (twelve) hours. [facility] atorvastati n 40 mg tablet 10-13 00:00: 00 10-25 00:00 :00 No [id number] 40mg Take 1 tablet by mouth at bedtime. [facility] montelukast 10 mg tablet 10-13 00:00: 00 10-25 00:00 :00 No [id number] 10mg Take 1 tablet by mouth every evening. [facility] aspirin 81 mg chewable tablet 10-13 00:00: 00 01-12 04:59 :00 No [id number] 81mg Take 1 tablet by mouth daily for 90 days. [facility] fluticasone propion-patrick meteroL (ADVAIR DISKUS) 250-50 mcg/dose inhalation disk 10-13 00:00: 00 01-12 04:59 :00 No [id number] 1{puff} Inhale 1 Puff every 12 (twelve) hours for 90 days. [facility] fluticasone propion-patrick meteroL (ADVAIR DISKUS) 250-50 mcg/dose inhalation disk 10-13 00:00: 00 01-12 04:59 :00 No [id number] 1{puff} Inhale 1 Puff every 12 (twelve) hours for 90 days. [facility] diltiazem XR 120 mg 24 hr capsule 10-13 00:00: 00 12-24 00:00 :00 No [id number] 120mg Take 1 capsule by mouth daily. [facility] montelukast 10 mg tablet 06-30 00:00: 00 10-13 00:00 :00 No [id number] 10mg Take 1 tablet by mouth every evening. [facility] atorvastati n 40 mg tablet 06-30 00:00: 00 10-13 00:00 :00 No [id number] 40mg Take 1 tablet by mouth at bedtime. [facility] diltiazem XR 120 mg 24 hr capsule 2020-04 00:00: 00 10-13 00:00 :00 No [id number] 120mg Take 1 capsule by mouth daily. [facility] POTASSIUM-9 9 ORAL 9-24 16:08: 24 Yes Take by mouth. [facility] rOPINIRole 1 mg tablet 11-16 00:00: 00 06-13 00:00 :00 No [id number] 1mg Take 1 tablet by mouth at bedtime. [facility] etodolac 500 mg tablet 11-16 00:00: 00 10-26 00:00 :00 No [id number] 105 TAKE 1 TABLET BY MOUTH EVERY 12 HOURS WITH MEALS NEEDED FOR PAIN OR INFLAMMATI ON [facility] montelukast 10 mg tablet 05-20 00:00: 05-25 00:00 :00 No [id number] TAKE 1 TABLET BY MOUTH ONCE DAILY IN THE EVENING [facility] diltiazem XR 120 mg 24 hr capsule 2019-04 00:00: 12-02 00:00 :00 No 120mg Take 1 capsule by mouth daily. [facility] atorvastati n 40 mg tablet 2019-04 00:00: 03-23 00:00 :00 No [id number] 40mg Take 1 tablet by mouth at bedtime. [facility] etodolac 500 mg tablet 2019-04 00:00: 00 11-16 00:00 :00 No TAKE 1 TABLET BY MOUTH EVERY 12 HOURS WITH MEALS [facility] levocetiriz ine 5 mg tablet 11-06 00:00: 01-15 00:00 :00 No [id number] 5mg Take 1 tablet by mouth every evening. [facility] amLODIPine 5 mg tablet 08-01 00:00: 00 02-02 00:00 :00 No [id number] 5mg Take 1 tablet by mouth daily. [facility] montelukast 10 mg tablet 05-09 00:00: 05-20 00:00 :00 No [id number] TAKE ONE TABLET BY MOUTH IN THE EVENING [facility] cyclobenzap rine 10 mg tablet 10-22 00:00: 00 02-24 00:00 :00 No [id number] 10mg Take 1 tablet by mouth 3 (three) times daily as needed for Muscle Spasms. DON'T TAKE WITH TRAMADOL. [facility] albuterol (VENTOLIN HFA) 90 mcg/actuati on inhaler 05-04 00:00: 00 05-03 00:00 :00 No [id number] 1{puff} Inhale 1 Puff every 4 (four) hours as needed for Wheezing or Shortness of Breath. [facility] fluticasone -salmeterol (ADVAIR DISKUS) 250-50 mcg/dose inhalation disk 2018-05-04 00:00: 00 02-24 00:00 :00 No [id number] 1{puff} Inhale 1 Puff daily. [facility] Immunizations Ordered Immunization Name Filled Immunization Name Date Status Comments Source Pneumococcal Polysaccharide, PPSV23 (PNEUMOVAX) 2023-10-20 00:00:00 Completed [facility] Influenza Virus Vaccine Quad .5 mL IM 6+ MO (FLUZONE/FLULAVAL/F LUARIX) 2023-10-20 00:00:00 Completed [facility] TDAP 2023-10-20 00:00:00 Completed [facility] SARS-COV-2 COVID-19 PFIZER VACCINE 2023-10-20 00:00:00 Completed [facility] Influenza Virus Vaccine Quad IM, Preserv and ABX Free 6 MO-64 YRS (FLUCELVAX) 2023-10-20 00:00:00 Completed [facility] Pneumococcal Polysaccharide, PPSV23 (PNEUMOVAX) 2023-09-21 00:00:00 Completed [facility] Influenza Virus Vaccine Quad .5 mL IM 6+ MO (FLUZONE/FLULAVAL/F LUARIX) 2023-09-21 00:00:00 Completed [facility] TDAP 2023-09-21 00:00:00 Completed [facility] SARS-COV-2 COVID-19 PFIZER VACCINE 2023-09-21 00:00:00 Completed [facility] Influenza Virus Vaccine Quad IM, Preserv and ABX Free 6 MO-64 YRS (FLUCELVAX) 2023-09-21 00:00:00 Completed [facility] Pneumococcal Polysaccharide, PPSV23 (PNEUMOVAX) 2023-08-19 00:00:00 Completed [facility] Influenza Virus Vaccine Quad .5 mL IM 6+ MO (FLUZONE/FLULAVAL/F LUARIX) 2023-08-19 00:00:00 Completed [facility] TDAP 2023-08-19 00:00:00 Completed [facility] SARS-COV-2 COVID-19 PFIZER VACCINE 2023-08-19 00:00:00 Completed [facility] Influenza Virus Vaccine Quad IM, Preserv and ABX Free 6 MO-64 YRS (FLUCELVAX) 2023-08-19 00:00:00 Completed [facility] Pneumococcal Polysaccharide, PPSV23 (PNEUMOVAX) 2023-07-25 00:00:00 Completed [facility] Influenza Virus Vaccine Quad .5 mL IM 6+ MO (FLUZONE/FLULAVAL/F LUARIX) 2023-07-25 00:00:00 Completed [facility] TDAP 2023-07-25 00:00:00 Completed [facility] SARS-COV-2 COVID-19 PFIZER VACCINE 2023-07-25 00:00:00 Completed [facility] Influenza Virus Vaccine Quad IM, Preserv and ABX Free 6 MO-64 YRS (FLUCELVAX) 2023-07-25 00:00:00 Completed [facility] Pneumococcal Polysaccharide, PPSV23 (PNEUMOVAX) 2023-07-24 00:00:00 Completed [facility] Influenza Virus Vaccine Quad .5 mL IM 6+ MO (FLUZONE/FLULAVAL/F LUARIX) 2023-07-24 00:00:00 Completed [facility] TDAP 2023-07-24 00:00:00 Completed [facility] SARS-COV-2 COVID-19 PFIZER VACCINE 2023-07-24 00:00:00 Completed [facility] Influenza Virus Vaccine Quad IM, Preserv and ABX Free 6 MO-64 YRS (FLUCELVAX) 2023-07-24 00:00:00 Completed [facility] Pneumococcal Polysaccharide, PPSV23 (PNEUMOVAX) 2023-07-21 00:00:00 Completed [facility] Influenza Virus Vaccine Quad .5 mL IM 6+ MO (FLUZONE/FLULAVAL/F LUARIX) 2023-07-21 00:00:00 Completed [facility] TDAP 2023-07-21 00:00:00 Completed [facility] SARS-COV-2 COVID-19 PFIZER VACCINE 2023-07-21 00:00:00 Completed [facility] Influenza Virus Vaccine Quad IM, Preserv and ABX Free 6 MO-64 YRS (FLUCELVAX) 2023-07-21 00:00:00 Completed [facility] Pneumococcal Polysaccharide, PPSV23 (PNEUMOVAX) 2023-04-13 14:30:00 Completed [facility] Influenza Virus Vaccine Quad .5 mL IM 6+ MO (FLUZONE/FLULAVAL/F LUARIX) 2023-04-13 14:30:00 Completed [facility] TDAP 2023-04-13 14:30:00 Completed [facility] SARS-COV-2 COVID-19 PFIZER VACCINE 2023-04-13 14:30:00 Completed [facility] Influenza Virus Vaccine Quad IM, Preserv and ABX Free 6 MO-64 YRS (FLUCELVAX) 2023-04-13 14:30:00 Completed [facility] Pneumococcal Polysaccharide, PPSV23 (PNEUMOVAX) 2023-04-11 14:30:00 Completed [facility] Influenza Virus Vaccine Quad .5 mL IM 6+ MO (FLUZONE/FLULAVAL/F LUARIX) 2023-04-11 14:30:00 Completed [facility] TDAP 2023-04-11 14:30:00 Completed [facility] SARS-COV-2 COVID-19 PFIZER VACCINE 2023-04-11 14:30:00 Completed [facility] Influenza Virus Vaccine Quad IM, Preserv and ABX Free 6 MO-64 YRS (FLUCELVAX) 2023-04-11 14:30:00 Completed [facility] Pneumococcal Polysaccharide, PPSV23 (PNEUMOVAX) 2023-04-06 10:15:00 Completed [facility] Influenza Virus Vaccine Quad .5 mL IM 6+ MO (FLUZONE/FLULAVAL/F LUARIX) 2023-04-06 10:15:00 Completed [facility] TDAP 2023-04-06 10:15:00 Completed [facility] SARS-COV-2 COVID-19 PFIZER VACCINE 2023-04-06 10:15:00 Completed [facility] Influenza Virus Vaccine Quad IM, Preserv and ABX Free 6 MO-64 YRS (FLUCELVAX) 2023-04-06 10:15:00 Completed [facility] Pneumococcal Polysaccharide, PPSV23 (PNEUMOVAX) 2023-04-04 15:15:00 Completed [facility] Influenza Virus Vaccine Quad .5 mL IM 6+ MO (FLUZONE/FLULAVAL/F LUARIX) 2023-04-04 15:15:00 Completed [facility] TDAP 2023-04-04 15:15:00 Completed [facility] SARS-COV-2 COVID-19 PFIZER VACCINE 2023-04-04 15:15:00 Completed [facility] Influenza Virus Vaccine Quad IM, Preserv and ABX Free 6 MO-64 YRS (FLUCELVAX) 2023-04-04 15:15:00 Completed [facility] Pneumococcal Polysaccharide, PPSV23 (PNEUMOVAX) 2023-03-30 11:00:00 Completed [facility] Influenza Virus Vaccine Quad .5 mL IM 6+ MO (FLUZONE/FLULAVAL/F LUARIX) 2023-03-30 11:00:00 Completed [facility] TDAP 2023-03-30 11:00:00 Completed [facility] SARS-COV-2 COVID-19 PFIZER VACCINE 2023-03-30 11:00:00 Completed [facility] Influenza Virus Vaccine Quad IM, Preserv and ABX Free 6 MO-64 YRS (FLUCELVAX) 2023-03-30 11:00:00 Completed [facility] Pneumococcal Polysaccharide, PPSV23 (PNEUMOVAX) 2023-03-28 11:00:00 Completed [facility] Influenza Virus Vaccine Quad .5 mL IM 6+ MO (FLUZONE/FLULAVAL/F LUARIX) 2023-03-28 11:00:00 Completed [facility] TDAP 2023-03-28 11:00:00 Completed [facility] SARS-COV-2 COVID-19 PFIZER VACCINE 2023-03-28 11:00:00 Completed [facility] Influenza Virus Vaccine Quad IM, Preserv and ABX Free 6 MO-64 YRS (FLUCELVAX) 2023-03-28 11:00:00 Completed [facility] Pneumococcal Polysaccharide, PPSV23 (PNEUMOVAX) 2023-03-21 10:15:00 Completed [facility] Influenza Virus Vaccine Quad .5 mL IM 6+ MO (FLUZONE/FLULAVAL/F LUARIX) 2023-03-21 10:15:00 Completed [facility] TDAP 2023-03-21 10:15:00 Completed [facility] SARS-COV-2 COVID-19 PFIZER VACCINE 2023-03-21 10:15:00 Completed [facility] Influenza Virus Vaccine Quad IM, Preserv and ABX Free 6 MO-64 YRS (FLUCELVAX) 2023-03-21 10:15:00 Completed [facility] Pneumococcal Polysaccharide, PPSV23 (PNEUMOVAX) 2023-03-09 11:00:00 Completed [facility] Influenza Virus Vaccine Quad .5 mL IM 6+ MO (FLUZONE/FLULAVAL/F LUARIX) 2023-03-09 11:00:00 Completed [facility] TDAP 2023-03-09 11:00:00 Completed [facility] SARS-COV-2 COVID-19 PFIZER VACCINE 2023-03-09 11:00:00 Completed [facility] Influenza Virus Vaccine Quad IM, Preserv and ABX Free 6 MO-64 YRS (FLUCELVAX) 2023-03-09 11:00:00 Completed [facility] Pneumococcal Polysaccharide, PPSV23 (PNEUMOVAX) 2023-03-07 15:15:00 Completed [facility] Influenza Virus Vaccine Quad .5 mL IM 6+ MO (FLUZONE/FLULAVAL/F LUARIX) 2023-03-07 15:15:00 Completed [facility] TDAP 2023-03-07 15:15:00 Completed [facility] SARS-COV-2 COVID-19 PFIZER VACCINE 2023-03-07 15:15:00 Completed [facility] Influenza Virus Vaccine Quad IM, Preserv and ABX Free 6 MO-64 YRS (FLUCELVAX) 2023-03-07 15:15:00 Completed [facility] Pneumococcal Polysaccharide, PPSV23 (PNEUMOVAX) 2023-03-02 09:30:00 Completed [facility] Influenza Virus Vaccine Quad .5 mL IM 6+ MO (FLUZONE/FLULAVAL/F LUARIX) 2023-03-02 09:30:00 Completed [facility] TDAP 2023-03-02 09:30:00 Completed [facility] SARS-COV-2 COVID-19 PFIZER VACCINE 2023-03-02 09:30:00 Completed [facility] Influenza Virus Vaccine Quad IM, Preserv and ABX Free 6 MO-64 YRS (FLUCELVAX) 2023-03-02 09:30:00 Completed [facility] Pneumococcal Polysaccharide, PPSV23 (PNEUMOVAX) 2023-02-17 00:00:00 Completed [facility] Influenza Virus Vaccine Quad .5 mL IM 6+ MO (FLUZONE/FLULAVAL/F LUARIX) 2023-02-17 00:00:00 Completed [facility] TDAP 2023-02-17 00:00:00 Completed [facility] SARS-COV-2 COVID-19 PFIZER VACCINE 2023-02-17 00:00:00 Completed [facility] Influenza Virus Vaccine Quad IM, Preserv and ABX Free 6 MO-64 YRS (FLUCELVAX) 2023-02-17 00:00:00 Completed [facility] Pneumococcal Polysaccharide, PPSV23 (PNEUMOVAX) 2023-02-17 00:00:00 Completed [facility] Influenza Virus Vaccine Quad .5 mL IM 6+ MO (FLUZONE/FLULAVAL/F LUARIX) 2023-02-17 00:00:00 Completed [facility] TDAP 2023-02-17 00:00:00 Completed [facility] SARS-COV-2 COVID-19 PFIZER VACCINE 2023-02-17 00:00:00 Completed [facility] Influenza Virus Vaccine Quad IM, Preserv and ABX Free 6 MO-64 YRS (FLUCELVAX) 2023-02-17 00:00:00 Completed [facility] Pneumococcal Polysaccharide, PPSV23 (PNEUMOVAX) 2023-02-09 09:02:07 Completed [facility] Influenza Virus Vaccine Quad .5 mL IM 6+ MO (FLUZONE/FLULAVAL/F LUARIX) 2023-02-09 09:02:07 Completed [facility] TDAP 2023-02-09 09:02:07 Completed [facility] SARS-COV-2 COVID-19 PFIZER VACCINE 2023-02-09 09:02:07 Completed [facility] Influenza Virus Vaccine Quad IM, Preserv and ABX Free 6 MO-64 YRS (FLUCELVAX) 2023-02-09 09:02:07 Completed [facility] Pneumococcal Polysaccharide, PPSV23 (PNEUMOVAX) 2023-01-27 09:30:00 Completed [facility] Influenza Virus Vaccine Quad .5 mL IM 6+ MO (FLUZONE/FLULAVAL/F LUARIX) 2023-01-27 09:30:00 Completed [facility] TDAP 2023-01-27 09:30:00 Completed [facility] SARS-COV-2 COVID-19 PFIZER VACCINE 2023-01-27 09:30:00 Completed [facility] Influenza Virus Vaccine Quad IM, Preserv and ABX Free 6 MO-64 YRS (FLUCELVAX) 2023-01-27 09:30:00 Completed [facility] Pneumococcal Polysaccharide, PPSV23 (PNEUMOVAX) 2023-01-20 00:00:00 Completed [facility] Influenza Virus Vaccine Quad .5 mL IM 6+ MO (FLUZONE/FLULAVAL/F LUARIX) 2023-01-20 00:00:00 Completed [facility] TDAP 2023-01-20 00:00:00 Completed [facility] SARS-COV-2 COVID-19 PFIZER VACCINE 2023-01-20 00:00:00 Completed [facility] Influenza Virus Vaccine Quad IM, Preserv and ABX Free 6 MO-64 YRS (FLUCELVAX) 2023-01-20 00:00:00 Completed [facility] Pneumococcal Polysaccharide, PPSV23 (PNEUMOVAX) 2022-08-31 00:00:00 Completed [facility] Influenza Virus Vaccine Quad .5 mL IM 6+ MO (FLUZONE/FLULAVAL/F LUARIX) 2022-08-31 00:00:00 Completed [facility] TDAP 2022-08-31 00:00:00 Completed [facility] SARS-COV-2 COVID-19 PFIZER VACCINE 2022-08-31 00:00:00 Completed [facility] Influenza Virus Vaccine Quad IM, Preserv and ABX Free 6 MO-64 YRS (FLUCELVAX) 2022-08-31 00:00:00 Completed [facility] Pneumococcal Polysaccharide, PPSV23 (PNEUMOVAX) 2022-08-04 00:00:00 Completed [facility] Influenza Virus Vaccine Quad .5 mL IM 6+ MO (FLUZONE/FLULAVAL/F LUARIX) 2022-08-04 00:00:00 Completed [facility] TDAP 2022-08-04 00:00:00 Completed [facility] SARS-COV-2 COVID-19 PFIZER VACCINE 2022-08-04 00:00:00 Completed [facility] Influenza Virus Vaccine Quad IM, Preserv and ABX Free 6 MO-64 YRS (FLUCELVAX) 2022-08-04 00:00:00 Completed [facility] Influenza Virus Vaccine Quad IM, Preserv and ABX Free 6 MO-64 YRS 2022-01-25 00:00:00 Completed [facility] Influenza Virus Vaccine Quad IM, Preserv and ABX Free 6 MO-64 YRS 2022-01-25 00:00:00 Completed [facility] Influenza Virus Vaccine Quad IM, Preserv and ABX Free 6 MO-64 YRS 2022-01-25 00:00:00 Completed [facility] Influenza Virus Vaccine Quad IM, Preserv and ABX Free 6 MO-64 YRS 2022-01-25 00:00:00 Completed [facility] Influenza Virus Vaccine Quad IM, Preserv and ABX Free 6 MO-64 YRS 2022-01-25 00:00:00 Completed [facility] Influenza Virus Vaccine Quad IM, Preserv and ABX Free 6 MO-64 YRS 2022-01-25 00:00:00 Completed [facility] Influenza Virus Vaccine Quad IM, Preserv and ABX Free 6 MO-64 YRS 2022-01-25 00:00:00 Completed [facility] Influenza Virus Vaccine Quad IM, Preserv and ABX Free 6 MO-64 YRS 2022-01-25 00:00:00 Completed [facility] Influenza Virus Vaccine Quad IM, Preserv and ABX Free 6 MO-64 YRS 2022-01-25 00:00:00 Completed [facility] Influenza Virus Vaccine Quad IM, Preserv and ABX Free 6 MO-64 YRS 2022-01-25 00:00:00 Completed [facility] Influenza Virus Vaccine Quad IM, Preserv and ABX Free 6 MO-64 YRS 2022-01-25 00:00:00 Completed [facility] Influenza Virus Vaccine Quad IM, Preserv and ABX Free 6 MO-64 YRS 2022-01-25 00:00:00 Completed [facility] Influenza Virus Vaccine Quad IM, Preserv and ABX Free 6 MO-64 YRS 2022-01-25 00:00:00 Completed [facility] Influenza Virus Vaccine Quad IM, Preserv and ABX Free 6 MO-64 YRS 2022-01-25 00:00:00 Completed [facility] Influenza Virus Vaccine Quad IM, Preserv and ABX Free 6 MO-64 YRS 2022-01-25 00:00:00 Completed [facility] Influenza Virus Vaccine Quad IM, Preserv and ABX Free 6 MO-64 YRS 2022-01-25 00:00:00 Completed [facility] Influenza Virus Vaccine Quad IM, Preserv and ABX Free 6 MO-64 YRS 2022-01-25 00:00:00 Completed [facility] Influenza Virus Vaccine Quad IM, Preserv and ABX Free MO-64 YRS 2022-01-25 00:00:00 Completed [facility] Influenza Virus Vaccine Quad IM, Preserv and ABX Free 6 MO-64 YRS 2022-01-25 00:00:00 Completed [facility] Influenza Virus Vaccine Quad IM, Preserv and ABX Free 6 MO-64 YRS 2022-01-25 00:00:00 Completed [facility] Influenza Virus Vaccine Quad IM, Preserv and ABX Free 6 MO-64 YRS 2022-01-25 00:00:00 Completed [facility] Influenza Virus Vaccine Quad IM, Preserv and ABX Free 6 MO-64 YRS 2022-01-25 00:00:00 Completed [facility] Influenza Virus Vaccine Quad IM, Preserv and ABX Free 6 MO-64 YRS 2022-01-25 00:00:00 Completed [facility] Influenza Virus Vaccine Quad IM, Preserv and ABX Free 6 MO-64 YRS 2022-01-25 00:00:00 Completed [facility] Influenza Virus Vaccine Quad IM, Preserv and ABX Free 6 MO-64 YRS 2022-01-25 00:00:00 Completed [facility] Influenza Virus Vaccine Quad IM, Preserv and ABX Free 6 MO-64 YRS 2022-01-25 00:00:00 Completed [facility] Influenza Virus Vaccine Quad IM, Preserv and ABX Free 6 MO-64 YRS 2022-01-25 00:00:00 Completed [facility] Influenza Virus Vaccine Quad IM, Preserv and ABX Free 6 MO-64 YRS 2022-01-25 00:00:00 Completed [facility] Influenza Virus Vaccine Quad IM, Preserv and ABX Free 6 MO-64 YRS 2022-01-25 00:00:00 Completed [facility] Influenza Virus Vaccine Quad IM, Preserv and ABX Free 6 MO-64 YRS 2022-01-25 00:00:00 Completed [facility] Influenza Virus Vaccine Quad IM, Preserv and ABX Free 6 MO-64 YRS 2022-01-25 00:00:00 Completed [facility] Influenza Virus Vaccine Quad IM, Preserv and ABX Free 6 MO-64 YRS 2022-01-25 00:00:00 Completed [facility] Influenza Virus Vaccine Quad IM, Preserv and ABX Free 6 MO-64 YRS 2022-01-25 00:00:00 Completed [facility] Influenza Virus Vaccine Quad IM, Preserv and ABX Free 6 MO-64 YRS 2022-01-25 00:00:00 Completed [facility] Influenza Virus Vaccine Quad IM, Preserv and ABX Free 6 MO-64 YRS 2022-01-25 00:00:00 Completed [facility] Influenza Virus Vaccine Quad IM, Preserv and ABX Free 6 MO-64 YRS (FLUCELVAX) 2022-01-25 00:00:00 Completed [facility] Influenza Virus Vaccine Quad IM, Preserv and ABX Free 6 MO-64 YRS (FLUCELVAX) 2022-01-25 00:00:00 Completed [facility] Influenza Virus Vaccine Quad IM, Preserv and ABX Free 6 MO-64 YRS (FLUCELVAX) 2022-01-25 00:00:00 Completed [facility] Influenza Virus Vaccine Quad IM, Preserv and ABX Free 6 MO-64 YRS 2022-01-25 00:00:00 Completed [facility] Influenza Virus Vaccine Quad IM, Preserv and ABX Free 6 MO-64 YRS 2022-01-25 00:00:00 Completed [facility] Influenza Virus Vaccine Quad IM, Preserv and ABX Free 6 MO-64 YRS 2022-01-25 00:00:00 Completed [facility] Influenza Virus Vaccine Quad IM, Preserv and ABX Free 6 MO-64 YRS 2022-01-25 00:00:00 Completed [facility] Influenza Virus Vaccine Quad IM, Preserv and ABX Free 6 MO-64 YRS 2022-01-25 00:00:00 Completed [facility] SARS-COV-2 COVID-19 PFIZER VACCINE 2021-04-27 00:00:00 Completed [facility] SARS-COV-2 COVID-19 PFIZER VACCINE 2021-04-27 00:00:00 Completed [facility] SARS-COV-2 COVID-19 PFIZER VACCINE 2021-04-27 00:00:00 Completed [facility] SARS-COV-2 COVID-19 PFIZER VACCINE 2021-04-27 00:00:00 Completed [facility] SARS-COV-2 COVID-19 PFIZER VACCINE 2021-04-27 00:00:00 Completed [facility] SARS-COV-2 COVID-19 PFIZER VACCINE 2021-04-27 00:00:00 Completed [facility] SARS-COV-2 COVID-19 PFIZER VACCINE 2021-04-27 00:00:00 Completed [facility] SARS-COV-2 COVID-19 PFIZER VACCINE 2021-04-27 00:00:00 Completed [facility] SARS-COV-2 COVID-19 PFIZER VACCINE 2021-04-27 00:00:00 Completed [facility] SARS-COV-2 COVID-19 PFIZER VACCINE 2021-04-27 00:00:00 Completed [facility] SARS-COV-2 COVID-19 PFIZER VACCINE 2021-04-27 00:00:00 Completed [facility] SARS-COV-2 COVID-19 PFIZER VACCINE 2021-04-27 00:00:00 Completed [facility] SARS-COV-2 COVID-19 PFIZER VACCINE 2021-04-27 00:00:00 Completed [facility] SARS-COV-2 COVID-19 PFIZER VACCINE 2021-04-27 00:00:00 Completed [facility] SARS-COV-2 COVID-19 PFIZER VACCINE 2021-04-27 00:00:00 Completed [facility] SARS-COV-2 COVID-19 PFIZER VACCINE 2021-04-27 00:00:00 Completed [facility] SARS-COV-2 COVID-19 PFIZER VACCINE 2021-04-27 00:00:00 Completed [facility] SARS-COV-2 COVID-19 PFIZER VACCINE 2021-04-27 00:00:00 Completed [facility] SARS-COV-2 COVID-19 PFIZER VACCINE 2021-04-27 00:00:00 Completed [facility] SARS-COV-2 COVID-19 PFIZER VACCINE 2021-04-27 00:00:00 Completed [facility] SARS-COV-2 COVID-19 PFIZER VACCINE 2021-04-27 00:00:00 Completed [facility] SARS-COV-2 COVID-19 PFIZER VACCINE 2021-04-27 00:00:00 [facility] [place] SARS-COV-2 COVID-19 PFIZER VACCINE 2021-04-27 00:00:00 Completed [facility] [place] SARS-COV-2 COVID-19 PFIZER VACCINE 2021-04-27 00:00:00 Completed [facility] [place] SARS-COV-2 COVID-19 PFIZER VACCINE 2021-04-27 00:00:00 Completed [facility] [place] SARS-COV-2 COVID-19 PFIZER VACCINE 2021-04-27 00:00:00 Completed [facility] [place] SARS-COV-2 COVID-19 PFIZER VACCINE 2021-04-27 00:00:00 Completed [facility] [place] SARS-COV-2 COVID-19 PFIZER VACCINE 2021-04-27 00:00:00 Completed [facility] [place] SARS-COV-2 COVID-19 PFIZER VACCINE 2021-04-27 00:00:00 Completed [facility] [place] SARS-COV-2 COVID-19 PFIZER VACCINE 2021-04-27 00:00:00 Completed [facility] [place] SARS-COV-2 COVID-19 PFIZER VACCINE 2021-04-27 00:00:00 Completed [facility] [place] SARS-COV-2 COVID-19 PFIZER VACCINE 2021-04-27 00:00:00 Completed [facility] [place] SARS-COV-2 COVID-19 PFIZER VACCINE 2021-04-27 00:00:00 Completed [facility] [place] SARS-COV-2 COVID-19 PFIZER VACCINE 2021-04-27 00:00:00 Completed [facility] [place] SARS-COV-2 COVID-19 PFIZER VACCINE 2021-04-27 00:00:00 Completed [facility] [place] SARS-COV-2 COVID-19 PFIZER VACCINE 2021-04-27 00:00:00 Completed [facility] [place] SARS-COV-2 COVID-19 PFIZER VACCINE 2021-04-27 00:00:00 Completed [facility] [place] SARS-COV-2 COVID-19 PFIZER VACCINE 2021-04-27 00:00:00 Completed [facility] [place] SARS-COV-2 COVID-19 PFIZER VACCINE 2021-04-27 00:00:00 Completed [facility] [place] SARS-COV-2 COVID-19 PFIZER VACCINE 2021-04-27 00:00:00 Completed [facility] [place] SARS-COV-2 COVID-19 PFIZER VACCINE 2021-04-27 00:00:00 Completed [facility] [place] SARS-COV-2 COVID-19 PFIZER VACCINE 2021-04-27 00:00:00 Completed [facility] [place] SARS-COV-2 COVID-19 PFIZER VACCINE 2021-04-27 00:00:00 Completed [facility] [place] SARS-COV-2 COVID-19 PFIZER VACCINE 2021-04-27 00:00:00 Completed [facility] [place] SARS-COV-2 COVID-19 PFIZER VACCINE 2021-04-27 00:00:00 Completed [facility] [place] SARS-COV-2 COVID-19 PFIZER VACCINE 2021-04-27 00:00:00 Completed [facility] [place] Influenza Virus Vaccine Quad IM, Preserv and ABX Free 6 MO-64 YRS 2021-02-17 00:00:00 Completed [facility] [place] Influenza Virus Vaccine Quad IM, Preserv and ABX Free 6 MO-64 YRS 2021-02-17 00:00:00 Completed [facility] [place] Influenza Virus Vaccine Quad IM, Preserv and ABX Free 6 MO-64 YRS 2021-02-17 00:00:00 Completed [facility] [place] Influenza Virus Vaccine Quad IM, Preserv and ABX Free 6 MO-64 YRS 2021-02-17 00:00:00 Completed [facility] [place] Influenza Virus Vaccine Quad IM, Preserv and ABX Free 6 MO-64 YRS 2021-02-17 00:00:00 Completed [facility] [place] Influenza Virus Vaccine Quad IM, Preserv and ABX Free 6 MO-64 YRS 2021-02-17 00:00:00 Completed [facility] [place] Influenza Virus Vaccine Quad IM, Preserv and ABX Free 6 MO-64 YRS 2021-02-17 00:00:00 Completed [facility] [place] Influenza Virus Vaccine Quad IM, Preserv and ABX Free 6 MO-64 YRS 2021-02-17 00:00:00 Completed [facility] [place] Influenza Virus Vaccine Quad IM, Preserv and ABX Free 6 MO-64 YRS 2021-02-17 00:00:00 Completed [facility] [place] Influenza Virus Vaccine Quad IM, Preserv and ABX Free 6 MO-64 YRS 2021-02-17 00:00:00 Completed [facility] [place] Influenza Virus Vaccine Quad IM, Preserv and ABX Free 6 MO-64 YRS 2021-02-17 00:00:00 Completed [facility] [place] Influenza Virus Vaccine Quad IM, Preserv and ABX Free 6 MO-64 YRS 2021-02-17 00:00:00 Completed [facility] [place] Influenza Virus Vaccine Quad IM, Preserv and ABX Free 6 MO-64 YRS 2021-02-17 00:00:00 Completed [facility] [place] Influenza Virus Vaccine Quad IM, Preserv and ABX Free 6 MO-64 YRS 2021-02-17 00:00:00 Completed [facility] [place] Influenza Virus Vaccine Quad IM, Preserv and ABX Free 6 MO-64 YRS 2021-02-17 00:00:00 Completed [facility] [place] Influenza Virus Vaccine Quad IM, Preserv and ABX Free 6 MO-64 YRS 2021-02-17 00:00:00 Completed [facility] [place] Influenza Virus Vaccine Quad IM, Preserv and ABX Free 6 MO-64 YRS 2021-02-17 00:00:00 Completed [facility] [place] Influenza Virus Vaccine Quad IM, Preserv and ABX Free 6 MO-64 YRS 2021-02-17 00:00:00 Completed [facility] [place] Influenza Virus Vaccine Quad IM, Preserv and ABX Free 6 MO-64 YRS 2021-02-17 00:00:00 Completed [facility] [place] Influenza Virus Vaccine Quad IM, Preserv and ABX Free 6 MO-64 YRS 2021-02-17 00:00:00 Completed [facility] [place] Influenza Virus Vaccine Quad IM, Preserv and ABX Free 6 MO-64 YRS 2021-02-17 00:00:00 Completed [facility] [place] Influenza Virus Vaccine Quad IM, Preserv and ABX Free 6 MO-64 YRS 2021-02-17 00:00:00 Completed [facility] [place] Influenza Virus Vaccine Quad IM, Preserv and ABX Free 6 MO-64 YRS 2021-02-17 00:00:00 Completed [facility] [place] Influenza Virus Vaccine Quad IM, Preserv and ABX Free 6 MO-64 YRS 2021-02-17 00:00:00 Completed [facility] [place] Influenza Virus Vaccine Quad IM, Preserv and ABX Free 6 MO-64 YRS 2021-02-17 00:00:00 Completed [facility] [place] Influenza Virus Vaccine Quad IM, Preserv and ABX Free 6 MO-64 YRS 2021-02-17 00:00:00 Completed [facility] [place] Influenza Virus Vaccine Quad IM, Preserv and ABX Free 6 MO-64 YRS 2021-02-17 00:00:00 Completed [facility] [place] Influenza Virus Vaccine Quad IM, Preserv and ABX Free 6 MO-64 YRS 2021-02-17 00:00:00 Completed [facility] [place] Influenza Virus Vaccine Quad IM, Preserv and ABX Free 6 MO-64 YRS 2021-02-17 00:00:00 Completed [facility] [place] Influenza Virus Vaccine Quad IM, Preserv and ABX Free 6 MO-64 YRS 2021-02-17 00:00:00 Completed [facility] [place] Influenza Virus Vaccine Quad IM, Preserv and ABX Free 6 MO-64 YRS 2021-02-17 00:00:00 Completed [facility] [place] Influenza Virus Vaccine Quad IM, Preserv and ABX Free 6 MO-64 YRS 2021-02-17 00:00:00 Completed [facility] [place] Influenza Virus Vaccine Quad IM, Preserv and ABX Free 6 MO-64 YRS 2021-02-17 00:00:00 Completed [facility] [place] Influenza Virus Vaccine Quad IM, Preserv and ABX Free 6 MO-64 YRS 2021-02-17 00:00:00 Completed [facility] [place] Influenza Virus Vaccine Quad IM, Preserv and ABX Free 6 MO-64 YRS 2021-02-17 00:00:00 Completed [facility] [place] Influenza Virus Vaccine Quad IM, Preserv and ABX Free 6 MO-64 YRS (FLUCELVAX) 2021-02-17 00:00:00 Completed [facility] [place] Influenza Virus Vaccine Quad IM, Preserv and ABX Free 6 MO-64 YRS (FLUCELVAX) 2021-02-17 00:00:00 Completed [facility] [place] Influenza Virus Vaccine Quad IM, Preserv and ABX Free 6 MO-64 YRS (FLUCELVAX) 2021-02-17 00:00:00 Completed [facility] [place] Influenza Virus Vaccine Quad IM, Preserv and ABX Free 6 MO-64 YRS 2021-02-17 00:00:00 Completed [facility] [place] Influenza Virus Vaccine Quad IM, Preserv and ABX Free 6 MO-64 YRS 2021-02-17 00:00:00 Completed [facility] [place] Influenza Virus Vaccine Quad IM, Preserv and ABX Free 6 MO-64 YRS 2021-02-17 00:00:00 Completed [facility] [place] Influenza Virus Vaccine Quad IM, Preserv and ABX Free 6 MO-64 YRS 2021-02-17 00:00:00 Completed [facility] [place] Influenza Virus Vaccine Quad IM, Preserv and ABX Free 6 MO-64 YRS 2021-02-17 00:00:00 Completed [facility] [place] Influenza Virus Vaccine Quad IM, Preserv and ABX Free 6 MO-64 YRS 2021-02-17 00:00:00 Completed [facility] [place] Influenza Virus Vaccine Quad IM, Preserv and ABX Free 6 MO-64 YRS 2021-02-17 00:00:00 Completed [facility] [place] Influenza Virus Vaccine Quad IM, Preserv and ABX Free 6 MO-64 YRS 2021-02-17 00:00:00 Completed [facility] Pneumococcal Polysaccharide, PPSV23 (PNEUMOVAX) 2020-11-19 00:00:00 Completed [facility] [place] Influenza Virus Vaccine Quad .5 mL IM 6+ MO (FLUZONE/FLULAVAL/F LUARIX) 2020-11-19 00:00:00 Completed [facility] TDAP 2020-11-19 00:00:00 Completed [facility] [place] SARS-COV-2 COVID-19 PFIZER VACCINE 2020-11-19 00:00:00 Completed [facility] Pneumococcal Polysaccharide, PPSV23 (PNEUMOVAX) 2020-11-18 00:00:00 Completed [facility] [place] Influenza Virus Vaccine Quad .5 mL IM 6+ MO (FLUZONE/FLULAVAL/F LUARIX) 2020-11-18 00:00:00 Completed [facility] [place] TDAP 2020-11-18 00:00:00 Completed [facility] [place] SARS-COV-2 COVID-19 PFIZER VACCINE 2020-11-18 00:00:00 Completed [facility] [place] TDAP 2020-11-16 00:00:00 Completed [facility] TDAP 2020-11-16 00:00:00 Completed [facility] TDAP 2020-11-16 00:00:00 Completed [facility] TDAP 2020-11-16 00:00:00 Completed [facility] TDAP 2020-11-16 00:00:00 Completed [facility] TDAP 2020-11-16 00:00:00 Completed [facility] [place] TDAP 2020-11-16 00:00:00 Completed [facility] TDAP 2020-11-16 00:00:00 Completed [facility] TDAP 2020-11-16 00:00:00 Completed [facility] TDAP 2020-11-16 00:00:00 Completed [facility] TDAP 2020-11-16 00:00:00 Completed [facility] TDAP 2020-11-16 00:00:00 Completed [facility] TDAP 2020-11-16 00:00:00 Completed [facility] TDAP 2020-11-16 00:00:00 Completed [facility] TDAP 2020-11-16 00:00:00 Completed [facility] TDAP 2020-11-16 00:00:00 Completed [facility] TDAP 2020-11-16 00:00:00 Completed [facility] TDAP 2020-11-16 00:00:00 Completed [facility] TDAP 2020-11-16 00:00:00 Completed [facility] TDAP 2020-11-16 00:00:00 Completed [facility] TDAP 2020-11-16 00:00:00 Completed [facility] TDAP 2020-11-16 00:00:00 Completed [facility] TDAP 2020-11-16 00:00:00 Completed [facility] TDAP 2020-11-16 00:00:00 Completed [facility] TDAP 2020-11-16 00:00:00 Completed [facility] TDAP 2020-11-16 00:00:00 Completed [facility] TDAP 2020-11-16 00:00:00 Completed [facility] TDAP 2020-11-16 00:00:00 Completed [facility] TDAP 2020-11-16 00:00:00 Completed [facility] TDAP 2020-11-16 00:00:00 Completed [facility] TDAP 2020-11-16 00:00:00 Completed [facility] TDAP 2020-11-16 00:00:00 Completed [facility] TDAP 2020-11-16 00:00:00 Completed [facility] TDAP 2020-11-16 00:00:00 Completed [facility] TDAP 2020-11-16 00:00:00 Completed [facility] TDAP 2020-11-16 00:00:00 Completed [facility] TDAP 2020-11-16 00:00:00 Completed [facility] TDAP 2020-11-16 00:00:00 Completed [facility] TDAP 2020-11-16 00:00:00 Completed [facility] TDAP 2020-11-16 00:00:00 Completed [facility] TDAP 2020-11-16 00:00:00 Completed [facility] TDAP 2020-11-16 00:00:00 Completed [facility] TDAP 2020-11-16 00:00:00 Completed [facility] TDAP 2020-11-16 00:00:00 Completed [facility] TDAP 2020-11-16 00:00:00 Completed [facility] TDAP 2020-11-16 00:00:00 Completed [facility] [place] SARS-COV-2 COVID-19 PFIZER VACCINE 2020-07-15 00:00:00 Completed [facility] [place] SARS-COV-2 COVID-19 PFIZER VACCINE 2020-07-15 00:00:00 Completed [facility] [place] SARS-COV-2 COVID-19 PFIZER VACCINE 2020-07-15 00:00:00 Completed [facility] [place] SARS-COV-2 COVID-19 PFIZER VACCINE 2020-07-15 00:00:00 Completed [facility] [place] SARS-COV-2 COVID-19 PFIZER VACCINE 2020-07-15 00:00:00 Completed [facility] [place] SARS-COV-2 COVID-19 PFIZER VACCINE 2020-07-15 00:00:00 Completed [facility] [place] SARS-COV-2 COVID-19 PFIZER VACCINE 2020-07-15 00:00:00 Completed [facility] [place] SARS-COV-2 COVID-19 PFIZER VACCINE 2020-07-15 00:00:00 Completed [facility] [place] SARS-COV-2 COVID-19 PFIZER VACCINE 2020-07-15 00:00:00 Completed [facility] [place] SARS-COV-2 COVID-19 PFIZER VACCINE 2020-07-15 00:00:00 Completed [facility] [place] SARS-COV-2 COVID-19 PFIZER VACCINE 2020-07-15 00:00:00 Completed [facility] [place] SARS-COV-2 COVID-19 PFIZER VACCINE 2020-07-15 00:00:00 Completed [facility] SARS-COV-2 COVID-19 PFIZER VACCINE 2020-07-15 00:00:00 Completed [facility] [place] SARS-COV-2 COVID-19 PFIZER VACCINE 2020-07-15 00:00:00 Completed [facility] [place] SARS-COV-2 COVID-19 PFIZER VACCINE 2020-07-15 00:00:00 Completed [facility] [place] SARS-COV-2 COVID-19 PFIZER VACCINE 2020-07-15 00:00:00 Completed [facility] [place] SARS-COV-2 COVID-19 PFIZER VACCINE 2020-07-15 00:00:00 Completed [facility] SARS-COV-2 COVID-19 PFIZER VACCINE 2020-07-15 00:00:00 Completed [facility] [place] SARS-COV-2 COVID-19 PFIZER VACCINE 2020-07-15 00:00:00 Completed [facility] [place] SARS-COV-2 COVID-19 PFIZER VACCINE 2020-07-15 00:00:00 Completed [facility] [place] SARS-COV-2 COVID-19 PFIZER VACCINE 2020-07-15 00:00:00 Completed [facility] [place] SARS-COV-2 COVID-19 PFIZER VACCINE 2020-07-15 00:00:00 Completed [facility] SARS-COV-2 COVID-19 PFIZER VACCINE 2020-07-15 00:00:00 Completed [facility] SARS-COV-2 COVID-19 PFIZER VACCINE 2020-07-15 00:00:00 Completed [facility] SARS-COV-2 COVID-19 PFIZER VACCINE 2020-07-15 00:00:00 Completed [facility] SARS-COV-2 COVID-19 PFIZER VACCINE 2020-07-15 00:00:00 Completed [facility] SARS-COV-2 COVID-19 PFIZER VACCINE 2020-07-15 00:00:00 Completed [facility] SARS-COV-2 COVID-19 PFIZER VACCINE 2020-07-15 00:00:00 Completed [facility] SARS-COV-2 COVID-19 PFIZER VACCINE 2020-07-15 00:00:00 Completed [facility] SARS-COV-2 COVID-19 PFIZER VACCINE 2020-07-15 00:00:00 Completed [facility] SARS-COV-2 COVID-19 PFIZER VACCINE 2020-07-15 00:00:00 Completed [facility] SARS-COV-2 COVID-19 PFIZER VACCINE 2020-07-15 00:00:00 Completed [facility] SARS-COV-2 COVID-19 PFIZER VACCINE 2020-07-15 00:00:00 Completed [facility] SARS-COV-2 COVID-19 PFIZER VACCINE 2020-07-15 00:00:00 Completed [facility] SARS-COV-2 COVID-19 PFIZER VACCINE 2020-07-15 00:00:00 Completed [facility] SARS-COV-2 COVID-19 PFIZER VACCINE 2020-07-15 00:00:00 Completed [facility] SARS-COV-2 COVID-19 PFIZER VACCINE 2020-07-15 00:00:00 Completed [facility] SARS-COV-2 COVID-19 PFIZER VACCINE 2020-07-15 00:00:00 Completed [facility] SARS-COV-2 COVID-19 PFIZER VACCINE 2020-07-15 00:00:00 Completed [facility] SARS-COV-2 COVID-19 PFIZER VACCINE 2020-07-15 00:00:00 Completed [facility] SARS-COV-2 COVID-19 PFIZER VACCINE 2020-07-15 00:00:00 Completed [facility] SARS-COV-2 COVID-19 PFIZER VACCINE 2020-07-15 00:00:00 Completed [facility] SARS-COV-2 COVID-19 PFIZER VACCINE 2020-07-15 00:00:00 Completed [facility] [place] SARS-COV-2 COVID-19 PFIZER VACCINE 2020-07-15 00:00:00 Completed [facility] [place] SARS-COV-2 COVID-19 PFIZER VACCINE 2020-07-15 00:00:00 Completed [facility] SARS-COV-2 COVID-19 PFIZER VACCINE 2020-07-15 00:00:00 Completed [facility] SARS-COV-2 COVID-19 PFIZER VACCINE 2020-06-24 00:00:00 Completed [facility] SARS-COV-2 COVID-19 PFIZER VACCINE 2020-06-24 00:00:00 Completed [facility] [place] SARS-COV-2 COVID-19 PFIZER VACCINE 2020-06-24 00:00:00 Completed [facility] [place] SARS-COV-2 COVID-19 PFIZER VACCINE 2020-06-24 00:00:00 Completed [facility] [place] SARS-COV-2 COVID-19 PFIZER VACCINE 2020-06-24 00:00:00 Completed [facility] [place] SARS-COV-2 COVID-19 PFIZER VACCINE 2020-06-24 00:00:00 Completed [facility] [place] SARS-COV-2 COVID-19 PFIZER VACCINE 2020-06-24 00:00:00 Completed [facility] [place] SARS-COV-2 COVID-19 PFIZER VACCINE 2020-06-24 00:00:00 Completed [facility] SARS-COV-2 COVID-19 PFIZER VACCINE 2020-06-24 00:00:00 Completed [facility] [place] SARS-COV-2 COVID-19 PFIZER VACCINE 2020-06-24 00:00:00 Completed [facility] [place] SARS-COV-2 COVID-19 PFIZER VACCINE 2020-06-24 00:00:00 Completed [facility] [place] SARS-COV-2 COVID-19 PFIZER VACCINE 2020-06-24 00:00:00 Completed [facility] [place] SARS-COV-2 COVID-19 PFIZER VACCINE 2020-06-24 00:00:00 Completed [facility] [place] SARS-COV-2 COVID-19 PFIZER VACCINE 2020-06-24 00:00:00 Completed [facility] SARS-COV-2 COVID-19 PFIZER VACCINE 2020-06-24 00:00:00 Completed [facility] SARS-COV-2 COVID-19 PFIZER VACCINE 2020-06-24 00:00:00 Completed [facility] [place] SARS-COV-2 COVID-19 PFIZER VACCINE 2020-06-24 00:00:00 Completed [facility] [place] SARS-COV-2 COVID-19 PFIZER VACCINE 2020-06-24 00:00:00 Completed [facility] [place] SARS-COV-2 COVID-19 PFIZER VACCINE 2020-06-24 00:00:00 Completed [facility] [place] SARS-COV-2 COVID-19 PFIZER VACCINE 2020-06-24 00:00:00 Completed [facility] [place] SARS-COV-2 COVID-19 PFIZER VACCINE 2020-06-24 00:00:00 Completed [facility] [place] SARS-COV-2 COVID-19 PFIZER VACCINE 2020-06-24 00:00:00 Completed [facility] [place] SARS-COV-2 COVID-19 PFIZER VACCINE 2020-06-24 00:00:00 Completed [facility] [place] SARS-COV-2 COVID-19 PFIZER VACCINE 2020-06-24 00:00:00 Completed [facility] [place] SARS-COV-2 COVID-19 PFIZER VACCINE 2020-06-24 00:00:00 Completed [facility] [place] SARS-COV-2 COVID-19 PFIZER VACCINE 2020-06-24 00:00:00 Completed [facility] [place] SARS-COV-2 COVID-19 PFIZER VACCINE 2020-06-24 00:00:00 Completed [facility] [place] SARS-COV-2 COVID-19 PFIZER VACCINE 2020-06-24 00:00:00 Completed [facility] [place] SARS-COV-2 COVID-19 PFIZER VACCINE 2020-06-24 00:00:00 Completed [facility] [place] SARS-COV-2 COVID-19 PFIZER VACCINE 2020-06-24 00:00:00 Completed [facility] [place] SARS-COV-2 COVID-19 PFIZER VACCINE 2020-06-24 00:00:00 Completed [facility] [place] SARS-COV-2 COVID-19 PFIZER VACCINE 2020-06-24 00:00:00 Completed [facility] [place] SARS-COV-2 COVID-19 PFIZER VACCINE 2020-06-24 00:00:00 Completed [facility] [place] SARS-COV-2 COVID-19 PFIZER VACCINE 2020-06-24 00:00:00 Completed [facility] [place] SARS-COV-2 COVID-19 PFIZER VACCINE 2020-06-24 00:00:00 Completed [facility] [place] SARS-COV-2 COVID-19 PFIZER VACCINE 2020-06-24 00:00:00 Completed [facility] [place] SARS-COV-2 COVID-19 PFIZER VACCINE 2020-06-24 00:00:00 Completed [facility] SARS-COV-2 COVID-19 PFIZER VACCINE 2020-06-24 00:00:00 Completed [facility] SARS-COV-2 COVID-19 PFIZER VACCINE 2020-06-24 00:00:00 Completed [facility] [place] SARS-COV-2 COVID-19 PFIZER VACCINE 2020-06-24 00:00:00 Completed [facility] SARS-COV-2 COVID-19 PFIZER VACCINE 2020-06-24 00:00:00 Completed [facility] SARS-COV-2 COVID-19 PFIZER VACCINE 2020-06-24 00:00:00 Completed [facility] [place] SARS-COV-2 COVID-19 PFIZER VACCINE 2020-06-24 00:00:00 Completed [facility] SARS-COV-2 COVID-19 PFIZER VACCINE 2020-06-24 00:00:00 Completed [facility] [place] SARS-COV-2 COVID-19 PFIZER VACCINE 2020-06-24 00:00:00 Completed [facility] [place] SARS-COV-2 COVID-19 PFIZER VACCINE 2020-06-24 00:00:00 Completed [facility] Pneumococcal Polysaccharide, PPSV23 (PNEUMOVAX) 2020-04-26 00:00:00 Completed [facility] Influenza Virus Vaccine Quad .5 mL IM 6+ MO (FLUZONE/FLULAVAL/F LUARIX) 2020-04-26 00:00:00 Completed [facility] Pneumococcal Polysaccharide, PPSV23 (PNEUMOVAX) 2020-03-27 00:00:00 Completed [facility] Influenza Virus Vaccine Quad .5 mL IM 6+ MO (FLUZONE/FLULAVAL/F LUARIX) 2020-03-27 00:00:00 Completed [facility] Influenza Virus Vaccine Quad .5 mL IM 6+ MO 2020-01-16 00:00:00 Completed [facility] Influenza Virus Vaccine Quad .5 mL IM 6+ MO 2020-01-16 00:00:00 Completed [facility] Influenza Virus Vaccine Quad .5 mL IM 6+ MO 2020-01-16 00:00:00 Completed [facility] Influenza Virus Vaccine Quad .5 mL IM 6+ MO 2020-01-16 00:00:00 Completed [facility] Influenza Virus Vaccine Quad .5 mL IM 6+ MO 2020-01-16 00:00:00 Completed [facility] Influenza Virus Vaccine Quad .5 mL IM 6+ MO 2020-01-16 00:00:00 Completed [facility] Influenza Virus Vaccine Quad .5 mL IM 6+ MO 2020-01-16 00:00:00 Completed [facility] Influenza Virus Vaccine Quad .5 mL IM 6+ MO 2020-01-16 00:00:00 Completed [facility] Influenza Virus Vaccine Quad .5 mL IM 6+ MO 2020-01-16 00:00:00 Completed [facility] Influenza Virus Vaccine Quad .5 mL IM 6+ MO 2020-01-16 00:00:00 Completed [facility] Influenza Virus Vaccine Quad .5 mL IM 6+ MO 2020-01-16 00:00:00 Completed [facility] Influenza Virus Vaccine Quad .5 mL IM 6+ MO 2020-01-16 00:00:00 Completed [facility] Influenza Virus Vaccine Quad .5 mL IM 6+ MO 2020-01-16 00:00:00 Completed [facility] Influenza Virus Vaccine Quad .5 mL IM 6+ MO 2020-01-16 00:00:00 Completed [facility] Influenza Virus Vaccine Quad .5 mL IM 6+ MO 2020-01-16 00:00:00 Completed [facility] Influenza Virus Vaccine Quad .5 mL IM 6+ MO 2020-01-16 00:00:00 Completed [facility] Influenza Virus Vaccine Quad .5 mL IM 6+ MO 2020-01-16 00:00:00 Completed [facility] Influenza Virus Vaccine Quad .5 mL IM 6+ MO 2020-01-16 00:00:00 Completed [facility] Influenza Virus Vaccine Quad .5 mL IM 6+ MO 2020-01-16 00:00:00 Completed [facility] Influenza Virus Vaccine Quad .5 mL IM 6+ MO 2020-01-16 00:00:00 Completed [facility] Influenza Virus Vaccine Quad .5 mL IM 6+ MO 2020-01-16 00:00:00 Completed [facility] Influenza Virus Vaccine Quad .5 mL IM 6+ MO 2020-01-16 00:00:00 Completed [facility] Influenza Virus Vaccine Quad .5 mL IM 6+ MO 2020-01-16 00:00:00 Completed [facility] Influenza Virus Vaccine Quad .5 mL IM 6+ MO 2020-01-16 00:00:00 Completed [facility] Influenza Virus Vaccine Quad .5 mL IM 6+ MO 2020-01-16 00:00:00 Completed [facility] Influenza Virus Vaccine Quad .5 mL IM 6+ MO 2020-01-16 00:00:00 Completed [facility] Influenza Virus Vaccine Quad .5 mL IM 6+ MO 2020-01-16 00:00:00 Completed [facility] Influenza Virus Vaccine Quad .5 mL IM 6+ MO 2020-01-16 00:00:00 Completed [facility] Influenza Virus Vaccine Quad .5 mL IM 6+ MO 2020-01-16 00:00:00 Completed [facility] Influenza Virus Vaccine Quad .5 mL IM 6+ MO 2020-01-16 00:00:00 Completed [facility] Influenza Virus Vaccine Quad .5 mL IM 6+ MO 2020-01-16 00:00:00 Completed [facility] Influenza Virus Vaccine Quad .5 mL IM 6+ MO 2020-01-16 00:00:00 Completed [facility] Influenza Virus Vaccine Quad .5 mL IM 6+ MO 2020-01-16 00:00:00 Completed [facility] Influenza Virus Vaccine Quad .5 mL IM 6+ MO 2020-01-16 00:00:00 Completed [facility] Influenza Virus Vaccine Quad .5 mL IM 6+ MO 2020-01-16 00:00:00 Completed [facility] Influenza Virus Vaccine Quad .5 mL IM 6+ MO (FLUZONE/FLULAVAL/F LUARIX) 2020-01-16 00:00:00 Completed [facility] Influenza Virus Vaccine Quad .5 mL IM 6+ MO (FLUZONE/FLULAVAL/F LUARIX) 2020-01-16 00:00:00 Completed [facility] Influenza Virus Vaccine Quad .5 mL IM 6+ MO (FLUZONE/FLULAVAL/F LUARIX) 2020-01-16 00:00:00 Completed [facility] Influenza Virus Vaccine Quad .5 mL IM 6+ MO 2020-01-16 00:00:00 Completed [facility] Influenza Virus Vaccine Quad .5 mL IM 6+ MO 2020-01-16 00:00:00 Completed [facility] Influenza Virus Vaccine Quad .5 mL IM 6+ MO 2020-01-16 00:00:00 Completed [facility] Influenza Virus Vaccine Quad .5 mL IM 6+ MO 2020-01-16 00:00:00 Completed [facility] Influenza Virus Vaccine Quad .5 mL IM 6+ MO 2020-01-16 00:00:00 Completed [facility] Influenza Virus Vaccine Quad .5 mL IM 6+ MO 2020-01-16 00:00:00 Completed [facility] Influenza Virus Vaccine Quad .5 mL IM 6+ MO 2020-01-16 00:00:00 Completed [facility] Influenza Virus Vaccine Quad .5 mL IM 6+ MO 2020-01-16 00:00:00 Completed [facility] Pneumococcal Polysaccharide, PPSV23 (PNEUMOVAX) 2019-12-06 00:00:00 Completed [facility] Pneumococcal Polysaccharide, PPSV23 (PNEUMOVAX) 2013-04-24 00:00:00 Completed [facility] Pneumococcal Polysaccharide, PPSV23 (PNEUMOVAX) 2013-04-24 00:00:00 Completed [facility] Pneumococcal Polysaccharide, PPSV23 (PNEUMOVAX) 2013-04-24 00:00:00 Completed [facility] Pneumococcal Polysaccharide, PPSV23 (PNEUMOVAX) 2013-04-24 00:00:00 Completed [facility] Pneumococcal Polysaccharide, PPSV23 (PNEUMOVAX) 2013-04-24 00:00:00 Completed [facility] Pneumococcal Polysaccharide, PPSV23 (PNEUMOVAX) 2013-04-24 00:00:00 Completed [facility] Pneumococcal Polysaccharide, PPSV23 (PNEUMOVAX) 2013-04-24 00:00:00 Completed [facility] Pneumococcal Polysaccharide, PPSV23 (PNEUMOVAX) 2013-04-24 00:00:00 Completed [facility] Pneumococcal Polysaccharide, PPSV23 (PNEUMOVAX) 2013-04-24 00:00:00 Completed [facility] Pneumococcal Polysaccharide, PPSV23 (PNEUMOVAX) 2013-04-24 00:00:00 Completed [facility] Pneumococcal Polysaccharide, PPSV23 (PNEUMOVAX) 2013-04-24 00:00:00 Completed [facility] Pneumococcal Polysaccharide, PPSV23 (PNEUMOVAX) 2013-04-24 00:00:00 Completed [facility] Pneumococcal Polysaccharide, PPSV23 (PNEUMOVAX) 2013-04-24 00:00:00 Completed [facility] Pneumococcal Polysaccharide, PPSV23 (PNEUMOVAX) 2013-04-24 00:00:00 Completed [facility] Pneumococcal Polysaccharide, PPSV23 (PNEUMOVAX) 2013-04-24 00:00:00 Completed [facility] Pneumococcal Polysaccharide, PPSV23 (PNEUMOVAX) 2013-04-24 00:00:00 Completed [facility] Pneumococcal Polysaccharide, PPSV23 (PNEUMOVAX) 2013-04-24 00:00:00 Completed [facility] Pneumococcal Polysaccharide, PPSV23 (PNEUMOVAX) 2013-04-24 00:00:00 Completed [facility] Pneumococcal Polysaccharide, PPSV23 (PNEUMOVAX) 2013-04-24 00:00:00 Completed [facility] Pneumococcal Polysaccharide, PPSV23 (PNEUMOVAX) 2013-04-24 00:00:00 Completed [facility] Pneumococcal Polysaccharide, PPSV23 (PNEUMOVAX) 2013-04-24 00:00:00 Completed [facility] Pneumococcal Polysaccharide, PPSV23 (PNEUMOVAX) 2013-04-24 00:00:00 Completed [facility] Pneumococcal Polysaccharide, PPSV23 (PNEUMOVAX) 2013-04-24 00:00:00 Completed [facility] Pneumococcal Polysaccharide, PPSV23 (PNEUMOVAX) 2013-04-24 00:00:00 Completed [facility] Pneumococcal Polysaccharide, PPSV23 (PNEUMOVAX) 2013-04-24 00:00:00 Completed [facility] Pneumococcal Polysaccharide, PPSV23 (PNEUMOVAX) 2013-04-24 00:00:00 Completed [facility] Pneumococcal Polysaccharide, PPSV23 (PNEUMOVAX) 2013-04-24 00:00:00 Completed [facility] Pneumococcal Polysaccharide, PPSV23 (PNEUMOVAX) 2013-04-24 00:00:00 Completed [facility] Pneumococcal Polysaccharide, PPSV23 (PNEUMOVAX) 2013-04-24 00:00:00 Completed [facility] Pneumococcal Polysaccharide, PPSV23 (PNEUMOVAX) 2013-04-24 00:00:00 Completed [facility] Pneumococcal Polysaccharide, PPSV23 (PNEUMOVAX) 2013-04-24 00:00:00 Completed [facility] Pneumococcal Polysaccharide, PPSV23 (PNEUMOVAX) 2013-04-24 00:00:00 Completed [facility] Pneumococcal Polysaccharide, PPSV23 (PNEUMOVAX) 2013-04-24 00:00:00 Completed [facility] Pneumococcal Polysaccharide, PPSV23 (PNEUMOVAX) 2013-04-24 00:00:00 Completed [facility] Pneumococcal Polysaccharide, PPSV23 (PNEUMOVAX) 2013-04-24 00:00:00 Completed [facility] Pneumococcal Polysaccharide, PPSV23 (PNEUMOVAX) 2013-04-24 00:00:00 Completed [facility] Pneumococcal Polysaccharide, PPSV23 (PNEUMOVAX) 2013-04-24 00:00:00 Completed [facility] Pneumococcal Polysaccharide, PPSV23 (PNEUMOVAX) 2013-04-24 00:00:00 Completed [facility] Pneumococcal Polysaccharide, PPSV23 (PNEUMOVAX) 2013-04-24 00:00:00 Completed [facility] Pneumococcal Polysaccharide, PPSV23 (PNEUMOVAX) 2013-04-24 00:00:00 Completed [facility] Pneumococcal Polysaccharide, PPSV23 (PNEUMOVAX) 2013-04-24 00:00:00 Completed [facility] Pneumococcal Polysaccharide, PPSV23 (PNEUMOVAX) 2013-04-24 00:00:00 Completed [facility] Pneumococcal Polysaccharide, PPSV23 (PNEUMOVAX) 2013-04-24 00:00:00 Completed [facility] Pneumococcal Polysaccharide, PPSV23 (PNEUMOVAX) 2013-04-24 00:00:00 Completed [facility] Pneumococcal Polysaccharide, PPSV23 (PNEUMOVAX) 2013-04-24 00:00:00 Completed [facility] Pneumococcal Polysaccharide, PPSV23 (PNEUMOVAX) 2013-04-24 00:00:00 Completed [facility] Vital Signs Vital Name Observation Time Observation Value Comments S ource Systolic blood pressure 2024-09-03 19:08:00 114 mm[Hg] Mary Hampton - External Diastolic blood pressure 2024-09-03 19:08:00 70 mm[Hg] Mary Seybold - External Heart rate 2024-09-03 19:08:00 75 /min Mary Seybold - External Body temperature 2024-09-03 19:08:00 36.17 Willa Mary Seybold - External Respiratory rate 2024-09-03 19:08:00 16 /min Mary Seybold - External Body height 2024-09-03 19:08:00 170.2 cm Mary Seybold - External Body weight 2024-09-03 19:08:00 102.513 kg Mary Seybold - External BMI 2024-09-03 19:08:00 35.40 kg/m2 Mary Seybold - External Oxygen saturation in Arterial blood by Pulse oximetry 2024-09-03 19:08:00 97 /min Mary Seybold - External Body height 2024-07-16 15:00:00 170.2 cm Mary Seybold - External Body weight 2024-07-16 15:00:00 99.791 kg Mary Seybold - External BMI 2024-07-16 15:00:00 34.46 kg/m2 Mary Seybold - External Systolic blood pressure 2024-07-09 15:21:00 122 mm[Hg] Mary Seybold - External Diastolic blood pressure 2024-07-09 15:21:00 64 mm[Hg] Mary Seybold - External Heart rate 2024-07-09 15:21:00 68 /min Mary Seybold - External Body temperature 2024-07-09 15:21:00 36.39 Willa Mary Seybold - External Respiratory rate 2024-07-09 15:21:00 12 /min Mary Seybold - External Body height 2024-07-09 15:21:00 170.2 cm Mary Seybold - External Body weight 2024-07-09 15:21:00 97.07 kg Mary Seybold - External BMI 2024-07-09 15:21:00 33.52 kg/m2 Mary Seybold - External Oxygen saturation in Arterial blood by Pulse oximetry 2024-07-09 15:21:00 98 /min Mary Seybold - External Systolic blood pressure 2024-01-19 16:36:00 125 mm[Hg] Mary Seybold - External Diastolic blood pressure 2024-01-19 16:36:00 81 mm[Hg] Mary Seybold - External Heart rate 2024-01-19 16:36:00 68 /min Mary Seybold - External Body temperature 2024-01-19 16:36:00 36.61 Willa Mary Seybold - External Respiratory rate 2024-01-19 16:36:00 16 /min Mary Seybold - External Body height 2024-01-19 16:36:00 170.2 cm Mary Seybold - External Body weight 2024-01-19 16:36:00 98.431 kg Mary Seybold - External BMI 2024-01-19 16:36:00 33.99 kg/m2 Mary Seybold - External Oxygen saturation in Arterial blood by Pulse oximetry 2024-01-19 16:36:00 96 /min Mary Seybold - External Body weight 2023-11-14 15:34:00 98.884 kg Mary Seybold - External BMI 2023-11-14 15:34:00 34.14 kg/m2 Mary Seybold - External Systolic blood pressure 2023-11-09 15:36:00 118 mm[Hg] Mary Seybold - External Diastolic blood pressure 2023-11-09 15:36:00 72 mm[Hg] Mary Seybold - External Heart rate 2023-11-09 15:36:00 57 /min Mary Seybold - External Body temperature 2023-11-09 15:36:00 36.11 Willa Mary Seybold - External Respiratory rate 2023-11-09 15:36:00 16 /min Mary Seybold - External Body height 2023-11-09 15:36:00 170.2 cm Mary Seybold - External Body weight 2023-11-09 15:36:00 99.156 kg Mary Seybold - External BMI 2023-11-09 15:36:00 34.24 kg/m2 Mary Seybold - External Oxygen saturation in Arterial blood by Pulse oximetry 2023-11-09 15:36:00 97 /min Mary Seybold - External Systolic blood pressure 2023-05-05 16:57:00 133 mm[Hg] Mary Seybold - External Diastolic blood pressure 2023-05-05 16:57:00 69 mm[Hg] Mary Valdesold - External Heart rate 2023-05-05 16:51:00 86 /min Mary Valdesold - External Body temperature 2023-05-05 16:51:00 36.56 Willa Mary Valdesold - External Respiratory rate 2023-05-05 16:51:00 16 /min Mary Hampton - External Body height 2023-05-05 16:51:00 170.2 cm Mary Hampton - External Body weight 2023-05-05 16:51:00 114.76 kg Mary Figueroaybold - External BMI 2023-05-05 16:51:00 39.63 kg/m2 Mary Figueroaybold - External Systolic blood pressure 2023-01-27 14:45:00 129 mm[Hg] [facility] Diastolic blood pressure 2023-01-27 14:45:00 67 mm[Hg] [facility] Heart rate 2023-01-27 14:45:00 68 /min [facility] Body temperature 2023-01-27 14:45:00 36.33 Willa [facility] Respiratory rate 2023-01-27 14:45:00 20 /min [facility] Body height 2023-01-27 14:45:00 170.2 cm [facility] Body weight 2023-01-27 14:45:00 117.119 kg [facility] BMI 2023-01-27 14:45:00 40.44 kg/m2 [facility] Oxygen saturation in Arterial blood by Pulse oximetry 2023-01-27 14:45:00 95 /min [facility] Systolic blood pressure 2023-01-01 05:05:00 135 mm[Hg] [facility] Diastolic blood pressure 2023-01-01 05:05:00 65 mm[Hg] [facility] Heart rate 2023-01-01 05:05:00 72 /min [facility] Body temperature 2023-01-01 05:05:00 37.06 Willa [facility] Respiratory rate 2023-01-01 05:05:00 16 /min [facility] Oxygen saturation in Arterial blood by Pulse oximetry 2023-01-01 05:05:00 97 /min [facility] Body height 2023-01-01 03:33:00 170.2 cm [facility] Body weight 2023-01-01 03:33:00 73.619 kg [facility] BMI 2023-01-01 03:33:00 25.42 kg/m2 [facility] Body height 2022-12-30 21:57:00 167.6 cm [facility] Body weight 2022-12-30 21:57:00 120.203 kg [facility] BMI 2022-12-30 21:57:00 42.77 kg/m2 [facility] Systolic blood pressure 2022-10-03 16:12:00 107 mm[Hg] [facility] Diastolic blood pressure 2022-10-03 16:12:00 68 mm[Hg] [facility] Heart rate 2022-10-03 16:12:00 66 /min [facility] Body temperature 2022-10-03 16:12:00 35.89 Willa [facility] Body height 2022-10-03 16:12:00 167.6 cm [facility] Body weight 2022-10-03 16:12:00 120.611 kg [facility] BMI 2022-10-03 16:12:00 42.92 kg/m2 [facility] Systolic blood pressure 2022-08-08 15:44:00 116 mm[Hg] [facility] Diastolic blood pressure 2022-08-08 15:44:00 75 mm[Hg] [facility] Heart rate 2022-08-08 15:44:00 71 /min [facility] Body temperature 2022-08-08 15:44:00 36.61 Willa [facility] Body height 2022-08-08 15:44:00 170.2 cm [facility] Body weight 2022-08-08 15:44:00 120.203 kg [facility] BMI 2022-08-08 15:44:00 41.50 kg/m2 [facility] Oxygen saturation in Arterial blood by Pulse oximetry 2022-08-08 15:44:00 96 /min [facility] Systolic blood pressure 2022-07-29 16:23:00 132 mm[Hg] [facility] Diastolic blood pressure 2022-07-29 16:23:00 82 mm[Hg] [facility] Heart rate 2022-07-29 16:23:00 78 /min [facility] Respiratory rate 2022-07-29 16:23:00 19 /min [facility] Body height 2022-07-29 16:23:00 170.2 cm [facility] Body weight 2022-07-29 16:23:00 118.706 kg [facility] BMI 2022-07-29 16:23:00 40.99 kg/m2 [facility] Oxygen saturation in Arterial blood by Pulse oximetry 2022-07-29 16:23:00 94 /min [facility] Systolic blood pressure 2022-07-04 15:55:00 107 mm[Hg] [facility] Diastolic blood pressure 2022-07-04 15:55:00 74 mm[Hg] [facility] Heart rate 2022-07-04 15:55:00 78 /min [facility] Respiratory rate 2022-07-04 15:55:00 18 /min [facility] Body height 2022-07-04 15:55:00 170.2 cm [facility] Body weight 2022-07-04 15:55:00 120.566 kg [facility] BMI 2022-07-04 15:55:00 41.63 kg/m2 [facility] Oxygen saturation in Arterial blood by Pulse oximetry 2022-07-04 15:55:00 95 /min [facility] Systolic blood pressure 2022-06-20 20:14:00 110 mm[Hg] [facility] Diastolic blood pressure 2022-06-20 20:14:00 68 mm[Hg] [facility] Heart rate 2022-06-20 20:14:00 80 /min [facility] Body temperature 2022-06-20 20:14:00 35.61 Willa [facility] Body height 2022-06-20 20:14:00 170.2 cm [facility] Body weight 2022-06-20 20:14:00 120.611 kg [facility] BMI 2022-06-20 20:14:00 41.65 kg/m2 [facility] Systolic blood pressure 2022-06-13 21:17:00 125 mm[Hg] [facility] Diastolic blood pressure 2022-06-13 21:17:00 78 mm[Hg] [facility] Heart rate 2022-06-13 21:17:00 72 /min [facility] Body temperature 2022-06-13 21:17:00 36.78 Willa [facility] Body height 2022-06-13 21:17:00 170.2 cm [facility] Body weight 2022-06-13 21:17:00 120.203 kg [facility] BMI 2022-06-13 21:17:00 41.50 kg/m2 [facility] Oxygen saturation in Arterial blood by Pulse oximetry 2022-06-13 21:17:00 96 /min [facility] Systolic blood pressure 2022-05-15 01:30:00 127 mm[Hg] [facility] Diastolic blood pressure 2022-05-15 01:30:00 72 mm[Hg] [facility] Heart rate 2022-05-15 01:26:00 79 /min [facility] Body temperature 2022-05-15 01:26:00 36.89 Willa [facility] Respiratory rate 2022-05-15 01:26:00 16 /min [facility] Body height 2022-05-15 01:26:00 170.2 cm [facility] Body weight 2022-05-15 01:26:00 113.399 kg [facility] BMI 2022-05-15 01:26:00 39.16 kg/m2 [facility] Oxygen saturation in Arterial blood by Pulse oximetry 2022-05-15 01:26:00 98 /min [facility] Systolic blood pressure 2022-05-03 16:32:00 107 mm[Hg] [facility] Diastolic blood pressure 2022-05-03 16:32:00 67 mm[Hg] [facility] Heart rate 2022-05-03 16:32:00 82 /min [facility] Body temperature 2022-05-03 16:32:00 37 Willa [facility] Body height 2022-05-03 16:32:00 170.2 cm [facility] Body weight 2022-05-03 16:32:00 121.11 kg [facility] BMI 2022-05-03 16:32:00 41.82 kg/m2 [facility] Oxygen saturation in Arterial blood by Pulse oximetry 2022-05-03 16:32:00 96 /min [facility] Systolic blood pressure 2022-04-24 00:57:00 149 mm[Hg] [facility] Diastolic blood pressure 2022-04-24 00:57:00 71 mm[Hg] [facility] Heart rate 2022-04-24 00:57:00 87 /min [facility] Respiratory rate 2022-04-24 00:57:00 23 /min [facility] Oxygen saturation in Arterial blood by Pulse oximetry 2022-04-24 00:57:00 89 /min pt states this is baseline, erp aware, pt states she has rn hyperbaric [facility] Body temperature 2022-04-23 22:30:42 37.89 Willa [facility] Body weight 2022-04-23 22:30:42 113.399 kg [facility] BMI 2022-04-23 22:30:42 39.16 kg/m2 [facility] Body height 2022-04-23 22:25:00 170.2 cm [facility] Systolic blood pressure 2022-01-25 18:40:00 120 mm[Hg] [facility] Diastolic blood pressure 2022-01-25 18:40:00 71 mm[Hg] [facility] Heart rate 2022-01-25 18:40:00 71 /min [facility] Body temperature 2022-01-25 18:40:00 36.83 Willa [facility] Respiratory rate 2022-01-25 18:40:00 18 /min [facility] Body height 2022-01-25 18:40:00 170.2 cm [facility] Body weight 2022-01-25 18:40:00 126.281 kg [facility] BMI 2022-01-25 18:40:00 43.60 kg/m2 [facility] Systolic blood pressure 2021-10-13 16:24:00 116 mm[Hg] [facility] Diastolic blood pressure 2021-10-13 16:24:00 73 mm[Hg] [facility] Heart rate 2021-10-13 16:14:00 79 /min [facility] Body height 2021-10-13 16:14:00 170.2 cm [facility] Body weight 2021-10-13 16:14:00 124.739 kg [facility] BMI 2021-10-13 16:14:00 43.07 kg/m2 [facility] Oxygen saturation in Arterial blood by Pulse oximetry 2021-10-13 16:14:00 96 /min [facility] Procedures Procedure Date / Time Performed Performing Clinicia n Source FLU VACC ([id number]), 6 MO-64 YRS, .5ML, IM, QUAD (FLUCELVAX) 2023-01-27 15:16:32 Liliana Morales [facility] LIPASE 2023-01-01 04:21:00 Clarisa Rivero [facility] TROPONIN I 2023-01-01 04:21:00 Clarisa Rivero [facility] COMP. METABOLIC PANEL ([id number]) 2023-01-01 04:21:00 Clarisa Rivero [facility] CBC WITH DIFF 2023-01-01 04:21:00 Clarisa Rivero [facility] URINALYSIS 2023-01-01 04:21:00 Clarisa Rivero [facility] NOTICE OF PRIVACY PRACTICES 2023-01-01 03:26:59 Doctor Unassigned, Hugo [facility] CONSENT/REFUSAL FOR DIAGNOSIS AND TREATMENT 2023-01-01 03:26:32 Doctor Unassigned, Hugo [facility] ASSIGNMENT OF BENEFITS 2022-08-11 07:07:11 Docto r Unassigned, Hugo [facility] CONSENT/REFUSAL FOR DIAGNOSIS AND TREATMENT 2022-08-11 06:58:13 Doctor Unassigned, Hugo [facility] EXTERNAL PROVIDER RECORDS 2022-07-07 05:01:00 Doctor Unassigned, Hugo [facility] PATIENT FINANCIAL POLICY 2022-06-20 19:59:35 Doctor Unassigned, Hugo [facility] EXTERNAL FIT DNA 2022-06-01 05:28:00 Doctor Unas signed, Hugo [facility] XR HUMERUS 2 VW LEFT 2022-05-15 02:29:00 Dennis Grey [facility] CONSENT/REFUSAL FOR DIAGNOSIS AND TREATMENT 2022-05-15 01:23:43 Doctor Unassigned, Hugo [facility] RAPID INFLUENZA A/B 2022-04-23 23:05:00 Imer Gooden [facility] COVID-19 (ID NOW RAPID TESTING) 2022-04-23 23:05:00 Imer Gooden [facility] CONSENT/REFUSAL FOR DIAGNOSIS AND TREATMENT 2022-04-23 22:22:50 Doctor Unassigned, Hugo [facility] FLU VACC ([id number]), 6 MO-64 YRS, .5ML, IM, QUAD (FLUCELVAX) 2022-01-25 18:47:14 Liliana Morales [facility] Encounters Start Date/Time End Date/Time Encounter Type Admission Type Attending Clinicians Care Facility Care Department Encounter ID Source 2021-02-19 23:31:25 Emergency [facility] [id number] [facility] 2024-09-26 13:30:00 2024-09-26 13:30:00 Outpatient JEFFREY SUTHERLAND [id number] [facility] 2024-09-26 09:00:00 2024-09-26 09:00:00 Outpatient JEFFREY CROFT [id number] [facility] 2024-09-24 14:10:00 2024-09-24 14:10:00 Outpatient MICHAEL PARKER [id number] [facility] 2024-09-19 13:00:00 2024-09-19 13:00:00 Outpatient MARY NIELSON [id number] Mary gabe 2024-09-05 00:00:00 2024-09-05 00:00:00 Outpatient NEL GAUTAM MARY NIELSON [id number] [facility] 2024-09-03 14:55:00 2024-09-03 14:55:00 Outpatient MARY NIELSON [id number] [facility] 2024-09-03 14:30:00 2024-09-03 14:30:00 Outpatient NEL GAUTAM MARY NIELSON [id number] [facility] 2024-09-03 00:00:00 2024-09-03 00:00:00 Outpatient NEL GAUTAM MARY NIELSON [id number] [facility] 2024-08-30 11:00:00 2024-08-30 11:00:00 Outpatient LIOR LOVE [id number] [facility] 2024-08-27 00:00:00 2024-08-27 00:00:00 Outpatient RUBY GALARZA [id number] [facility] 2024-08-12 00:00:00 2024-08-12 00:00:00 Outpatient ADELAIDE REDDING [id number] [facility] 2024-08-01 00:00:00 2024-08-01 00:00:00 Outpatient MD MARY MAC [id number] [facility] 2024-08-01 00:00:00 2024-08-01 00:00:00 Outpatient SUNI BARTON [id number] [facility] 2024-07-16 15:10:00 2024-07-16 15:10:00 Outpatient MICHAEL PARKER [id number] [facility] 2024-07-16 09:50:00 2024-07-16 09:50:00 Outpatient ADELAIDE REDDING [id number] [facility] 2024-07-16 09:25:00 2024-07-16 09:25:00 Outpatient MARY NIELSON [id number] [facility] 2024-07-16 00:00:00 2024-07-16 00:00:00 Outpatient ADELAIDE REDDING [id number] [facility] 2024-07-16 00:00:00 2024-07-16 00:00:00 Outpatient MARY NIELSON [id number] Mary Memo 2024-07-10 00:00:00 2024-07-10 00:00:00 Outpatient MD MARY MAC [id number] [facility] 2024-07-09 11:15:00 2024-07-09 11:15:00 Outpatient [facility] NIELSON [id number] [facility] 2024-07-09 10:30:00 2024-07-09 10:30:00 Outpatient NEL GAUTAM [id number] [facility] 2024-07-09 00:00:00 2024-07-09 00:00:00 Outpatient MARY NIELSON [id number] [facility] 2024-07-09 00:00:00 2024-07-09 00:00:00 Outpatient SUNI BARTON [id number] [facility] 2024-07-02 13:30:00 2024-07-02 13:30:00 Outpatient NEL GAUTAM [id number] [facility] 2024-06-06 00:00:00 2024-06-06 00:00:00 Outpatient MD MARY MAC [id number] [facility] 2024-06-05 00:00:00 2024-06-05 00:00:00 Outpatient SUNI BARTON [id number] [facility] 2024-06-04 00:00:00 2024-06-04 00:00:00 Outpatient MD MARY MAC [id number] [facility] 2024-06-02 00:00:00 2024-06-02 00:00:00 Outpatient SUNI BARTON [id number] [facility] 2024-05-30 09:55:00 2024-05-30 09:55:00 Outpatient MICHAEL PARKER [id number] [facility] 2024-05-03 00:00:00 2024-05-03 00:00:00 Outpatient SUNI BARTON [facility]EL[facility] [id number] [facility] 2024-04-05 09:30:00 2024-04-05 09:30:00 Outpatient LIOR LOVE MARY NEILSON [id number] Mary ybjomar 2024-04-03 00:00:00 2024-04-03 00:00:00 Outpatient MD [facility]ARY MAC [id number] [facility] 2024-03-15 09:00:00 2024-03-15 09:00:00 Outpatient TRED47 MARY NIELSON [id number] [facility] 2024-03-14 09:00:00 2024-03-14 09:00:00 Outpatient TRED47 MARY NIELSON [id number] [facility] 2024-03-13 00:00:00 2024-03-13 00:00:00 Outpatient MARY NIELSON [id number] [facility] 2024-03-12 14:00:00 2024-03-12 14:00:00 Outpatient TRED47 [facility] [id number] [facility] 2024-03-05 10:00:00 2024-03-05 10:00:[address] TECH MARY NIELSON [id number] [facility] 2024-03-05 00:00:00 2024-03-05 00:00:00 Outpatient MD MARY MAC [id number] [facility] 2024-02-22 10:25:00 2024-02-22 10:25:00 Outpatient MICHAEL PARKER [id number] Mary Seybold 2024-02-15 10:00:00 2024-02-15 10:00:[address], TECH MARY NIELSON [id number] [facility] 2024-02-13 00:00:00 2024-02-13 00:00:00 Outpatient JUAN JOSE GARCIA [id number] [facility] 2024-02-02 00:00:00 2024-02-02 00:00:00 Outpatient MARY NIELSON [id number] Mary ybjomar 2024-02-02 00:00:00 2024-02-02 00:00:00 Outpatient MD MARY MAC [id number] Mary ybjomar 2024-01-25 13:00:00 2024-01-25 13:00:00 Outpatient RICK DÍAZ [id number] Mary Sey[facility]omar 2024-01-23 10:30:00 2024-01-23 10:30:00 Outpatient LAB47 MARY NIELSON [id number] Mary Seybjomar 2024-01-23 09:30:00 2024-01-23 09:30:00 Outpatient LAB47 MARY NIELSON [id number] Mary Seybjomar 2024-01-19 11:30:00 2024-01-19 11:30:00 Outpatient JUAN JOSE GARCIA [id number] [facility] 2024-01-19 09:30:00 2024-01-19 09:30:00 Outpatient IVAN LIOR MARY NIELSON [id number] Mary Seybjomar 2024-01-19 00:00:00 2024-01-19 00:00:00 Outpatient MARY NIELSON [id number] Mary ybjomar 2024-01-18 09:00:00 2024-01-18 09:00:00 Outpatient JUAN JOSE GARCIA [id number] Mary ybjomar 2024-01-05 00:00:00 2024-01-05 00:00:00 Outpatient MD MARY MAC [id number] Mary Seybjomar 2023-12-06 00:00:00 2023-12-06 00:00:00 Outpatient SUNI BARTON [id number] [facility] 2023-11-14 10:30:00 2023-11-14 10:30:00 Outpatient MARIO PATTERSON [id number] Mary Seybold 2023-11-09 10:45:00 2023-11-09 10:45:00 Outpatient SUNI BARTON [id number] [facility] 2023-10-20 00:00:00 2023-10-20 09:59:28 Refill Mega Fernandez [facility]I [facility] OFF[facility] BUILD[facility] 1.2.840.114 350.1.13.10 4.2.7.2.686 [id number] [id number] [facility] 2023-09-21 00:00:00 2023-09-21 07:36:14 Refill Mega Fernandez [facility] MEDICAL OFF[facility] BUILDING 1.2.840.114 350.1.13.10 4.2.7.2.686 [id number] 044 [id number] [facility] 2023-08-29 08:00:00 2023-08-29 08:00:00 Outpatient MARY NIELSON [id number] [facility] 2023-08-22 09:30:00 2023-08-22 09:30:00 Outpatient RUBY GALARZA [id number] [facility] 2023-08-22 09:30:00 2023-08-22 09:30:00 Outpatient GERMAINE6 MARY NIELSON [id number] [facility] 2023-08-19 00:00:00 2023-08-19 00:00:00 Refill [facility] ELADIO?[facility] MEDICAL OFFICE BUILDING 1.2.840.114 350.1.13.10 4.2.7.2.686 [id number] [id number] [facility] 2023-08-17 10:30:00 2023-08-17 10:30:00 Outpatient NATHANIEL CAPUTO [id number] [facility] 2023-07-31 11:00:00 2023-07-31 11:00:00 [facility] [id number] [facility] 2023-07-27 14:30:00 2023-07-27 14:30:00 Outpatient CARTER GAYTAN [id number] [facility] 2023-07-25 00:00:00 2023-07-25 00:00:00 [facility] 1..840.114 350.1.13.10 4.2.7.2.686 [id number] [facility] 2023-07-24 00:00:00 2023-07-24 00:00:00 [facility] 1..840.114 350.1.13.10 4.2.7.2.686 [id number] [facility] 2023-07-21 00:00:00 2023-07-21 00:00:00 Outpatient SUNI BARTON [id number] [facility] 2023-07-21 00:00:00 2023-07-21 00:00:00 [facility] 1..840.114 350.1.13.10 4.2.7.2.686 [id number] [facility] 2023-05-05 11:45:00 2023-05-05 11:45:00 Outpatient LAB47 MARY NIELSON [id number] [facility] 2023-05-05 11:00:00 2023-05-05 11:00:00 Outpatient SUNI BARTON [id number] [facility] 2023-04-13 14:30:00 2023-04-13 15:10:50 Outpatient R RADHA JOY [facility] [id number] [facility] 2023-04-13 14:30:00 2023-04-13 15:10:50 Ancillary Visit Umm [place] Craig L [facility] 1..840.114 350.1.13.10 4.2.7.2.686 [id number] [facility] 2023-04-11 14:30:00 2023-04-11 15:15:00 Ancillary Visit Umm [place] Craig L [facility] 1.2.840.114 350.1.13.10 4.2.7.2.686 [id number] [facility] 2023-04-06 10:15:00 2023-04-06 11:00:00 Ancillary Visit Umm [place] Craig L [facility] BUILDING 1.2.840.114 350.1.13.10 4.2.7.2.686 [id number] [facility] 2023-04-04 15:15:00 2023-04-04 16:00:00 Ancillary Visit Umm [place] Craig L [facility] BUILDING 1.2.840.114 350.1.13.10 4.2.7.2.686 [id number] 179 [id number] [facility] 2023-03-30 11:00:00 2023-03-30 11:45:00 Ancillary Visit Umm [place] William M [facility] BUILDING 1.2.840.114 350.1.13.10 4.2.7.2.686 [id number] 179 [id number] [facility] 2023-03-28 11:00:00 2023-03-28 11:45:00 Ancillary Visit Umm [place] William M [facility] BUILDING 1.2.840.114 350.1.13.10 4.2.7.2.686 [id number] 179 [id number] [facility] 2023-03-21 10:15:00 2023-03-21 11:19:09 Ancillary Visit Nidia Weathers William M [facility] BUILDING 1.2.840.114 350.1.13.10 4.2.7.2.686 [id number] 179 [id number] [facility] 2023-03-09 11:00:00 2023-03-09 11:37:39 Ancillary Visit Umm [place] Craig L [facility] BUILDING 1.2.840.114 350.1.13.10 4.2.7.2.686 [id number] 179 [id number] [facility] 2023-03-07 15:15:00 2023-03-07 16:03:27 Ancillary Visit Nidia Weathers Craig L [facility] BUILDING 1.2.840.114 350.1.13.10 4.2.7.2.686 [id number] 179 [id number] [facility] 2023-03-02 09:30:00 2023-03-02 10:18:06 Ancillary Visit Nidia Weathers William M [facility] BUILDING 1.2.840.114 350.1.13.10 4.2.7.2.686 [id number] 179 [id number] [facility] 2023-02-17 00:00:00 2023-02-17 00:00:00 Refill Mega Fernandez [facility] EL[facility]IO?[facility] 1.2.840.114 350.1.13.10 4.2.7.2.686 [id number] 044 [id number] [facility] 2023-02-17 00:00:00 2023-02-17 00:00:00 Refill Leni Garcia [facility] BUILDING 1.2.840.114 350.1.13.10 4.2.7.2.686 [id number] 059 [id number] [facility] 2023-02-09 09:02:07 2023-02-09 23:59:00 Outpatient R LILIANA [facility] [id number] [facility] 2023-02-09 09:02:07 2023-02-09 23:59:00 Hospital Encounter AdLiliana varela [facility] 1.2.840.114 350.1.13.10 4.2.7.2.686 [id number] [facility] 2023-01-31 10:15:00 2023-01-31 10:15:00 [facility] [id number] [facility] 2023-01-27 09:30:00 2023-01-27 10:19:33 Outpatient R LILIANA [facility] [id number] [facility] 2023-01-27 09:30:00 2023-01-27 10:19:33 Office Visit Liliana Morales [facility] NAL BUILDING 1.2.840.114 350.1.13.10 4.2.7.2.686 [id number] [facility] 2023-01-20 00:00:00 2023-01-20 00:00:00 Mega Shaw [facility] 1.2.840.114 350.1.13.10 4.2.7.2.686 [id number] 044 [id number] [facility] 2022-12-31 22:33:00 2023-01-01 00:34:00 Emergency X CLARISA RIVERO [facility] ERT [id number] [facility] 2022-12-31 22:33:00 2023-01-01 00:34:00 Emergency Clarisa Rivero Aguilar [facility] 1.2.840.114 350.1.13.10 4.2.7.2.686 [id number] [id number] [facility] 2022-12-31 00:00:00 2022-12-31 00:00:00 Orders Only Doctor Unassigned, Hugo [facility] 1.2.840.114 350.1.13.10 4.2.7.2.686 [id number] [facility] 2022-12-30 16:10:00 2022-12-30 17:18:37 Outpatient R FEDE [facility] [id number] [facility] 2022-12-30 16:10:00 2022-12-30 17:18:37 Office Visit Fede Laws [facility] MED[facility] OFFICE BUILDING 1.2.840.114 350.1.13.10 4.2.7.2.686 [id number] [facility] 2022-11-28 00:00:00 2022-11-28 00:00:00 Refill Jim [facility] MED[facility] OFF[facility] BUILDING 1.2.840.114 350.1.13.10 4.2.7.2.686 [id number] 044 [id number] [facility] 2022-11-14 00:00:00 2022-11-14 00:00:00 Telephone Jim Mega [facility] MED[facility] OFF[facility] BUILDING 1.2.840.114 350.1.13.10 4.2.7.2.686 [id number] 044 [id number] [facility] 2022-11-03 13:00:00 2022-11-03 13:45:00 Ancillary Visit Umm [place] William M [facility] 1.2.840.114 350.1.13.10 4.2.7.2.686 [id number] [facility] 2022-11-03 13:00:00 2022-11-03 13:00:00 Outpatient R FEDE [facility] [id number] [facility] 2022-10-27 14:30:00 2022-10-27 15:15:00 Ancillary Visit Umm [place] William M [facility] BUILDING 1.2.840.114 350.1.13.10 4.2.7.2.686 [id number] 179 [id number] [facility] 2022-10-24 00:00:00 2022-10-24 00:00:00 Telephone Mgea Fernandez [facility] EL[facility]IO?[facility] 1.2.840.114 350.1.13.10 4.2.7.2.686 [id number] [id number] [facility] 2022-10-18 11:00:00 2022-10-18 11:45:00 Ancillary Visit Umm [place] William M [facility] BUILDING 1.2.840.114 350.1.13.10 4.2.7.2.686 [id number] 179 [id number] [facility] 2022-10-11 10:15:00 2022-10-11 11:00:00 Ancillary Visit Evelia Redding William M [facility] BUILDING 1.2.840.114 350.1.13.10 4.2.7.2.686 [id number] [facility] 2022-10-07 09:30:00 2022-10-07 10:15:00 Ancillary Visit Crissy Nguyen William M [facility] BUILDING 1.2.840.114 350.1.13.10 4.2.7.2.686 [id number] 179 [id number] [facility] 2022-10-03 11:30:00 2022-10-03 11:53:34 Outpatient R FEDE [facility] [id number] [facility] 2022-10-03 11:30:00 2022-10-03 11:53:34 Office Visit Fede Laws [facility] 1.2840.114 350.1.13.10 4.2.7.2.686 [id number] [facility] 2022-09-30 09:30:00 2022-09-30 10:15:00 Ancillary Visit Crissy Nguyen William M [facility] BUILDING 1.2840.114 350.1.13.10 4.2.7.2.686 [id number] [facility] 2022-09-26 15:15:00 2022-09-26 16:12:47 Outpatient R FEDE [facility] [id number] [facility] 2022-09-26 15:15:00 2022-09-26 16:00:00 Ancillary Visit Crissy Nguyen William M [facility] BUILDING 1.2840.114 350.1.13.10 4.2.7.2.686 [id number] 179 [id number] [facility] 2022-09-16 10:15:00 2022-09-16 10:47:47 Ancillary Visit Crissy Nguyen Craig L [facility] BUILDING 1.2.114 350.1.13.10 4.2.7.2.686 [id number] [facility] 2022-09-15 00:00:00 2022-09-15 00:00:00 Mega Shaw [facility] 1.2840.114 350.1.13.10 4.2.7.2.686 [id number] 044 [id number] [facility] 2022-09-12 10:15:00 2022-09-12 11:00:00 Ancillary Visit Crissy Nguyen Craig L [facility] BUILDING 1.2840.114 350.1.13.10 4.2.7.2.686 [id number] [facility] 2022-09-09 10:15:00 2022-09-09 11:00:00 Ancillary Visit Patrick Radha De La Cruz [facility] BUILDING 1.2840.114 350.1.13.10 4.2.7.2.686 [id number] [facility] 2022-09-05 10:15:00 2022-09-05 11:00:00 Ancillary Visit NguyenPaty dananne Radha Joy Malik [facility] BUILDING 1.2840.114 350.1.13.10 4.2.7.2.686 [id number] [facility] 2022-09-05 00:00:00 2022-09-05 00:00:00 Telephone Mega Fernandez [facility]?JUANISLilian [facility] 1.284.114 350.1.13.10 4.2.7.2.686 [id number] 044 [id number] [facility] 2022-09-01 09:30:00 2022-09-01 11:30:31 Outpatient R RADHA [facility] [id number] [facility] 2022-09-01 09:30:00 2022-09-01 11:30:31 Ancillary Visit Maylin Navarro Craig [facility] BUILDING 1.2840.114 350.1.13.10 4.2.7.2.686 [id number] [facility] 2022-08-31 00:00:00 2022-08-31 00:00:00 Patient Secure Msg Doctor Unassigned, Hugo [facility] 1.2840.114 350.1.13.10 4.2.7.2.686 [id number] 037 [id number] [facility] 2022-08-24 00:00:00 2022-08-24 00:00:00 Shameka Dillon Garza [facility] PROF[facility] NAL BUILDING 1.2.840.114 350.1.13.10 4.2.7.2.686 [id number] [id number] [facility] 2022-08-11 02:10:00 2022-08-11 02:11:00 Emergency X [facility] ERT [id number] [facility] 2022-08-11 02:10:00 2022-08-11 02:11:00 Emergency [facility] 1..840.114 350.1.13.10 4.2.7.2.686 [id number] [facility] 2022-08-11 00:00:00 2022-08-11 00:00:00 Telephone Mega Fernandez [facility]?JUANISLilian [facility] MEDICAL OFFICE BUILDING 1.840.114 350.1.13.10 4.2.7.2.686 [id number] [id number] [facility] 2022-08-08 11:00:00 2022-08-08 11:05:19 [facility] [id number] [facility] 2022-08-08 11:00:00 2022-08-08 11:05:19 Office Visit Mega Fernandez [facility] MEDICAL OFFICE BUILDING 1.2.840.114 350.1.13.10 4.2.7.2.686 [id number] [id number] [facility] 2022-08-08 00:00:00 2022-08-08 00:00:00 Telephone Jim Mega [facility]?JUANISLilian [facility] MEDICAL OFFICE BUILDING 1.2.840.114 350.1.13.10 4.2.7.2.686 [id number] [id number] [facility] 2022-08-04 00:00:00 2022-08-04 00:00:00 Patient Secure Msg Doctor Unassigned, Hugo [facility] 1.2840.114 350.1.13.10 4.2.7.2.686 [id number] [facility] 2022-08-01 14:00:00 2022-08-01 14:00:00 Outpatient [facility] [id number] [facility] 2022-08-01 12:00:00 2022-08-01 12:00:00 Outpatient R FABIOLA PERKINS [facility] [id number] [facility] 2022-07-29 11:20:00 2022-07-29 11:40:13 [facility] [id number] [facility] 2022-07-29 11:20:00 2022-07-29 11:40:13 [facility] 1..840.114 350.1.13.10 4.2.7.2.686 [id number] [facility] 2022-07-29 00:00:00 2022-07-29 00:00:00 Telephone [facility] MED[facility] OFF[facility] BUILDING 1.2.840.114 350.1.13.10 4.2.7.2.686 [id number] 044 [id number] [facility] 2022-07-29 00:00:00 2022-07-29 00:00:00 Telephone Jim Mega [facility] MEDICAL OFFICE BUILDING 1.2.840.114 350.1.13.10 4.2.7.2.686 [id number] 044 [id number] [facility] 2022-07-22 00:00:00 2022-07-22 00:00:00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 last 12 months Name from pharmacy: ATORVASTATIN 40 MG TABLET Will file in chart as: ATORVASTATIN 40 mg tablet Sig: TAKE 1 TABLET BY MOUTH EVERYDAY AT BEDTIME Disp: 90 tablet Refills: 1 Start: 07/21/2023 Class: eRX For: Dyslipidemia Last ordered: 5 months ago (02/17/2023) by TITA Hewitt Last refill: 05/05/2023 Rx #: [id number] Cardiovascular: Antilipid - HMG-CoA Reductase Inhibitors Lprxoz1307/21/2023 09:57 AM Protocol Details Total Cholesterol within 360 days LDL within 360 days HDL within 360 days Triglycerides within 360 days Valid encounter within last 12 months AST in normal range and within 360 days ALT in normal range and within 360 days To be filled at: [facility]/pharmacy [address] [place] [address] There are no current results on file for these tests and/or test for 1 year. NO LIPID PaNEL ON FILE. Recent Visits Date Type Provider Dept 08/08/22 Office Visit Mega Fernandez FNP [facility] 06/13/22 Office Visit Mega Fernandez FNP [facility] 05/03/22 Office Visit Mega Fernandez FNP [facility] Showing recent visits within past 540 days with a meds authorizing provider and meeting all other requirements Future Appointments No visits were found meeting these conditions. Showing future appointments within next 150 days with a meds authorizing provider and meeting all other requirements Deanne Winters LVN [facility] 2023-05-05 10:51:15 Chief Complaint Patient presents with Physical Fasting No other voiced concerns [facility] 2023-01-01 00:34:09 Formatting of this n ote might be different from the original. Patient discharged home with written and verbal [...] steady gait out of the ER.Escorted by RN. Melony Clark RN Replaced by [facility] 2022-12-31 22:31:33 Formatting of this n ote might be different from the original. Palpitations "for a while" but worsened today. +Dizziness. Reports she was taking deep breaths and it improved her symptoms but they "keep coming back". Denies chest pain, shortness of breath, fever, chills, nausea, vomiting, diarrhea. [facility] -Has not had cycle since 2001 Hx - HTN Melony Clark RN [facility] 2022-11-28 09:37:33 Formatting of this n ote is different from the original. Images from the original note were not included. Requested Renewals diclofenac 25 mg EC tablet Sig: [...] last 12 months To be [facility] at: [id number] - [place], [place] - [address] [facility] [address] Recent Visits Date Type Provider Dept 08/08/22 Office Visit Mega Fernandez, [employer] [facility] 06/13/22 Office Visit Mega Fernandez, [employer]GAL [employer] [facility] 05/03/22 Office Visit Mega Fernandez, [employer]GAL [employer] [facility] 10/13/21 Office Visit Mega Fernandez, [employer] [facility] Showing recent visits within past 540 days with a meds authorizing provider and meeting all other requirements Future Appointments No visits were found meeting these conditions. Showing future appointments within next 150 days with a meds authorizing provider and meeting all other requirements Deanne Winters LVN [facility] 2022-11-14 15:58:09 Formatting of this n ote is different from the original. Patient requesting refill on etodolac 500 mg take 1 tablet by mouth every 12 hrs with a meal for pain as needed for pain. Simon Echeverria Please review and sign if appropriate. Last Refilled: 05/03/22 Recent Visits Date Type Provider Dept 08/08/22 Office Visit Mega Fernandez, [employer] [facility] 06/13/22 Office Visit Mega Fernandez, [employer] [facility] 05/03/22 Office Visit Mega Fernandez, [employer] [facility] 10/13/21 Office Visit Mega Fernandez, [employer] [facility] Showing recent visits within past 540 days with a meds authorizing provider and meeting all other requirements Future Appointments No visits were found meeting these conditions. Showing future appointments within next 150 days with a meds authorizing provider and meeting all other requirements [facility] [employer]
[2024-09-14] MEDS ORDERED: ACETAMINOPHEN 500 MG TAB ONE (09:26)
[2024-09-14] MEDS ORDERED: IBUPROFEN 400 MG TAB ONE (09:26)
[2024-09-14 10:10] LABS: SARS-CoV-2 Antigen Rapid Res Positive (Negative)
--- NOTE | 2024-09-14 10:19 | EDPHYS ---
Physician Documentation [facility] Name: Allison Raymundo Age: 58 yrs Sex: Female : 1965 Arrival Date: 09/14/2024 Time: 09:15 Bed 10 Private MD: ED Physician John Doshi HPI: 09/14 09:41 This 58 yrs old Female presents to ER via Ambulatory with complaints of dr5 Headache. 09:41 Patient is a 58-year-old female with hypertension and hyperlipidemia coming in with dr5 cough, congestion, postnasal drip, sore throat this been going on since yesterday. Patient reports she had fever at home that she has been measuring with her phone. Patient states that she took ibuprofen at 2:00 this morning with mild relief. Patient denies sick contacts. Historical: - Allergies: 09:23 Codeine; iw - Home Meds: :23 atorvastatin 40 mg Oral tablet every day at bedtime [Active]; diltiazem HCl 120 mg Oral iw Tablet every morning [Active]; montelukast 10 mg Oral tablet [Active]; - PMHx: 09:23 Hypertensive disorder; Hypercholesterolemia; palpitations; Asthma; iw - PSHx: 09:23 section; Cholecystectomy; foot; knee; Ligation of fallopian tube; iw ROS: 09:41 Constitutional: as per hpi dr5 Exam: 09:41 Constitutional: This is a well developed, well nourished patient who is awake, alert, dr5 and in no acute distress. Head/Face: Normocephalic, atraumatic. ENT: Nares patent. No nasal discharge, no septal abnormalities noted. Tympanic membranes are normal and external auditory canals are clear. Oropharynx with no redness, swelling, or masses, exudates, or evidence of obstruction, uvula midline. Mucous membranes moist. Neck: Trachea midline, no thyromegaly or masses palpated, and no cervical lymphadenopathy. Supple, full range of motion without nuchal rigidity, or vertebral point tenderness. No Meningismus. Chest/axilla: Normal chest wall appearance and motion. Nontender with no deformity. No lesions are appreciated. Cardiovascular: Regular rate and rhythm with a normal S1 and S2. Normal PMI, no JVD. No pulse deficits. Respiratory: Lungs have equal breath sounds bilaterally, clear to auscultation. No rales, rhonchi or wheezes noted. No increased work of breathing, no retractions or nasal flaring. Back: No spinal tenderness. No costovertebral tenderness. Full range of motion. Skin: Warm, dry with normal turgor. Normal color with no rashes, no lesions, and no evidence of cellulitis. MS/ Extremity: Pulses equal, no cyanosis. Neurovascular intact. Full, normal range of motion. Neuro: Awake and alert, GCS 15, oriented to person, place, time, and situation. Cranial nerves II-XII grossly intact. Motor strength 5/5 in all extremities. Sensory grossly intact. Cerebellar exam normal. Normal gait. Vital Signs: 09:23 BP 155 / 91; Pulse 106; Resp 18; Temp 98.3; Pulse Ox 97% ; iw [place] Coma Score: 10:16 Eye Response: spontaneous(4). Motor Response: obeys commands(6). Verbal Response: dr5 oriented(5). Total: 15. MDM: 09:20 Medical Screening Exam initiated dr5 10:16 Differential diagnosis: Bronchitis, COVID-19, Strep. Data reviewed: vital signs, nurses dr5 notes. I considered the following discharge prescriptions or medication management in the emergency department Medications were administered in the Emergency Department. See MAR. Care significantly affected by the following chronic conditions: Hypertension. Care significantly affected by the following Social Determinants of Health: Poor access to healthcare and/or lack of insurance, Poor access to transportation, Problems related to employment. Counseling: I had a detailed discussion with the patient and/or guardian regarding the historical points, exam findings, and any diagnostic results supporting the discharge/admit diagnosis, the presence of at least one elevated blood pressure reading (>120/80) during this emergency department visit, lab results, the need for outpatient follow up, for definitive care, a family practitioner, to return to the emergency department if symptoms worsen or persist or if there are any questions or concerns that arise at home. Medication response: ibuprofen administration has improved the patient's temperature, acetaminophen administration has lowered the patient's temperature. ED course: Will send patient home with Paxlovid for COVID-19, cough medication, and steroid pack. Recommend increasing hydration and alternating Tylenol Motrin as needed for pain and fever. All questions answered. Patient will follow with primary care doctor this next week. Quarantine per CDC guidelines recommended.. 10:30 ED course: Will cover patient with antibiotics for possible superimposed pneumonia dr5 infection with azithromycin. Patient currently is on statin and is unable to take Paxlovid, so will change to Lagevrio.. 09/14 09:29 Order name: Group A Streptococcus Rapid; Complete Time: 10:10 dr5 09/14 09:29 Order name: SARS RAPID; Complete Time: 10:16 dr5 09/14 10:10 Order name: Throat Culture EDMS 09/14 09:28 Order name: Chest Pa And Lat (2 Views) XRAY dr5 Administered Medications: 09:35 Drug: Ibuprofen PO 800 mg PO once Route: PO; iw 09:35 Drug: Acetaminophen PO 1000 mg PO once Route: PO; iw Disposition Summary: 09/14/24 10:19 Discharge Ordered Notes: Location: Home dr5 Condition: Stable dr5 Diagnosis - Coronavirus infection, unspecified dr5 Followup: dr5 - With: Emergency Department - When: As needed - Reason: Worsening of condition Followup: dr5 - With: Private Physician - When: 1 - 2 days - Reason: Recheck today's complaints, Continuance of care, Re-evaluation by your physician Discharge Instructions: - Discharge Summary Sheet dr5 - Upper Respiratory Infection, Adult dr5 - COVID-19 dr5 - COVID-19: Quarantine and Isolation - [facility] (07/21/2021) dr5 Forms: - Work release form dr5 - Medication Reconciliation Form dr5 - Patient Portal Instructions dr5 - Leadership Thank You Letter dr5 Prescriptions: - Bromfed DM 2-30-10 mg/5 mL Oral syrup - administer 10 milliliter ORAL route every 12 hours As needed as needed for cold dr5 symptoms; 240 milliliter; Refills: 0, Product Selection Permitted - molnupiravir - take 800 milligram ORAL route every 12 hours for 5 days; 10 tablet; Refills: 0, dr5 Product Selection Permitted - Zithromax Z-Kiet 250 mg Oral Tablet - take 1 tablet ORAL route as directed for 5 days Day 1 - take two (2) tablets dr5 one time. Day 2, 3, 4 , 5 take one (1) tablet once daily.; 6 tablet; Refills: 0, Product Selection Permitted - Medrol (Kiet) 4 mg Oral Tablets, Dose Pack - take 1 tablet ORAL route as directed - follow package instructions; 1 packet; dr5 Refills: 0, Product Selection Permitted Addendum: 09/16/2024 12:33 Co-signature as Attending Physician, John Doshi MD I agree with the assessment and c browning plan of care. Signatures: Dispatcher [employer] John Henriquez MD MD cha Williams, Irene, RN RN Jose Dumont, NEWSPAPER DELIVERY DRIVER-C NEWSPAPER DELIVERY DRIVER-Cdr5
--- NOTE | 2024-09-14 10:19 | ER ---
Nurse's Notes [facility] Name: Allison Raymundo Age: 58 yrs Sex: Female : 1965 Arrival Date: 09/14/2024 Time: 09:15 Bed 10 Private MD: Diagnosis: Coronavirus infection, unspecified Presentation: 09/14 09:22 Chief complaint: Patient states: fever, headache , sore throat. Coronavirus screen: iw Client presents with at least one sign or symptom that may indicate coronavirus-19. Ebola Screen: No symptoms or risks identified at this time. Initial Sepsis Screen: Does the patient meet any 2 criteria? No. Patient's initial sepsis screen is negative. Does the patient have a suspected source of infection? No. Patient's initial sepsis screen is negative. Risk Assessment: Do you want to hurt yourself or someone else? Patient reports no desire to harm self or others. 09:22 Method Of Arrival: Ambulatory iw 09:24 Onset of symptoms was September 13, 2024. iw 09:24 Acuity: VIKAS 4 iw Historical: - Allergies: 09:23 Codeine; iw - Home Meds: 09:23 atorvastatin 40 mg Oral tablet every day at bedtime [Active]; diltiazem HCl 120 mg Oral iw Tablet every morning [Active]; montelukast 10 mg Oral tablet [Active]; - PMHx: 09:23 Hypertensive disorder; Hypercholesterolemia; palpitations; Asthma; iw - PSHx: 09:23 section; Cholecystectomy; foot; knee; Ligation of fallopian tube; iw Vital Signs: 09:23 BP 155 / 91; Pulse 106; Resp 18; Temp 98.3; Pulse Ox 97% ; iw [place] Coma Score: 10:16 Eye Response: spontaneous(4). Motor Response: obeys commands(6). Verbal Response: dr5 oriented(5). Total: 15. ED Course: 09:19 Patient arrived in ED. ts1 09:20 Jose Jerome FNP-C is PHCP. dr5 09:20 John Doshi MD is Attending Physician. dr5 09:24 Arm band placed on. iw 09:25 Triage completed. iw 09:35 Joi Deshpande, RN is Primary Nurse. iw 10:45 Chest Pa And Lat (2 Views) XRAY In Process Unspecified. EDMS Administered Medications: 09:35 Drug: Ibuprofen PO 800 mg PO once Route: PO; iw 09:35 Drug: Acetaminophen PO 1000 mg PO once Route: PO; iw Outcome: 10:19 Discharge ordered by . dr5 10:26 Discharged to home ambulatory, iw 10: Condition: good 10:26 Discharge instructions given to patient, Instructed on discharge instructions, follow up and referral plans. medication usage, Demonstrated understanding of instructions, follow-up care, medications, Prescriptions given X 3, 10:27 Patient left the ED. iw Signatures: Dispatcher [employer] EDJoi Pineda RN RN iw June Jones, PAS PAS ts1 Jose Jerome, MEDIA ASSISTANT-C MEDIA ASSISTANT-Cdr5 Corrections: (The following items were deleted from the chart) 09:24 09:22 Chief complaint: Patient states: fever, headache iw iw
[2024-09-14 10:35] VITALS: BP 155/91; TEMP 98.3; O2SAT 97
--- NOTE | 2024-09-14 10:54 | RAD REPORT ---
EXAM: Chest Pa And Lat (2 Views) HISTORY: 58 years Female Cough;Congestion COMPARISON: 05/08/2023 FINDINGS: LUNGS/PLEURA: The lungs are clear. No pleural effusions or pneumothorax. No pulmonary edema. Calcifie d right lower lobe nodule. CARDIAC/MEDIASTINUM: The cardiac silhouette is within normal limits. UPPER ABDOMEN: No significant abnormality. BONES: No acute abnormality. LINES/TUBES/OTHER: N/A IMPRESSION: No evidence of acute cardiopulmonary disease.
== END 2024-09-14 10:27 | disposition home or self-care (01) ==
LOC: ER 09:15
DX: U07.1 COVID-19 (principal)
CPT/HCPCS: 36415; 71046; 87070; 87426; 99283